=== PATIENT | male | born 1960 | race Caucasian/White ===

== ENCOUNTER 2019-01-08 08:20 | Day surgery (SDC) | payer OTHER ==
[2019-01-08 09:09] LABS: Absolute Lymphocytes (CBC) 1.8 K/uL (0.7-4.9); Absolute Monocytes 0.4 K/uL (0.1-1.3); Absolute Neutrophil 4.2 K/uL (1.8-8.0); Eosinophils % 5.9 % (0-4.4); Hematocrit 46.2 % (39.6-49.0); Lymphocytes % 26.5 % (15.3-44.8); MPV 9.3 fL (7.6-11.3); Monocytes % 6.1 % (3.3-12.3); RBC Red Blood Cell Count 4.76 M/uL (4.33-5.43)
[2019-01-08] MEDS ORDERED: CEFAZOLIN/SWI 1gm 1 GM/10 ML SYR ONE (09:17)
[2019-01-08] MEDS ORDERED: NA CHLORIDE 0.9% 1,000 ML ONE (09:17)
[2019-01-08 09:36] LABS: Potassium 4.7 mmol/L (3.5-5.1)
[2019-01-08] MEDS ORDERED: BUPIVACAINE 0.5% PF 10 ML VIAL ONE (09:52)
[2019-01-08] MEDS ORDERED: PROPOFOL 200 MG/20 ML VIAL IV ONE (09:55)
[2019-01-08] MEDS ORDERED: FENTANYL CITR 100 MCG/2 ML ONE (09:55)
[2019-01-08] MEDS ORDERED: MIDAZOLAM HCL 2 MG/2 ML INJ ONE (09:56)
[2019-01-08] MEDS ORDERED: LIDOCAINE 2% MPF 5 ML VIAL ONE (09:56)
--- NOTE | 2019-01-08 10:35 | RAD REPORT ---
EXAM DESCRIPTION: RAD - Chest Pa And Lat (2 Views) - 01/08/2019 9:20 am CLINICAL HISTORY: Preop chest, soft tissue abscess drainage procedure pending COMPARISON: June 2018, January 2015 TECHNIQUE: PA and lateral views of the chest were obtained. FINDINGS: The lungs are underinflated accentuating vasculature and lung markings. No peripheral mass or consolidation seen. No failure or volume overload. Heart size is normal and central vasculature is within normal limits. No pleural effusion or pneumothorax seen. No acute bony finding noted. N o aortic abnormality. IMPRESSION: No acute cardiopulmonary process. No suspicious change from comparison.
--- NOTE | 2019-01-08 10:37 | P.BOP ---
Preoperative diagnosis: suprapubic cellulitis with abscess, diabetes, morbid obesity, h/o dvt/PE Postoperative diagnosis: same Primary procedure: Incision and drainage of suprapubic complex abscess [id number] Estimated blood loss: <10cc Specimen: devitalized tissue Findings: see dictation Anesthesia: General Complications: None Drain(s): Other Transferred to: Recovery Room Condition: Good
[2019-01-08 11:48] VITALS: BP 114/78; TEMP 97; O2SAT 95
--- NOTE | 2019-01-08 20:26 | OP ---
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 Postoperative Diagnoses: Suprapubic cellulitis with abscess, diabetes, morbid obesity, history of de ep vein thrombosis and pulmonary embolism, and on anticoagulation. Procedure: Incision and drainage of a complex suprapubic abscess about 10 x 10 cm. Specimen: Devitalized tissue. Findings: The patient has an abscess. There is a lesion in that area, I am not sure exactly if the patient has an inflammatory mass in that region that got infected or it is part of just devitalized t issue from the infection itself, and the specimen was sent to the pathologist. There were multiple l oculations in the area of the suprapubic region. They were explored and packed. Anesthesia: General plus local. Indications: This is a case of a 58-year-old patient, who comes to us in last few hours with a cellu litis of the suprapubic area. The patient is morbidly obese, has diabetes, and he is starting to marya in purulent discharge. We asked him the importance of few things, doing an incision and drainage of this complex abscess, packing, and also taking his antibiotics and especially controlling his diabete s. The patient says, when he was asked about diabetes, he says he is just prediabetic, but apparentl y he is supposed to be taking insulin. That being said it is important he just address that issue wi th his primary doctor and understand his diagnosis and his treatment. He also understands the import ance of dressing changes, losing weight. He signed a consent. The area was marked by me and the pat valerio in the holding room. Description Of Procedure: The patient was brought to the operating room, placed in supine position. Anesthesia was done without complication. The patient has DVTs in bilateral lower extremities. He is on anticoagulation, so we did not put SCDs on him. We kept him awake on just sedation and local a nesthetic. Incision was made over the area. We noticed devitalized tissue that have to be removed, gave us access to the abscess cavity. Cultures were obtained. Loculations were explored and opened. Hemostasis obtained. Irrigated and then the area was packed with wet-to-dry dressing. The patient tolerated the procedure well. The patient was sent to Recovery in stable condition. MAGALYS/TAVIA Voice ID: [id number] Report ID: [id number]
--- NOTE | 2019-01-08 20:26 | DS ---
Date of Discharge: 01/08/2019 Diagnoses: Suprapubic cellulitis with abscess, diabetes, morbid obesity. Procedure: Incision and drainage of the suprapubic complex abscess. Disposition: Home. Instructions: Activity as tolerated. No heavy lifting. Follow up in my office in 1 week. Call for appointment [phone]. Keep area dry for the next 24 hours, but tomorrow morning and can do wet-to-dr y dressing daily. We are recommending to have home health agency to help him, although he may have a family member who can help him, it will be up to him. Follow up in my office in 1 week. If this ge t worse in the next few days or high fever, he was advised to come to the ER immediately, and once ag ain the importance of diabetes control. HM/MODL Voice ID: [id number] Report ID: [id number]
--- NOTE | 2019-01-09 16:34 | EKG ---
Test Date: 2019-01-08 Test Time: 08:45:56 Flexible Nanny: CHRISTOPHER MEASUREMENT RESULTS: Intervals: Rate: 67 [place]: 174 QRSD: 86 QT: 398 QTc: 420 [place]: P: 55 NJ: 174 QRS: 180 T: 43 INTERPRETIVE STATEMENTS: Normal sinus rhythm Right axis deviation Cannot rule out Anterior infarct, age undetermined Abnormal ECG Compared to ECG 07/17/2016 06:43:53 Prolonged QT interval no longer present Myocardial infarct finding still present Electronically Signed On 01-09-19 16:33:10 CDT by Dallin Alexander
== END 2019-01-08 11:25 | disposition home health service (06) ==
LOC: OR 08:20
PROVIDERS: ATTEND Surgery
PROC: 0J980ZZ Drainage of Abdomen Subcutaneous Tissue and Fascia, Open Approach (ICD-10-PCS; principal; 2019-01-08 09:45)
DX: L72.0 Epidermal cyst (principal); L03.319 Cellulitis of trunk, unspecified; E11.9 Type 2 diabetes mellitus without complications; I10 Essential (primary) hypertension; E66.01 Morbid (severe) obesity due to excess calories; Z79.01 Long term (current) use of anticoagulants; Z79.84 Long term (current) use of oral hypoglycemic drugs; Z79.899 Other long term (current) drug therapy; Z86.718 Personal history of other venous thrombosis and embolism; Z86.711 Personal history of pulmonary embolism
CPT/HCPCS: 36415; 71046; 80048; 82962; 85025; 87070; 87075; 87077; 87186; 87205; 88304; 93005; J0690; J2250; J2704; J3010; J7030

== ENCOUNTER 2020-03-19 13:14 | Inpatient (IN) | payer OTHER ==
--- NOTE | 2020-03-19 14:35 | EDPHYS ---
Physician Documentation [facility] Name: Branden Davenport Jr Age: 59 yrs Sex: Male : 1960 Arrival Date: 03/19/2020 Time: 13:17 Bed 5 Private MD: NIKOLAS Physician Patrick Woodruff HPI: 03/19 13:52 This 59 yrs old Male presents to ER via Wheelchair with complaints of Leg lexi Pain. 13:52 The patient presents with decreased range of motion, pain, swelling, tenderness. The lexi complaints affect the lateral aspect of right calf, right ankle, lateral aspect of right foot, right Achilles, medial aspect of right calf, medial aspect of right foot, anterior aspect of right ankle and dorsum of right foot. Context: The problem was sustained at an unknown site, resulted from a penetrating injury, an unknown cause, uncontrolled dm. Onset: The symptoms/episode began/occurred 3 day(s) ago. Modifying factors: The symptoms are alleviated by elevating leg. Associated signs and symptoms: Pertinent positives: swelling, warmth. Treatment prior to arrival includes: elevation of the extremity. Severity of symptoms: At their worst the symptoms were moderate, in the emergency department the symptoms are unchanged. The patient has not experienced similar symptoms in the past. Historical: - Allergies: 13:29 PENICILLINS; hb - PMHx: 13:29 Diabetes - NIDDM; Left foot drop; neuropathy; Hypertension; GERD; psoriasis; hb - PSHx: 13:29 Appendectomy; Back surgery; Colon resection; Right hip replacement; hb - Immunization history:: Adult Immunizations up to date. - Social history:: Smoking status: Patient denies any tobacco usage or history of. - Family history:: not pertinent. ROS: 13:52 Constitutional: Negative for fever, chills, and weight loss, Eyes: Negative for injury, lexi pain, redness, and discharge, ENT: Negative for injury, pain, and discharge, Neck: Negative for injury, pain, and swelling, Cardiovascular: Negative for chest pain, palpitations, and edema, Abdomen/GI: Negative for abdominal pain, nausea, vomiting, diarrhea, and constipation, Back: Negative for injury and pain, : Negative for injury, bleeding, discharge, and swelling, MS/Extremity: Negative for injury and deformity, Skin: Negative for injury, rash, and discoloration, Neuro: Negative for headache, weakness, numbness, tingling, and seizure. 13:52 Respiratory: Positive for cough, shortness of breath. 13:52 MS/extremity: Positive for pain, swelling, tenderness, of the right foot, right ankle, lateral aspect of right foot, medial aspect of right foot, anterior aspect of right ankle and dorsum of right foot. Exam: 13:52 Constitutional: This is a well developed, well nourished patient who is awake, alert, lexi and in no acute distress. Head/Face: Normocephalic, atraumatic. Eyes: Pupils equal round and reactive to light, extra-ocular motions intact. Lids and lashes normal. Conjunctiva and sclera are non-icteric and not injected. Cornea within normal limits. Periorbital areas with no swelling, redness, or edema. ENT: Nares patent. No nasal discharge, no septal abnormalities noted. Tympanic membranes are normal and external auditory canals are clear. Oropharynx with no redness, swelling, or masses, exudates, or evidence of obstruction, uvula midline. Mucous membranes moist. Neck: Trachea midline, no thyromegaly or masses palpated, and no cervical lymphadenopathy. Supple, full range of motion without nuchal rigidity, or vertebral point tenderness. No Meningismus. Chest/axilla: Normal chest wall appearance and motion. Nontender with no deformity. No lesions are appreciated. Cardiovascular: Regular rate and rhythm with a normal S1 and S2. No gallops, murmurs, or rubs. Normal PMI, no JVD. No pulse deficits. Respiratory: Lungs have equal breath sounds bilaterally, clear to auscultation and percussion. No rales, rhonchi or wheezes noted. No increased work of breathing, no retractions or nasal flaring. Abdomen/GI: Soft, non-tender, with normal bowel sounds. No distension or tympany. No guarding or rebound. No evidence of tenderness throughout. Back: No spinal tenderness. No costovertebral tenderness. Full range of motion. Skin: Warm, dry with normal turgor. Normal color with no rashes, no lesions, and no evidence of cellulitis. Neuro: Awake and alert, GCS 15, oriented to person, place, time, and situation. Cranial nerves II-XII grossly intact. Motor strength 5/5 in all extremities. Sensory grossly intact. Cerebellar exam normal. Normal gait. Psych: Awake, alert, with orientation to person, place and time. Behavior, mood, and affect are within normal limits. 13:52 Musculoskeletal/extremity: Extremities: noted in the right foot, right ankle, lateral aspect of right foot, medial aspect of right foot, anterior aspect of right ankle and dorsum of right foot: erythema, pain. 13:52 Skin: cellulitis, that is minimal, that is mild, induration, that is mild is noted, that is moderate is noted, injury, right plantar ulcer, with sock like ulceration. 15:04 ECG was reviewed by the Attending Physician. [facility] Vital Signs: 13:25 BP 89 / 69; Pulse 103; Resp 16; Temp 97.8(TE); Pulse Ox 95% on R/A; Weight 124.74 kg; hb Height 6 ft. 3 in. (190.50 cm); Pain 5/10; 14:54 BP 115 / 53; Pulse 57; Resp 18 S; Pulse Ox 98% on R/A; iw 15:23 BP 108 / 95; Pulse 78; Resp 16; Pulse Ox 97% on R/A; iw 15:58 BP 122 / 78; Pulse 94; Resp 18; Pulse Ox 95% on R/A; iw 13:25 Body Mass Index 34.37 (124.74 kg, 190.50 cm) hb MDM: 13:32 Patient medically screened. [facility] 13:59 Data reviewed: vital signs, nurses notes, lab test result(s), EKG, radiologic studies, [facility] CT scan, doppler, plain films. 15:22 Data interpreted: supervisor beehive kiln: rate is 57 beats/min, rhythm is regular, Pulse lexi oximetry: on room air is 98 %. Test interpretation: by ED physician or midlevel provider: ECG, plain radiologic studies. Counseling: I had a detailed discussion with the patient and/or guardian regarding: the historical points, exam findings, and any diagnostic results supporting the discharge/admit diagnosis, lab results, radiology results, the need for further work-up and treatment in the hospital. ED course: septic, weak, right dfu, fever, hyperkalemia, acute on chronic renal failure. 03/19 13:52 Order name: Basic Metabolic Panel; Complete Time: 15:20 [facility] 03/19 13:52 Order name: CBC with Diff; Complete Time: 15:18 [facility] 03/19 13:52 Order name: LFT's; Complete Time: 15:20 [facility] 03/19 13:52 Order name: Magnesium; Complete Time: 15:20 [facility] 03/19 13:52 Order name: NT PRO-BNP; Complete Time: 15:20 [facility] 03/19 13:52 Order name: PT-INR; Complete Time: 15:05 [facility] 03/19 13:52 Order name: Troponin (emerg Dept Use Only); Complete Time: 15:20 [facility] 03/19 13:52 Order name: XRAY Chest (1 view) [facility] 03/19 13:52 Order name: Lipase; Complete Time: 15:20 [facility] 03/19 13:52 Order name: Blood Culture Adult (2) [facility] 03/19 13:52 Order name: Lactate; Complete Time: 15:18 [facility] 03/19 13:52 Order name: Sed Rate; Complete Time: 15:18 [facility] 03/19 13:52 Order name: Wound Culture [facility] 03/19 13:52 Order name: Procalcitonin [facility] 03/19 13:52 Order name: EKG; Complete Time: 13:53 [facility] 03/19 13:52 Order name: Foot Right 3 View XRAY; Complete Time: 15:20 [facility] 03/19 15:08 Order name: Diet Ada 1800 Gautam; Complete Time: 15:08 03/19 15:12 Order name: CONS Physician Consult [facility] 03/19 13:52 Order name: Cardiac monitoring; Complete Time: 14:40 [facility] 03/19 13:52 Order name: EKG - Nurse/Tech; Complete Time: 14:40 [facility] 03/19 13:52 Order name: IV Saline Lock; Complete Time: 14:39 [facility] 03/19 13:52 Order name: Labs collected and sent; Complete Time: 14:39 [facility] 03/19 13:52 Order name: O2 Per Protocol; Complete Time: 14:39 [facility] 03/19 13:52 Order name: O2 Sat Monitoring; Complete Time: 14:39 [facility] EC:04 Rate is 90 beats/min. Rhythm is regular. QRS [place] is Normal. MS interval is normal. QRS lexi interval is normal. QT interval is normal. No Q waves. T waves are Normal. No ST changes noted. Clinical impression: NSR w/ Non-specific ST/T Changes and No evidence of ischemia. Interpreted by me. Reviewed by me. Administered Medications: 14:53 Drug: NS 0.9% 1000 ml Route: IV; Rate: 1 bolus; Site: left antecubital; iw 14:53 Drug: Cefepime 2 grams Route: IVPB; Rate: 200 ml/hr; Infused Over: 30 mins; Site: left iw antecubital; 15:20 Drug: vancoMYCIN 2 grams Route: IVPB; Rate: calculated rate; Site: left antecubital; iw 15:21 Drug: Silvadene Cream 1 % 1 application Route: Topical; Site: wound; iw 15:21 Drug: fentaNYL (PF) 25 mcg Route: IVP; Site: left antecubital; iw 16:00 Follow up: Response: No adverse reaction; Pain is decreased iw 15:21 Drug: Zofran (Ondansetron) 4 mg Route: IVP; Site: left antecubital; iw 16:00 Follow up: Response: No adverse reaction iw 15:44 Drug: Magnesium Sulfate 2 grams Route: IVPB; Infused Over: 2 hrs; Site: left iw antecubital; 16:00 Follow up: Response: No adverse reaction iw 15:44 Drug: Kayexalate 30 grams Route: PO; iw 16:10 Follow up: Response: No adverse reaction iw 15:58 Not Given (Physician Discretion): Pepcid 20 mg IVP once iw 16:27 Drug: NS 0.9% 1000 ml Route: IV; Rate: 1 bolus; Site: left antecubital; iw 16:28 Drug: NS 0.9% 1000 ml Route: IV; Rate: 125 ml/hr; Site: left antecubital; iw Disposition: 03/19/20 14:34 Hospitalization ordered by Jordy Renee for Inpatient Admission. Preliminary diagnosis are Cellulitis and acute lymphangitis of other parts of limb - right foot, ankle, Type 2 diabetes mellitus, Personal history of diabetic foot ulcer - recurrent, Hypotension, Sepsis, unspecified organism, Hypomagnesemia, Unspecified kidney failure - acute on chronic, Hyperkalemia, Fever, unspecified. - Bed requested for Telemetry/MedSurg (Inpatient). - Status is Inpatient Admission. iw - Condition is Fair. - Problem is new. - Symptoms have improved. Signatures: Dispatcher [employer] Ayala Calderón RN RN dw Anderson, Corey, MD MD cha Williams, Irene HERMINIO RN Maryanne Arizmendi RN RN Corrections: (The following items were deleted from the chart) 14:33 13:53 Chest For PE Angio+CT.RAD.BRZ ordered. EDDC EDDC 15:19 14:34 Hospitalization Ordered by Jordy Renee MD for Inpatient Admission. Preliminary lexi diagnosis is Cellulitis and acute lymphangitis of other parts of limb - right foot, ankle; Type 2 diabetes mellitus; Personal history of diabetic foot ulcer - recurrent; Hypotension; Sepsis, unspecified organism. Bed requested for Telemetry/MedSurg (Inpatient). Status is Inpatient Admission. Condition is Fair. Problem is new. Symptoms have improved. [facility] 15:21 15:19 03/19/2020 14:34 Hospitalization Ordered by Jordy Renee MD for Inpatient lexi Admission. Preliminary diagnosis is Cellulitis and acute lymphangitis of other parts of limb - right foot, ankle; Type 2 diabetes mellitus; Personal history of diabetic foot ulcer - recurrent; Hypotension; Sepsis, unspecified organism; Hypomagnesemia; Unspecified kidney failure - acute on chronic. Bed requested for Telemetry/MedSurg (Inpatient). Status is Inpatient Admission. Condition is Fair. Problem is new. Symptoms have improved. [facility] 15:25 15:21 03/19/2020 14:34 Hospitalization Ordered by Jordy Renee MD for Inpatient lexi Admission. Preliminary diagnosis is Cellulitis and acute lymphangitis of other parts of limb - right foot, ankle; Type 2 diabetes mellitus; Personal history of diabetic foot ulcer - recurrent; Hypotension; Sepsis, unspecified organism; Hypomagnesemia; Unspecified kidney failure - acute on chronic; Hyperkalemia. Bed requested for Telemetry/MedSurg (Inpatient). Status is Inpatient Admission. Condition is Fair. Problem is new. Symptoms have improved. [facility] 15:32 15:25 03/19/2020 14:34 Hospitalization Ordered by Jordy Renee MD for Inpatient dw Admission. Preliminary diagnosis is Cellulitis and acute lymphangitis of other parts of limb - right foot, ankle; Type 2 diabetes mellitus; Personal history of diabetic foot ulcer - recurrent; Hypotension; Sepsis, unspecified organism; Hypomagnesemia; Unspecified kidney failure - acute on chronic; Hyperkalemia; Fever, unspecified. Bed requested for Telemetry/MedSurg (Inpatient). Status is Inpatient Admission. Condition is Fair. Problem is new. Symptoms have improved. lexi 17:01 15:32 03/19/2020 14:34 Hospitalization Ordered by Jordy Renee MD for Inpatient iw Admission. Preliminary diagnosis is Cellulitis and acute lymphangitis of other parts of limb - right foot, ankle; Type 2 diabetes mellitus; Personal history of diabetic foot ulcer - recurrent; Hypotension; Sepsis, unspecified organism; Hypomagnesemia; Unspecified kidney failure - acute on chronic; Hyperkalemia; Fever, unspecified. Bed requested for Telemetry/MedSurg (Inpatient). Status is Inpatient Admission. Condition is Fair. Problem is new. Symptoms have improved. dw
--- NOTE | 2020-03-19 14:35 | ER ---
Nurse's Notes [facility] Name: Branden Davenport Jr Age: 59 yrs Sex: Male : 1960 Arrival Date: 03/19/2020 Time: 13:17 Bed 5 Private MD: Diagnosis: Cellulitis and acute lymphangitis of other parts of limb-right foot, ankle;Type 2 diabetes mellitus;Personal history of diabetic foot ulcer-recurrent;Hypotension;Sepsis, unspecified organism;Hypomagnesemia;Unspecified kidney failure-acute on chronic;Hyperkalemia;Fever, unspecified Presentation: 03/19 13:25 Chief complaint: Bilateral lower leg pain x 2-3 days, right lower leg swelling x 2 hb days. Hx of DVT, reports pain is similar. Coronavirus screen: At this time, the client does not indicate any symptoms associated with coronavirus-19. Ebola Screen: No symptoms or risks identified at this time. Initial Sepsis Screen: Does the patient meet any 2 criteria? HR > 90 bpm. Initial Sepsis Screen: Does the patient have a suspected source of infection? No. Patient's initial sepsis screen is negative. Risk Assessment: Do you want to hurt yourself or someone else? Patient reports no desire to harm self or others. Onset of symptoms was March 17, 2020. 13:25 Method Of Arrival: Wheelchair hb 13:25 Acuity: NELLI 3 hb Triage Assessment: 15:59 General: Appears in no apparent distress. Behavior is calm, cooperative. iw Historical: - Allergies: 13:29 PENICILLINS; hb - PMHx: 13:29 Diabetes - NIDDM; Left foot drop; neuropathy; Hypertension; GERD; psoriasis; hb - PSHx: 13:29 Appendectomy; Back surgery; Colon resection; Right hip replacement; hb - Immunization history:: Adult Immunizations up to date. - Social history:: Smoking status: Patient denies any tobacco usage or history of. - Family history:: not pertinent. Screenin:54 Abuse screen: Denies threats or abuse. Denies injuries from another. Nutritional iw screening: No deficits noted. Tuberculosis screening: No symptoms or risk factors identified. Fall Risk IV access (20 points). Assessment: 14:00 General: Appears in no apparent distress. comfortable, Behavior is calm, cooperative. iw Pain: Complains of pain in dorsum of right foot and anterior aspect of right ankle and medial aspect of right foot and medial aspect of right calf. Neuro: Level of Consciousness is awake, alert, obeys commands, Oriented to person, place, time, situation, Moves all extremities. Full function. Cardiovascular: Patient's skin is warm and dry. Respiratory: Respiratory effort is even, unlabored, Respiratory pattern is regular, symmetrical. GI: Abdomen is non-distended. Derm: Skin. Derm: Decubitus located on right foot approximately 1.5 cm to 2.5 cm is stage II bed has granulation present is draining small amount purulent. Musculoskeletal: Range of motion: intact in all extremities. 14:54 Reassessment: pt requesting pain medication an food, pt normally takes hydrocodone 7.5 iw mg three times per day. 15:22 Reassessment: Patient appears in no apparent distress at this time. pt given pain iw medication, wound care complete, started vancomycin IVPB, warm blankets given, fluids infusing freely, VSS, BP improved. 15:55 Reassessment: Patient appears in no apparent distress at this time. Patient and/or iw family updated on plan of care and expected duration. Pain level reassessed. Vital Signs: 13:25 BP 89 / 69; Pulse 103; Resp 16; Temp 97.8(TE); Pulse Ox 95% on R/A; Weight 124.74 kg; hb Height 6 ft. 3 in. (190.50 cm); Pain 5/10; 14:54 BP 115 / 53; Pulse 57; Resp 18 S; Pulse Ox 98% on R/A; iw 15:23 BP 108 / 95; Pulse 78; Resp 16; Pulse Ox 97% on R/A; iw 15:58 BP 122 / 78; Pulse 94; Resp 18; Pulse Ox 95% on R/A; iw 13:25 Body Mass Index 34.37 (124.74 kg, 190.50 cm) hb ED Course: 13:17 Patient arrived in ED. bp1 13:25 Patient has correct armband on for positive identification. iw 13:28 Triage completed. hb 13:29 Arm band placed on. hb 13:31 Carolyne Sauceda, HERMINIO is Primary Nurse. iw 13:32 Patrick Woodruff MD is Attending Physician. lexi 14:15 Missed attempt(s): 20 gauge in left antecubital area. Bleeding controlled, band aid dh3 applied, catheter tip intact. 14:18 Missed attempt(s): 20 gauge in right antecubital area. Bleeding controlled, band aid dh3 applied, catheter tip intact. 14:20 Inserted saline lock: 22 gauge in left antecubital area, using aseptic technique. Blood dh3 collected. by [employer]. 14:20 Initial lab(s) drawn, by pr, sent to lab. dh3 14:32 Jordy Renee MD is Hospitalizing Provider. [facility] 14:49 EKG done, by ED staff, reviewed by Patrick Woodruff MD. dh3 15:00 XRAY Chest (1 view) In Process Unspecified. EDMS 15:00 Foot Right 3 View XRAY In Process Unspecified. EDMS 15:59 No provider procedures requiring assistance completed. Patient admitted, IV remains in iw place. Administered Medications: 14:53 Drug: NS 0.9% 1000 ml Route: IV; Rate: 1 bolus; Site: left antecubital; iw 14:53 Drug: Cefepime 2 grams Route: IVPB; Rate: 200 ml/hr; Infused Over: 30 mins; Site: left iw antecubital; 15:20 Drug: vancoMYCIN 2 grams Route: IVPB; Rate: calculated rate; Site: left antecubital; iw 15:21 Drug: Silvadene Cream 1 % 1 application Route: Topical; Site: wound; iw 15:21 Drug: fentaNYL (PF) 25 mcg Route: IVP; Site: left antecubital; iw 16:00 Follow up: Response: No adverse reaction; Pain is decreased iw 15:21 Drug: Zofran (Ondansetron) 4 mg Route: IVP; Site: left antecubital; iw 16:00 Follow up: Response: No adverse reaction iw 15:44 Drug: Magnesium Sulfate 2 grams Route: IVPB; Infused Over: 2 hrs; Site: left iw antecubital; 16:00 Follow up: Response: No adverse reaction iw 15:44 Drug: Kayexalate 30 grams Route: PO; iw 16:10 Follow up: Response: No adverse reaction iw 15:58 Not Given (Physician Discretion): Pepcid 20 mg IVP once iw 16:27 Drug: NS 0.9% 1000 ml Route: IV; Rate: 1 bolus; Site: left antecubital; iw 16:28 Drug: NS 0.9% 1000 ml Route: IV; Rate: 125 ml/hr; Site: left antecubital; Outcome: 14:34 Decision to Hospitalize by Provider. lexi 17:00 Admitted to Med/surg accompanied by tech, via stretcher, with chart. iw 17:00 Condition: good 17:00 Discharge instructions given to patient, Instructed on the need for admit, Demonstrated understanding of instructions. 17:01 Patient left the ED. Signatures: Dispatcher [employer] EDPatrick Snowden MD MD cha Williams, Irene, RN RN Maryanne Arizmendi, HERMINIO DURHAM Ya Solorzano 3 Val H[facility] [employer]rections: (The following items were deleted from the chart) 14:38 14:25 Inserted saline lock: 22 gauge in left antecubital area, using aseptic technique. 3 Blood collected. by Haily Zurita 3
[2020-03-19] MEDS ORDERED: NA CHLORIDE 0.9% 0 ML ONE (14:46)
[2020-03-19] MEDS ORDERED: NA CHLORIDE 0.9% 100 ML IV ONE (14:46)
[2020-03-19] MEDS ORDERED: SILVER SULFADIAZINE 1% 25 GM TOP ONE (14:46)
[2020-03-19] MEDS ORDERED: CEFEPIME 2 GM VIAL ONE (14:46)
[2020-03-19 14:48] LABS: Protime INR 1.32
[2020-03-19 14:49] LABS: Absolute Lymphocytes (CBC) 1.1 K/uL (0.7-4.9); Basophils % 0.7 % (0-1.3); Hematocrit 44.9 % (39.6-49.0); Lymphocytes % 11.8 % (15.3-44.8); MPV 8.8 fL (7.6-11.3)
[2020-03-19] MEDS ORDERED: VANCOMYCIN 2 GM in NA CHLORIDE 0.9% 500 ML IVPB ONE (15:00)
[2020-03-19 15:16] LABS: ALT/SGPT 14 U/L (12-78); Albumin 3.2 g/dL (3.4-5.0); Alkaline Phosphatase 46 U/L (45-117); BUN Blood Urea Nitrogen 35 mg/dL (7-18); Bicarbonate 28 mmol/L (21-32); Bilirubin Direct 0.3 mg/dL (0-0.2); Bilirubin Total 0.9 mg/dL (0.2-1.0); Glucose Level 309 mg/dL (74-106); Lipase 58 U/L (73-393); NT PRO-BNP 182 pg/mL (<125); Sodium Level 132 mmol/L (136-145); Troponin (Emerg Dept Use Only) < 0.02 ng/mL (0.0-0.045)
[2020-03-19 15:17] LABS: AST/SGOT 15 U/L (15-37); Potassium 5.5 mmol/L (3.5-5.1)
--- NOTE | 2020-03-19 15:17 | RAD REPORT ---
EXAM DESCRIPTION: RAD - Foot Right 3 View - 03/19/2020 3:00 pm CLINICAL HISTORY: PAIN, plantar wound COMPARISON: No comparisons FINDINGS: No fracture, dislocation or periosteal reaction. No acute or destructive process seen. Wou nd is seen in the plantar soft tissues near the MTP joints. No erosive or destructive process to susp ect osteomyelitis. MTP and IP joint assessment is somewhat limited due to the patient being an flexio n at the IP joints and extension at the MTP joints. This creates overlapping bony structures. No air or foreign body in the soft tissues. IMPRESSION: No acute bone finding. No suspicion for osteomyelitis.
[2020-03-19 15:19] LABS: Magnesium 1.1 mg/dL (1.8-2.4)
[2020-03-19] MEDS ORDERED: ONDANSETRON 4 MG/2 ML VIAL ONE (15:22)
[2020-03-19] MEDS ORDERED: FENTANYL CITR 100 MCG/2 ML ONE (15:22)
--- NOTE | 2020-03-19 15:23 | RAD REPORT ---
EXAM DESCRIPTION: RAD - Chest Single View - 03/19/2020 3:00 pm CLINICAL HISTORY: Cough;Dyspnea COMPARISON: Two view chest December 2018, portable June 2016 TECHNIQUE: AP portable chest image was obtained 03/19/2020 3:00 pm . FINDINGS: Lung volumes are low. No failure or volume overload. No acute lung parenchymal process see n. Heart and vasculature are normal. Right hilar fullness and right suprahilar fullness believed to b e the affects of body habitus and low lung volumes. Substantial change from comparison is not seen. N o measurable pleural effusion and no pneumothorax. No acute bony abnormality seen. No acute aortic fi ndings suspected. IMPRESSION: No acute cardiopulmonary process. No significant change from comparison.
--- NOTE | 2020-03-19 15:31 | P.HP ---
Certification for Inpatient Patient admitted to: Inpatient With expected LOS: >2 Midnights Patient will require the following post-hospital care: None Practitioner: I am a practitioner with admitting privileges, knowledge of patient current condition, hospital course, and medical plan of care. Services: Services provided to patient in accordance with Admission requirements found in Title 42 Section 412.3 of the Code of Federal Regulations <Warner Dumont - Last Filed: 03/19/20 15:26> Patient History Date of Service: 03/19/20 Reason for admission: Cellulitis/diabetic foot ulcer History of Present Illness: 59-year-old male with past medical history of hypertension and type 2 diabetes presents to the emergency room complaining of right leg pain. Patient is noncompliant with his diabetic medication. Rarely checks his blood glucose. States that for the past 2 days he has noticed a decrease in range of motion, at pain and swelling and tenderness in the right leg from the right calf to the right ankle. States that he has no feeling in the plantar aspect of his foot and that he has been taking care of a diabetic foot ulcer located at the base on the plantar side of the great toe by himself. In the ER patient right lower leg is slightly swollen and erythematous. There is an obvious ulceration at the head of the great toe on the plantar side of the right foot. There is also a 2 cm x 1 cm blood blister along the forced digit on the plantar side of the right foot. Blood work in the emergency room shows a ma gnesium level of 1.1 which is significantly decreased, white blood cell that is normal at 9.7. Temperature 97.8 and a procalcitonin that is pending. Patient does not appear to be septic at this time. On exam the right foot appears erythematous with some slight swelling at the great toe and an obvious diabetic foot ulcer in the plantar aspect of the right foot. There is also a blood blister on the 3rd to 4th toe on the plantar aspect of the right foot. The right leg does not appear swollen but he is complaining of tenderness with palpitation. Right leg ultrasound pending. Patient will be admitted for IV antibiotic therapy and further evaluation. - Past Medical/Surgical History Diabetic: Yes -: HTN -: GERD -: Diabetes mellitus -: Left foot drop -: Appendectomy -: back surgery -: colon resection -: right hip replacement Psychosocial/ Personal History: Lives at home - Family History Mother -: Hypertension, Diabetes, Stroke, Cancer Father -: Diabetes - Social History Smoking Status: Never smoker Smoking therapy provided: No Patient receptive to therapy: No Alcohol use: Yes CD- Drugs: No Caffeine use: No Place of Residence: Home <Warner Dumont - Last Filed: 03/19/20 15:26> Date of Service: 03/19/20 <VíctorAliceJorgepop Guzman - Last Filed: 03/19/20 18:04> Allergies No Known Allergies Allergy (Verified 01/08/19 09:33) Home Medications: Gabapentin 1 tab PO TID 07/16/16 Apixaban [Eliquis *] 5 mg PO BID #60 tablet 07/19/16 Metoprolol Tartrate [Lopressor*] 25 mg PO BID 6AM 6PM #60 tab 07/19/16 Codeine/APAP [Tylenol W/Codeine #3 tab] 1 tab PO Q4HP PRN #30 tab 01/08/19 Lisinopril [Zestril] 30 mg PO DAILY 01/08/19 Metformin HCl 500 mg PO BID 01/08/19 NaCl 0.9% Irr Bottle [Ns Irrigation Bottle] 1,000 ml IR DAILY #1 btl 01/08/19 Omeprazole [Prilosec] 40 mg PO DAILY 01/08/19 glyBURIDE [Glyburide] 5 mg PO DAILY 01/08/19 Review of Systems General: As per HPI Eyes: Unremarkable ENT: Unremarkable Respiratory: Unremarkable Cardiovascular: Unremarkable Gastrointestinal: Unremarkable Genitourinary: Unremarkable Musculoskeletal: Leg Pain, Foot Pain, As per HPI Integumentary: Unremarkable Neurological: Unremarkable Lymphatics: Unremarkable <Warner Dumont - Last Filed: 03/19/20 15:26> Physical Examination - Vital Signs Temperature: 97.8 F Pulse Ox (%): 95 (RA) - Physical Exam General: Alert, In no apparent distress, Oriented x3 HEENT: Atraumatic, Normocephalic, PERRLA Neck: Supple, Other (Trachea midline) Respiratory: Clear to auscultation bilaterally, Normal air movement Cardiovascular: No edema, Normal pulses, Normal S1 S2 Capillary refill: <2 Seconds Gastrointestinal: Normal bowel sounds, Soft and benign, Non-distended Musculoskeletal: Swelling (Right foot), Erythema (Right foot to distal right calf), Tenderness, Warmth Integumentary: Tenderness/swelling, Diabetic ulcer (Plantar side or right foot) Neurological: Normal gait, Normal speech, Normal strength at 5/5 x4 extr, Normal tone Other Physical/Emotional Findings: Lives at home - Studies Laboratory Data (last 24 hrs) 03/19/20 14:25: Sodium 132 L, Potassium 5.5 H, BUN 35 H, Creatinine 2.12 H, Glucose 309 H, Magnesium 1.1 L*, Total Bilirubin 0.9, AST 15, ALT 14, Alkaline Phosphatase 46, Lipase 58 L 03/19/20 14:20: PT 15.5 H, INR 1.32 03/19/20 14:20: WBC 9.7, Hgb 14.8, Hct 44.9, Plt Count 218 <Warner Dumont - Last Filed: 03/19/20 15:26> - Studies Laboratory Data (last 24 hrs) 03/19/20 14:25: Sodium 132 L, Potassium 5.5 H, BUN 35 H, Creatinine 2.12 H, Glucose 309 H, Magnesium 1.1 L*, Total Bilirubin 0.9, AST 15, ALT 14, Alkaline Phosphatase 46, Lipase 58 L 03/19/20 14:20: PT 15.5 H, INR 1.32 03/19/20 14:20: WBC 9.7, Hgb 14.8, Hct 44.9, Plt Count 218 <Jorge Renee - Last Filed: 03/19/20 18:04> Assessment and Plan - Plan Impression: Right foot diabetic foot ulcer with right lower extremity cellulitis: Acute on chronic kidney disease: Type 2 diabetes mellitus: Hypomagnesemia: Hyperkalemia: Essential hypertension: Plan: Right foot diabetic foot ulcer with right lower extremity cellulitis: Patient was started on IV vancomycin and IV ceftriaxone. Will ask pharmacy to renally dose. Consult Infectious Disease. Patient will also require wound care for diabetic foot ulcer. Will order MRI of the foot without contrast due to kidney function to rule out osteomyelitis. Will monitor cellulitis and adjust antibiotic by recommendations and as needed. Acute on chronic kidney disease: Patient's creatinine level usually ranges between 1.3 1.6. Creatinine today is 2.12. Will continue gentle IV hydration. Will monitor creatinine levels daily. Will consult Nephrology. Type 2 diabetes mellitus: ED lab work show and a blood glucose of 309. Patient has a history of noncompliance with medications. Will start patient on sliding scale insulin and adjust medications accordingly. Patient's blood glucose may be elevated as well due to the right foot infection. Hypomagnesemia: Magnesium level of 101 on admission. Will continue to replace and monitor Mag levels daily. Hyperkalemia: ED lab work showing a potassium level of 5.5. Will continue gentle IV hydration and monitor daily labs. Will place patient on continuous telemetry. Essential hypertension: Will hold off on restarting patient's home blood pressure medications. Patient's blood pressure was borderline hypotensive in the ED. Will monitor blood pressure. Discharge Plan: Home Plan to discharge in: 48 Hours - Advance Directives Does patient have a Living Will: No Does patient have a Durable POA for Healthcare: No - Code Status/Comfort Care Code Status Assessed: Yes Time Spent Managing Pts Care (In Minutes): 55 <Warner Dumont - Last Filed: 03/19/20 15:26> Physician Review: Patient Assessed, Agree with Above Assessment and Plan <Jorge Renee - Last Filed: 03/19/20 18:04>
[2020-03-19] MEDS ORDERED: SOD POLYSTYREN SUL 15 GM/60 ML UCUP ONE (15:44)
[2020-03-19] MEDS ORDERED: Magnesium Sulfate 2gm IVPB 2 G/50 ML BAG IV ONE (15:44)
[2020-03-19] MEDS: CEFTRIAXONE/SWI 1gm 1 GM/10 ML SYR IVP SCH (16:00)
[2020-03-19] MEDS ORDERED: ONDANSETRON 4 MG/2 ML VIAL IV PRN (16:25)
[2020-03-19] MEDS: NA CHLORIDE 0.9% 1,000 ML IV SCH (16:25)
[2020-03-19] MEDS ORDERED: ACETAMINOPHEN 500 MG TAB PO PRN (16:25)
[2020-03-19] MEDS: INSULIN -REGULAR HUMAN 50 UNIT/0.5 ML ML SQ SCH ×2 (16:30→20:21)
[2020-03-19] MEDS ORDERED: NA CHLORIDE 0.9% 1,000 ML ONE (16:40)
[2020-03-19] MEDS ORDERED: CEFTRIAXONE/SWI 1gm 1 GM/10 ML SYR ONE (16:40)
[2020-03-19] MEDS ORDERED: HEPARIN 5000 UNIT/ML 1 ML VIAL SQ SCH (17:00)
[2020-03-19 17:33] VITALS: BMI 34.2
[2020-03-19] MEDS ORDERED: METOPROLOL TAR 25 MG TAB PO SCH (18:00)
[2020-03-19] MEDS ORDERED: PNEUMOCOCCAL VACCINE 0.5 ML IMVAC ONE (20:00)
[2020-03-19] MEDS: CODEINE 30MG/APAP 300MG TAB PO PRN (20:20)
[2020-03-19] MEDS: APIXABAN 5 MG TABLET PO SCH (20:21)
[2020-03-20] MEDS: NA CHLORIDE 0.9% 1,000 ML IV SCH ×3 (01:21→18:16)
--- NOTE | 2020-03-20 01:29 | CON ---
Date of Consultation: 03/19/2020 Chief Complaint: Acute on chronic kidney injury. History Of Present Illness: The patient has multiple medical problems including chronic kidney disea se due to diabetes mellitus and hypertension. Previously, creatinine level was ranging from 1.5 to 1 .8. The patient came to the hospital, was found to have elevated azotemia. Creatinine was over 2 an d there is high BUN-creatinine ratio. He has nonoliguric urine output. He has history of diabetes, hypertension, and came to emergency room complaining of right leg pain. He is noncompliant with diab etic medication. He does not check glucose level. Today, he noted decreased motion and pain, swelli ng and tenderness of the right leg from right calf to the right ankle. He was also feeling pain over plantar aspect of his foot and was taking wound care of the foot ulcer located at the base of the pl ramses side. He was found to have swelling, erythema, and ulceration of the head of the great toe on the plantar side of the right foot, about 1 cm blood blister was also found on the plantar side of th e right foot. Blood work was obtained and magnesium was depleted to 1.1. The patient was screened f or hep C and nephrology consultation is requested for acute on chronic kidney injury. Past Medical History: Hypertension, diabetes mellitus, left foot drop, appendectomy, back surgery, c olon resection, right hip replacement. Family History: Mother with hypertension, diabetes, throat cancer. Social History: Denies tobacco, alcohol, or illicit drug. Review of Systems: Eyes: Denies new vision changes. Ears, Nose, Mouth, and Throat: Denies sore throat or earache. Respiratory: Denies PND or orthopnea. Cardiovascular: Denies chest pain, palpitation, syncope. GI: Denies nausea or vomiting. : Denies dysuria, hematuria, incomplete voiding. Musculoskeletal: Complains of leg pain, foot pain, and some chronic wound with erythema and swelling . All other systems reviewed and all are negative. Physical Examination: General: Alert, not in apparent distress. Eyes: Anicteric sclerae. EOMI. Ears, Nose, Mouth, and Throat: Oral mucosa moist. No pallor. Neck: Supple. No bruits. Lungs: Diminished breath sounds at bases. Heart: S1, S2. No pericardial friction rub. Abdomen: Soft, obese, nontender. No rebound. No guarding. Extremities: Dressing in place. Right foot swelling. Erythema of the right foot to the distal righ t calf. Tenderness and increased warmth. Neurologic: No tremors. Cranial nerves intact. Laboratory Data: Sodium 132, potassium 5.5, BUN 35, creatinine 2.1, glucose 309, magnesium 1.1, tota l bilirubin 0.9, AST 15, ALT 14, AP 46, lipase 58. Hemoglobin 14.8, WBC 9.7, platelet count 218. Impression And Plan: 1.Acute on chronic kidney injury, nonoliguric. The patient has uncontrolled diabetes and hypertensi on. Likely, there is element of prerenal azotemia and plan is to rule out other etiology and screen for proteinuria. Hyperkalemia is related to uncontrolled diabetes and renal hypoperfusion. Recommen d to avoid GAY inhibitor. Monitor renal panel and treat acidosis as needed. 2.Diabetes mellitus, uncontrolled. The patient will resume insulin. 3.Plan is to check renal ultrasound to screen for any evidence of bladder outlet obstruction. The p atient has history of diabetes mellitus. Recommend to avoid metformin and lisinopril. At this point , the patient has acute kidney injury and the patient may benefit from IV fluids. 4.The patient is treated for sepsis. We will start antibiotic for osteomyelitis and will require wo und care and broad-spectrum antibiotics. Culture pending. 5.Hypomagnesemia. Replacement. Monitor magnesium and adjust replacement. EB/MODL Voice ID: [id number] Report ID: [id number]
[2020-03-20 06:12] LABS: Absolute Lymphocytes (CBC) 1.6 K/uL (0.7-4.9); Basophils % 0.8 % (0-1.3); Hematocrit 41.9 % (39.6-49.0); Lymphocytes % 15.7 % (15.3-44.8); MPV 8.8 fL (7.6-11.3); RBC Red Blood Cell Count 4.48 M/uL (4.33-5.43)
[2020-03-20] MEDS: CODEINE 30MG/APAP 300MG TAB PO PRN (06:12)
[2020-03-20 06:37] LABS: Potassium 3.9 mmol/L (3.5-5.1)
[2020-03-20 06:39] LABS: Magnesium 1.4 mg/dL (1.8-2.4)
[2020-03-20 07:50] LABS: Urine Protein/Creatinine Ratio 0.27 ratio (<0.15)
[2020-03-20] MEDS ORDERED: Magnesium Sulfate 2gm IVPB 2 G/50 ML BAG IV ONE (08:00)
[2020-03-20] MEDS: INSULIN -REGULAR HUMAN 50 UNIT/0.5 ML ML SQ SCH ×4 (08:39→21:10)
[2020-03-20] MEDS: CEFTRIAXONE/SWI 1gm 1 GM/10 ML SYR IVP SCH (08:40)
[2020-03-20] MEDS: PANTOPRAZOLE 40MG TABLET PO SCH (08:40)
[2020-03-20] MEDS: APIXABAN 5 MG TABLET PO SCH ×2 (08:40→21:09)
[2020-03-20] MEDS ORDERED: NACL 0.9% IRR SCH (09:00)
[2020-03-20] MEDS ORDERED: LISINOPRIL 30 MG PO SCH (09:00)
[2020-03-20] MEDS ORDERED: HOME MED 1 EA UNK (Omeprazole [Prilosec] 40 MG) PO SCH (09:00)
[2020-03-20] MEDS ORDERED: IRR IRR SCH (09:00)
--- NOTE | 2020-03-20 12:21 | P.PN ---
Subjective Date of Service: 03/20/20 Chief Complaint: Cellulitis/diabetic foot ulcer Subjective: Improving, Doing well (Right leg pain and erythema slightly improved from yesterday.) <Warner Dumont - Last Filed: 03/20/20 12:16> Date of Service: 03/20/20 <NamrataMikie llanos - Last Filed: 03/20/20 17:21> Review of Systems General: As per HPI Eyes: Unremarkable ENT: Unremarkable Respiratory: Unremarkable Cardiovascular: Unremarkable Gastrointestinal: Unremarkable Genitourinary: Unremarkable Musculoskeletal: Leg Pain (Right leg), Foot Pain (Right foot) Integumentary: Unremarkable Neurological: Numbness (Bilateral lower extremity neuropathy) Lymphatics: Unremarkable <LeahrikkiWarnre bell - Last Filed: 03/20/20 12:16> Physical Examination - Vital Signs Temperature: 98.8 F Blood Pressure: 99/57 Pulse: 114 Respirations: 19 Pulse Ox (%): 91 - Physical Exam General: Alert, In no apparent distress, Oriented x3 HEENT: Atraumatic, Normocephalic, PERRLA, Mucous membr. moist/pink Neck: Supple, No Thyromegaly, Other (Trachea midline) Respiratory: Clear to auscultation bilaterally, Normal air movement Cardiovascular: No edema, Normal pulses, Regular rate/rhythm, Normal S1 S2 Capillary refill: <2 Seconds Gastrointestinal: Normal bowel sounds, Soft and benign, Non-distended Musculoskeletal: No clubbing, No contractures, Swelling (Right lower extremity, improving), Erythema (Right lower extremity, improving), Tenderness (Right lower extremity, improved) Integumentary: No rashes, No breakdown, No significant lesion, No tenderness/swelling Neurological: Normal gait, Normal speech, Normal strength at 5/5 x4 extr, Normal tone Other Physical/Emotional Findings: Lives at home - Studies Laboratory Data (last 24 hrs) 03/19/20 14:25: Sodium 132 L, Potassium 5.5 H, BUN 35 H, Creatinine 2.12 H, Glucose 309 H, Magnesium 1.1 L*, Total Bilirubin 0.9, AST 15, ALT 14, Alkaline Phosphatase 46, Lipase 58 L 03/19/20 14:20: PT 15.5 H, INR 1.32 03/19/20 14:20: WBC 9.7, Hgb 14.8, Hct 44.9, Plt Count 218 <Wraner Dumont - Last Filed: 03/20/20 12:16> - Studies Microbiology Data (last 24 hrs): 03/19/20 15:00 Wound - Right Foot Gram Stain - Final <Mikie Wright - Last Filed: 03/20/20 17:21> Assessment And Plan - Plan Impression: Right diabetic foot ulcer with right lower extremity cellulitis: Acute on chronic kidney disease: Type 2 diabetes mellitus: Hypomagnesemia: Hyperkalemia: Essential hypertension: Plan: Right diabetic foot ulcer with right lower extremity cellulitis: Continue IV vancomycin and IV ceftriaxone. Will ask pharmacy to renally dose. Consult for Infectious Disease in place. Patient will also require wound care for diabetic foot ulcer. Will order MRI of the foot without contrast due to kidney function to rule out osteomyelitis. Will order lower extremity venous and arterial ultrasound to evaluate circulation and to rule out a DVT. Will monitor cellulitis and adjust antibiotic by recommendations and as needed. Will consult surgery for possible surgical intervention and/or debridement of the right foot. Acute on chronic kidney disease: Stage III. Patient's creatinine level usually ranges between 1.3 - 1.6. Creatinine yesterday was 2.12 and is now down to 1.88. Slowly improving. Will continue gentle IV hydration. Will monitor creatinine levels daily. Will consult Nephrology. Type 2 diabetes mellitus: ED lab work on admission show and a blood glucose of 309. Patient has a history of noncompliance with medications. Continue patient on sliding scale insuli, Accu-Cheks a.c. HS and adjust medications accordingly. Patient's blood glucose may be elevated as well due to the right foot infection. Hypomagnesemia: Magnesium level of 1.1 on admission. Magnesium improved to 1.4 this morning after replacement. Will continue to replace and monitor Mag levels daily. Hyperkalemia: ED lab work showing a potassium level of 5.5. Today potassium has returned to normal at 3.9. Will continue gentle IV hydration and monitor daily labs. Will place patient on continuous telemetry. And replace potassium as needed. Essential hypertension: Blood pressure continues low at 90 9/57. Will hold off on restarting patient's home blood pressure medications. Patient's blood pressure was borderline hypotensive in the ED on admission. Will continue to monitor blood pressure. Discharge Plan: Home Plan to discharge in: 72 Hours - Code Status/Comfort Care Code Status Assessed: Yes Physician Review: Patient Assessed, Agree with Above Assessment and Plan Time Spent Managing PTS Care (In Minutes): 55 <Warner Dumont - Last Filed: 03/20/20 12:16> - Plan Patient examined. Agree with evaluation, assessment, and plan of care by physician after school program assistant. Continue with above recommendations. Await recommendations by infectious disease. <Mikie Wright - Last Filed: 03/20/20 17:21>
[2020-03-20] MEDS: GABAPENTIN 300 MG CAP PO SCH ×2 (13:13→21:09)
[2020-03-20] MEDS: VANCOMYCIN 2 GM in NA CHLORIDE 0.9% 500 ML IVPB SCH (14:38)
[2020-03-20] MEDS ORDERED: HYDROCODONE/APAP 7.5/325 MG TAB PO SCH (17:00)
--- NOTE | 2020-03-20 18:49 | RAD REPORT ---
EXAM DESCRIPTION: US - Extrem Venous W Compress Praveen - 03/20/2020 6:42 pm CLINICAL HISTORY: Lower extremity swelling and pain Bilateral leg edema and swelling. COMPARISON: Extrem Venous W Compress Praveen dated 07/16/2016 TECHNIQUE: Real-time sonographic interrogation of the left and right lower extremity deep venous sys tems was performed. FINDINGS: Normal compressibility, flow augmentation, phasic flow and spontaneous flow is identified in both the left and right lower extremity deep venous systems. IMPRESSION: No sonographic evidence of left or right lower extremity deep venous thrombosis.
--- NOTE | 2020-03-20 18:57 | RAD REPORT ---
EXAM DESCRIPTION: US - Renal Ultrasound-Complete - 03/20/2020 6:42 pm CLINICAL HISTORY: arf Flank pain COMPARISON: No comparisons FINDINGS: Both kidneys are normal in size, shape and echotexture. The right kidney measures 11.1 x 5.7 x 4.8 cm. No hydronephrosis, focal mass or perinephric fluid. The left kidney measures 11.0 x 5.0 x 4.7 cm. No hydronephrosis, focal mass or perinephric fluid. The urinary bladder is incompletely distended without gross abnormality seen. IMPRESSION: Unremarkable renal sonogram.
--- NOTE | 2020-03-20 19:07 | RAD REPORT ---
EXAM DESCRIPTION: US - Lower Extremity Arterial Bilat - 03/20/2020 6:42 pm CLINICAL HISTORY: PVD/ RT foot ulcer Leg pain and soft tissue ulceration COMPARISON: No comparisons TECHNIQUE: Bilateral lower extremity arterial Doppler examination was performed with nicholas wright FINDINGS: Minimal atheromatous plaquing is seen involving both lower extremity arterial systems. Left lower extremity arterial system is triphasic throughout. Right lower extremity arterial system is biphasic below the level of the popliteal artery is indicati ng mild distal disease. Proximal right lower extremity arterial system is triphasic. No high-grade stenosis or occlusion is evident. IMPRESSION: Mild distal right lower extremity arterial peripheral vascular disease is seen. No occlu gabriela.
[2020-03-20] MEDS: HYDROCODONE/APAP 7.5/325 MG TAB PO PRN (21:09)
--- NOTE | 2020-03-21 00:02 | PN ---
Date of Progress Note: 03/20/2020 Chief Complaint: Acute on chronic kidney injury. History Of Present Illness: The patient has nonoliguric urine output. The patient has multiple medi rubina problems including history of chronic kidney disease due to diabetes mellitus, hypertension. Pre vious creatinine level at baseline was ranging from 1.5 to 1.8. The patient came to the hospital and was found to have elevated azotemia with high BUN-creatinine ratio. He was complaining of right leg pain. He is noncompliant with diabetic medication. He has uncontrolled diabetes and prerenal azote inés with nonoliguric acute tubular necrosis. The patient was found to have severe hypomagnesemia and received magnesium supplementation. Review of Systems: Denies PND or orthopnea. Physical Examination: Lungs: Diminished breath sounds at bases. Heart: S1, S2. Abdomen: Soft, benign. Extremities: Dressing in place. Laboratory Data: Protein-creatinine ratio 0.27, urine creatinine 62, random protein 17. Chemistry s how sodium 135, potassium 3.9, chloride 98, CO2 27, BUN 29, creatinine 1.8, glucose 248, calcium 8.5, magnesium 1.4. Creatinine level was up to 2.12, BUN 35, potassium 5.5, sodium 132, glucose 309, and magnesium 1.1. Impression And Plan: 1.Acute on chronic kidney injury, prerenal azotemia, nonoliguric acute tubular necrosis, diabetic fo ot infection. Continue antibiotics and adjust dose to renal function. Continue insulin for diabetic control. The patient has history of proteinuria and monitor microalbuminuria. 2.Hyperkalemia is related to uncontrolled diabetes and renal hypoperfusion in setting of uncontrolle d diabetes. Recommend to avoid GAY inhibitor when potassium is elevated. Monitor renal panel and tr eat acidosis as needed. At this point, acidosis is controlled. 3.Severe hypomagnesemia. Magnesium replacement was ordered and is improving. 4.Diabetes mellitus with renal manifestation. The patient is not a candidate for metformin. At thi s point, lisinopril was stopped because of hyperkalemia and when kidney function is back to baseline and potassium is controlled, the patient will resume lisinopril for diabetic control and proteinuria control for diabetic kidney disease treatment. EB/MODL Voice ID: [id number] Report ID: [id number]
[2020-03-21] MEDS: CODEINE 30MG/APAP 300MG TAB PO PRN ×3 (01:53→19:42)
[2020-03-21] MEDS: HYDROCODONE/APAP 7.5/325 MG TAB PO PRN ×2 (06:41→14:26)
[2020-03-21] MEDS: NA CHLORIDE 0.9% 1,000 ML IV SCH (06:44)
[2020-03-21 06:49] LABS: Absolute Lymphocytes (CBC) 1.1 K/uL (0.7-4.9); Basophils % 0.5 % (0-1.3); Hematocrit 38.5 % (39.6-49.0); Lymphocytes % 13.9 % (15.3-44.8); MPV 9.2 fL (7.6-11.3)
[2020-03-21 07:06] LABS: Albumin 2.7 g/dL (3.4-5.0); Magnesium 1.8 mg/dL (1.8-2.4); Phosphorus 2.2 mg/dL (2.5-4.9); Potassium 3.7 mmol/L (3.5-5.1); Thyroid Stimulating Hormone 1.71 uIU/mL (0.360-3.740); Uric Acid 5.4 mg/dL (3.5-7.2)
[2020-03-21] MEDS: GABAPENTIN 300 MG CAP PO SCH ×3 (08:32→20:44)
[2020-03-21] MEDS: APIXABAN 5 MG TABLET PO SCH ×2 (08:32→20:44)
[2020-03-21] MEDS: FENOFIBRATE 160 MG TAB PO SCH (08:33)
[2020-03-21] MEDS: INSULIN -REGULAR HUMAN 50 UNIT/0.5 ML ML SQ SCH ×4 (08:33→20:44)
[2020-03-21] MEDS: PANTOPRAZOLE 40MG TABLET PO SCH (08:33)
[2020-03-21] MEDS: CEFTRIAXONE/SWI 1gm 1 GM/10 ML SYR IVP SCH (08:33)
[2020-03-21] MEDS: IRR IRR SCH (08:35)
[2020-03-21] MEDS: NACL 0.9% IRR SCH (08:35)
--- NOTE | 2020-03-21 11:32 | P.PN ---
Subjective Date of Service: 03/21/20 Chief Complaint: Cellulitis/diabetic foot ulcer Subjective: Improving, Doing well (Pleasant and cooperative) Review of Systems General: As per HPI Eyes: Unremarkable ENT: Unremarkable Respiratory: Unremarkable Cardiovascular: Unremarkable Gastrointestinal: Unremarkable Genitourinary: Unremarkable Musculoskeletal: Foot Pain (Mild) Integumentary: Unremarkable Neurological: Unremarkable Lymphatics: Unremarkable Physical Examination - Vital Signs Temperature: 99.2 F Blood Pressure: 120/66 Pulse: 112 Respirations: 20 Pulse Ox (%): 98 - Physical Exam General: Alert, In no apparent distress, Oriented x3, Cooperative HEENT: Atraumatic, Normocephalic, PERRLA, Mucous membr. moist/pink Neck: Supple, No Thyromegaly, Other (Trachea midline) Respiratory: Clear to auscultation bilaterally, Normal air movement Cardiovascular: No edema, Normal pulses, Regular rate/rhythm, Normal S1 S2 Capillary refill: <2 Seconds Gastrointestinal: Normal bowel sounds, Soft and benign, Non-distended Musculoskeletal: Swelling (Right foot, mi), Erythema (Right foot, mild) Integumentary: No rashes, No breakdown, Skin lesion (Plantar aspect of right great toe, at base), Tenderness/swelling (Mild), Erythema (Mi) Neurological: Normal speech, Normal strength at 5/5 x4 extr, Normal tone Other Physical/Emotional Findings: Lives at home - Studies Microbiology Data (last 24 hrs): 03/19/20 15:00 Wound - Right Foot Gram Stain - Final Assessment And Plan - Plan Impression: Right diabetic foot ulcer with right lower extremity cellulitis: Acute on chronic kidney disease: Type 2 diabetes mellitus: Hypomagnesemia: Hyperkalemia: Essential hypertension: Plan: Right diabetic foot ulcer with right lower extremity cellulitis: Continue IV vancomycin and IV ceftriaxone. Will ask pharmacy to renally dose. Renal function improving. Consult for Infectious Disease in place. Patient will also require wound care for diabetic foot ulcer. Will order MRI of the foot without contrast due to kidney function to rule out osteomyelitis. Lower extremity venous Doppler shows no DVT. Arterial Doppler shows mild decrease in right lower extremity perfusion but no occlusion. Cellulitis improving. Will monitor cellulitis and adjust antibiotic by recommendations and as needed. Will consult surgery for possible surgical intervention and/or debridement of the right foot. Depending on findings of MRI patient may require 2-6 weeks of IV antibiotics and PICC line placement. Patient would prefer home health IV antibiotic therapy and home health wound care. Acute on chronic kidney disease: Stage III. Acute stage resolved. Patient's creatinine level usually ranges between 1.3 - 1.6. Creatinine yesterday was 2.12 and today is 1.4. Improved. Patient is tolerating p.o. diet. Will discontinue IV hydration. Will monitor creatinine levels daily. Will consult Nephrology. Type 2 diabetes mellitus: ED lab work on admission show and a blood glucose of 309. Patient has a history of noncompliance with medications. Continue patient on sliding scale insuli, Accu-Cheks a.c. HS and adjust medications accordingly. Patient's blood glucose may be elevated as well due to the right foot infection. Will order hemoglobin A1c. Hypomagnesemia: Resolved. Magnesium level of 1.1 on admission. A medium of 1.8 today. Will continue to replace and monitor Mag levels daily. Hyperkalemia: ED lab work showing a potassium level of 5.5. Today potassium has returned to normal at 3.9. Today it is 3.7. Will place patient on continuous telemetry. And replace potassium as needed. Essential hypertension: Blood pressure of 120/66 x 2. Will hold off on re starting patient's home blood pressure medications. Patient's blood pressure was borderline hypotensive in the ED on admission. And has remained within normal limits for now. Will continue to monitor blood pressure. Note: Dr. Cerda has agreed to accept patient. Patient will follow up with Dr. Cerda as a PCP and at the [facility]. Plan to discharge in: 48 Hours - Code Status/Comfort Care Code Status Assessed: Yes Physician Review: Patient Assessed, Agree with Above Assessment and Plan Time Spent Managing PTS Care (In Minutes): 45
[2020-03-21] MEDS ORDERED: MAGNESIUM SULFATE 1 gm IVPB 1 GM/100 ML BAG IV ONE (12:00)
[2020-03-21] MEDS ORDERED: POTASSIUM CL SA 10 MEQ TAB PO ONE (12:00)
--- NOTE | 2020-03-21 13:28 | P.CNS ---
Chief Complaint: Cellulitis/diabetic foot ulcer Allergies No Known Allergies Allergy (Verified 01/08/19 09:33) Home Medications: Apixaban [Eliquis *] 5 mg PO BID #60 tablet 07/19/16 Lisinopril [Zestril] 30 mg PO DAILY 01/08/19 Metformin HCl 500 mg PO BID 01/08/19 Omeprazole [Prilosec] 40 mg PO DAILY 01/08/19 glyBURIDE [Glyburide] 5 mg PO BID 01/08/19 Fenofibrate [Tricor] 145 mg PO DAILY 03/19/20 Gabapentin 300 mg PO TID 03/19/20 Guselkumab [Tremfya] 100 mg SQ SEECOM 03/19/20 Hydrocodone Bit/Acetaminophen [Lawrence 7.5-325 Tablet] 1 each PO Q8HR 03/19/20 Metoprolol Tartrate 1 tab PO BID 03/19/20 Triamterene/Hydrochlorothiazid [Triamterene-Hctz 37.5-25 mg Cp] 1 each PO DAILY 03/19/20 - Past Medical/Surgical History Diabetic: Yes -: HTN -: GERD -: Diabetes mellitus -: Left foot drop -: Appendectomy -: back surgery -: colon resection -: right hip replacement Psychosocial/ Personal History: Lives at home - Family History Mother Medical History: Hypertension, Diabetes, Stroke, Cancer Father Medical History: Diabetes - Social History Alcohol use: Yes CD- Drugs: No Caffeine use: Yes Place of Residence: Home Physical Examination Temp Pulse Resp BP Pulse Ox 99.2 F 110 H 20 115/68 93 03/21/20 12:00 03/21/20 12:00 03/21/20 12:00 03/21/20 12:00 03/21/20 12:00
--- NOTE | 2020-03-21 13:40 | P.CNS ---
Date of Consult: 03/21/20 PC: I was asked to see this 59-year-old male regards to some diabetic ulcers and the inflammation on his foot. HPC: Patient apparently was trying some calluses sub few days ago. Since that time reset pain in discomfort in his foot. Started a swell and become red so he came to the emergency room for evaluation treatment. PMH: Diabetes PSHx: Previous bowel resection, appendectomy, drainage of abscess sees previous back surgeries SOC: No known allergies, medication list review SYS REVIEW: No cough, wheeze, shortness of breath. No headaches. No abdominal complaints. Denies any urinary symptoms. Has dropped foot on left leg O/E awake alert vital signs are stable HEENT: Within normal limits Chest: Chest movement equal bilateral ABD: Intact LOCO: On the right foot has to plantar ulcers. Over the head of the metatarsal of the great toe on that foot. There is some redness and erythema. Also a white circular area around this suggesting possible blister formation. DATA: Thin x-ray shows no evidence of any osteo. Is scheduled for an MRI. IMPRESSION: Diabetic ulcers with erythema, possible developing abscess on the head of the metatarsal. The fit was quite swollen yesterday, it has resolved somewhat today. PLAN: Await these wounds to fully demarcate. In the meantime he is on IV antibiotics. Once we have the results of the MRI scan, will consider a possible OR debridement. May not require long-term IV antibiotics and he would like to wait until we determine if there is a bone infection before his subjected to a PICC line. Wound care nurses will also evaluate the wound in the a.m.. He will be made NPO at midnight and tomorrow we will determine if he requires a surgical debridement.
[2020-03-21] MEDS: VANCOMYCIN 2 GM in NA CHLORIDE 0.9% 500 ML IVPB SCH (16:08)
[2020-03-21] MEDS: POTASS/SODIUM PHOSPHATE 1 PKT POWD.PACK PO SCH ×3 (19:42→22:53)
[2020-03-21] MEDS ORDERED: ALBUMIN HUMAN 25% 50 ML IV ONE (20:56)
[2020-03-21] MEDS ORDERED: NA CHLORIDE 0.9% 1,000 ML IV SCH (21:00)
[2020-03-21] MEDS: HYDROMORPHONE HCL 0.5 MG/0.5 ML INJ IV PRN (21:22)
--- NOTE | 2020-03-22 00:21 | PN ---
Date of Progress Note: 03/21/2020 Chief Complaint: Acute on chronic kidney injury. History Of Present Illness: The patient has nonoliguric urine output. Renal function has been impro ving. The patient has multiple medical problems including history of chronic kidney disease due to d iabetes mellitus and hypertension. Previous creatinine level at baseline was ranging from 1.5 to 1.8 . The patient came to the hospital and was found to have elevated azotemia with high BUN-creatinine ratio. He was complaining of right leg pain. He is noncompliant with diabetic medication, has uncon trolled diabetes, prerenal azotemia, and nonoliguric acute tubular necrosis due to uncontrolled diabe shine and possible sepsis. The patient was found to have severe hypomagnesemia and received magnesium supplementation. Review of Systems: Denies PND or orthopnea. Physical Examination: Lungs: Diminished breath sounds at bases. Heart: S1, S2. Abdomen: Soft, benign. Extremities: Dressing in place. Laboratory Data: Hemoglobin is 12.8, WBC 7.7, platelet count 173,000. Chemistry showed sodium 138, potassium 3.7, chloride 103, CO2 28, BUN 20, creatinine 1.41, glucose 187, phosphorus 2.2, calcium 8. 6, uric acid 5.4. Creatinine level has improved from 2.12 to 1.41. Impression And Plan: 1.Acute kidney injury, improving. The patient has chronic kidney disease due to diabetes mellitus a nd hypertension. Continue blood pressure medication and adjust treatment according to blood pressure . 2.Continue adequate hydration. 3.Hyperkalemia. On arrival to the hospital, potassium was 5.5. Currently potassium is in good cont rol. The patient may resume GAY inhibitor for diabetic kidney disease and blood pressure control. 4.Severe hypomagnesemia. Magnesium level was replaced and is improving. 5.Diabetes mellitus with renal manifestation. The patient is not a candidate for metformin. Contin ue treatment with insulin and monitor electrolytes. Lisinopril will be resumed for diabetic kidney d isease. JENNIFER/MODL Voice ID: [id number] Report ID: [id number]
[2020-03-22 00:55] LABS: Rheumatoid Factor NEG (NEG)
[2020-03-22] MEDS: HYDROMORPHONE HCL 0.5 MG/0.5 ML INJ IV PRN ×5 (03:39→21:46)
[2020-03-22 05:13] LABS: Absolute Lymphocytes (CBC) 0.7 K/uL (0.7-4.9); Basophils % 0.8 % (0-1.3); Hematocrit 36.5 % (39.6-49.0); Lymphocytes % 10.5 % (15.3-44.8); MPV 8.4 fL (7.6-11.3); RBC Red Blood Cell Count 3.94 M/uL (4.33-5.43)
[2020-03-22 05:27] LABS: Albumin 2.6 g/dL (3.4-5.0); Magnesium 1.7 mg/dL (1.8-2.4); Phosphorus 2.2 mg/dL (2.5-4.9); Potassium 4.4 mmol/L (3.5-5.1)
[2020-03-22] MEDS ORDERED: MAGNESIUM SULFATE 1 gm IVPB 1 GM/100 ML BAG IV ONE (06:18)
[2020-03-22] MEDS: CEFTRIAXONE/SWI 1gm 1 GM/10 ML SYR IVP SCH (08:01)
[2020-03-22] MEDS: APIXABAN 5 MG TABLET PO SCH ×2 (09:00→21:45)
[2020-03-22] MEDS: NACL 0.9% IRR SCH (09:00)
[2020-03-22] MEDS: IRR IRR SCH (09:00)
[2020-03-22] MEDS ORDERED: lisinopriL 5 MG TAB PO SCH (09:00)
--- NOTE | 2020-03-22 09:05 | P.PN ---
Subjective Date of Service: 03/22/20 Chief Complaint: Cellulitis/diabetic foot ulcer Subjective: No new changes, No C/O voiced Review of Systems 10-point ROS is otherwise unremarkable Integumentary: As per HPI Physical Examination - Vital Signs Temperature: 100.1 F Blood Pressure: 154/70 Pulse: 112 Respirations: 18 Pulse Ox (%): 93 - Physical Exam General: Alert, In no apparent distress, Oriented x3 HEENT: Atraumatic, Normocephalic Neck: Supple Respiratory: Clear to auscultation bilaterally, Normal air movement Cardiovascular: No edema, Normal pulses, Normal S1 S2 Capillary refill: <2 Seconds Gastrointestinal: Normal bowel sounds, Soft and benign Musculoskeletal: Erythema, Tenderness, Warmth Integumentary: Skin lesion (Right lower extremity ), Tenderness/swelling, Erythema, Warmth Neurological: Normal gait, Normal speech Lymphatics: No axilla or inguinal lymphadenopathy Other Physical/Emotional Findings: Lives at home - Studies Microbiology Data (last 24 hrs): 03/19/20 15:00 Wound - Right Foot Gram Stain - Final Assessment & Plan Discharge Plan: Home Plan to discharge in: 48 Hours - Code Status/Comfort Care Code Status Assessed: Yes Physician Review Additional Text: Impression: Right diabetic foot ulcer with right lower extremity cellulitis: Acute on chronic kidney disease: Type 2 diabetes mellitus: Hypomagnesemia: Hyperkalemia: Essential hypertension: Plan: Right diabetic foot ulcer with right lower extremity cellulitis: Continue IV vancomycin and IV ceftriaxone. Will ask pharmacy to renally dose. Renal function improving. Consult for Infectious Disease in place. Patient will also require wound care for diabetic foot ulcer. MRI has been completed. Lower extremity venous Doppler shows no DVT. Arterial Doppler shows mild decrease in right lower extremity perfusion but no occlusion. Cellulitis improving. Will monitor cellulitis and adjust antibiotic by recommendations and as needed. Surgery has seen the patient, patient was NPO last night. Currently awaiting re-evaluation from surgeon. Depending on findings of MRI patient may require 2- 6 weeks of IV antibiotics and PICC line placement. Patient would prefer home health IV antibiotic therapy and home health wound care. Will continue to monitor closely. Acute on chronic kidney disease: Stage III. Acute stage resolved. Patient's creatinine level usually ranges between 1.3 - 1.6. Creatinine yesterday was 2.12 and today is 1.4. Improved. Patient is tolerating p.o. diet. Will discontinue IV hydration. Will monitor creatinine levels daily. Nephrology has seen the patient. Will continue hydration. Type 2 diabetes mellitus: ED lab work on admission show and a blood glucose of 309. Patient has a history of noncompliance with medications. Continue patient on sliding scale insuli, Accu-Cheks a.c. HS and adjust medications accordingly. Patient's blood glucose may be elevated as well due to the right foot infection. Will order hemoglobin A1c. Hypomagnesemia: Resolved. Magnesium level of 1.1 on admission. A medium of 1.8 today. Will continue to replace and monitor Mag levels daily. Hyperkalemia: ED lab work showing a potassium level of 5.5. Potassium currently within normal limits. Will continue to monitor closely. Patient remained on telemetry. Essential hypertension: Blood pressure of 120/66 x 2. Will hold off on restarting patient's home blood pressure medications. Patient's blood pressure was borderline hypotensive in the ED on admission. And has remained within normal limits for now. Will continue to monitor blood pressure. Critical Care: No Time Spent Managing Pts Care (In Minutes): 55
[2020-03-22] MEDS: INSULIN -REGULAR HUMAN 50 UNIT/0.5 ML ML SQ SCH ×4 (09:21→21:46)
[2020-03-22] MEDS: lisinopriL 5 MG TAB PO SCH (09:22)
[2020-03-22] MEDS: GABAPENTIN 300 MG CAP PO SCH ×3 (09:22→21:45)
[2020-03-22] MEDS: PANTOPRAZOLE 40MG TABLET PO SCH (09:23)
[2020-03-22] MEDS: FENOFIBRATE 160 MG TAB PO SCH (09:23)
--- NOTE | 2020-03-22 09:34 | RAD REPORT ---
EXAM DESCRIPTION: MRI - Foot Right Wo Cont - 03/22/2020 8:54 am CLINICAL HISTORY: Right foot cellulitis and diabetic foot ulcer, plantar surface soft tissue wound f irst MTP joint region COMPARISON: Foot Right 3 View dated 03/19/2020 TECHNIQUE: Multiplanar imaging of the right foot performed using T1 weighted, T1 fat saturation, T2 fat saturation and T2 stir sequencing. FINDINGS: Soft tissue edema changes are present in the soft tissues around the first MTP joint along the plantar and medial margins. No abscess or drainable fluid collection identifiable. The first met atarsal and the first toe phalanges show normal T1/T2 signal characteristics. Sesamoid bones do show hypointense T1 and hyperintense T2 signal. Flexor tendon shows normal size and signal intensity. The second- fourth metatarsals and second- fourth toes show no evidence for osteomyelitis or acute fi nding. There is linear signal abnormality traversing the base of the fifth proximal phalanx. No signi ficant signal abnormality in this toe otherwise noted. This may be a chronic fracture. Tarsal bones and partially imaged ankle joint show no suspicious findings. Edema seen over the dorsum soft tissues. Again, no focal fluid collections seen. IMPRESSION: Osteomyelitis is probably present in the sesamoid bones at the first MTP joint. The first metatarsal and first toe phalanges show no evidence for osteomyelitis. Prominent soft tissue infectious/edema changes present around the first MTP joint. This is primarily medial and plantar margins. No abscess or drainable fluid collection.
[2020-03-22] MEDS: CODEINE 30MG/APAP 300MG TAB PO PRN (09:48)
[2020-03-22] MEDS: HYDROCODONE/APAP 7.5/325 MG TAB PO PRN (09:49)
--- NOTE | 2020-03-22 10:43 | P.CNS ---
Date of Consult: 03/22/20 Subjective: This patient is a 59-year-old male with past medical history of type 2 diabetes myelitis and neuropathy who presents with worsening erythema, swelling, and pain to right lower extremity. Patient reports callused area to plantar surface of right foot that he removed a few weeks ago. Patient reports, "I think i cut it a little to deep." Patient also reports no feeling to plantar surface of his feet and walks around barefooted 90% of the time. Patient found to have right lower extremity cellulitis and DFU to right foot plantar surface which I have been consulted for. - Past Medical/Surgical History Diabetic: Yes -: HTN -: GERD -: Diabetes mellitus -: Left foot drop -: Appendectomy -: back surgery -: colon resection -: right hip replacement Psychosocial/ Personal History: Lives at home - Family History Mother -: Hypertension, Diabetes, Stroke, Cancer Father -: Diabetes - Social History Dips tobacco daily Allergies No Known Allergies Allergy (Verified 01/08/19 09:33) Active Medications Acetaminophen (Tylenol -Extra Strength) 500 mg PO Q4HP PRN PRN Reason: TEMP > 101' F Stop: 04/18/20 16:26 Last Admin: 03/19/20 23:59 Dose: 500 mg Documented by: Acetaminophen/Codeine Phosphate (Tylenol W/Codeine #3 Tab) 1 tab PO Q4HP PRN PRN Reason: PAIN Stop: 04/18/20 15:20 Last Admin: 03/21/20 19:42 Dose: 1 tab Documented by: Hydrocodone Bitart/Acetaminophen ([place] 7.5/325 Mg) 1 tab PO Q8HR PRN PRN Reason: Pain scale 5-7 (Moderate) Stop: 04/19/20 17:01 Last Admin: 03/22/20 09:49 Dose: 1 tab Documented by: Apixaban (Eliquis) 5 mg PO BID [facility] Stop: 04/18/20 21:01 Last Admin: 03/22/20 09:00 Dose: Not Given Documented by: Fenofibrate (Tricor) 160 mg PO DAILY [facility] Stop: 04/20/20 09:01 Last Admin: 03/22/20 09:23 Dose: 160 mg Documented by: Gabapentin (Neurontin) 300 mg PO TID [facility] Stop: 04/19/20 14:01 Last Admin: 03/22/20 09:22 Dose: 300 mg Documented by: Hydromorphone HCl (Dilaudid) 0.5 mg IV Q4H PRN PRN Reason: Pain scale 5-7 (Moderate) Stop: 04/20/20 20:56 Last Admin: 03/22/20 08:01 Dose: 0.5 mg Documented by: Ceftriaxone Sodium/Sodium Chloride (Rocephin 1 Gm/10 Ml Swi Ivp) 1 gm in 10 mls @ 600 mls/hr IVP DAILY [facility]; Protocol Stop: 04/18/20 16:01 Last Admin: 03/22/20 08:01 Dose: 10 mls Documented by: Vancomycin HCl 2 gm/ Sodium (Chloride) 500 mls @ 250 mls/hr IVPB Q24H [facility]; Protocol Stop: 04/19/20 15:01 Last Admin: 03/21/20 16:08 Dose: 500 mls Documented by: Insulin Human Regular (Novolin -R) 0 unit SQ ACHS [facility]; Protocol Stop: 04/18/20 16:31 Last Admin: 03/22/20 09:21 Dose: 5 unit Documented by: Lisinopril (Prinivil) 2.5 mg PO DAILY [facility] Stop: 04/21/20 09:01 Last Admin: 03/22/20 09:22 Dose: 2.5 mg Documented by: Ondansetron HCl (Zofran) 4 mg IV Q6HP PRN PRN Reason: NAUSEA / VOMITING Stop: 04/18/20 16:26 Pantoprazole Sodium (Protonix Tab) 40 mg PO ACB [facility] Stop: 04/19/20 07:31 Last Admin: 03/22/20 09:23 Dose: 40 mg Documented by: Sodium Chloride (Normal Saline Flush) 10 ml IV BID [facility] Stop: 04/18/20 21:01 Last Admin: 03/22/20 09:00 Dose: 10 ml Documented by: Sodium Chloride (Ns Irrigation Bottle) 0 ml IRR DAILY [facility] Stop: 04/19/20 09:01 Last Admin: 03/22/20 09:00 Dose: 1 ml Documented by: ROS: CV: Denies chest pain RESP: Denies shortness of breath and cough : Denies dysuria GI: Denies nausea and diarrhea Objective: Temp Pulse Resp BP Pulse Ox 100.1 F 112 H 18 154/70 H 93 03/22/20 09:05 03/22/20 09:22 03/22/20 09:05 03/22/20 09:22 03/22/20 09:05 Labs: Sodium 136, potassium 4.4, BUN 16, creatinine 1.35, albumin 2.6, WBC 6.9, hematocrit 36.5, hemoglobin 12.3 Foot xray 03/19: EXAM DESCRIPTION: RAD - Foot Right 3 View - 03/19/2020 3:00 pm CLINICAL HISTORY: PAIN, plantar wound COMPARISON: No comparisons FINDINGS: No fracture, dislocation or periosteal reaction. No acute or destructive process seen. Wound is seen in the plantar soft tissues near the MTP joints. No erosive or destructive process to suspect osteomyelitis. MTP and IP joint assessment is somewhat limited due to the patient being an flexion at the IP joints and extension at the MTP joints. This creates overlapping bony structures. No air or foreign body in the soft tissues. IMPRESSION: No acute bone finding. No suspicion for osteomyelitis Foot MRI 03/22: EXAM DESCRIPTION: MRI - Foot Right Wo Cont - 03/22/2020 8:54 am CLINICAL HISTORY: Right foot cellulitis and diabetic foot ulcer, plantar surface soft tissue wound first MTP joint region COMPARISON: Foot Right 3 View dated 03/19/2020 TECHNIQUE: Multiplanar imaging of the right foot performed using T1 weighted, T1 fat saturation, T2 fat saturation and T2 stir sequencing. FINDINGS: Soft tissue edema changes are present in the soft tissues around the first MTP joint along the plantar and medial margins. No abscess or drainable fluid collection identifiable. The first metatarsal and the first toe phalanges show normal T1/T2 signal characteristics. Sesamoid bones do show hypointense T1 and hyperintense T2 signal. Flexor tendon shows normal size and signal intensity. The second- fourth metatarsals and second- fourth toes show no evidence for osteomyelitis or acute finding. There is linear signal abnormality traversing the base of the fifth proximal phalanx. No significant signal abnormality in this toe otherwise noted. This may be a chronic fracture. Tarsal bones and partially imaged ankle joint show no suspicious findings. Edema seen over the dorsum soft tissues. Again, no focal fluid collections seen. IMPRESSION: Osteomyelitis is probably present in the sesamoid bones at the first MTP joint. The first metatarsal and first toe phalanges show no evidence for osteomyelitis. Prominent soft tissue infectious/edema changes present around the first MTP joint. This is primarily medial and plantar margins. No abscess or drainable fluid collection. ROS: General: Awake, alert, oriented CV: S1,S2 RESP: Good breath sounds ABD: Nontender, bowel sounds present Extremities: edema to RLE Skin: RLE with erythema, warmth and swelling. Right medial foot with large blister like formation, lupe area with bruising and erythema. Right foot plantar surface with DFU, wound bed with slough and granulation tissue, lupe area with callus. Assessment and plan: DFU to right plantar surface, MRI suggest osteomyelitis present in the sesamoid bones at the first MTP joint, possible I&D today Right lower extremity cellulitis, educated the patient to keep leg elevated Blood culture shows no growth to date Wound cultures shows E.Coli and staph Rocephin day 4 and Vancomycin day 3 Upon discharge, recommend to change to Levaquin 500mg IV daily for total of 6 weeks Patient would benefit from [facility] facility for wound management, hyperbaric treatments and IV antibiotics Diabetes mellitus, A1c 12.0 Diabetic neuropathy Protein calorie malnourished Will continue to monitor Thank you for consult Patient discussed with Dr. Cary
--- NOTE | 2020-03-22 14:36 | P.PN ---
Date of Service: 03/22/20 S: Patient feels somewhat better today. O: Still has some cellulitis in his right foot, at the head of the metatarsal. Ulcers on the soles of his feet remain unchanged. MRI shows ostia of the sesamoid bones of his feet. A: Patient has probable osteomyelitis P: Patient has opted for a 6 weeks of IV antibiotics at home. He will have a PICC line placed, home health set up, and will be followed at the wound center.
[2020-03-22] MEDS: VANCOMYCIN 2 GM in NA CHLORIDE 0.9% 500 ML IVPB SCH (16:47)
[2020-03-23] MEDS: HYDROMORPHONE HCL 0.5 MG/0.5 ML INJ IV PRN ×5 (01:21→21:05)
--- NOTE | 2020-03-23 01:58 | PN ---
Date of Progress Note: 03/22/2020 Chief Complaint: Acute kidney injury. History Of Present Illness: Acute kidney injury, nonoliguric. Urine output is adequate. Renal func tion has improved gradually over the last few days and the patient received IV fluids. Creatinine le samantha at baseline, usually was ranging from 1.5 to 1.8. The patient has diabetic kidney disease and hy pertensive kidney disease. Review of Systems: Denies fever or chills. Physical Examination: Lungs: Diminished breath sounds at bases. Heart: S1, S2. Abdomen: Soft, benign. Extremities: Dressing in place. Impression And Plan: 1.Acute kidney injury. Renal function is improving. Continue to monitor blood pressure. Adjust me dication accordingly. 2.Continue IV fluids and monitor fluid balance. 3.Hyperkalemia. On arrival to the hospital, potassium was 5.5. Potassium improved. Renal function is back to baseline. Continue GAY inhibitor and avoid nonsteroidal anti-inflammatory medication. 4.Monitor magnesium level and plan replacement as needed. JENNIFER/TAVIA Voice ID: [id number] Report ID: [id number]
[2020-03-23 04:39] LABS: Absolute Lymphocytes (CBC) 0.7 K/uL (0.7-4.9); Basophils % 0.6 % (0-1.3); Hematocrit 36.8 % (39.6-49.0); Lymphocytes % 15.6 % (15.3-44.8); MPV 8.4 fL (7.6-11.3); RBC Red Blood Cell Count 3.95 M/uL (4.33-5.43)
[2020-03-23 04:55] LABS: Albumin 2.5 g/dL (3.4-5.0); Magnesium 1.6 mg/dL (1.8-2.4); Phosphorus 2.4 mg/dL (2.5-4.9); Potassium 4.2 mmol/L (3.5-5.1)
[2020-03-23 07:25] LABS: Urine Appearance CLEAR; Urine Bilirubin NEGATIVE (NEG); Urine Blood NEGATIVE (NEG); Urine Color YELLOW; Urine Glucose 3+ (NEG); Urine Protein NEGATIVE (NEG); Urine Specific Gravity 1.025 (1.005-1.030); Urine Urobilinogen 0.2 mg/dL (0.2-1.0)
[2020-03-23 08:15] LABS: Urine Microscopic Reflex NO UMIC
[2020-03-23] MEDS: INSULIN -REGULAR HUMAN 50 UNIT/0.5 ML ML SQ SCH ×4 (08:57→21:06)
[2020-03-23] MEDS: GABAPENTIN 300 MG CAP PO SCH ×3 (08:57→21:05)
[2020-03-23] MEDS: FENOFIBRATE 160 MG TAB PO SCH (08:57)
[2020-03-23] MEDS: APIXABAN 5 MG TABLET PO SCH ×2 (08:57→21:05)
[2020-03-23] MEDS: lisinopriL 5 MG TAB PO SCH (08:57)
[2020-03-23] MEDS: PANTOPRAZOLE 40MG TABLET PO SCH (08:58)
[2020-03-23] MEDS ORDERED: MAGNESIUM SULFATE 1 gm IVPB 1 GM/100 ML BAG IV ONE (09:00)
[2020-03-23] MEDS: CEFTRIAXONE/SWI 1gm 1 GM/10 ML SYR IVP SCH (09:00)
[2020-03-23] MEDS: IRR IRR SCH (09:00)
[2020-03-23] MEDS: NACL 0.9% IRR SCH (09:00)
--- NOTE | 2020-03-23 09:36 | P.PN ---
Date of Service: 03/23/20 Subjective: This patient is a 59-year-old male with past medical history of type 2 diabetes myelitis and neuropathy who presents with worsening erythema, swelling, and pain to right lower extremity. Patient reports callused area to plantar surface of right foot that he removed a few weeks ago. Patient reports, "I think i cut it a little to deep." Patient also reports no feeling to plantar surface of his feet and walks around barefooted 90% of the time. Patient found to have right lower extremity cellulitis and DFU to right foot plantar surface which I have been consulted for. - Past Medical/Surgical History Diabetic: Yes -: HTN -: GERD -: Diabetes mellitus -: Left foot drop -: Appendectomy -: back surgery -: colon resection -: right hip replacement Psychosocial/ Personal History: Lives at home - Family History Mother -: Hypertension, Diabetes, Stroke, Cancer Father -: Diabetes - Social History Dips tobacco daily Allergies No Known Allergies Allergy (Verified 01/08/19 09:33) Active Medications Acetaminophen (Tylenol -Extra Strength) 500 mg PO Q4HP PRN PRN Reason: TEMP > 101' F Stop: 04/18/20 16:26 Last Admin: 03/19/20 23:59 Dose: 500 mg Documented by: Acetaminophen/Codeine Phosphate (Tylenol W/Codeine #3 Tab) 1 tab PO Q4HP PRN PRN Reason: PAIN Stop: 04/18/20 15:20 Last Admin: 03/21/20 19:42 Dose: 1 tab Documented by: Hydrocodone Bitart/Acetaminophen ([place] 7.5/325 Mg) 1 tab PO Q8HR PRN PRN Reason: Pain scale 5-7 (Moderate) Stop: 04/19/20 17:01 Last Admin: 03/22/20 09:49 Dose: 1 tab Documented by: Apixaban (Eliquis) 5 mg PO BID [facility] Stop: 04/18/20 21:01 Last Admin: 03/22/20 09:00 Dose: Not Given Documented by: Fenofibrate (Tricor) 160 mg PO DAILY [facility] Stop: 04/20/20 09:01 Last Admin: 03/22/20 09:23 Dose: 160 mg Documented by: Gabapentin (Neurontin) 300 mg PO TID [facility] Stop: 04/19/20 14:01 Last Admin: 03/22/20 09:22 Dose: 300 mg Documented by: Hydromorphone HCl (Dilaudid) 0.5 mg IV Q4H PRN PRN Reason: Pain scale 5-7 (Moderate) Stop: 04/20/20 20:56 Last Admin: 03/22/20 08:01 Dose: 0.5 mg Documented by: Ceftriaxone Sodium/Sodium Chloride (Rocephin 1 Gm/10 Ml Swi Ivp) 1 gm in 10 mls @ 600 mls/hr IVP DAILY [facility]; Protocol Stop: 04/18/20 16:01 Last Admin: 03/22/20 08:01 Dose: 10 mls Documented by: Vancomycin HCl 2 gm/ Sodium (Chloride) 500 mls @ 250 mls/hr IVPB Q24H [facility]; Protocol Stop: 04/19/20 15:01 Last Admin: 03/21/20 16:08 Dose: 500 mls Documented by: Insulin Human Regular (Novolin -R) 0 unit SQ ACHS [facility]; Protocol Stop: 04/18/20 16:31 Last Admin: 03/22/20 09:21 Dose: 5 unit Documented by: Lisinopril (Prinivil) 2.5 mg PO DAILY [facility] Stop: 04/21/20 09:01 Last Admin: 03/22/20 09:22 Dose: 2.5 mg Documented by: Ondansetron HCl (Zofran) 4 mg IV Q6HP PRN PRN Reason: NAUSEA / VOMITING Stop: 04/18/20 16:26 Pantoprazole Sodium (Protonix Tab) 40 mg PO ACB [facility] Stop: 04/19/20 07:31 Last Admin: 03/22/20 09:23 Dose: 40 mg Documented by: Sodium Chloride (Normal Saline Flush) 10 ml IV BID [facility] Stop: 04/18/20 21:01 Last Admin: 03/22/20 09:00 Dose: 10 ml Documented by: Sodium Chloride (Ns Irrigation Bottle) 0 ml IRR DAILY [facility] Stop: 04/19/20 09:01 Last Admin: 03/22/20 09:00 Dose: 1 ml Documented by: ROS: CV: Denies chest pain RESP: Denies shortness of breath and cough : Denies dysuria GI: Denies nausea and diarrhea Objective: Temp Pulse Resp BP Pulse Ox 97.3 F 86 20 147/83 H 92 03/23/20 08:00 03/23/20 08:00 03/23/20 08:00 03/23/20 08:00 03/23/20 08:00 Labs: Sodium 137, potassium 4.2, BUN 19, creatinine 1.35, albumin 2.6, WBC 4.7, hematocrit 36.8, hemoglobin 12.4 Foot xray 03/19: EXAM DESCRIPTION: RAD - Foot Right 3 View - 03/19/2020 3:00 pm CLINICAL HISTORY: PAIN, plantar wound COMPARISON: No comparisons FINDINGS: No fracture, dislocation or periosteal reaction. No acute or destructive process seen. Wound is seen in the plantar soft tissues near the MTP joints. No erosive or destructive process to suspect osteomyelitis. MTP and IP joint assessment is somewhat limited due to the patient being an flexion at the IP joints and extension at the MTP joints. This creates overlapping bony structures. No air or foreign body in the soft tissues. IMPRESSION: No acute bone finding. No suspicion for osteomyelitis Foot MRI 03/22: EXAM DESCRIPTION: MRI - Foot Right Wo Cont - 03/22/2020 8:54 am CLINICAL HISTORY: Right foot cellulitis and diabetic foot ulcer, plantar surface soft tissue wound first MTP joint region COMPARISON: Foot Right 3 View dated 03/19/2020 TECHNIQUE: Multiplanar imaging of the right foot performed using T1 weighted, T1 fat saturation, T2 fat saturation and T2 stir sequencing. FINDINGS: Soft tissue edema changes are present in the soft tissues around the first MTP joint along the plantar and medial margins. No abscess or drainable fluid collection identifiable. The first metatarsal and the first toe phalanges show normal T1/T2 signal characteristics. Sesamoid bones do show hypointense T1 and hyperintense T2 signal. Flexor tendon shows normal size and signal intensity. The second- fourth metatarsals and second- fourth toes show no evidence for osteomyelitis or acute finding. There is linear signal abnormality traversing the base of the fifth proximal phalanx. No significant signal abnormality in this toe otherwise noted. This may be a chronic fracture. Tarsal bones and partially imaged ankle joint show no suspicious findings. Edema seen over the dorsum soft tissues. Again, no focal fluid collections seen. IMPRESSION: Osteomyelitis is probably present in the sesamoid bones at the first MTP joint. The first metatarsal and first toe phalanges show no evidence for osteomyelitis. Prominent soft tissue infectious/edema changes present around the first MTP joint. This is primarily medial and plantar margins. No abscess or drainable fluid collection. ROS: General: Awake, alert, oriented CV: S1,S2 RESP: Good breath sounds ABD: Nontender, bowel sounds present Extremities: edema to RLE Skin: RLE erythema, warmth and swelling improving. Right medial foot with large blister like formation, lupe area with bruising and erythema. Right foot plantar surface with DFU, wound bed with slough and granulation tissue, lupe area with callus. Assessment and plan: DFU to right plantar surface, MRI suggest osteomyelitis present in the sesamoid bones at the first MTP joint, recommend to apply betadine and gauze daily Right lower extremity cellulitis improving, educated the patient to keep leg elevated Blood culture shows no growth to date Wound cultures shows E.Coli and staph Rocephin day 5 and Vancomycin day 4 Upon discharge, recommend to change to Levaquin 500mg IV daily for total of 6 weeks Patient to be set up with home health and is to follow up with wound healing clinic upon discharge Diabetes mellitus, A1c 12.0, educated the patient on the importance of glucose control and wound healing Diabetic neuropathy Protein calorie malnourished Will continue to monitor Patient discussed with Dr. Cary
--- NOTE | 2020-03-23 10:38 | P.DS ---
Admission Date: 03/19/20 Discharge Date: 03/23/20 Primary Care Provider: Zaida Disposition: ROUTINE DISCHARGE Discharge Condition: FAIR Reason for Admission: Cellulitis/diabetic foot ulcer Consultations: Surgery- Dr. Coleman Nephrology_ Dr. Franco Infectious disease- Dr. Cary Procedures: Chest x-ray FINDINGS: Lung volumes are low. No failure or volume overload. No acute lung parenchymal process seen. Heart and vasculature are normal. Right hilar fullness and right suprahilar fullness believed to be the affects of body habitus and low lung volumes. Substantial change from comparison is not seen. No measurable pleural effusion and no pneumothorax. No acute bony abnormality seen. No acute aortic findings suspected. IMPRESSION: No acute cardiopulmonary process. No significant change from comparison. Foot x-ray FINDINGS: No fracture, dislocation or periosteal reaction. No acute or destructive process seen. Wound is seen in the plantar soft tissues near the MTP joints. No erosive or destructive process to suspect osteomyelitis. MTP and IP joint assessment is somewhat limited due to the patient being an flexion at the IP joints and extension at the MTP joints. This creates overlapping bony structures. No air or foreign body in the soft tissues. IMPRESSION: No acute bone finding. No suspicion for osteomyelitis MRI of foot FINDINGS: Soft tissue edema changes are present in the soft tissues around the first MTP joint along the plantar and medial margins. No abscess or drainable fluid collection identifiable. The first metatarsal and the first toe phalanges show normal T1/T2 signal characteristics. Sesamoid bones do show hypointense T1 and hyperintense T2 signal. Flexor tendon shows normal size and signal intensity. The second- fourth metatarsals and second- fourth toes show no evidence for osteomyelitis or acute finding. There is linear signal abnormality traversing the base of the fifth proximal phalanx. No significant signal abnormality in this toe otherwise noted. This may be a chronic fracture. Tarsal bones and partially imaged ankle joint show no suspicious findings. Edema seen over the dorsum soft tissues. Again, no focal fluid collections seen. IMPRESSION: Osteomyelitis is probably present in the sesamoid bones at the first MTP joint. The first metatarsal and first toe phalanges show no evidence for osteomyelitis. Prominent soft tissue infectious/edema changes present around the first MTP joint. This is primarily medial and plantar margins. No abscess or drainable fluid collection Ultrasound lower extremity FINDINGS: Minimal atheromatous plaquing is seen involving both lower extremity arterial systems. Left lower extremity arterial system is triphasic throughout. Right lower extremity arterial system is biphasic below the level of the popliteal artery is indicating mild distal disease. Proximal right lower extremity arterial system is triphasic. No high-grade stenosis or occlusion is evident. IMPRESSION: Mild distal right lower extremity arterial peripheral vascular disease is seen. No occlusion. Renal ultrasound FINDINGS: Both kidneys are normal in size, shape and echotexture. The right kidney measures 11.1 x 5.7 x 4.8 cm. No hydronephrosis, focal mass or perinephric fluid. The left kidney measures 11.0 x 5.0 x 4.7 cm. No hydronephrosis, focal mass or perinephric fluid. The urinary bladder is incompletely distended without gross abnormality seen. IMPRESSION: Unremarkable renal sonogram. Medical problem list Diabetes mellitus type 2-uncontrolled Hypertension Acute kidney injury-now resolved History pulmonary embolism Brief History of Present Illness: 59-year-old male with medical history of pulmonary embolism, hypertension, diabetes mellitus type 2 presents the emergency department for right lower extremity redness, swelling, pain. Patient was also found to have a creatinine of 2.1 which is graded as baseline around 1.5-1.6. Patient was admitted for IV antibiotics secondary to diabetic foot wound and acute kidney injury. Hospital Course: 59-year-old male with medical history of pulmonary embolism, hypertension, diabetes mellitus type 2 presents the emergency department for right lower extremity redness, swelling, pain. Patient was also found to have a creatinine of 2.1 which is graded as baseline around 1.5-1.6. Patient was admitted for IV antibiotics secondary to diabetic foot wound and acute kidney injury. Patient was also found to have electrolyte abnormalities. Patient was admitted and seen by General Surgery, Infectious Disease, Nephrology. Patient had MRI of the right foot which did show Osteomyelitis is probably present in the sesamoid bones at the first MTP joint. Patient also had ultrasound both venous and arterial of the right lower extremity which showed no DVT and mild decreased flow to the right lower extremity. Infectious Disease recommended 6 weeks of IV antibiotic therapy with Levaquin 500 mg once daily and wound care at the wound Care Clinic. Patient will need primary care doctor, this was discussed with Dr. Cerda will follow the patient on an outpatient basis. General surgery saw the patient and did not recommended debridement at this time. Patient has done well throughout this hospitalization. Renal function has returned to baseline. Patient's A1c was 12.4. Discussed this with patient and notified him that he will likely require insulin therapy but this should be arranged this primary care doctor for close monitoring. Patient with history of diabetes mellitus type 2, at discharge he will continue his home medications of metformin 500 mg p.o. b.i.d., glyburide 5 mg p.o. b.i.d. your diabetic medications will likely be changed by your primary care doctor as her sugars are not well controlled. Patient with history of hypertension, discharge patient continue with metoprolol tartrate 1 tablet p.o. b.i.d.. Also continue with lisinopril 30 mg p.o. daily. Patient history pulmonary embolism, currently on anticoagulant therapy. Discharge patient continue with Eliquis 5 mg p.o. b.i.d.. Vital Signs/Physical Exam: Temp Pulse Resp BP Pulse Ox 97.3 F 86 20 147/83 H 92 03/23/20 08:00 03/23/20 08:00 03/23/20 08:00 03/23/20 08:00 03/23/20 08:00 General: Alert, In no apparent distress HEENT: Atraumatic, PERRLA, EOMI Neck: Supple, JVD not distended Respiratory: Clear to auscultation bilaterally, Normal air movement Cardiovascular: Regular rate/rhythm, Normal S1 S2 Gastrointestinal: Normal bowel sounds, No tenderness Musculoskeletal: Erythema, Tenderness, Warmth, Other (Right lower extremity) Integumentary: Tenderness/swelling, Erythema, Warmth, Diabetic ulcer (Right lower extremity) Neurological: Normal speech, Normal tone, Normal affect Lymphatics: No axilla or inguinal lymphadenopathy Other Physical/Emotional Findings: Lives at home Laboratory Data at Discharge: WBC 4.7 K/uL (4.3-10.9) D 03/23/20 04:09 Hgb 12.4 g/dL (13.6-17.9) L 03/23/20 04:09 Hct 36.8 % (39.6-49.0) L 03/23/20 04:09 Plt Count 195 K/uL (152-406) 03/23/20 04:09 PT 15.5 SECONDS (9.5-12.5) H 03/19/20 14:20 INR 1.32 03/19/20 14:20 Sodium 137 mmol/L (136-145) 03/23/20 04:09 Potassium 4.2 mmol/L (3.5-5.1) 03/23/20 04:09 BUN 19 mg/dL (7-18) H 03/23/20 04:09 Creatinine 1.35 mg/dL (0.55-1.3) H 03/23/20 04:09 Glucose 178 mg/dL (74-106) H 03/23/20 04:09 Uric Acid 5.4 mg/dL (3.5-7.2) 03/21/20 05:37 Phosphorus 2.4 mg/dL (2.5-4.9) L 03/23/20 04:09 Magnesium 1.6 mg/dL (1.8-2.4) L 03/23/20 04:09 Total Bilirubin 0.9 mg/dL (0.2-1.0) 03/19/20 14:25 AST 15 U/L (15-37) 03/19/20 14:25 ALT 14 U/L (12-78) 03/19/20 14:25 Alkaline Phosphatase 46 U/L (45-117) 03/19/20 14:25 Lipase 58 U/L (73-393) L 03/19/20 14:25 Home Medications: Apixaban [Eliquis *] 5 mg PO BID #60 tablet 07/19/16 Lisinopril [Zestril] 30 mg PO DAILY 01/08/19 Metformin HCl 500 mg PO BID 01/08/19 Omeprazole [Prilosec] 40 mg PO DAILY 01/08/19 glyBURIDE [Glyburide] 5 mg PO BID 01/08/19 Fenofibrate [Tricor] 145 mg PO DAILY 03/19/20 Gabapentin 300 mg PO TID 03/19/20 Guselkumab [Tremfya] 100 mg SQ SEECOM 03/19/20 Hydrocodone Bit/Acetaminophen [[place] 7.5-325 Tablet] 1 each PO Q8HR 03/19/20 Metoprolol Tartrate 1 tab PO BID 03/19/20 Triamterene/Hydrochlorothiazid [Triamterene-Hctz 37.5-25 mg Cp] 1 each PO DAILY 03/19/20 Patient Discharge Instructions: 1. Please follow up with Dr. Cerda in the next 1 week to follow up this hospitalization. He will need to have your diabetic medications adjusted and likely require insulin therapy but this can be set up and monitored by primary care doctor. Please also establish yourself with the wound healing Center in this hospital. 2. Please continue with IV antibiotic therapy as prescribed with home health. 3. 59-year-old male with medical history of pulmonary embolism, hypertension, diabetes mellitus type 2 presents the emergency department for right lower extremity redness, swelling, pain. Patient was also found to have a creatinine of 2.1 which is graded as baseline around 1.5-1.6. Patient was admitted for IV antibiotics secondary to diabetic foot wound and acute kidney injury. Patient was also found to have electrolyte abnormalities. Patient was admitted and seen by General Surgery, Infectious Disease, Nephrology. Patient had MRI of the right foot which did show Osteomyelitis is probably present in the sesamoid bones at the first MTP joint. Patient also had ultrasound both venous and arterial of the right lower extremity which showed no DVT and mild decreased flow to the right lower extremity. Infectious Disease recommended 6 weeks of IV antibiotic therapy with Levaquin 500 mg once daily and wound care at the wound Care Clinic. Patient will need primary care doctor, this was discussed with Dr. Cerda will follow the patient on an outpatient basis. General surgery saw the patient and did not recommended debridement at this time. Patient has done well throughout this hospitalization. Renal function has returned to baseline. Patient's A1c was 12.4. Discussed this with patient and notified him that he will likely require insulin therapy but this should be arranged this primary care doctor for close monitoring. Patient with history of diabetes mellitus type 2, at discharge he will continue his home medications of metformin 500 mg p.o. b.i.d., glyburide 5 mg p.o. b.i.d. your diabetic medications will likely be changed by your primary care doctor as her sugars are not well controlled. Patient with history of hypertension, discharge patient continue with metoprolol tartrate 1 tablet p.o. b.i.d.. Also continue with lisinopril 30 mg p.o. daily. Patient history pulmonary embolism, currently on anticoagulant therapy. Discharge patient continue with italic was 5 mg p.o. b.i.d.. Diet: ADA Activity: Ad vijaya Time spent managing pt's care (in minutes): 55
[2020-03-23] MEDS ORDERED: Levofloxacin500mg IV 500 MG/100 ML BAG IV SCH (14:00)
[2020-03-23] MEDS: HYDROCODONE/APAP 7.5/325 MG TAB PO PRN (16:23)
--- NOTE | 2020-03-23 21:14 | RAD REPORT ---
EXAM DESCRIPTION: RAD - Chest Single View - 03/23/2020 9:09 pm CLINICAL HISTORY: Device placement PICC line placement IMPRESSION: PICC line with its tip in the distal superior vena cava
[2020-03-23] MEDS ORDERED: D50W 25 GM/50 ML SYRINGE/VIAL IV ONE (23:57)
--- NOTE | 2020-03-24 01:51 | PN ---
Date of Progress Note: 03/23/2020 Chief Complaint: Acute kidney injury. History Of Present Illness: Acute kidney injury secondary to prerenal azotemia, nonoliguric acute tu bular necrosis. Renal function has improved over the last several days. Creatinine level usually at baseline was ranging from 1.5 to 1.8. Review of Systems: Denies PND or orthopnea. Physical Examination: Lungs: Diminished breath sounds at bases. Heart: S1, S2. Abdomen: Soft, benign. Extremities: Dressing in place. Impression And Plan: 1.Acute kidney injury. Renal function is improving and electrolytes stable. Continue to adjust IV fluids and advance p.o. intake as tolerated. 2.Hyperkalemia. Present on arrival to the hospital. Potassium was 5.5. Potassium improved with hy dration. The patient may continue GAY inhibitor for blood pressure control and antiproteinuric effec t. Monitor renal panel. 3.Monitor magnesium level and plan replacement as needed. JENNIFER/TAVIA Voice ID: [id number] Report ID: [id number]
[2020-03-24 05:57] LABS: Basophils % 0.8 % (0-1.3); Hematocrit 39.7 % (39.6-49.0); Lymphocytes % 20.3 % (15.3-44.8); MPV 8.5 fL (7.6-11.3); RBC Red Blood Cell Count 4.28 M/uL (4.33-5.43)
[2020-03-24 06:00] LABS: Albumin 2.8 g/dL (3.4-5.0); Magnesium 1.5 mg/dL (1.8-2.4); Phosphorus 2.9 mg/dL (2.5-4.9); Potassium 4.3 mmol/L (3.5-5.1)
[2020-03-24] MEDS: GABAPENTIN 300 MG CAP PO SCH (08:28)
[2020-03-24] MEDS: FENOFIBRATE 160 MG TAB PO SCH (08:29)
[2020-03-24] MEDS: PANTOPRAZOLE 40MG TABLET PO SCH (08:29)
[2020-03-24] MEDS: IRR IRR SCH (08:30)
[2020-03-24] MEDS: NACL 0.9% IRR SCH (08:30)
[2020-03-24] MEDS: lisinopriL 5 MG TAB PO SCH (08:33)
[2020-03-24] MEDS: HYDROCODONE/APAP 7.5/325 MG TAB PO PRN (08:35)
[2020-03-24] MEDS: INSULIN -REGULAR HUMAN 50 UNIT/0.5 ML ML SQ SCH (08:37)
[2020-03-24] MEDS: APIXABAN 5 MG TABLET PO SCH (08:40)
[2020-03-24 08:43] VITALS: BP 147/80
[2020-03-24] MEDS ORDERED: Magnesium Sulfate 2gm IVPB 2 G/50 ML BAG IV ONE (09:00)
[2020-03-24 09:02] VITALS: TEMP 96.7
[2020-03-24 09:11] VITALS: O2SAT 92
--- NOTE | 2020-03-24 10:19 | P.PN ---
Date of Service: 03/24/20 Subjective: This patient is a 59-year-old male with past medical history of type 2 diabetes myelitis and neuropathy who presents with worsening erythema, swelling, and pain to right lower extremity. Patient reports callused area to plantar surface of right foot that he removed a few weeks ago. Patient reports, "I think i cut it a little to deep." Patient also reports no feeling to plantar surface of his feet and walks around barefooted 90% of the time. Patient found to have right lower extremity cellulitis and DFU to right foot plantar surface which I have been consulted for. Patient examined at bedside. Patient to follow up with wound center on Sunday. Objective: Temp Pulse Resp BP Pulse Ox 96.7 F L 101 H 16 147/80 H 98 03/24/20 08:00 03/24/20 08:33 03/24/20 08:00 03/24/20 08:33 03/24/20 08:00 Labs: Sodium 136, potassium 4.3, BUN 22, creatinine 1.31, albumin 2.6, WBC 4.8, hematocrit 39.7, hemoglobin 13.4 Foot xray 03/19: EXAM DESCRIPTION: RAD - Foot Right 3 View - 03/19/2020 3:00 pm CLINICAL HISTORY: PAIN, plantar wound COMPARISON: No comparisons FINDINGS: No fracture, dislocation or periosteal reaction. No acute or destructive process seen. Wound is seen in the plantar soft tissues near the MTP joints. No erosive or destructive process to suspect osteomyelitis. MTP and IP joint assessment is somewhat limited due to the patient being an flexion at the IP joints and extension at the MTP joints. This creates overlapping bony structures. No air or foreign body in the soft tissues. IMPRESSION: No acute bone finding. No suspicion for osteomyelitis Foot MRI 03/22: EXAM DESCRIPTION: MRI - Foot Right Wo Cont - 03/22/2020 8:54 am CLINICAL HISTORY: Right foot cellulitis and diabetic foot ulcer, plantar surface soft tissue wound first MTP joint region COMPARISON: Foot Right 3 View dated 03/19/2020 TECHNIQUE: Multiplanar imaging of the right foot performed using T1 weighted, T1 fat saturation, T2 fat saturation and T2 stir sequencing. FINDINGS: Soft tissue edema changes are present in the soft tissues around the first MTP joint along the plantar and medial margins. No abscess or drainable fluid collection identifiable. The first metatarsal and the first toe phalanges show normal T1/T2 signal characteristics. Sesamoid bones do show hypointense T1 and hyperintense T2 signal. Flexor tendon shows normal size and signal intensity. The second- fourth metatarsals and second- fourth toes show no evidence for osteomyelitis or acute finding. There is linear signal abnormality traversing the base of the fifth proximal phalanx. No significant signal abnormality in this toe otherwise noted. This may be a chronic fracture. Tarsal bones and partially imaged ankle joint show no suspicious findings. Edema seen over the dorsum soft tissues. Again, no focal fluid collections seen. IMPRESSION: Osteomyelitis is probably present in the sesamoid bones at the first MTP joint. The first metatarsal and first toe phalanges show no evidence for osteomyelitis. Prominent soft tissue infectious/edema changes present around the first MTP joint. This is primarily medial and plantar margins. No abscess or drainable fluid collection. ROS: General: Awake, alert, oriented CV: S1,S2 RESP: Good breath sounds ABD: Nontender, bowel sounds present Extremities: edema to RLE Skin: RLE erythema, warmth and swelling improving. Right foot with dressing CDI Assessment and plan: DFU to right plantar surface, MRI suggest osteomyelitis present in the sesamoid bones at the first MTP joint, recommend to apply betadine and gauze daily Right lower extremity cellulitis improving, educated the patient to keep leg elevated Blood culture shows no growth to date Wound cultures shows E.Coli and staph Patient to be discharged on Levaquin 500mg IV daily for total of 6 weeks Patient to be set up with home health and is to follow up with wound healing clinic upon discharge Diabetes mellitus, A1c 12.0, educated the patient on the importance of glucose c ontrol and wound healing Diabetic neuropathy Protein calorie malnourished Will continue to monitor Patient discussed with Dr. Cary
[2020-03-29 03:05] LABS: HBsAG Nonreactive (Nonreactive)
[2020-03-29 12:30] LABS: Vitamin D 1,25-Dihydroxy Total 51 pg/mL (18-72); Vitamin D,1,25-OH2, D2 <8 pg/mL
[2020-03-30 17:17] LABS: Hepatitis C Virus RNA (PCR)log <1.18 log IU/mL
== END 2020-03-24 10:30 | disposition home health service (06) | DRG 871 ==
LOC: ER 13:14 → ERHOLD 15:15 → 2ND 16:48
PROVIDERS: ADMIT Family Medicine; ATTEND Family Medicine
PROC: 02HV33Z Insertion of Infusion Device into Superior Vena Cava, Percutaneous Approach (ICD-10-PCS; principal; 2020-03-23)
DX: A41.9 Sepsis, unspecified organism (principal); N17.0 Acute kidney failure with tubular necrosis; L03.115 Cellulitis of right lower limb; M86.8X7 Other osteomyelitis, ankle and foot; E46 Unspecified protein-calorie malnutrition; E11.628 Type 2 diabetes mellitus with other skin complications; K21.9 Gastro-esophageal reflux disease without esophagitis; Z90.49 Acquired absence of other specified parts of digestive tract; Z11.59 Encounter for screening for other viral diseases; Z79.01 Long term (current) use of anticoagulants; Z79.84 Long term (current) use of oral hypoglycemic drugs; Z79.899 Other long term (current) drug therapy; E11.621 Type 2 diabetes mellitus with foot ulcer; L97.519 Non-pressure chronic ulcer of other part of right foot with unspecified severity; I12.9 Hypertensive chronic kidney disease with stage 1 through stage 4 chronic kidney disease, or unspecified chronic kidney disease; E11.22 Type 2 diabetes mellitus with diabetic chronic kidney disease; N28.9 Disorder of kidney and ureter, unspecified; E83.42 Hypomagnesemia; E87.5 Hyperkalemia; Z88.0 Allergy status to penicillin; E11.40 Type 2 diabetes mellitus with diabetic neuropathy, unspecified; N18.3 Chronic kidney disease, stage 3 (moderate); T50.996A Underdosing of other drugs, medicaments and biological substances, initial encounter; Z91.128 Patient's intentional underdosing of medication regimen for other reason; E11.69 Type 2 diabetes mellitus with other specified complication; Z79.891 Long term (current) use of opiate analgesic; B96.20 Unspecified Escherichia coli [E. coli] as the cause of diseases classified elsewhere; B95.8 Unspecified staphylococcus as the cause of diseases classified elsewhere; Z68.34 Body mass index [BMI] 34.0-34.9, adult; Z96.641 Presence of right artificial hip joint; Z86.711 Personal history of pulmonary embolism
CPT/HCPCS: 36415; 36569; 71045; 76770; 80048; 80069; 80076; 80202; 81003; 82570; 82652; 82947; 83036; 83520; 83605; 83690; 83735; 83880; 83970; 84145; 84156; 84443; 84484; 84550; 85025; 85610; 85652; 86021; 86038; 86160; 86225; 86317; 86430; 86704; 86706; 87040; 87070; 87077; 87186; 87205; 87340; 87522; 93005; 93925; 93970; 94760; 96374; 96375; 99285; J0692; J0696; J1170; J2405; J3010; J3370; J3475; J7030; J7040; P9047; U0002

== ENCOUNTER 2020-03-29 14:08 | Inpatient (IN) | payer OTHER ==
[~2020-03-29 14:08] MED LIST: VANCOMYCIN 2 GM in NA CHLORIDE 0.9% 500 ML IVPB SCH
[2020-03-29] MEDS ORDERED: GLUCAGON 1 MG/VIAL IM PRN (14:47)
[2020-03-29] MEDS ORDERED: D50W 25 GM/50 ML SYRINGE/VIAL IV PRN (14:47)
[2020-03-29 14:54] VITALS: BMI 33.7
[2020-03-29] MEDS ORDERED: ONDANSETRON 4 MG/2 ML VIAL IV PRN (15:09)
[2020-03-29] MEDS: HYDROMORPHONE HCL 1 MG/ML INJ IV PRN ×3 (15:37→22:55)
[2020-03-29] MEDS ORDERED: VANCOMYCIN 3 GM in NA CHLORIDE 0.9% 500 ML IVPB ONE (16:00)
[2020-03-29 16:04] LABS: Absolute Lymphocytes (CBC) 1.7 K/uL (0.7-4.9); Basophils % 0.9 % (0-1.3); Hematocrit 39.1 % (39.6-49.0); Lymphocytes % 23.3 % (15.3-44.8)
[2020-03-29 16:07] LABS: Protime INR 1.44
[2020-03-29] MEDS: INSULIN -REGULAR HUMAN 50 UNIT/0.5 ML ML SQ SCH ×2 (16:30→21:00)
[2020-03-29 16:35] LABS: Potassium 4.7 mmol/L (3.5-5.1)
--- NOTE | 2020-03-29 16:54 | RAD REPORT ---
EXAM DESCRIPTION: RAD - Chest Single View - 03/29/2020 4:43 pm CLINICAL HISTORY: new admitchest pain COMPARISON: Portable March 23 TECHNIQUE: AP portable chest image was obtained 03/29/2020 4:43 pm . FINDINGS: Lung volumes are low, similar to comparison. No new mass or consolidation. Interstitial pa ttern has not clearly changed. Left-sided PICC line remains in place. Heart and vasculature are normal. No measurable pleural effusion and no pneumothorax. No acute bony abnormality seen. No acute aortic findings suspected. IMPRESSION: No acute cardiopulmonary process. No significant change comparison.
--- NOTE | 2020-03-29 18:20 | P.HP ---
Certification for Inpatient Patient admitted to: Inpatient With expected LOS: >2 Midnights Practitioner: I am a practitioner with admitting privileges, knowledge of patient current condition, hospital course, and medical plan of care. Services: Services provided to patient in accordance with Admission requirements found in Title 42 Section 412.3 of the Code of Federal Regulations Patient History Date of Service: 03/29/20 Reason for admission: FOOT ULCER. History of Present Illness: MR. BEAVERS IS A NON COMPLIANT DIABETIC WHO WAS TAKEN CARE BY PAS AT A FAMILY [facility]ICE [facility]. HE WAS SENT HOME AFTER DR JC TOOK CARE OF HIM WITH DR ANAND FOR FOOT OSTEOMYELITIS. HE WAS SENT TO MY WOUND CLINIC FIRST TIME TODAY. I HAVE NEVER SEEN HIM BEFORE. I SEE THAT HIS WOUND NEEDS DEEP SURGICAL DEBRIDEMENT SO I DECIDED TO ADMIT HIM AGAIN AND CONSULT DR. HURD HE NEEDS ANESTHSIA AND SURGERY. I AM NOT SURE IF WE CAN SAVE HIS FOREFOOT. MR BEAVERS WALKS AROUND BAREFOOT. HE KNOW SHE SHOULD NOT DO SO. HE WALKS EVEN OUT SIDE THE HOME BAREFOOT MANY TIMES. Allergies No Known Allergies Allergy (Verified 03/29/20 17:32) Home Medications: Lisinopril [Zestril] 30 mg PO DAILY 01/08/19 Metformin HCl 500 mg PO BID 01/08/19 Omeprazole [Prilosec] 40 mg PO DAILY 01/08/19 glyBURIDE [Glyburide] 5 mg PO DAILY 01/08/19 Fenofibrate [Tricor] 145 mg PO DAILY 03/19/20 Gabapentin 300 mg PO TID 03/19/20 Guselkumab [Tremfya] 100 mg SQ SEECOM 03/19/20 Hydrocodone Bit/Acetaminophen [[place] 7.5-325 Tablet] 1 each PO Q8HP PRN 03/19/20 Metoprolol Tartrate 1 tab PO BID 03/19/20 Triamterene/Hydrochlorothiazid [Triamterene-Hctz 37.5-25 mg Cp] 1 each PO DAILY 03/19/20 Apixaban [Eliquis] 2.5 mg PO BID 03/29/20 Cyclobenzaprine HCl 10 mg PO DAILY PRN 03/29/20 - Past Medical/Surgical History Has patient received pneumonia vaccine in the past: No Diabetic: Yes -: HTN -: GERD -: Diabetes mellitus -: Left foot drop -: Appendectomy -: back surgery -: colon resection -: right hip replacement Psychosocial/ Personal History: Lives at home - Family History Mother -: Hypertension, Diabetes, Stroke, Cancer Father -: Diabetes - Social History Smoking Status: Never smoker Alcohol use: Yes CD- Drugs: No Caffeine use: Yes Place of Residence: Home Review of Systems 10-point ROS is otherwise unremarkable General: Weakness Musculoskeletal: As per HPI Integumentary: As per HPI Physical Examination - Vital Signs Temperature: 97.6 F Blood Pressure: 89/54 Pulse: 69 Respirations: 19 Pulse Ox (%): 99 - Physical Exam General: Alert, Mild distress HEENT: Atraumatic, PERRLA, Mucous membr. moist/pink, EOMI, Sclerae nonicteric Neck: Supple, 2+ carotid pulse no bruit, No LAD, Without JVD or thyroid abnormality Respiratory: Clear to auscultation bilaterally, Normal air movement Cardiovascular: Regular rate/rhythm, Normal S1 S2 Gastrointestinal: Normal bowel sounds, No tenderness Musculoskeletal: No tenderness Integumentary: Skin breakdown, Diabetic ulcer (LARGE R TOE WOUND INVOLVING BOTH FIRST AND SECOND TOES WITH LARGE WHITE THICK MARY PROTRUSION MEDIALLY.) Neurological: Normal gait, Normal speech, Normal strength at 5/5 x4 extr, Normal tone, Normal affect Lymphatics: No axilla or inguinal lymphadenopathy - Studies Laboratory Data (last 24 hrs) 03/29/20 15:29: Sodium 136, Potassium 4.7, BUN 36 H, Creatinine 2.19 H, Glucose 132 H 03/29/20 15:29: PT 16.9 H, INR 1.44, APTT 39.6 H 03/29/20 15:29: WBC 7.1 D, Hgb 12.9 L, Hct 39.1 L, Plt Count 336 D Assessment and Plan - Problems (Diagnosis) (1) Diabetic osteomyelitis Current Visit: Yes Status: Chronic Plan: UNFORTUNATELY THIS IS A LARGE AREA OF OSTEOMYELITIS. HE IS NOT A COMPLIANT MAN. HIS GLUCOSE IS 200-300. HE IS ON GLYBURIDE AND METFORMIN AND THESE ARE NOT RIGHT MEDICINES FOR HIM CREATTININE IS HIGH. START IV VANCOMYCIN , ZOSYN . STOP LEVAQUIN. CONSULT DR. HURD. MAY NEED FOREFOOT AMPUTATION. (2) Hypotension Current Visit: Yes Status: Acute Plan: IV FLUIDS. STOP BP MEDS. DAILY LAB. Qualifiers: Hypotension type: orthostatic hypotension Qualified Code(s): I95.1 - Orthostatic hypotension (3) Chronic kidney disease with end stage renal disease on dialysis due to type 2 diabetes mellitus Current Visit: Yes Status: Acute - Advance Directives Does patient have a Living Will: No Does patient have a Durable POA for Healthcare: No
[2020-03-29] MEDS: PIPER/TAZO/NS 3.375gm 3.375 GM/100 ML BAG IV SCH (18:25)
[2020-03-29] MEDS: NACHLORIDE 0.45% 1,000 ML IV SCH (18:25)
[2020-03-29] MEDS: INSULIN GLARGINE 100 UNITS/ML SQ SCH (21:26)
[2020-03-29] MEDS: GABAPENTIN 300 MG CAP PO SCH (21:28)
[2020-03-30] MEDS: PIPER/TAZO/NS 3.375gm 3.375 GM/100 ML BAG IV SCH ×3 (01:19→16:30)
[2020-03-30] MEDS: HYDROMORPHONE HCL 1 MG/ML INJ IV PRN (02:15)
[2020-03-30] MEDS: INSULIN -REGULAR HUMAN 50 UNIT/0.5 ML ML SQ SCH ×4 (07:30→21:14)
[2020-03-30] MEDS ORDERED: NA CHLORIDE 0.9% 250 ML IV PRN (07:32)
[2020-03-30] MEDS ORDERED: NA CHLORIDE 0.9% 250 ML ONE (07:41)
[2020-03-30] MEDS: NACHLORIDE 0.45% 1,000 ML IV SCH ×3 (08:20→21:40)
[2020-03-30] MEDS: GABAPENTIN 300 MG CAP PO SCH ×3 (09:00→21:14)
[2020-03-30] MEDS: FENOFIBRATE 160 MG TAB PO SCH (09:00)
[2020-03-30] MEDS: PANTOPRAZOLE 40MG TABLET PO SCH (09:00)
[2020-03-30] MEDS ORDERED: HOME MED 1 EA UNK (Omeprazole [Prilosec] 40 MG) PO SCH (09:00)
[2020-03-30] MEDS ORDERED: propofoL 200 MG/20 ML VIAL IV ONE (09:02)
[2020-03-30] MEDS ORDERED: Phenylephrine HCl 10 MG/ML 1 ML VIAL ONE (09:02)
[2020-03-30] MEDS ORDERED: LIDOCAINE 2% MPF 5 ML VIAL ONE (09:02)
[2020-03-30] MEDS ORDERED: NS 0.9% VIAL 20 ML ONE (09:02)
[2020-03-30] MEDS ORDERED: FENTANYL CITR 100 MCG/2 ML ONE (09:02)
[2020-03-30] MEDS ORDERED: EPHEDRINE SULF 50 MG/ML VIAL ONE (09:02)
[2020-03-30] MEDS ORDERED: ONDANSETRON 4 MG/2 ML VIAL ONE (09:03)
[2020-03-30] MEDS ORDERED: NA CHLORIDE 0.9% 1,000 ML ONE ×2 (09:41→12:03)
[2020-03-30] MEDS: VANCOMYCIN 2 GM in NA CHLORIDE 0.9% 500 ML IVPB SCH (10:17)
--- NOTE | 2020-03-30 10:24 | PREOPCON ---
Date of Consultation: 03/29/2020 Reason: Infected wound, right foot. History Of Present Illness: The patient is a 59-year-old gentleman who had a callus on his right sammy t and he tried to debride it himself and cut deeper things and caused an infection following which he was admitted last week and was found to have osteo of the sesamoid bone and the first metatarsophala ngeal joint. He was started on Levaquin through the PICC line. He had 2 open wounds. He was told t o follow up in the [facility]. When seen by Dr. Moon yesterday in the [facility], it was determined that patient needed surgical debridement. He was admitted and I was consulted . He is awake, alert. Minimal discharge. No sore throat, runny nose, cough, headaches, or dizzines s. Currently, does not have chest pain. No fever or chills. Review of Systems: Otherwise unremarkable. Past Medical History: Significant for diabetes, left footdrop, GERD. Past Surgical History: Appendectomy, back surgery, colon resection, right hip replacement. Allergies: NONE. Social History: The patient does not smoke. Drinks occasionally. Family History: Significant for diabetes, stroke, cancer and hypertension, and please note, patient did get a dose of Eliquis yesterday. Physical Examination: Vital Signs: Stable. His blood pressure is between 90 and 100 systolic. He is afebrile. General: He is awake, alert, and oriented x3. Head and Neck: Cranial nerves 2 through 12 are grossly within normal limits. No neck masses. No JV D. Throat clear. Neck: Supple. Chest: Clear. Heart: S1, S2. Abdomen: Soft. Extremities: Neurovascularly intact. Diminished dorsalis pedis and posterior tibial pulses. On the medial aspect of the right foot at the metatarsophalangeal joint, there is an open wound, which is o bviously is infected with necrotic fibrin present, redness, erythema, warmth and edema. There is ano ther plantar ulcer between the first and second metatarsal head secondary to pressure approximately 1 cm in diameter. The medial wound is approximately 3 x 3 cm. Laboratory Data: White count is 7.1. Sedimentation rate is 45. INR is 1.44. Chemistry reviewed. BUN and creatinine are slightly elevated. His C-reactive is 24.4. He had a Doppler done on his last visit last week, which showed mild distal right lower extremity arterial peripheral vascular disease . No occlusion. Biphasic. He had an MRI done last week. Showed osteomyelitis present in the sigmo id bones at the first MTP joint. The first metatarsal and the first toe phalanx showed no evidence o f osteo. Prominent soft tissue infection, edema, changes are present around the MTP joint primarily in the medial and plantar margins. Assessment: A 59-year-old gentleman with multiple medical problems with infected wounds in right sammy t with osteomyelitis. Recommendation: N.p.o., IV antibiotics. To the OR for incision and drainage and debridement of infe cted wound of the right foot. The patient understands the risks, benefits, and alternatives and agre es to procedure. The patient also was advised should pressure not be ablated and antibiotics not bee n taken, then this could progress and require further surgeries up to and including below-knee amputa tion. The patient understands and agrees. SERG/LIBANL Voice ID: [id number] Report ID: [id number]
[2020-03-30] MEDS ORDERED: COLLAGENASE 30 GM OINTMENT TOP ONE (10:39)
--- NOTE | 2020-03-30 10:42 | P.OP ---
Primary Special Educator: NONE,NONE Preoperative diagnosis: Diabetic infected wound right foot with osteomyelitis Postoperative diagnosis: same Primary procedure: Incision, drainage and debridement infected right foot wound to bone Anesthesia: General Estimated blood loss: min Specimen: C&S, bone culture Findings: as above Complications: None Transferred to: Recovery Room Condition: Good
[2020-03-30] MEDS ORDERED: NA CHLORIDE 0.9% 500 ML IV ONE (11:53)
[2020-03-30] MEDS ORDERED: VANCOMYCIN 2 GM in NA CHLORIDE 0.9% 500 ML IVPB SCH (18:00)
--- NOTE | 2020-03-30 20:36 | OP ---
Date of Procedure: 03/30/2020 Surgeon: Anton Brandt MD Strategic Accounts Manager: None. Preoperative Diagnosis: Infected diabetic foot wound, right foot with osteomyelitis. Postoperative Diagnosis: Infected diabetic foot wound, right foot with osteomyelitis. Procedure: Incision, drainage, and debridement of infected right foot diabetic wound to bone, 3 x 3 cm. Estimated Blood Loss: Minimal. Specimens: Infected tissue and bone. Findings: As above. Anesthesia: General. Complications: None. Disposition: The patient tolerated the procedure in stable condition, taken to Recovery in good gene ral condition. Procedure In Detail: The patient was brought to the OR and placed in supine position. General anest hesia was begun. The patient was prepped and draped in usual sterile fashion. Marcaine 0.5% was inf iltrated locally. Then, a 15 blade and sharp scissors utilized to dissect all the necrotic tissue ou t from the bigger wound, medial wound, that was 3 x 3 cm and this was done all the way down until the bone was visible. Bone cultures were done and the necrotic tissue was sent for cultures as well. T he other wound, which was on the plantar aspect, 1 cm diameter, had fibrin present, which was debride d as well. These 2 wounds were both connected to each other. Subsequently, wound irrigated, bleedin g controlled cautery, and then collagenase wet-to- dry normal saline dressings applied. The patient was awakened and taken to Recovery in good general condition. /MODL Voice ID: [id number] Report ID: [id number]
[2020-03-30] MEDS: INSULIN GLARGINE 100 UNITS/ML SQ SCH (21:15)
--- NOTE | 2020-03-30 21:21 | PN ---
Subjective: Mr. Davenport is a diabetic, who has been noncompliant for long duration, unfortunately suffe ring complications, now with diabetic foot ulcer with osteomyelitis, diabetic Charcot joints mainly i n the right foot. He underwent surgical debridement by Dr. Brandt, removal of infected bone and biops y and culture of the bone. His blood pressure has improved up from 88 systolic to 110 systolic now. He remains afebrile in the morning. I saw him. He was quite comfortable. Physical Examination: Vital Signs: Blood pressure 110/60, temp is 97.6. HEENT: No JVD. No carotid bruits. Chest: Clear. Heart: Regular. ABDOMEN: No guarding, no rebound, no rigidity. Laboratory Data: Lab examination yesterday, white count was 7000. CRP was high. BUN was 36, creati nine 2.19, sugar anywhere from 90 to 126. His CRP was 24. Hemoglobin A1c of 12.0, which is very hig h. Assessment And Plannin.Uncontrolled diabetes mellitus with osteomyelitis of the foot, diabetic Mathias's grade 4. The pat ient will go through IV antibiotics, will be different than what he was on before. He is currently o n vancomycin and Zosyn because of dual coverage necessary for this kind of infection. He will be on antibiotics for about 6 weeks, and after that if he continues to have problem, he may need hyperbaric medicine treatment. 2.Diabetes mellitus, currently he is on Lantus from yesterday. I stooped his glyburide and metformi n. With creatinine 2.19, he cannot have metformin. He has been going to a PA so far for his care, sybil patelunately suffering lot of complications at this point at early age. 3.Hypertension. Currently, his blood pressure is low enough. He is not on any medications. When rema callahan came in, he was hypotensive with dehydration and possible renal effect of lisinopril, which I have stopped now. Prognosis remains juan a gold. RVD/MODL Voice ID: [id number] Report ID: [id number]
[2020-03-31] MEDS: PIPER/TAZO/NS 3.375gm 3.375 GM/100 ML BAG IV SCH ×3 (00:28→16:43)
[2020-03-31 02:12] VITALS: O2SAT 95
[2020-03-31] MEDS: NACHLORIDE 0.45% 1,000 ML IV SCH ×2 (03:11→16:49)
[2020-03-31] MEDS: VANCOMYCIN 2 GM in NA CHLORIDE 0.9% 500 ML IVPB SCH ×2 (03:11→21:00)
[2020-03-31] MEDS: HYDROCODONE/APAP 7.5/325 MG TAB PO PRN (05:28)
[2020-03-31 06:15] LABS: Absolute Lymphocytes (CBC) 1.1 K/uL (0.7-4.9); Basophils % 0.7 % (0-1.3); Lymphocytes % 24.4 % (15.3-44.8); MPV 7.9 fL (7.6-11.3); RBC Red Blood Cell Count 4.01 M/uL (4.33-5.43)
[2020-03-31 06:23] LABS: Potassium 4.8 mmol/L (3.5-5.1)
[2020-03-31] MEDS: INSULIN -REGULAR HUMAN 50 UNIT/0.5 ML ML SQ SCH ×4 (08:34→21:50)
[2020-03-31] MEDS: FENOFIBRATE 160 MG TAB PO SCH (08:35)
[2020-03-31] MEDS: PANTOPRAZOLE 40MG TABLET PO SCH (08:35)
[2020-03-31] MEDS: GABAPENTIN 300 MG CAP PO SCH ×3 (08:35→21:49)
[2020-03-31] MEDS: HYDROMORPHONE HCL 1 MG/ML INJ IV PRN ×3 (13:33→21:48)
--- NOTE | 2020-03-31 13:43 | PN ---
Date of Progress Note: 03/31/2020 Subjective: The patient is awake and alert. No complaint. Objective: Vital Signs: Stable. Afebrile. Laboratory Data: White count is normal. Cultures are pending. Dressing is clean, dry, intact. Wound was examined earlier by the nurse and Dr. Cerda. Appeared to be clean and no purulence. Assessment: Status post incision, drainage and debridement of right foot diabetic infection with ost eomyelitis. Recommendations: Continue IV antibiotics. The wound care is ordered. Probably wound VAC starting o n Sunday and the IV antibiotics will be determined once we get the culture reports to see which one h e goes home on. The patient is clinically stable. /MODL Voice ID: [id number] Report ID: [id number]
[2020-03-31] MEDS: INSULIN GLARGINE 100 UNITS/ML SQ SCH (21:49)
--- NOTE | 2020-03-31 22:52 | PN ---
Subjective: Mr. Davenport is doing a lot better. Denies chest pain, nausea, vomiting. He underwent debr idement of left foot surgically by Dr. Brandt. Physical Examination: Vital Signs: Blood pressure 107/60, pulse is 69, temperature 98.6. HEENT: No JVD. No carotid bruits. Chest: Clear. Heart: Regular. Abdomen: No guarding, no rebound, no rigidity. Assessment And Plan: 1.Left foot has diabetic ulcer now, Mathias grade 4 because of osteomyelitis. We changed the antibio tics to vancomycin and Zosyn. He will go home on these 2 antibiotics for about 6 weeks. Bone cultur e pending. 2.Diabetes mellitus, is not controlled properly, is going to appear for long time. He needs insulin , not medications tablets at this point. I will manage diabetes. Unfortunately, he already has comp lications of diabetes and diabetic neuropathy and diabetic foot infection. 3.Dehydration or renal failure, improving clinically with hydration. We stopped his lisinopril. Hi s hypotension was causing him to have renal insufficiency. Hopefully, this will improve with IV flui ds. RVD/MODL Voice ID: [id number] Report ID: [id number]
[2020-04-01] MEDS: NACHLORIDE 0.45% 1,000 ML IV SCH ×2 (00:20→13:40)
[2020-04-01] MEDS: PIPER/TAZO/NS 3.375gm 3.375 GM/100 ML BAG IV SCH ×3 (00:47→17:12)
[2020-04-01 05:43] LABS: Absolute Lymphocytes (CBC) 1.6 K/uL (0.7-4.9); Basophils % 0.7 % (0-1.3); Hematocrit 37.7 % (39.6-49.0); Lymphocytes % 33.4 % (15.3-44.8); MPV 7.9 fL (7.6-11.3); RBC Red Blood Cell Count 4.08 M/uL (4.33-5.43)
[2020-04-01 05:51] LABS: Potassium 4.4 mmol/L (3.5-5.1)
[2020-04-01] MEDS: INSULIN -REGULAR HUMAN 50 UNIT/0.5 ML ML SQ SCH ×4 (07:30→20:56)
[2020-04-01] MEDS: PANTOPRAZOLE 40MG TABLET PO SCH (08:47)
[2020-04-01] MEDS: GABAPENTIN 300 MG CAP PO SCH ×3 (08:47→20:55)
[2020-04-01] MEDS: FENOFIBRATE 160 MG TAB PO SCH (08:47)
[2020-04-01] MEDS: HYDROMORPHONE HCL 1 MG/ML INJ IV PRN ×2 (08:47→12:52)
--- NOTE | 2020-04-01 11:04 | PN ---
Date of Progress Note: 04/01/2020 Subjective: The patient is awake and alert. No complaints. Objective: Vital Signs: Stable. Afebrile. Laboratory Data: Cultures are growing gram-negative meggan and gram-positive cocci. Sensitivities not out yet. Identification of the blood is not out yet either. Dressing is clean, dry, and intact. Assessment: Status post debridement of infected right foot wound with osteomyelitis. Recommendation: Continue wound care as ordered. May switch to wound VAC tomorrow depending on how i t looks. We will examine the wound tomorrow. Await culture report. Adjust antibiotics accordingly for 6 weeks. /MODL Voice ID: [id number] Report ID: [id number]
[2020-04-01] MEDS ORDERED: VANCOMYCIN 2 GM in NA CHLORIDE 0.9% 500 ML IVPB SCH (17:00)
[2020-04-01] MEDS: HYDROCODONE/APAP 7.5/325 MG TAB PO PRN (17:05)
[2020-04-01] MEDS: INSULIN GLARGINE 100 UNITS/ML SQ SCH (20:55)
--- NOTE | 2020-04-01 21:17 | P.PN ---
Subjective Date of Service: 04/01/20 Chief Complaint: FOOT ULCER. Subjective: Improving MR RUTHANN HAS DIABETIC FOOT WITH OM. HE IS DOING A LOT BETTER. HIS BP HAS COME UP FROM 80 SYSTOLIC TO 135 SYSTOLIC. THIS LOW BP WAS FROM ACUTE RENAL FAILURE RELATED TO MEDS AND SEPSIS. Review of Systems 10-point ROS is otherwise unremarkable Physical Examination - Vital Signs Temperature: 98.2 F Blood Pressure: 137/68 Pulse: 65 Respirations: 20 Pulse Ox (%): 96 - Physical Exam General: Alert, Mild distress HEENT: Atraumatic, PERRLA, EOMI Neck: Supple, JVD not distended Respiratory: Clear to auscultation bilaterally, Normal air movement Cardiovascular: Regular rate/rhythm, Normal S1 S2 Gastrointestinal: Normal bowel sounds, No tenderness Musculoskeletal: No tenderness Integumentary: Diabetic ulcer (R FOREFOT ULCER. SP DEBRIDEMENT.) Neurological: Normal speech, Normal tone, Normal affect Lymphatics: No axilla or inguinal lymphadenopathy - Studies Laboratory Data (last 24 hrs) 04/01/20 05:10: Sodium 141, Potassium 4.4, BUN 20 H, Creatinine 1.50 H, Glucose 146 H 04/01/20 05:10: WBC 4.7, Hgb 12.6 L, Hct 37.7 L, Plt Count 199 Microbiology Data (last 24 hrs): 03/29/20 16:00 Nasopharnyx Coronavirus COVID-19 PCR - Final 03/30/20 10:31 Wound - Bone Gram Stain - Final 03/30/20 10:30 Wound - Right Foot Gram Stain - Final Medications List Reviewed: Yes Assessment And Plan - Current Problems (Diagnosis) (1) Diabetic osteomyelitis Current Visit: Yes Status: Chronic Plan: UNFORTUNATELY THIS IS A LARGE AREA OF OSTEOMYELITIS. HE IS NOT A COMPLIANT MAN. HIS GLUCOSE IS 200-300. HE IS ON GLYBURIDE AND METFORMIN AND THESE ARE NOT RIGHT MEDICINES FOR HIM CREATTININE IS HIGH. START IV VANCOMYCIN , ZOSYN . STOP LEVAQUIN. CONSULT DR. HURD. MAY NEED FOREFOOT AMPUTATION. VANCO DOSE ADJUSTED TO 2 GM Q24H. ZOSYN SAME. (2) Hypotension Current Visit: Yes Status: Acute Plan: IV FLUIDS. STOP BP MEDS. DAILY LAB. RECOVERED NOW. Qualifiers: Hypotension type: orthostatic hypotension Qualified Code(s): I95.1 - Orthostatic hypotension (3) Chronic kidney disease with end stage renal disease on dialysis due to type 2 diabetes mellitus Current Visit: Yes Status: Acute
[2020-04-02] MEDS: PIPER/TAZO/NS 3.375gm 3.375 GM/100 ML BAG IV SCH ×2 (00:26→08:34)
[2020-04-02] MEDS: NACHLORIDE 0.45% 1,000 ML IV SCH (00:26)
[2020-04-02 06:21] LABS: Absolute Lymphocytes (CBC) 1.5 K/uL (0.7-4.9); Hematocrit 37.6 % (39.6-49.0); Lymphocytes % 31.5 % (15.3-44.8); MPV 7.6 fL (7.6-11.3); RBC Red Blood Cell Count 4.08 M/uL (4.33-5.43)
[2020-04-02 06:30] LABS: Potassium 4.4 mmol/L (3.5-5.1)
[2020-04-02 08:29] VITALS: TEMP 97
[2020-04-02] MEDS: PANTOPRAZOLE 40MG TABLET PO SCH (08:34)
[2020-04-02] MEDS: GABAPENTIN 300 MG CAP PO SCH (08:34)
[2020-04-02] MEDS: FENOFIBRATE 160 MG TAB PO SCH (08:34)
[2020-04-02] MEDS: INSULIN -REGULAR HUMAN 50 UNIT/0.5 ML ML SQ SCH ×2 (08:36→11:15)
--- NOTE | 2020-04-02 10:02 | P.DS ---
Admission Date: 03/29/20 Discharge Date: 04/02/20 Disposition: DC HOME/HOME HEALTH CARE Discharge Condition: GOOD Reason for Admission: FOOT ULCER. - Problems (1) Diabetic osteomyelitis Current Visit: Yes Status: Chronic (2) Hypotension Current Visit: Yes Status: Acute Qualifiers: Hypotension type: orthostatic hypotension Qualified Code(s): I95.1 - Orthostatic hypotension (3) Chronic kidney disease with end stage renal disease on dialysis due to type 2 diabetes mellitus Current Visit: Yes Status: Acute Brief History of Present Illness: MR. BEAVERS IS A NON COMPLIANT DIABETIC WHO WAS TAKEN CARE BY PAS AT A [facility]. HE WAS SENT HOME AFTER DR JC TOOK CARE OF HIM WITH DR ANAND FOR FOOT OSTEOMYELITIS. HE WAS SENT TO MY WOUND CLINIC FIRST TIME TODAY. I HAVE NEVER SEEN HIM BEFORE. I SEE THAT HIS WOUND NEEDS DEEP SURGICAL DEBRIDEMENT SO I DECIDED TO ADMIT HIM AGAIN AND CONSULT DR. HURD HE NEEDS ANESTHSIA AND SURGERY. I AM NOT SURE IF WE CAN SAVE HIS FOREFOOT. MR BEAVERS WALKS AROUND BAREFOOT. HE KNOW SHE SHOULD NOT DO SO. HE WALKS EVEN OUT SIDE THE HOME BAREFOOT MANY TIMES. Hospital Course: MR. BEAVERS IS A POORLY CONTROLLED DIABETIC WITH NEUROPATHY, CALLUS IN FEET, SMALL VESSEL DISEASE IN FEET AND HAS FOOT ULCER WITH OSTEOMYELITIS. I HAD TO READMIT AFTER DISCHARGE BY OTHER DOCTOR GROUP. HE CAME TO WOUND CENTER FOR FIRST VISIT WITH ME JUST A FEW DAYS AFTER DISCHARGE. I SAW THAT HE NEEDED SURGICAL DEBRIDEMENT, REMOVAL OF NECROTIC BONE, TISSUE AND CALLUS IN ADDITION TO DIFFERENT ANTIBIOTICS, VANCOMYCIN AND ZOSYN INSTEAD OF LEVAQUIN. HE IS STABLE. HIS BP IMPROVED FROM 80 SYSTOLIC TO 135 SYSTOLIC AFTER I STOPPED SOME MEDS LIKE LOPRESSOR, LISINOPRIL AND DYAZIDE AND GAVE HIM IV FLUIDS. HIS A1C IS 12. HE SO FAR HAS BEEN TAKEN CARE BY PAS AT A FAMILY [facility]. HE IS ON MEDICINES FOR DIABETES THAT ARE NOT EFFECTIVE. I STOPPED BOTH GLYBURIDE AND METFORMIN. HE IS PRESCRIBED INSULIN. MAO IS REFUSING TO PAY FOR LANTUS. I SENT NEW RX IN PLACE. HE WILL TO TELE VISIT WITH ME IN OFFICE ON SUNDAY PM. HIS GLUCOSE IS DOWN FROM 300 TO CLOSE TO 150 NOW. HIS PROGNOSIS IS GUARDED. Vital Signs/Physical Exam: Temp Pulse Resp BP Pulse Ox 97.0 F 60 17 155/89 H 94 04/02/20 08:00 08/14/20 08:00 04/02/20 08:00 04/02/20 08:00 04/02/20 08:00 Laboratory Data at Discharge: WBC 4.7 K/uL (4.3-10.9) 04/02/20 06:07 Hgb 12.5 g/dL (13.6-17.9) L 04/02/20 06:07 Hct 37.6 % (39.6-49.0) L 04/02/20 06:07 Plt Count 190 K/uL (152-406) 04/02/20 06:07 PT 16.9 SECONDS (9.5-12.5) H 03/29/20 15:29 INR 1.44 03/29/20 15:29 APTT 39.6 SECONDS (24.3-36.9) H 03/29/20 15:29 Sodium 143 mmol/L (136-145) 04/02/20 06:07 Potassium 4.4 mmol/L (3.5-5.1) 04/02/20 06:07 BUN 14 mg/dL (7-18) 04/02/20 06:07 Creatinine 1.46 mg/dL (0.55-1.3) H 04/02/20 06:07 Glucose 167 mg/dL (74-106) H 04/02/20 06:07 Home Medications: Fenofibrate [Tricor*] 145 mg PO DAILY 03/19/20 Gabapentin 300 mg PO TID 03/19/20 Guselkumab [Tremfya] 100 mg SQ SEECOM 03/19/20 Hydrocodone Bit/Acetaminophen [Gable 7.5-325 Tablet] 1 each PO Q8HP PRN 03/19/20 Apixaban [Eliquis *] 2.5 mg PO BID 03/29/20 Cyclobenzaprine HCl 10 mg PO DAILY PRN 03/29/20 Blood Sugar Diagnostic [Glucose Test Strip] 1 each [facility] #120 strip 04/02/20 Insulin Glargine,Hum.rec.anlog [Basaglar Kwikpen U-100] 30 unit SQ DAILY #15 ml 04/02/20 New Medications: Insulin Glargine,Hum.rec.anlog [Basaglar Kwikpen U-100] 30 unit SQ DAILY #15 ml Blood Sugar Diagnostic [Glucose Test Strip] 1 each [facility] #120 strip Patient Discharge Instructions: CALL OFFICE FOR TELEVISIT SUNDAY. TALKE LANTUS DAILY. KEEP LOG OF GLUCOSE.
--- NOTE | 2020-04-02 10:35 | PN ---
Date of Progress Note: 04/02/2020 Subjective: The patient is awake, alert, no complaint. Vitals stable, afebrile. Cultures reviewed, essentially skin aren. The patient had been on antibiotics and the cultures were done; therefore, I do not think it is as accurate. His wound however looks great and it is clean. No evidence of pur ulence. No surrounding erythema, warmth, or edema. Assessment: Status post incision and drainage and debridement, right foot diabetic infection with os teomyelitis. Recommendation: Cleared for discharge. Follow up in the [facility]. Was started on wound VAC as an outpatient. Collagenase dressing currently and antibiotics per Dr. Cerda. /MODL Voice ID: [id number] Report ID: [id number]
[2020-04-02 12:16] VITALS: BP 152/87
== END 2020-04-02 12:57 | disposition home health service (06) | DRG 853 ==
LOC: 2ND 14:08
PROVIDERS: ADMIT Internal Medicine; ATTEND Internal Medicine
PROC: 0QBN0ZZ Excision of Right Metatarsal, Open Approach (ICD-10-PCS; principal; 2020-03-30 10:00)
DX: A41.9 Sepsis, unspecified organism (principal); R65.21 Severe sepsis with septic shock; N18.6 End stage renal disease; M86.8X7 Other osteomyelitis, ankle and foot; I12.0 Hypertensive chronic kidney disease with stage 5 chronic kidney disease or end stage renal disease; N17.9 Acute kidney failure, unspecified; E11.69 Type 2 diabetes mellitus with other specified complication; K21.9 Gastro-esophageal reflux disease without esophagitis; I95.1 Orthostatic hypotension; E86.0 Dehydration; E11.22 Type 2 diabetes mellitus with diabetic chronic kidney disease; E11.40 Type 2 diabetes mellitus with diabetic neuropathy, unspecified; E11.621 Type 2 diabetes mellitus with foot ulcer; L97.519 Non-pressure chronic ulcer of other part of right foot with unspecified severity; Z79.84 Long term (current) use of oral hypoglycemic drugs; Z79.891 Long term (current) use of opiate analgesic; Z79.01 Long term (current) use of anticoagulants; Z79.899 Other long term (current) drug therapy; Z96.641 Presence of right artificial hip joint; Z90.49 Acquired absence of other specified parts of digestive tract; Z91.19 Patient's noncompliance with other medical treatment and regimen; Z20.828 Contact with and (suspected) exposure to other viral communicable diseases
CPT/HCPCS: 36415; 71045; 80048; 80202; 82565; 82947; 83036; 85025; 85610; 85652; 85730; 86140; 87070; 87075; 87077; 87186; 87205; 99204; J1170; J1815; J2370; J2405; J2543; J2704; J3010; J3370; J3590; J7030; J7040; J7050; U0002

== ENCOUNTER 2020-06-18 03:58 | Emergency (ER) | payer OTHER ==
[2020-06-18 04:50] LABS: Absolute Lymphocytes (CBC) 1.4 K/uL (0.7-4.9); Lymphocytes % 14.2 % (15.3-44.8); MPV 8.8 fL (7.6-11.3); RBC Red Blood Cell Count 6.03 M/uL (4.33-5.43)
[2020-06-18 04:54] LABS: Protime INR 1.14
[2020-06-18] MEDS ORDERED: LORazepam 2 MG/ML VIAL ONE ×2 (04:55→04:57)
[2020-06-18] MEDS ORDERED: NA CHLORIDE 0.9% 100 ML IV ONE (04:58)
[2020-06-18] MEDS ORDERED: LEVETIRACETAM 500 MG/5 ML VIAL IV ONE (04:58)
[2020-06-18 05:06] LABS: ALT/SGPT 51 U/L (12-78); AST/SGOT 65 U/L (15-37); Albumin 3.8 g/dL (3.4-5.0); Alkaline Phosphatase 87 U/L (45-117); BUN Blood Urea Nitrogen 18 mg/dL (7-18); Bicarbonate 25 mmol/L (21-32); Bilirubin Direct 0.2 mg/dL (0-0.2); Bilirubin Total 0.6 mg/dL (0.2-1.0); Creatine Phosphokinase 62 U/L (39-308); Glucose Level 170 mg/dL (74-106); Lipase 63 U/L (73-393); Potassium 4.1 mmol/L (3.5-5.1); Protein, Total 8.1 g/dL (6.4-8.2); Sodium Level 130 mmol/L (136-145); Troponin (Emerg Dept Use Only) < 0.02 ng/mL (0.0-0.045)
[2020-06-18] MEDS ORDERED: NA CHLORIDE 0.9% 500 ML ONE (05:07)
[2020-06-18 05:10] LABS: Magnesium 1.2 mg/dL (1.8-2.4)
[2020-06-18] MEDS ORDERED: Magnesium Sulfate 2gm IVPB 2 G/50 ML BAG IV ONE (05:29)
[2020-06-18] MEDS ORDERED: Levofloxacin 750mg IV 750 MG/150 ML BAG IV ONE (06:37)
--- NOTE | 2020-06-18 06:54 | EDPHYS ---
Physician Documentation [facility] Name: Branden Davenport Jr Age: 59 yrs Sex: Male : 1960 Arrival Date: 06/18/2020 Time: 04:02 Bed 3 Private MD: ED Physician Koko Diaz HPI: 06/18 04:32 This 59 yrs old Male presents to ER via Unassigned with complaints of AMS. rn 04:32 reports went to see Dr. Cerda yesterday morning, was ok, was there for f/u visit. rn Later in day noticed difficulty speaking/using hands, and "didn't seem right". Last seen by around 2029 when he went to bed, still wasn't acting right, and complained of headache. She asked him to go to hospital yesterday. Tonight fell getting out of bed, no trauma noted. EMS noted shaking activity, followed by unresponsiveness then started to wake up, but seems confused and combative, had bowel incontinence. . 04:34 The patient's problem is reported as altered mental status. Onset: The symptoms/episode rn began/occurred at an unknown time. The symptoms are alleviated by nothing. The symptoms are aggravated by nothing. Severity of symptoms: At their worst the symptoms were moderate in the emergency department the symptoms are unchanged. It is unknown whether or not the patient has had similar symptoms in the past. Historical: - Allergies: 05:02 PENICILLINS; bb - Home Meds: 05:02 fenofibrate 145 mg Oral tab 1 tab once daily [Active]; gabapentin 600 mg Oral tab 1 tab bb 3 times per day [Active]; lisinopril 30 mg Oral tab 1 tab once daily [Active]; primidone 50 mg Oral tab 3 times per day [Active]; metoprolol tartrate 50 mg Oral tab 1 tab 2 times per day [Active]; Cipro 500 mg Oral tab 1 tab every 12 hours [Active]; doxycycline hyclate 100 mg Oral cap 1 cap every 12 hours [Active]; omeprazole 40 mg Oral cpDR 1 cap once daily [Active]; Eliquis 2.5 mg oral tab 1 tab 2 times per day [Active]; Basaglar SQ [Active]; hydrocodone-acetaminophen 7.5-325 mg Oral tab 1 tab three times a day [Active]; - PMHx: 05:02 GERD; Hypertension; Left foot drop; neuropathy; psoriasis; Diabetes - IDDM; bb - PSHx: 05:02 Appendectomy; Back surgery; Colon resection; Right hip replacement; bb - Immunization history:: Adult Immunizations unknown. - Social history:: Smoking status: unknown. - History obtained from: , EMS. ROS: 04:34 Unable to obtain ROS due to altered mental status. rn Exam: 04:34 Constitutional: Awake, altered, seems confused Head/Face: Normocephalic, + abrasion rn left posterior parietal region Eyes: Pupils 4mm, reactive, equal Cardiovascular: Tachycardic, regular Respiratory: Mumbling, no retractions or respiratory distress Abdomen/GI: soft, non-tender, non-distended Skin: Warm, dry Neuro: Awake, confused, not following commands, speech incomprehensible, moving all 4 extremities, no seizure activity here. 06:21 ECG was reviewed by the Attending Physician. rn Vital Signs: 04:15 BP 215 / 117; Pulse 110; Resp 20 S; Temp 98.6(R); Pulse Ox 97% on 15% Non-rebreather bb mask; 05:15 BP 178 / 99; Pulse 103; Resp 17; Pulse Ox 96% on NC; jb4 06:09 BP 206 / 126; Pulse 103; Resp 22; Pulse Ox 98% ; ea 06:30 BP 194 / 114; Pulse 104; Resp 21; Pulse Ox 96% on 5 lpm NC; jb4 07:00 BP 183 / 118; Pulse 103; Resp 22; Pulse Ox 96% on 4 lpm NC; ea 07:13 BP 157 / 98; Pulse 108; Resp 22; Pulse Ox 95% on 4 lpm NC; ea 07:15 BP 152 / 91; Pulse 100; Resp 20; Pulse Ox 100% on 4 lpm NC; ea NIH Stroke Scale Scores: 04:10 NIHSS Score: 21 jb4 06:42 NIHSS Score: 7 rn [place] Coma Score: 06:38 Eye Response: spontaneous(4). Verbal Response: confused(4). Motor Response: localizes rn pain(5). Total: 13. MDM: 04:02 Patient medically screened. rn 04:40 ED course: Pt becoming easier to understand with time, now can tell me his name. rn Follows some commands now. . 04:41 ED course: No acute findings on ct head by Dr. Quintana, radiology, \\T\\ [id number].. rn 04:57 ED course: Pt had another seizure here, given 3mg ativan, and loading with keppra, rn lasted approx 2 min, generalized, began with left eye deviation followed by generalized shaking and unresponsiveness. . 05:06 Differential diagnosis: CVA, TIA, metabolic disorder, seizure. Data reviewed: vital rn signs, nurses notes. 05:19 ED course: Pt with hx of DVT/PE, states compliant with medication, takes eliquis. rn Ordered CT PE protocol. Doing much better in terms of oxygenation, on NC, improving BP to 178/99. 06:34 ED course: CT PE protocol neg for PE. Given hx of PE and seizure like activity and rn periods of hypoxia, required CT PE prior to initiation of transfer to ensure ideal care administered. Initiating transfer to [facility] neuro ICU for possible ischemic stroke and seizure activity. . 06:38 ED course: Never able to get NIH scale 2/2 seizure activity and now post-ictal/sedated. rn 06:41 Counseling: I had a detailed discussion with the patient and/or guardian regarding: the rn historical points, exam findings, and any diagnostic results supporting the discharge/admit diagnosis, lab results, radiology results. 06:42 ED course: NIH score of 7 but based on short period of time between seizures and was rn post-ictal. . 06:50 ED course: Accepted for transfer to [facility] for seizures and evaluation of possible rn ischemic stroke. Accepted for transfer to Neuro ICU. 07:09 ED course: Patient responsive to painful stimuli, cardene started per request by Dr. marga Morrison. Life flight called and on their way. Updated family with results and plan of care. . 06/18 04:18 Order name: Magnesium; Complete Time: 05: rn 06/18 04:18 Order name: Troponin (emerg Dept Use Only); Complete Time: : rn 06/18 04:18 Order name: Lipase; Complete Time: 05: rn 06/18 04:18 Order name: Hepatic Function; Complete Time: 05: rn 06/18 04:18 Order name: CPK; Complete Time: 05: rn 06/18 04:18 Order name: Basic Metabolic Panel; Complete Time: 05: rn 06/18 04:18 Order name: CBC with Diff; Complete Time: 05:11 rn 06/18 04:18 Order name: Protime (+inr); Complete Time: 05:11 rn 06/18 04:18 Order name: Ptt, Activated; Complete Time: 05:11 rn 06/18 04:18 Order name: CT Stroke Brain w/o Contrast rn 06/18 04:18 Order name: Stroke CXR 1 View rn 06/18 04:45 Order name: Glucose, Ancillary Testing; Complete Time: 05:06 EDMS 06/18 05:12 Order name: CT Chest For PE Angio rn 06/18 05:17 Order name: Lactate; Complete Time: 06:47 rn 06/18 04:18 Order name: EKG; Complete Time: 04:19 rn 06/18 04:18 Order name: Accucheck; Complete Time: 05:04 rn 06/18 04:18 Order name: Cardiac monitoring; Complete Time: 05:04 rn 06/18 04:18 Order name: EKG - Nurse/Tech; Complete Time: 05:04 rn 06/18 04:18 Order name: IV Saline Lock; Complete Time: 05:04 rn 06/18 04:18 Order name: Labs collected and sent; Complete Time: 05:04 rn 06/18 04:18 Order name: NPO; Complete Time: 05:04 rn 06/18 04:18 Order name: O2 Per Protocol; Complete Time: 05:04 rn 06/18 04:18 Order name: O2 Sat Monitoring; Complete Time: 05:04 rn 06/18 04:18 Order name: Stroke Swallow Screen; Complete Time: 05:04 rn EC:21 Rate is 104 beats/min. Rhythm is regular. Right axis deviation noted. QRS is negative rn in leads I, aVF. QRS interval is normal. QT interval is normal. No Q waves. T waves are Normal. No ST changes noted. Clinical impression: Sinus tachycardia. Interpreted by me. Reviewed by me. Administered Medications: 04:32 Drug: Ativan 1 mg Route: IVP; Site: right antecubital; ea 06:05 Follow up: Response: No adverse reaction ea 04:50 Drug: Ativan 2 mg Route: IVP; Site: right antecubital; ea 06:05 Follow up: Response: No adverse reaction ea 04:54 Drug: Keppra 1000 mg Route: IV; Rate: calculated rate; Site: right antecubital; ea 05:15 Follow up: Response: No adverse reaction; IV Status: Completed infusion; IV Intake: ea 100ml 05:00 Drug: NS 0.9% 500 ml Route: IV; Rate: bolus; Site: right antecubital; ea 07:04 Follow up: Response: No adverse reaction; IV Status: Completed infusion; IV Intake: ea 500ml 05:20 Drug: Magnesium Sulfate 1 grams Route: IVPB; Infused Over: 1 hrs; Site: right ea antecubital; 07:22 Follow up: Response: No adverse reaction; IV Status: Completed infusion; IV Intake: 25mlea 06:29 Drug: LevaQUIN 750 mg Volume: 150 ml; Route: IVPB; Infused Over: 90 mins; Site: right ea antecubital; 07:22 Follow up: Response: No adverse reaction; IV Status: Infusion continued upon transfer ea 06:58 Drug: niCARdipine (25mg/250ml) 5 mg/hr Route: IV; Rate: calculated rate; Site: right ea antecubital; 07:22 Follow up: Response: No adverse reaction; IV Status: Infusion continued upon transfer ea 07:04 Drug: foLIC Acid 1 mg Route: IVPB; Site: right antecubital; ea 07:22 Follow up: Response: No adverse reaction; IV Status: Completed infusion ea Point of Care Testing: Blood Glucose: 04:33 Blood Glucose: 156 mg/dL; bb Ranges: Critical Glucose Levels:Adult <50 mg/dl or >400 mg/dl <40 mg/dl or >180 mg/dl Disposition: 06/18/20 06:53 Transfer ordered to [facility]. Diagnosis are Seizure, new onset, Altered mental status, unspecified. - Reason for transfer: Higher level of care. - Accepting physician is Dr. Morrison. - Condition is Fair. - Problem is new. - Symptoms have improved. Critical care time excluding procedures: 06:50 Critical care time: Bedside Care: 15 minutes, Consultation: 5 minutes, Family rn Intervention: 15 minutes. Total time: 35 minutes NIH Stroke Scale - NIH Stroke Score Date: 06/18/2020 Time: 04:10 Total Score = 21 1a. Level of Consciousness (LOC) - 2(Not Alert, obtunded) 1b. Level of Consciousness (LOC) (Year \\T\\ Age) - 2(Neither) 1c. LOC Commands (Open \\T\\ Closes Eyes/Land Sales Agent) - 2(Neither) 2. Best Gaze (Lateral Gaze Paresis) - 2(Forced deviation) 3. Visual Field Loss - 3(Bilateral hemianopia) 4. Facial Palsy - 0(Normal) 5a. Left Arm: Motor (10-second hold) - 0(No drift) 5b. Right Arm: Motor (10-second hold) - 0(No drift) 6a. Left Leg: Motor (5-second hold - always test supine) - 0(No drift) 6b. Right Leg: Motor (5-second hold - always test supine) - 0(No drift) 7. Limb Ataxia (finger/nose \\T\\ heel/barney - test with eyes open) - 2(Present in two limbs) 8. Sensory Loss (pinprick arms/legs/face) - 2(Severe to total loss) 9. Best Language: Aphasia (description/naming/reading) - 2(Severe aphasia) 10. Dysarthria (speech clarity - read or repeat words) - 2(Severe) 11. Extinction and Inattention (visual/tactile/auditory/spatial/personal) - 2(Profound) Initials: jb4 NIH Stroke Scale - NIH Stroke Score Date: 06/18/2020 Time: 06:42 Total Score = 7 1a. Level of Consciousness (LOC) - 1(Not Alert) 1b. Level of Consciousness (LOC) (Year \\T\\ Age) - 2(Neither) 1c. LOC Commands (Open \\T\\ Closes Eyes/Land Sales Agent) - 2(Neither) 2. Best Gaze (Lateral Gaze Paresis) - 0(Normal) 3. Visual Field Loss - 0(No visual loss) 4. Facial Palsy - 0(Normal) 5a. Left Arm: Motor (10-second hold) - 0(No drift) 5b. Right Arm: Motor (10-second hold) - 0(No drift) 6a. Left Leg: Motor (5-second hold - always test supine) - 0(No drift) 6b. Right Leg: Motor (5-second hold - always test supine) - 0(No drift) 7. Limb Ataxia (finger/nose \\T\\ heel/barney - test with eyes open) - 0(Absent) 8. Sensory Loss (pinprick arms/legs/face) - 0(Normal) 9. Best Language: Aphasia (description/naming/reading) - 1(Mild to moderate aphasia) 10. Dysarthria (speech clarity - read or repeat words) - 1(Mild to Moderate) 11. Extinction and Inattention (visual/tactile/auditory/spatial/personal) - 0(No abnormality) Initials: rn Signatures: Dispatcher [employer] EDBetty May RN RN bb Nieto, Roman, MD MD rn Antunez, Elena, RN RN ea Corrections: (The following items were deleted from the chart) 06:42 04:34 Constitutional: Awake, altered, seems confused Head/Face: Normocephalic, rn atraumatic. Eyes: Pupils 4mm, reactive, equal Cardiovascular: Tachycardic, regular Respiratory: Mumbling, no retractions or respiratory distress Abdomen/GI: soft, non-tender, non-distended Skin: Warm, dry Neuro: Awake, confused, not following commands, speech incomprehensible, moving all 4 extremities, no seizure activity here. rn 07:28 06:53 06/18/2020 06:[address] [facility]. Diagnosis is Seizure, new onset; Altered mental status, unspecified. Reason for transfer: Higher level of care. Accepting physician is Dr. Morrison. Condition is Fair. Problem is new. Symptoms have improved. rn
--- NOTE | 2020-06-18 06:54 | ER ---
Nurse's Notes [facility] Name: Branden Davenport Jr Age: 59 yrs Sex: Male : 1960 Arrival Date: 06/18/2020 Time: 04:02 Bed 3 Private MD: Diagnosis: Seizure, new onset;Altered mental status, unspecified Presentation: 06/18 04:05 Chief complaint: EMS states: they were toned out for pt with seizure and no history of bb seizures on arrival EMS witnessed pt having a seizure and he was cyanotic from the head up, apneic and bradycardic during the seizure lasting approx 90 seconds, afterward pt was unresponsive and combative. Coronavirus screen: unable to determine. Ebola Screen: No symptoms or risks identified at this time. 04:05 Method Of Arrival: EMS: [facility] bb 04:15 An acute neurological deficit is present. Initial Sepsis Screen: Does the patient meet bb any 2 criteria? Altered Mental Status. HR > 90 bpm. Yes Does the patient have a suspected source of infection? Yes: Bone or joint infection If YES to both, name of provider notified: Koko Diaz MD. Risk Assessment: Do you want to hurt yourself or someone else? Unable to obtain. Onset of symptoms is unknown. 04:15 Acuity: NELLI 1 bb 05:12 Pre-hospital glucose is not applicable to this patient. ea Triage Assessment: 05:14 Neuro: Reports pt is post-ictal. bb 05:14 The onset of the patients symptoms was more than six hours ago. bb 05:14 The onset of the patients symptoms was at an unknown time. bb 05:15 The onset of the patients symptoms was June 17, 2020 at 20:30. bb Stroke Activation: Symptom onset > 6 hours Physician: Stroke Attending; Name: ; Notified At: ; Arrived At: Physician: Chief Stroke Resident; Name: ; Notified At: ; Arrived At: Physician: Stroke Resident; Name: ; Notified At: ; Arrived At: Physician: ED Attending; Name: Emily; Notified At: 04:05; Arrived At: 04:05 Physician: ED Resident; Name: ; Notified At: ; Arrived At: Historical: - Allergies: 05:02 PENICILLINS; bb - Home Meds: 05:02 fenofibrate 145 mg Oral tab 1 tab once daily [Active]; gabapentin 600 mg Oral tab 1 tab bb 3 times per day [Active]; lisinopril 30 mg Oral tab 1 tab once daily [Active]; primidone 50 mg Oral tab 3 times per day [Active]; metoprolol tartrate 50 mg Oral tab 1 tab 2 times per day [Active]; Cipro 500 mg Oral tab 1 tab every 12 hours [Active]; doxycycline hyclate 100 mg Oral cap 1 cap every 12 hours [Active]; omeprazole 40 mg Oral cpDR 1 cap once daily [Active]; Eliquis 2.5 mg oral tab 1 tab 2 times per day [Active]; Basaglar SQ [Active]; hydrocodone-acetaminophen 7.5-325 mg Oral tab 1 tab three times a day [Active]; - PMHx: 05:02 GERD; Hypertension; Left foot drop; neuropathy; psoriasis; Diabetes - IDDM; bb - PSHx: 05:02 Appendectomy; Back surgery; Colon resection; Right hip replacement; bb - Immunization history:: Adult Immunizations unknown. - Social history:: Smoking status: unknown. - History obtained from: , EMS. Screenin:05 Abuse screen: unable to determine. Nutritional screening: No deficits noted. bb Tuberculosis screening: No symptoms or risk factors identified. Fall Risk Secondary diagnosis (15 points) impaired mobility, IV access (20 points). Ambulatory Aid- None/Bed Rest/Nurse Assist (0 pts). Gait- Impaired (20 pts.). Mental Status- Overestimates/Forgets Limitations (15 pts.). Total Guy Fall Scale indicates High Risk Score (45 or more points). Fall prevention measures have been instituted. Side Rails Up X 2 Placed Close to Nursing Station. Assessment: 04:05 General: Appears distressed, Behavior is unresponsive. Pain: Unable to use pain scale. bb Patient is disoriented. Neuro: Level of Consciousness is post ictal. Cardiovascular: Heart tones present Rhythm is sinus tachycardia. Respiratory: Airway is patent Respiratory effort is weak. GI: Abdomen is round. Derm: Skin is pale. Musculoskeletal: Circulation, motion, and sensation intact. 04:05 The patient has not been NPO before screening. The patient is not alert and/or unable bb to follow commands. Bedside swallow screen discontinued. Patient kept NPO until cleared by Speech Therapy or Physician. The patient failed the bedside swallow screening. The patient will be kept NPO until cleared by Speech Therapy or Physician. Provider notified of bedside swallow screening results: Koko Diaz MD. Reassessment: unable to do NIH scale pt is post ictal and unable to follow commands. 04:10 VAN Scoring: Arm Drift: Patients demonstrates NO arm weakness. Patient is VAN Negative. jb4 The patient has not been NPO before screening. The patient is not alert and/or unable to follow commands. Bedside swallow screen discontinued. Patient kept NPO until cleared by Speech Therapy or Physician. The patient failed the bedside swallow screening. The patient will be kept NPO until cleared by Speech Therapy or Physician. General: Appears distressed, uncomfortable, obese, unkempt, Behavior is uncooperative. Pain: Unable to use pain scale. Patient is disoriented. Neuro: Level of Consciousness is awake, confused, post ictal, Oriented to none. Cardiovascular: Patient's skin is warm and dry. Respiratory: Airway is patent Respiratory effort is shallow, weak, Respiratory pattern is symmetrical. GI: No signs and/or symptoms were reported involving the gastrointestinal system. : No signs and/or symptoms were reported regarding the genitourinary system. EENT: No signs and/or symptoms were reported regarding the EENT system. Derm: Skin is dusky. Musculoskeletal: Circulation, motion, and sensation intact. Range of motion: intact in all extremities. Injury Description: Abrasion sustained to left frontal area and right barney. 05:09 Patient has been NPO before screening. The patient is not alert and/or unable to follow ea commands. The patient does not exhibit slurred or garbled speech. The patient is not exhibiting difficulty speaking. The patient does not exhibit difficulty understanding words. The patient is unable to swallow own secretions without drooling or the need for suction. Bedside swallow screening discontinued. Patient kept NPO until cleared by Speech Therapy or Physician. does not meet criteria The patient failed the bedside swallow screening. The patient will be kept NPO until cleared by Speech Therapy or Physician. Provider notified of bedside swallow screening results: Koko Diaz MD. 05:12 T-PA (Activase) Screening: Contraindications: Other: spouse reports s\T\s greater than 6 bb hours ago. 05:15 Reassessment: PT remains post ictal, nasal trumpet remains in place in the left nare. jb4 IV fluids infusing with ease, IV site is clean, dry and intact with not s/s of infiltration or phlebitis. Respirations are even and unlabored, no s/s of distress noted. 06:08 Reassessment: Patient and/or family updated on plan of care and expected duration. Pain ea level reassessed. Pt resting with eyes closed, nasal trumpet remains in left nare, O2 per nasal cannula at 3 L pt tolerating well. Respirations even and unlabored. Chest expansions even and symmetrical. Pt reacts to painful stimulus. Family at bedside at this time. 06:37 Reassessment: Patient and/or family updated on plan of care and expected duration. Pain jb4 level reassessed. Pt is reactive to pain, does not open his eyes, grimaces in response to pain. Respirations are even and unlabored. remains on nasal cannula, IV site remains clean, dry and intact with fluids flowing freely. no s/s of distress noted. Family remains at the bedside. Provider updating family on results and plan of care. 07:23 Reassessment: Patient and/or family updated on plan of care and expected duration. Pain ea level reassessed. Pt resting with eyes closed, respirations even and unlabored. Chest expansions even and symmetrical. No s/s of pain or discomfort noted at this time. Pt remains on O2 at 4 L per nasal cannula. Pt reacts to painful stimulus. Report given to [facility] life flight team. Pt left ED via stretcher per life flight team. Vital Signs: 04:15 BP 215 / 117; Pulse 110; Resp 20 S; Temp 98.6(R); Pulse Ox 97% on 15% Non-rebreather bb mask; 05:15 BP 178 / 99; Pulse 103; Resp 17; Pulse Ox 96% on NC; jb4 06:09 BP 206 / 126; Pulse 103; Resp 22; Pulse Ox 98% ; ea 06:30 BP 194 / 114; Pulse 104; Resp 21; Pulse Ox 96% on 5 lpm NC; jb4 07:00 BP 183 / 118; Pulse 103; Resp 22; Pulse Ox 96% on 4 lpm NC; ea 07:13 BP 157 / 98; Pulse 108; Resp 22; Pulse Ox 95% on 4 lpm NC; ea 07:15 BP 152 / 91; Pulse 100; Resp 20; Pulse Ox 100% on 4 lpm NC; ea Geni Coma Score: 06:38 Eye Response: spontaneous(4). Verbal Response: confused(4). Motor Response: localizes rn pain(5). Total: 13. NIH Stroke Scale Scores: 04:10 NIHSS Score: 21 jb4 06:42 NIHSS Score: 7 rn review Course: 04:02 Patient arrived in ED. bp1 04:02 Koko Diaz MD is Attending Physician. rn 04:05 Patient pt sent to CT for stroke protocol. bb 04:05 Maintain EMS IV. Dressing intact. Site clean \T\ dry. Gauge \T\ site: 20 g R AC. bb 04:15 Patient has correct armband on for positive identification. Bed in low position. Side bb rails up X2. bus driver/monitor on. Pulse ox on. NIBP on. Warm blanket given. 04:22 EKG done, by ED staff, reviewed by Koko Diaz MD. bb 04:28 Initial lab(s) drawn, by ED staff, sent to lab. bb 04:30 CT Stroke Brain w/o Contrast In Process Unspecified. EDMS 04:51 Gabriele Napier, HERMINIO is Primary Nurse. jb4 04:57 Triage completed. bb 05:11 Patient has correct armband on for positive identification. Placed in gown. Bed in low ea position. Call light in reach. Side rails up X2. bus driver/monitor on. Pulse ox on. NIBP on. 05:33 Stroke CXR 1 View In Process Unspecified. EDMS 06:18 CT Chest For PE Angio In Process Unspecified. EDMS 06:30 Inserted saline lock: 22 gauge in left antecubital area, using aseptic technique. Blood ds4 collected. 06:33 initiated a transfer with Karo from the [facility]. eb 06:38 attempted to connect the neurologist implementation lead for [facility] with Dr. Diaz for eb patient transfer consultation unable to reach the neurologist implementation lead they will call us back. 06:[address] Morrison the neurologist implementation lead for [facility] with Dr. Diaz for patient eb transfer consultation. 06:57 administrative approval given by Karo Arita/ patient has been accepted to [place] [address] Bed 75/ Dr. Morrison has accepted the patient in transfer/ report to be called to the transfer center at [phone]. 07:01 [facility] called. eb Administered Medications: 04:32 Drug: Ativan 1 mg Route: IVP; Site: right antecubital; ea 06:05 Follow up: Response: No adverse reaction ea 04:50 Drug: Ativan 2 mg Route: IVP; Site: right antecubital; ea 06:05 Follow up: Response: No adverse reaction ea 04:54 Drug: Keppra 1000 mg Route: IV; Rate: calculated rate; Site: right antecubital; ea 05:15 Follow up: Response: No adverse reaction; IV Status: Completed infusion; IV Intake: ea 100ml 05:00 Drug: NS 0.9% 500 ml Route: IV; Rate: bolus; Site: right antecubital; ea 07:04 Follow up: Response: No adverse reaction; IV Status: Completed infusion; IV Intake: ea 500ml 05:20 Drug: Magnesium Sulfate 1 grams Route: IVPB; Infused Over: 1 hrs; Site: right ea antecubital; 07:22 Follow up: Response: No adverse reaction; IV Status: Completed infusion; IV Intake: 25mlea 06:29 Drug: LevaQUIN 750 mg Volume: 150 ml; Route: IVPB; Infused Over: 90 mins; Site: right ea antecubital; 07:22 Follow up: Response: No adverse reaction; IV Status: Infusion continued upon transfer ea 06:58 Drug: niCARdipine (25mg/250ml) 5 mg/hr Route: IV; Rate: calculated rate; Site: right ea antecubital; 07:22 Follow up: Response: No adverse reaction; IV Status: Infusion continued upon transfer ea 07:04 Drug: foLIC Acid 1 mg Route: IVPB; Site: right antecubital; ea 07:22 Follow up: Response: No adverse reaction; IV Status: Completed infusion ea Point of Care Testing: Blood Glucose: 04:33 Blood Glucose: 156 mg/dL; bb Ranges: Intake: 05:15 IV: 100ml; Total: 100ml. ea 07:04 IV: 500ml; Total: 600ml. ea 07:22 IV: 25ml; Total: 625ml. ea Outcome: 06:53 ER care complete, transfer ordered by rn 07:28 Patient left the ED. ea NIH Stroke Scale - NIH Stroke Score Date: 06/18/2020 Time: 04:10 Total Score = 21 1a. Level of Consciousness (LOC) - 2(Not Alert, obtunded) 1b. Level of Consciousness (LOC) (Year \T\ Age) - 2(Neither) 1c. LOC Commands (Open \T\ Closes Eyes/Pullman Conductor) - 2(Neither) 2. Best Gaze (Lateral Gaze Paresis) - 2(Forced deviation) 3. Visual Field Loss - 3(Bilateral hemianopia) 4. Facial Palsy - 0(Normal) 5a. Left Arm: Motor (10-second hold) - 0(No drift) 5b. Right Arm: Motor (10-second hold) - 0(No drift) 6a. Left Leg: Motor (5-second hold - always test supine) - 0(No drift) 6b. Right Leg: Motor (5-second hold - always test supine) - 0(No drift) 7. Limb Ataxia (finger/nose \T\ heel/barney - test with eyes open) - 2(Present in two limbs) 8. Sensory Loss (pinprick arms/legs/face) - 2(Severe to total loss) 9. Best Language: Aphasia (description/naming/reading) - 2(Severe aphasia) 10. Dysarthria (speech clarity - read or repeat words) - 2(Severe) 11. Extinction and Inattention (visual/tactile/auditory/spatial/personal) - 2(Profound) Initials: jb4 NIH Stroke Scale - NIH Stroke Score Date: 06/18/2020 Time: 06:42 Total Score = 7 1a. Level of Consciousness (LOC) - 1(Not Alert) 1b. Level of Consciousness (LOC) (Year \T\ Age) - 2(Neither) 1c. LOC Commands (Open \T\ Closes Eyes/Pullman Conductor) - 2(Neither) 2. Best Gaze (Lateral Gaze Paresis) - 0(Normal) 3. Visual Field Loss - 0(No visual loss) 4. Facial Palsy - 0(Normal) 5a. Left Arm: Motor (10-second hold) - 0(No drift) 5b. Right Arm: Motor (10-second hold) - 0(No drift) 6a. Left Leg: Motor (5-second hold - always test supine) - 0(No drift) 6b. Right Leg: Motor (5-second hold - always test supine) - 0(No drift) 7. Limb Ataxia (finger/nose \T\ heel/barney - test with eyes open) - 0(Absent) 8. Sensory Loss (pinprick arms/legs/face) - 0(Normal) 9. Best Language: Aphasia (description/naming/reading) - 1(Mild to moderate aphasia) 10. Dysarthria (speech clarity - read or repeat words) - 1(Mild to Moderate) 11. Extinction and Inattention (visual/tactile/auditory/spatial/personal) - 0(No abnormality) Initials: rn Signatures: Dispatcher [employer] EDMS Betty Garnett, RN RN Koko Liu MD MD rn Swanson, Donovan 4 Gabriele Napier RN RN jb4 Yasmine Harris RN Lata Mcclendon ea, Brittany bp1 Corrections: (The following items were deleted from the chart) 05:35 05:30 Reassessment: PT remains post ictal, nasal trumpet remains in place in jb4 the left nare. IV fluids infusing with ease, IV site is clean, dry and intact with not s/s of infiltration or phlebitis. Respirations are even and unlabored, no s/s of distress noted. jb4 06:43 06:38 connected the neurologist implementation lead for [facility] with Dr. Diaz for eb patient transfer consultation. eb
[2020-06-18] MEDS ORDERED: FOLIC ACID 5 MG/ML VIAL ONE (07:15)
[2020-06-18] MEDS ORDERED: Nicardipine/NS 25 MG/250 ML KIT IV ONE (07:15)
[2020-06-18 07:35] VITALS: TEMP 98.6
[2020-06-18 07:48] VITALS: BP 152/91; O2SAT 100
--- NOTE | 2020-06-18 08:49 | RAD REPORT ---
EXAM DESCRIPTION: RAD - Chest Single View - 06/18/2020 5:32 am CLINICAL HISTORY: AMS, seizure, cyanotic, bradycardia COMPARISON: March 29 TECHNIQUE: AP portable chest image was obtained 06/18/2020 5:32 am . FINDINGS: Lung volumes are very low in the patient is significantly rotated to the right. Alveolar opacification is scattered throughout both lung hernandez and there is increased interstitial o pacification. No dense consolidation identifiable. Mediastinum and hilum regions cannot be accurately assessed. Gross change from March 29 is not suspected. Heart size is enlarged by a the exam limitat ions. True cardiomegaly is probably not present. No measurable pleural effusion and no pneumothorax. No acute bony abnormality seen. No acute aortic findings suspected. IMPRESSION: Exam is very limited. Mild failure or volume overload are certainly possible. No focal dense consolidation to suspect bacterial pneumonia.
--- NOTE | 2020-06-18 12:39 | RAD REPORT ---
EXAM DESCRIPTION: CT - Chest For Pe Angio - 06/18/2020 7:14 am CLINICAL HISTORY: Seizure, unresponsive, hx of PE COMPARISON: Pulmonary embolus 04/09/2015. TECHNIQUE: Axial CT imaging of the thorax utilizing intravenous contrast. Reformatted multiplanar im ages obtained including reconstructed maximum intensity projection images. This exam was performed according to our departmental dose-optimization program which includes automa kyle exposure control, adjustment of the mA and/or kV according to patient size and/or use of iterativ e reconstruction technique FINDINGS: PULMONARY ARTERIES: Normal caliber main pulmonary artery. There is no filling defect with in the central or peripheral pulmonary arteries. HEART/GREAT VESSELS: Heart is mildly enlarged. No pericardial fluid. Normal caliber thoracic aorta. MEDIASTINUM/LUKE: There are scattered lymph nodes throughout the mediastinum and bilateral luke. Lar gest right hilar nodes are 2.9 x 2.2 x 2.4 cm. Largest left hilar nodes are 2.1 x 1.6 x 2.8 cm. Minim al debris within the distal trachea and right main bronchus. Normal esophagus. LUNGS/PLEURA: There is pulmonary vascular congestion. There is scattered atelectasis throughout the right and left lung. No pneumothorax. No pleural fluid. CHEST WALL/SOFT TISSUES: Unremarkable thyroid. No axillary adenopathy. Sternum is intact. Mild mid t horacic spondylosis. Unremarkable remaining bony thorax. UPPER ABDOMEN: Included liver, spleen, stomach appear normal. IMPRESSION: 1. No pulmonary embolism. 2. Mild endotracheal and right endobronchial debris with no evidence of pneumonia. There is multifoca l scattered bilateral atelectasis. 3. Mild cardiomegaly. Pulmonary vascular congestion. Mild mediastinal and bilateral hilar lymphadenop athy. Electronically signed by: Neisha Terrell DO 06/18/2020 6:26 AM CDT Due to temporary technical issues with the PACS/Fluency reporting system, reports are being signed by the in house radiologist without review as a courtesy to ensure prompt reporting. The interpreting r adiologist is fully responsible for the content of the report.
--- NOTE | 2020-06-18 12:40 | RAD REPORT ---
EXAM DESCRIPTION: CT - Ct Stroke Brain Wo Cont - 06/18/2020 7:15 am ADDENDUM #1 These critical findings were discussed with Dr. Diaz on 06/18/2020 at 4:40 AM central time. Electronically signed by: Lisbeth Quintana DO 06/18/2020 7:35 AM CDT End of Addendum EXAM DESCRIPTION: CT head without IV contrast CLINICAL HISTORY: 59 years Male AMS TECHNIQUE: Multiple axial CT images of the brain were performed followed by sagittal and coronal rec onstructed images. The CT study is performed according to ALARA (as low as reasonably achievable) or ALARA/IMAGE GENTLY, with automatic adjustment of mA and/or kV according to patient size. Performed on: 06/18/2020 at 4:09 AM COMPARISON: None. FINDINGS: Brain: There is motion artifact on the images resulting in slight degradation of image lora lity. There is no evidence of mass, acute mass effect or midline shift. There are no acute extra-axia l fluid collections. There is no evidence of acute intracranial hemorrhage. The cerebral sulci and ventricles are prominent consistent with mild cerebral volume loss..There are scattered areas of decr eased attenuation within the subcortical and periventricular white matter most likely due to mild chr onic microangiopathy. There is no evidence of a hyperdense MCA. Paranasal Sinuses and Mastoids: There is no significant mucosal thickening of the paranasal sinuses. The mastoid air cells are clear. Orbits: The orbital contents are grossly unremarkable. Bones: No acute osseous abnormalities are identified. Soft Tissues: No focal soft tissue abnormalities are identified. IMPRESSION: 1. There is no evidence of acute intracranial pathology. There is some motion artifact o n the images resulting in slight degradation of image quality. 2. Mild cerebral atrophy with findings compatible with mild chronic microangiopathy. Electronically signed by: Lisbeth Quintana DO 06/18/2020 4:39 AM CDT Due to temporary technical issues with the PACS/Fluency reporting system, reports are being signed by the in house radiologist without review as a courtesy to ensure prompt reporting. The interpreting r adiologist is fully responsible for the content of the report.
--- NOTE | 2020-06-18 17:51 | EKG ---
Test Date: 2020-06-18 Test Time: 04:23:01 Channel Marketing Program Manager: SAGRARIO MEASUREMENT RESULTS: Intervals: Rate: 104 IL: 200 QRSD: 88 QT: 358 QTc: 470 [place]: P: 62 IL: 200 QRS: 202 T: 55 INTERPRETIVE STATEMENTS: Sinus tachycardia with occasional premature ventricular complexes Possible Lateral infarct, age undetermined Inferior infarct, age undetermined Abnormal ECG Compared to ECG 03/19/2020 14:49:20 Ventricular premature complex(es) now present Sinus rhythm no longer present Sinus arrhythmia no longer present Right superior axis no longer present Myocardial infarct finding still present Electronically Signed On 06-18-20 17:50:03 CDT by Max Ro
--- NOTE | 2020-06-18 17:51 | EKG ---
Test Date: 2020-06-18 Test Time: 04:57:26 Second Ride Fare Collector: SAGRARIO MEASUREMENT RESULTS: Intervals: Rate: 104 SC: 208 QRSD: 94 QT: 356 QTc: 468 [place]: P: 67 SC: 208 QRS: 185 T: 58 INTERPRETIVE STATEMENTS: Sinus tachycardia Right superior axis deviation Incomplete right bundle branch block Right ventricular hypertrophy Abnormal ECG Compared to ECG 03/19/2020 14:49:20 Incomplete right bundle-branch block now present Right ventricular hypertrophy now present Sinus rhythm no longer present Sinus arrhythmia no longer present Myocardial infarct finding no longer present Electronically Signed On 06-18-20 17:50:02 CDT by Max Ro
== END 2020-06-18 07:28 | disposition short-term general hospital (02) ==
LOC: ER 03:58
DX: R56.9 Unspecified convulsions (principal); I10 Essential (primary) hypertension; E11.9 Type 2 diabetes mellitus without complications; K21.9 Gastro-esophageal reflux disease without esophagitis; Z79.01 Long term (current) use of anticoagulants; Z96.641 Presence of right artificial hip joint
CPT/HCPCS: 96365; 96367; 96368; 93005 ×2; 85025; 80048; 36415; 83735; 82550; 85610; 82947; 80076; 83605; 85730; 84484; 83690; 71275; 70450; 71045; 96375; 99291; 99292; U0003; Q9967; J3475; J1953; J7040

== ENCOUNTER 2020-06-25 09:29 | Inpatient (IN) | payer OTHER ==
--- NOTE | 2020-06-24 15:26 | R.PREADM ---
PRE-ADMISSION SCREENING FORM SCREENING DATE AND TIME 06/24/2020 10:10 (SPEED WINDER) ANTICIPATED REHAB ADMISSION DATE 06/26/2020 REFERRING FACILITY [facility] REFERRAL DATE AND TIME 06/24/2020 10:11 (SPEED WINDER) ACUTE ADMIT DATE 06/25/2020 Previous Rehabilitation(s): No. ACUTE SUPERVISOR MICROFILM DUPLICATING UNIT/DC ONLINE COMMUNICATIONS MANAGER griselda ATTENDING PHYSICIAN ADRYAN ACUNA REFERRING PHYSICIAN ADRYAN ACUNA REHAB FACILITY [facility] CLINICAL LIAISON [place] PHYSICIAN REVIEWER Dr. Nima Lopez M.D. MR# [id number] NAME JJ BEAVERS ADDRESS [address] [place] [address] PHONE [facility] [id number] DATE OF 1960 AGE 59 SSN# [id number] GENDER male MARITAL STATUS RACE unknown race ADMIT FROM 02 - [facility] PRE-HOSPITAL LIVING SETTING 01 - Home (private home/apt. board/care, assisted living, care home, transitional living) HOME TYPE AND DETAILS Type of home: single family house # of levels in the residence: 1 # of steps within the residence: 0 # of steps to enter the residence: 0 PRE-HOSPITAL LIVING WITH Alone FAMILY SUPPORT No PRIMARY FAMILY CONTACT NAME GERALDINE BEAVERS PRIMARY FAMILY CONTACT PHONE PRIMARY FAMILY CONTACT RELATIONSHIP Spouse PHONE PRIMARY FAMILY CONTACT ON ADM.? no IS PRIMARY FAMILY CONTACT AUTH. REP.? no 1ST EMERGENCY CONTACT GERALDINE BEAVERS 1ST CONTACT PHONE 1ST CONTACT RELATIONSHIP Spouse PHONE 1ST CONTACT ON ADM. no IS 1ST CONTACT AUTH. REP.? no PHONE 2ND CONTACT ON ADM.? no PATIENT EMPLOYMENT STATUS Employed with [employer] INFORMATION: 1ST PAYOR NAME Frannie 1ST PAYOR PHONE 1ST PAYOR INJURY/ILLNESS DUE TO ACCIDENT? No ANOTHER REPUBLICAN RESPONSIBLE? No PRIMARY REHAB/ACUTE DIAGNOSIS: EPILEPSY ONSET DATE 06/18/2020 REHAB IMPAIRMENT CATEGORY (JESUS): 03 Nontraumatic brain injury (NTBI) MEETS 60% rule PRIMARY DIAGNOSIS-RELATED SURGERIES: No surgeries related to the primary diagnosis were performed. SUMMARY OF ACUTE HOSPITALIZATION: Pt. is a 59 yo Right-handed male of unknown race. On 06/18/2020 he was admitted to [facility] with diagnosis EPILEPSY. His impairment category is Brain Dysfunction 02 - Non-traumatic Brain Dysfunction (02.1). Pre-morbidly, Pt. was independent/mod-I in Safety Awareness, Balance, Social Cognition, Self-Care, an d Communication; and he had good Sphincter Control and Endurance. Currently, he has deficits of Balance, Locomotion, Sphincter Control, Endurance, and Transfers Contro l. Pt. is now referred to [facility] for acute in-patient rehabilitation in order to maximize patient's functional independence in activities of daily living, strength, ROM, and mobi lity. Patient has realistic goal of being discharged at assistance level 7-Ind to reside at Home with Pt s elf. PAST MEDICAL HISTORY DIABETES MELLITUS HYPERTENSION SEIZURE IDDM NEUROPATHY RIGHT FOOT OSTEOMYELITIS JAZLYN VS CKD PAST SURGICAL HISTORY: APPENDECTOMY BACK SURGERY COLON SURGERY MEDICATION ALLERGIES: No Known Drug Allergies (NKDA) ENVIRONMENTAL ALLERGIES: - Substance Allergies None Known - Other Allergies None Known CODE STATUS: Full code WEIGHT/HEIGHT/BMI: WEIGHT 257 lbs HEIGHT 6' 3" BMI 32.1 DIET: - Diet Type Regular - Diet - Solid Texture Regular - Diet - Liquid Texture Regular - Tube Feed N/A REVIEW OF SYSTEMS: - Gen Alert and awake Lying in bed No apparent distress Oriented to: person, time, and place - Vital Signs Temperature: 97.8 F SBP/DBP: 131/86 Pulse: 102 Resp: 18 Vital signs stable, afebrile - CVS RRR VITAL SIGNS Temperature: 97.8 F SBP/DBP: 131/86 Pulse: 102 Resp: 18 Vital signs stable, afebrile MEDICATIONS/TREATMENT: Other- See attached MAR (Medication Administration Record). CURRENT SPHINCTER CONTROL: Pre-hospital bladder status: unspecified # of bladder accidents in the last 7 days prior to screenin Pre-hospital bowel status: unspecified # of bowel accidents in the last 7 days prior to screenin Last Bowel Movement Date: 06/24/2020 CURRENT LOCOMOTION STATUS: distance walked 25 feet WITH ROLLING WALKER DETAILED CURRENT FUNCTIONAL STATUS: - Bladder accident frequency: Ind - No accidents in the past 7 days - Bowel accident frequency: Ind - No accidents in the past 7 days - Walking score based on distance walked: 0(N/A) score based on distance walked: 1(<=50ft) - Wheelchair score based on distance traveled: 0(N/A) QI SCORES: - Self-Care A. Eating 04-Supervision or touching assistance B. Oral hygiene 03-Partial/moderate assistance C. Toileting hygiene 02-Substantial/maximal assistance E. Shower/bathe self 02-Substantial/maximal assistance F. Upper body dressing 03-Partial/moderate assistance G. Lower body dressing 02-Substantial/maximal assistance H. Putting on/taking off footwear 88-Not attempted due to medical condition or safety concerns - Mobility A. Roll left and right 03-Partial/moderate assistance B. Sit to lying 03-Partial/moderate assistance C. Lying to sitting on side of bed 03-Partial/moderate assistance D. Sit to stand 03-Partial/moderate assistance E. Chair/wsz-am-nleaj transfer 03-Partial/moderate assistance F. Toilet transfer 03-Partial/moderate assistance G. Car transfer 88-Not attempted due to medical condition or safety concerns I. Walk 10 feet 03-Partial/moderate assistance J. Walk 50 feet with two turns 88-Not attempted due to medical condition or safety concerns K. Walk 150 feet 88-Not attempted due to medical condition or safety concerns L. Walking 10 feet on uneven surfaces 88-Not attempted due to medical condition or safety concerns M. 1 step (curb) 88-Not attempted due to medical condition or safety concerns N. 4 steps 88-Not attempted due to medical condition or safety concerns O. 12 steps 88-Not attempted due to medical condition or safety concerns P. Picking up object 88-Not attempted due to medical condition or safety concerns R. Wheel 50 feet with two turns 88-Not attempted due to medical condition or safety concerns S. Wheel 150 feet 88-Not attempted due to medical condition or safety concerns - Bladder and Bowel Bladder continence Bowel continence - Endurance Fair - Balance Fair - Safety Awareness Fair CURRENT FUNC. DEFICITS: Self-Care, Mobility, Endurance, Balance, and Safety Awareness HISTORY OF FALLS. HAS THE PATIENT HAD TWO OR MORE FALLS IN THE PAST YEAR OR ANY FALL WITH INJURY IN T HE PAST YEAR?: No PRIOR SURGERY. DID THE PATIENT HAVE MAJOR SURGERY DURING THE 100 DAYS PRIOR TO ADMISSION?: No THERAPY NOTES FROM ACUTE CARE: Attached. SPECIAL NEEDS: - Safety Concerns Skin breakdown precautions needed due to skin breakdown risk PRECAUTIONS: - Fall Precaution SAFTY AND FALL PATIENT NEEDS ACTIVE AND ONGOING THERAPEUTIC INTERVENTION OF MULTIPLE THERAPY DISCIPLINES, INCLUDING: - Dietary and Nutrition Adequate Nutrition. Nutritional Education. Nutritional Supplements. PATIENT NEEDS CLOSE MEDICAL SUPERVISION BY A REHABILITATION PHYSICIAN FOR: Coordination of Treatment Team PATIENT REQUIRES 24X7 REHAB NURSING FOR MEDICAL AND FUNCTIONAL MGT. OF THE FOLLOWING DEFICITS: Disease Management Medication Management Patient/Family Education Providing Safe Environment PATIENT REQUIRES INTENSIVE, COORDINATED INTERDISCIPLINARY APPROACH TO REHAB: Arranging Home Equipment/Services Discharge Planning Family Intervention/Training Spray Ii Painter/Case Management PATIENT REHAB POTENTIAL: Veronika BEAVERS is able and expected to receive 3 hours of individualized therapy daily on at least 5 of ever y 7 days Veronika BEAVERS's prognosis for significant practical improvement within a reasonable period of time appears Good Expected level of measurable improvement will be of a practical value to Veronika BEAVERS's functional capacit y or adaptations to impairments Has a viable Discharge Plan Medically appropriate; condition is sufficiently stable to participate in intensive rehab program DISCHARGE PLAN: - Estimated Length of Stay (days) 13. - Consensus on plan Discharge plan has been discussed with primary caregiver. Patient/Family is in agreement with the art n. Primary caregiver is in agreement with the plan. - Patient/Family Goals Return home independently. - Planned Living Setting Upon Discharge Home, to live alone. Transitional Living. Primary caregiver: Pt self. RECOMMENDED CARE LEVEL: IRF RECOMMENDATION DETAILS: Recommended Admission to Comprehensive Rehabilitation Program to Increase Functional [place] SCREENER'S COMPLETENESS CONFIRMATION: - Screening Confirmation The patient data collection on this preadmission screening form is finished PHYSICIANS REVIEW AND ADMISSION DETERMINATION Admit - Based on my review of the Pre-Admission Screening results, in my medical judgment and experie nce, I concur with the findings and recommend admission to [facility], as this patient requires an IRF level of care. SIGNATURE PANEL: Paper Cutting Machine Operator - [electronically] signed by Glynn Monroe on 06/24/2020 at 11:59 (SPEED WINDER) Paper Cutting Machine Operator - [electronically] signed by Russell Castillo PT on 06/24/2020 at 12:49 (SPEED WINDER) Physician Reviewer - [electronically] signed by Dr. Nima Lopez M.D. on 06/24/2020 at 15:25 (SPEED WINDER )
--- OUTSIDE RECORDS SUMMARY | 2020-06-25 18:35 | XMS REPORT | Continuity of Care Document ---
:1960 Author Organization [facility] [place] Information [employer] Care Team Providers Name Role Phone [facility] [employer] Unavailable Un available Problems Problem Status Onset Classification Date Comments Sourc e Date Reported Thrombophlebitis of Active Problem 04/19/2015 IMPRESSIO N: [facility] femoropopliteal 015 1. Occlusive M edical vein (disorder) DVT in the [address] right superficial femoral and popliteal veins. 2. No evidence of DVT in the upper extremity or left lower extremity. Preliminary findings were discussed with nurse practitioner Suzette at 2252 by the on-call resident Dr. Alvarado on 04/09/2015 at 2252 hours. DEREK BILLING Active [facility][id number] Medica l Center RT DVT Active [address] LOW BACK PAIN Active Condition 04/21/2015 [facility] 015 Neuro LUMBAR Active Condition 04/21/2015 [facility] RADICULOPATHY 015 Neuro DEGENERATIVE DISC Active Condition 04/21/2015 [facility] DISEASE, LUMBAR 015 Neur o SPINE LUMBAR HNP Active Condition 04/21/2015 [facility] 015 Neuro Foot-drop gait Resolved Problem 04/19/2015 [facility] (finding) [facility] Fusion of Resolved Problem 04/19/2015 L4-L5 fusion [place] lumbosacral region M edical of spine by Center anterior approach (procedure) Hyperlipidemia Resolved Problem 04/19/2015 [facility] (disorder) [facility] Neuropathy Resolved Problem 04/19/2015 [facility] (disorder) [facility]MINIST[facility]VE [facility] Medications Medication Details Route Status Patient Ordering Order Source Instructions Provider Date ATENOLOL TABS Active 2014 Neuro GABAPENTIN TABS Active [facility] 2014 Neuro COUMADIN TABS Active 2014 Neuro warfarin 7.5 mg 7.5 mg = 1 tab, Active [place] oral tablet PO, Daily, # 90 2014 Medi rubina tab, 0 Center Refill(s) Warfarin Notes: Nurse to Inactive [place] ensure 2014 Medical documentation Center of patient education per anticoagulation policy. Avoid large intake of vitamin-K containing foods diet. (Same As: Coumadin) Warfarin Notes: Nurse to Inactive [place] ensure 2014 Medical documentation Center of patient education per anticoagulation policy. Avoid large intake of vitamin-K containing foods diet. (Same As: Coumadin) Coumadin Notes: Nurse to Inactive [place] ensure 2014 Medical documentation Center of patient education per anticoagulation policy. Avoid large intake of vitamin-K containing foods diet. (Same As: Coumadin) Norvasc Notes: (Same No Longer [place] as: Norvasc) Active 2014 [facility] Coumadin Notes: Nurse to Inactive [place] ensure 2014 Medical documentation Center of patient education per anticoagulation policy. Avoid large intake of vitamin-K containing foods diet. (Same As: Coumadin) Clonidine Notes: (Same [place] Longer [place] Hydrochloride 0.1 As: Catapres) Active 2014 [facility] MG Oral Tablet Center Folic Acid Notes: (Same No Longer [place] as: Folvite) Active 2015 Medical [place] Thiamine Notes: (Same No Longer [place] As: Vitamin B1) Active 2015 Medical [place] multivitamin Notes: (Same No Longer [place] as:Thera) Take Active 2014 [facility] with food. Center gabapentin Notes: (Same No Longer [place] as: Neurontin) Active 2015 Medical Center sennosides, FDC Notes: (Same No Longer 04/12/ H [place] as: Senokot) Active 2015 Medical Center Docusate Notes: (Same No Longer [place] as: Colace) (Do Active 2014 Medical Not Crush) Center Metoprolol Notes: (Same [place] as: Lopressor) 2015 Medical Push over 2 Center minutes Lorazepam Notes: (Same [place] Longer [place] as: Ativan) Active 2015 [facility] Atenolol 50 MG Oral Notes: (Same No Longer 04/11 [place] Tablet As:Tenormin) Active 2015 Medical Center Warfarin Notes: Nurse to Inactive [place] ensure 2014 Medical documentation Center of patient education per anticoagulation policy. Avoid large intake of vitamin-K containing foods diet. (Same As: Coumadin) Lisinopril Notes: (Same No Longer [place] as: Prinivil, Active 2014 Medical Zestril) Center Hydrochlorothiazide Notes: (Same No Longer 04/11 [place] as: Active 2014 Medical Hydrodiuril) Center With food. Coumadin 7.5 mg, Route: [place] PO, Drug form: 2014 Medical TAB, Q5PM, Center Dosing Weight 137.273, kg, Start date: 04/11/15 9:20:00, Duration: 1 doses or times, Stop date: 04/11/15 9:20:00 Coumadin 7.5 mg, Route: [place] PO, Drug form: 2014 Medical TAB, ONCE, Center Dosing Weight 137.273, kg, Start date: 04/11/15 9:12:00, Stop date: 04/11/15 9:12:00 Kayexalate Notes: (sodium No Longer [place] polystyrene Active 2014 Medical sulfonate 15 Center gm/60 ml ARUN) Shake well before use. (Same as: Kayexalate, SPS) Tylenol Notes: Do not No Longer [place] exceed 4 Active 2014 Medical gm/day. (Same Center as: Tylenol) Sodium Chloride Notes: (Same No Longer H [place] 0.111 MEQ/ML Nasal as: [place], Deep Active 2014 Medical [place] [[place] brand Sea Nasal [address] of sodium chloride] [place]). gabapentin 300 MG Notes: (Same No Longer [place] Oral Capsule as: Neurontin) Active 2014 [facility] Saline Flush 0.9% Notes: (Same No Longer [place] as: BD Active 2014 Medical Posiflush) Center sennosides, FDC Notes: (Same No Longer 04/10/ M H [place] as: Senokot) Active 2014 Medical Center Docusate Notes: (Same No Longer [place] as: Colace) (Do Active 2014 Medical Not Crush) [place] glyBURIDE 5 mg oral 5 mg = 1 tab, Active [place] tablet PO, Breakfast, 2014 Medical # 30 tab, 0 Center Refill(s) Atenolol 50 MG Oral 50 mg = 1 tab, Active 04/10 [place] Tablet PO, Daily, # 30 2014 Medical tab, 0 Center Refill(s) Atenolol PO, Daily, 0 No Longer [place] Refill(s) Active 2014 [facility] lisinopril 30 mg 30 mg = 1 tab, No Longer [place] oral tablet PO, Daily, # 30 Active 2014 [facility] tab, 0 Center Refill(s) Dyazide Special No Longer [place] Instructions: Active 2014 [facility] 37.5-25 Center Dilaudid Notes: Same [place]: [place] Longer [place] Dilaudid Active 2014 [facility] Acetaminophen 325 Notes: (Same No Longer [place] MG / Hydrocodone as: [place] Active 2014 Medic al Bitartrate 5 MG 325/5) Do not C enter Oral Tablet [[place] exceed 4gm/day 5/325] of acetaminophen. Sodium Chloride 1,000 mL, 1,000 Inactive [place] 0.154 MEQ/ML ml/hr, Infuse 2014 Medic al Injectable Solution Over: 1 hr, [place] Route: IV, 1,000, Drug form: INJ, ONCE, Priority: STAT, Dosing Weight 137.273 kg, Start date: 04/09/15 18:08:00, Duration: 1 doses or times, Stop date: 04/09/15 18:08:00 heparin sodium, Route: IVP, No Longer [place] porcine 1000 UNT/ML PRN, 4,200 Active 2014 edical Injectable Solution unit, 4.2 mL, [place] Drug form: INJ, PRN, Heparin Protocol, Start date: 04/09/15 16:52:00 Stop date: 05/09/15 16:51:00, 30 day heparin additive 500 mL, Rate: No Longer [place] [address] unit [18 38.02 ml/hr, Active 2014 [facility] unit/kg/hr] + Infuse over: Cente r Premix Diluent 13.2 hr, Route: Dextrose 5% 500 mL IV, Dosing Weight 105.6 kg, Total Volume: 500 mL, Start date: 04/09/15 16:52:00, Duration: 30 day, Stop date: 05/09/15 16:51:00 Calcium Carbonate Notes: (Same No Longer [place] 500 MG Chewable As: Tums) Active 2014 Medica l Tablet Calcium Center Carbonate 500 mg = 200 mg elemental calcium Dose = mg calcium carbonate ( mg elemental calcium) potassium phosphate Notes: (Same No Longer 04/09 [place] + Sodium Chloride as: K Active 2014 Medica l 0.9% IV 250 mL Phosphate.) 1 Ce nter mMol phoshate has 1.47 mEq potassium Infuse over 4 hours sodium phosphate + Special No Longer [facility] Sodium Chloride Instructions: Active 2014 Mi dical 0.9% IV 250 mL FOR ICU USE Cente r ONLY Magnesium Oxide Notes: (Same No Longer [facility] as: Mag-Ox 400) Active 2014 Medical Magnesium oxide Center [id number] elemental magnesium Dose=____mg magnesium oxide (___mg elemental magnesium) Magnesium Sulfate Special No Longer [facility] [place] Instructions: Active 2014 Medical FOR ICU USE Center ONLY Calcium Gluconate Special No Longer [place] Instructions: Active 2014 Medical FOR ICU USE Center ONLY Neutra-Phos Notes: (Same [place] Long[place] as: Active 2014 Medical Neutra-Phos) Center Each 1.25 gm pkt has 250mg phosphorous. Mix w/2.5oz water and stir. potassium chloride Notes: Infuse No Longer 04/09 [facility] at a rate of 10 Active 2014 [facility] mEq/hr. (Same Center as: KCL) Saline Flush 0.9% Notes: (Same No Longer [place] as: BD Active 2014 Medical Posiflush) Center Allergies, Adverse Reactions, Alerts No Known Medication Allergies Immunizations No Data Provided for This Section Results Order Name Results Value Reference Date Interpretation Comments Chantel rce Range CHEM PANEL eGFR 44 04/16 Result Comment: The Medical eGFR is Center calculated using the CKD-EPI formula. In most young, healthy individuals the eGFR will be >90 mL/min/1.73m2 . The eGFR declines with age. An eGFR of 60-89 may be normal in some populations, particularly the elderly, for whom the CKD-EPI formula has not been extensively validated. Use of the eGFR is not recommended in the following populations:< br/>
Rachelle viduals with unstable creatinine concentration s, including patients and those with serious co-morbid conditions.<b r/>
Patie nts with extremes in muscle mass or diet.

The data above are obtained from the National Kidney Disease Education Program (NKDEP) which additionally recommends that when the eGFR is used in patients with extremes of body mass index for purposes of drug dosing, the eGFR should be multiplied by the estimated BMI. CHEM PANEL Creatinine 1.7 0.5 - 1.4 04/16 [facility] CHEM PANEL Chloride Lvl 104 95 - 109 04/16 [facility] s [facility] CHEM PANEL Sodium Lvl 137 135 - 145 04/16 [facility] CHEM PANEL Potassium Lvl 4.3 3.5 - 5.1 04/16 [place] [facility] CHEM PANEL CO2 25 24 - 32 04/16 [facility] CHEM PANEL Calcium Lvl 9.4 8.5 - 10.5 04/16 as [facility] CHEM PANEL AGAP 12.3 10.0 - 04/16 20.0 [facility] CHEM PANEL Glucose Lvl 97 70 - 99 04/16 [facility] CHEM PANEL BUN 17 7 - 22 04/16 [facility] HEMATOLOGY PT 24.0 12.0 - 04/16 [facility] 14.7 [facility] HEMATOLOGY INR 2.11 0.85 - 04/16 1.17 [facility] HEMATOLOGY PTT 140.7 22.9 - 04/16 Result [facility] 35.8 Comment: Medical Critical Center Result(s) called to Duyen Isaac at 04/16/2015 04:57 by josh. Read back OK. CHEM PANEL eGFR 44 04/15 Result Comment: The Medical eGFR is Center calculated using the CKD-EPI formula. In most young, healthy individuals the eGFR will be >90 mL/min/1.73m2 . The eGFR declines with age. An eGFR of 60-89 may be normal in some populations, particularly the elderly, for whom the CKD-EPI formula has not been extensively validated. Use of the eGFR is not recommended in the following populations:< br/>
Rachelle viduals with unstable creatinine concentration s, including patients and those with serious co-morbid conditions.<b r/>
Patie nts with extremes in muscle mass or diet.

The data above are obtained from the National Kidney Disease Education Program (NKDEP) which additionally recommends that when the eGFR is used in patients with extremes of body mass index for purposes of drug dosing, the eGFR should be multiplied by the estimated BMI. CHEM PANEL Glucose Lvl 162 70 - 99 04/15 [facility] CHEM PANEL AGAP 16.8 10.0 - 04/15 [place] 20.0 [facility] CHEM PANEL CO2 24 24 - 32 04/15 [facility] CHEM PANEL Sodium Lvl 139 135 - 145 04/15 [facility] CHEM PANEL Chloride Lvl 102 95 - 109 04/15 a [facility] CHEM PANEL Calcium Lvl 9.2 8.5 - 10.5 04/15 [place] [facility] CHEM PANEL Potassium Lvl 3.8 3.5 - 5.1 04/15 [place] [facility] CHEM PANEL Creatinine 1.7 0.5 - 1.4 04/15 [facility] CHEM PANEL BUN 16 7 - 22 04/15 [facility] HEMATOLOGY PTT 81.5 22.9 - 04/15 35.8 [facility] HEMATOLOGY PT 19.7 12.0 - 04/15 [place] 14.7 [facility] HEMATOLOGY INR 1.64 0.85 - 04/15 [place] 1.17 [facility] HEMATOLOGY PTT 73.8 22.9 - 04/15 [place] 35.8 [facility] ELECTROLYTE AGAP 13.8 10.0 - 04/14 [place] S 20.0 [facility] ELECTROLYTE Glucose Lvl 101 70 - 99 04/14 [facility] ELECTROLYTE Potassium Lvl 3.8 3.5 - 5.1 04/14 [place] [facility] ELECTROLYTE Creatinine 1.7 0.5 - 1.4 04/14 [place] S L[place] [facility] ELECTROLYTE Sodium Lvl 137 135 - 145 04/14 [place] [facility] ELECTROLYTE Chloride Lvl 102 95 - 109 04/14 [place] S [facility] ELECTROLYTE BUN 14 7 - 22 04/14 [facility] ELECTROLYTE CO2 25 24 - 32 04/14 [facility] ELECTROLYTE Calcium Lvl 9.0 8.5 - 10.5 04/14 [place] [facility] ELECTROLYTE eGFR 44 04/14 Result [facility] Comment: The Medical eGFR is Center calculated using the CKD-EPI formula. In most young, healthy individuals the eGFR will be >90 mL/min/1.73m2 . The eGFR declines with age. An eGFR of 60-89 may be normal in some populations, particularly the elderly, for whom the CKD-EPI formula has not been extensively validated. Use of the eGFR is not recommended in the following populations:< br/>
Rachelle viduals with unstable creatinine concentration s, including patients and those with serious co-morbid conditions.<b r/>
Patie nts with extremes in muscle mass or diet.

The data above are obtained from the National Kidney Disease Education Program (NKDEP) which additionally recommends that when the eGFR is used in patients with extremes of body mass index for purposes of drug dosing, the eGFR should be multiplied by the estimated BMI. HEMATOLOGY PT 16.7 12.0 - 04/14 [facility] 14.7 [facility] HEMATOLOGY INR 1.34 0.85 - 04/14 [facility] 1.17 [facility] URINE AND UA <=1.0 0.1 - 1.0 04/14 [facility] STOOL Urobilinogen mg/dL /2014 [facility] URINE AND UA Blood Negative Negative 04/14 [facility] STOOL (04/14/15 4:13 AM) /2014 [facility] URINE AND UA Ketones Negative Negative 04/14 [facility] [place] mg/dL mg/dL /2014 [facility] URINE AND UA Bili Negative Negative 04/14 [facility] STOOL *NA* /2014 [facility] (04/14/15 4:13 AM) [place] URINE AND UA Color Yellow Yellow 04/14 [facility] STOOL *NA* /2014 [facility] (04/14/15 4:13 AM) [place] URINE AND UA Glucose Negative Negative 04/14 [facility] STOOL mg/dL mg/dL /2014 [facility] URINE AND UA Protein Negative Negative 04/14 [facility] STOOL mg/dL mg/dL /2014 [facility] URINE AND UA pH 7.5 5.0 - 8.0 04/14 [facility] STOOL [facility] URINE AND UA Spec Grav 1.007 <=1.030 04/14 [facility] STOOL [facility] URINE AND UA Turbidity Clear Clear 04/14 [facility] STOOL (04/14/15 4:13 AM) [facility] URINE AND UA WBC <1 0 - 5 04/14 [facility] URINE AND UA Sq Epi None Seen 04/14 [facility] STOOL [facility] URINE AND UA Leuk Est Negative Negative 04/14 [facility] STOOL (04/14/15 4:13 AM) /2014 [facility] URINE AND UA Nitrite Negative Negative 04/14 [facility] STOOL (04/14/15 4:13 AM) [facility] URINE CHEM U Creatinine 130.6 04/14 [facility] URINE CHEM U Sodium 59 04/14 [facility] HEMATOLOGY MPV 7.8 7.4 - 10.4 04/13 [facility] HEMATOLOGY MCV 101.7 80.0 - 04/13 [place] 94.0 [facility] HEMATOLOGY MCHC 31.9 32.0 - 04/13 [place] 36.0 [facility] HEMATOLOGY RDW 12.8 11.5 - 04/13 [place] 14.5 [facility] HEMATOLOGY MCH 32.5 27.0 - 04/13 [place] 31.0 [facility] HEMATOLOGY Platelet 206 133 - 450 04/13 [facility] HEMATOLOGY RBC 3.74 4.70 - 04/13 [place] 6.10 [facility] HEMATOLOGY Hgb 12.1 14.0 - 04/13 [place] 18.0 [facility] HEMATOLOGY Hct 38.0 42.0 - 04/13 [place] 54.0 [facility] HEMATOLOGY WBC 4.5 3.7 - 10.4 04/13 [facility] CHEM PANEL Magnesium Lvl 1.7 1.8 - 2.4 04/12 [place] [facility] CHEM PANEL Phosphorus 2.9 2.5 - 4.5 04/12 [facility] HEMATOLOGY Segs 53.5 45.0 - 04/12 [place] 75.0 [facility] HEMATOLOGY Monocytes 9.6 2.0 - 12.0 04/12 [facility] HEMATOLOGY Lymphocytes 21.1 20.0 - 04/12 [place] 40.0 [facility] HEMATOLOGY Segs-Bands # 2.0 1.5 - 8.1 04/12 [facility] HEMATOLOGY Lymphocytes # 0.8 1.0 - 5.5 04/12 [facility] HEMATOLOGY Basophils 0.8 0.0 - 1.0 04/12 [facility] HEMATOLOGY Eosinophils 15.0 0.0 - 4.0 04/12 [facility] HEMATOLOGY Eosinophils # 0.6 0.0 - 0.5 04/12 [facility] HEMATOLOGY Monocytes # 0.4 0.0 - 0.8 04/12 [facility] HEMATOLOGY Macrocyte 1+ None Seen 04/12 *ABN* [facility] (04/12/15 4:41 AM) [place] HEMATOLOGY WBC 3.8 3.7 - 10.4 04/12 [facility] HEMATOLOGY Hgb 12.3 14.0 - 04/12 18. [facility] HEMATOLOGY RBC 3.76 4.70 - 04/12 6.10 [facility] HEMATOLOGY MCV 100.1 80.0 - 04/12 94.0 [facility] HEMATOLOGY Hct 37.6 42.0 - 04/12 54.0 [facility] HEMATOLOGY MCH 32.7 27.0 - 04/12 31. [facility] HEMATOLOGY RDW 13.3 11.5 - 04/12 14. [facility] HEMATOLOGY MCHC 32.6 32.0 - 04/12 36.0 [facility] HEMATOLOGY Platelet 212 133 - 450 04/12 [facility] HEMATOLOGY MPV 7.9 7.4 - 10.4 04/12 [facility] CHEM PANEL Phosphorus 2.4 2.5 - 4.5 04/11 [facility] CHEM PANEL Magnesium Lvl 2.1 1.8 - 2.4 04/11 [facility] HEMATOLOGY MCH 32.9 27.0 - 04/11 [place] 31.0 [facility] HEMATOLOGY RDW 13.0 11.5 - 04/11 14. [facility] HEMATOLOGY MCHC 32.6 32.0 - 04/11 [place] 36.0 [facility] HEMATOLOGY MCV 100.7 80.0 - 04/11 [place] 94.0 [facility] HEMATOLOGY WBC 3.5 3.7 - 10.4 04/11 [facility] HEMATOLOGY Hgb 11.7 14.0 - 04/11 [place] 18.0 [facility] HEMATOLOGY RBC 3.57 4.70 - 04/11 [place] 6.10 [facility] HEMATOLOGY Hct 35.9 42.0 - 04/11 [place] 54.0 [facility] HEMATOLOGY MPV 8.2 7.4 - 10.4 04/11 [facility] HEMATOLOGY Platelet 203 133 - 450 04/11 [facility] HEMATOLOGY Basophils 0.8 0.0 - 1.0 04/11 [facility] HEMATOLOGY Eosinophils 14.6 0.0 - 4.0 04/11 s [facility] HEMATOLOGY Monocytes 7.8 2.0 - 12.0 04/11 [facility] HEMATOLOGY Macrocyte 1+ None Seen 04/11 [place] *ABN* /2014 Medical (04/11/15 12:11 AM) Cente r HEMATOLOGY Monocytes # 0.3 0.0 - 0.8 04/11 s [facility] HEMATOLOGY Eosinophils # 0.5 0.0 - 0.5 04/11 [facility] HEMATOLOGY Lymphocytes # 0.8 1.0 - 5.5 04/11 s [facility] HEMATOLOGY Segs-Bands # 1.9 1.5 - 8.1 04/11 as [facility] HEMATOLOGY Lymphocytes 23.3 20.0 - 04/11 [place] 40.0 [facility] HEMATOLOGY Segs 53.5 45.0 - 04/11 [place] 75.0 [facility] PARATHYROID Ca Ion WB 1.12 1.05 - 04/11 [place] PROFILE 1. [facility] PARATHYROID Ca Norm WB 1.09 1.05 - 04/11 [place] PROFILE . [facility] CHEM PANEL Magnesium Lvl 1.6 1.8 - 2.4 04/10 [place] [facility] CARDIAC CK MB Index 1.4 0.0 - 2.5 04/10 [place] ENZYMES [facility] CARDIAC CK MB 1.3 0.5 - 3.6 04/10 ENZYMES /2014 [facility] CARDIAC Total CK 94 12 - 191 04/10 ENZYMES [facility] CARDIAC Troponin-T <0.010 0.000 - 04/10 [place] ENZYMES 0.100 [facility] CARDIAC Troponin-I <0.02 0.00 - 04/10 [place] ENZYMES 0.40 [facility] CHEM PANEL Phosphorus 3.1 2.5 - 4.5 04/10 [facility] HEMATOLOGY Lymphocytes # 1.3 1.0 - 5.5 04/10 [place] [facility] HEMATOLOGY Monocytes # 0.4 0.0 - 0.8 04/10 [place] [facility] HEMATOLOGY Eosinophils # 0.7 0.0 - 0.5 04/10 [place] [facility] HEMATOLOGY Basophils # 0.1 0.0 - 0.2 04/10 [facility] HEMATOLOGY Macrocyte 1+ None Seen 04/10 *ABN* /2014 Medical (04/10/15 1:44 AM) [place] HEMATOLOGY Segs-Bands # 3.0 1.5 - 8.1 04/10 [facility] HEMATOLOGY Eosinophils 12.0 0.0 - 4.0 04/10 [facility] HEMATOLOGY Basophils 1.0 0.0 - 1.0 04/10 [facility] HEMATOLOGY Monocytes 7.3 2.0 - 12.0 04/10 [facility] HEMATOLOGY Lymphocytes 23.7 20.0 - 04/10 [place] 40.0 [facility] HEMATOLOGY Segs 56.0 45.0 - 04/10 [place] 75.0 [facility] [facility] PARATHYROID Ca Ion WB 1.04 1.05 - 04/10 [place] PROFILE 1. [facility] PARATHYROID Ca Norm WB 0.99 1.05 - 04/10 [place] PROFILE 1. [facility] CARDIAC CK MB Index 1.5 0.0 - 2.5 04/10 ENZYMES /2014 [facility] CARDIAC CK MB 1.4 0.5 - 3.6 04/10 EN[place]YMES [facility] CARDIAC Troponin-T <0.010 0.000 - 04/10 [place] ENZYMES 0.100 [facility] CARDIAC Troponin-I <0.02 0.00 - 04/10 [facility] [place] ENZYMES 0.40 /2014 [facility] CARDIAC Total CK 92 12 - 191 04/10 [facility] ENZYMES /2014 [facility] DRUG SCREEN U Cocaine Scr Negative Negative 04/10 [place] *NA* /2014 Medical (04/09/15 8:29 PM) Center DRUG SCREEN U Opiate Scr Positive Negative 04/10 [place] *ABN* /2014 [facility] (04/09/15 8:29 PM) Center DRUG SCREEN U Cannab Scr Negative Negative 04/10 [place] *NA* /2014 [facility] (04/09/15 8:29 PM) Center DRUG SCREEN U Tami Scr Negative Negative 04/10 [place] *[place]* /2014 [facility] (04/09/15 8:29 PM) Center DRUG SCREEN U Amph Scr Negative Negative 04/10 [place] *[place]* /2014 [facility] (04/09/15 8:29 PM) Center DRUG SCREEN U Phencyc Scr Negative Negative 04/10 [place] *NA* Medical (04/09/15 8:29 PM) Center DRUG SCREEN U Benzodia Positive Negative 04/10 [place] *ABN* /2014 [facility] (04/09/15 8:29 PM) Center DRUG SCREEN UDS Note See Note 04/10 [facility] (04/09/15 8:29 PM) /[facility] URINE AND UA <=1.0 0.1 - 1.0 04/10 [facility] [place] Urobilinogen mg/dL /2014 [facility] URINE AND UA WBC <1 0 - 5 04/10 [facility] [place] /[address] [place] [address] URINE AND UA Sq Epi Occasional Few /LPF 04/10 [facility] STOOL /LPF /2014 [facility] URINE AND UA RBC <1 0 - 2 04/10 [facility] [place] /2014 [facility] URINE AND UA Spec Grav 1.044 <=1.030 04/10 [facility] STOOL /2014 [facility] URINE AND UA Color Yellow Yellow 04/10 [facility] STOOL *NA* /2014 Medical (04/09/15 8:29 PM) Center URINE AND UA Protein Negative Negative 04/10 [facility] STOOL mg/dL mg/dL [facility] URINE AND UA Turbidity Clear Clear 04/10 [facility] [place] (04/09/15 8:29 PM) /2014 [facility] [place] URINE AND UA pH 6.0 5.0 - 8.0 04/10 [facility] STOOL /[address] [place] [address] URINE AND UA Bili Negative Negative 04/10 [facility] STOOL *NA* /2014 Medical (04/09/15 8:29 PM) Center URINE AND UA Glucose Negative Negative 04/10 [facility] STOOL mg/dL mg/dL [facility] URINE AND UA Ketones Negative Negative 04/10 [facility] STOOL mg/dL mg/dL [facility] URINE AND UA Leuk Est Negative Negative 04/10 [facility] STOOL (04/09/15 8:29 PM) /2014 [facility] URINE AND UA Blood Negative Negative 04/10 [facility] STOOL (04/09/15 8:29 PM) /2014 [facility] URINE AND UA Nitrite Negative Negative 04/10 [facility] [place] (04/09/15 8:29 PM) /2014 [facility] CARDIAC BNP 41 <=100 04/10 [facility] ENZYMES pg/mL /2014 [facility] CHEM PANEL Procalcitonin 0.06 0.00 - 04/10 [facility] s Lvl 0.10 [facility] HEMATOLOGY D-Dimer 1.83 04/10 [facility] /2014 [facility] LIPIDS Trig 309 <=149 04/10 [facility] mg/dL /2014 [facility] LIPIDS LDL 70 <=99 mg/dL 04/10 [facility] (Calculated) /2014 [facility] LIPIDS CHD Risk 9.25 4.00 - 04/10 [facility] 7.30 [facility] LIPIDS HDL 16 >=61 mg/dL 04/10 [facility] /[address] [place] [address] LIPIDS Chol 148 <=199 04/10 [facility] mg/dL [facility] LIPIDS VLDL 62 04/10 [facility] /2014 [facility] THYROID FTI 3.7 04/10 [facility] PANEL /2014 [facility] THYROID T3 Uptake 38 31 - 39 04/10 [facility] PANEL /2014 [facility] THYROID TSH 0.951 0.360 - 04/10 [facility] PANEL 3.740 [facility] THYROID T4 9.7 4.7 - 13.3 04/10 [facility] PANEL /2014 [facility] BACTERIAL - MRSA by PCR Negative 04/09 [facility] (04/09/15 5:16 PM) /2014 [facility] CARDIAC Troponin-T <0.010 0.000 - 04/09 [facility] ENZYMES 0.100 /2014 [facility] CARDIAC Troponin-I <0.02 0.00 - 04/09 [facility] ENZYMES 0.40 /2014 [facility] CARDIAC Total CK 87 12 - 191 04/09 [facility] ENZYMES /[address] [place] [address] CARDIAC CK MB 1.1 0.5 - 3.6 04/09 [facility] ENZYMES [address] CARDIAC CK MB Index 1.3 0.0 - 2.5 04/09 [facility] ENZYMES [address] CHEM PANEL Lactic Acid 0.8 0.5 - 2.2 04/09 [facility] s Lvl /2014 [facility] CHEM PANEL Lipase Lvl 79 73 - 393 04/[address] CHEM PANEL A/G Ratio 0.9 0.7 - 1.6 04/[address] CHEM PANEL Globulin 3.3 2.0 - 4.0 04/[address] CHEM PANEL B/C Ratio 14 6 - 25 04/[address] CHEM PANEL Bili Total 0.5 0.2 - 1.3 04/[address] CHEM PANEL Total Protein 6.4 6.4 - 8.4 04/09 [place] [facility] CHEM PANEL AST 34 0 - 37 04/[address] CHEM PANEL Alk Phos 42 39 - 136 04/[address] CHEM PANEL Albumin Lvl 3.1 3.5 - 5.0 04/09 [facility] s /2014 [facility] CHEM PANEL ALT 26 0 - 65 04/[address] CHEM PANEL Ammonia 36.0 <=45.0 04/09 [facility] uMol/L /2014 [facility] PARATHYROID Ca Norm WB 1.01 1.05 - 04/09 [facility] PROFILE 1. [facility] PARATHYROID Ca Ion WB 1.07 1.05 - 04/09 [facility] PROFILE 1. [facility] SPECIAL Hgb A1C 6.2 <=5.6 % 04/09 [facility] CHEMISTRY /[address] [place] [address] Pathology Reports No Data Provided for This Section Diagnostic Reports Report Value Date Source Retroperitoneal Complete EXAM: US RENAL 04/14/2015 [facility] [place] [facility] DATE: 04/14/2015 at 0906. INDICATION: Renal insufficiency. ADDITIONAL INFORMATION: None. COMPARISON: None. TECHNIQUE: Multiplanar foss scale and color Doppler ultrasound images of the kidneys and urinary bladder were obtained. FINDINGS: Kidneys are normal in shape and position without masses, hydronephrosis or cortical thinning. Right kidney is 9.7 x 4.3 x 6.2 cm and left is 9.7 a 4.3 x 5.3 cm. Renal echogenicity is normal. No renal calculi or echogenic focus n oted. Color Doppler flow is present in the renal hilum bilaterally. Urinary bladder is decompressed. IMPRESSION: 1. Doppler flow present in the renal celena bilate rally. 2. No hydronephrosis or signs of obstruction. Brain wo contrast CT EXAM: CT BRAIN WITHOUT CONTRAST. 04/12/2015 [facility] DATE: Apr 12, 2015 07:10:00 PM INDICATION: Confusion COMPARISON: None available. TECHNIQUE: Contiguous axial images of the brain were obtained from the skull base to the vertex without IV contrast. FINDINGS: The attenuation of the brain parenchyma is normal. The foss-white matter interfaces are preserved. No extra-axial collection is detected. The ventricles and sulci are prominent as a result of volume lo ss. The paranasal sinuses, orbits and mastoids a re unremarkable. IMPRESSION: No focal parenchymal lesion. Generalized volume loss. Ext Upper & Lower Venous EXAM: US BILATERAL UPPER AND LOWER EXTREMITY VENOUS DOPPLER 04/09/2015 [facility] Doppler [facility] INDICATION: Limb pain. ADDITIONAL INFORMATION: None. COMPARISON: None. TECHNIQUE: Multiplanar melvi mark, color Doppler and spectral Doppler ultrasound images of the bilateral lower extremity and upper extremity veins were obtained. FINDINGS: Normal compressibility and c olor Doppler flow is present in the bilateral internal jugular, axillary, brachial and basilic veins. Cephalic veins were also patent. The subclavian veins have normal color Doppler flow. The left common femoral, gre ater saphenous, superficial femoral, and popliteal veins demonstrate normal compressibility and color Doppler signal. The right common femoral and greater saphenous veins ar e patent. Visualized portion of the bilateral il iac veins are also patent. The mid and distal aspects o f the right superficial femoral vein demonstrate noncompressibility and no flow. The proximal right superficial femoral vein demonstrates compressibility and flow. There is a lso noncompressibility and absent flow w ithin the entire right popliteal vein. IMPRESSION: 1. Occlusive DVT in the right superficial femora l and popliteal veins. 2. No evidence of DVT in the upper extremity or left lower extremity. Preliminary findings were di scussed with nurse practitioner Suzette at 2252 by the on-call resident Dr. Alvarado on 04/09/2015 at 2252 hours. Chest 1view DX EXAM: XR CHEST ONE VIEW 04/09/2015 [facility] DATE: Apr 09, 2015 1715 hours CLINICAL INDICATION: Shortness of Breath COMPARISON: NONE TECHNIQUE: AP portable chest x-ray is submitted . DISCUSSION: There is low vianney ng volume with vascular crowding. The costophrenic angles are sharp. No focal consolidation is seen. Pulmonary vascularity is symmetric. The cardiomediastinal silhouette is w ithin normal limits. The visualized bones are wi thin normal limits. IMPRESSION: Low lung volume with vascular crowd ing. Consultation Notes No Data Provided for This Section Discharge Summaries No Data Provided for This Section History and Physicals No Data Provided for This Section Vital Signs Vital Sign Value Date Comments Source Weight 297.8 04/21/2015 [facility] Height 75 04/21/2015 [facility] Temperature Oral (F) 97.2 F 04/21/2015 [facility] Heart Rate 97 04/21/2015 [facility] Systolic (mm Hg) 154 04/21/2015 [facility] Jorgito ro Diastolic (mm Hg) 109 04/21/2015 [facility] Ne uro Systolic (mm Hg) 131 04/16/2015 [facility] dical Center Diastolic (mm Hg) 84 04/16/2015 [facility] Heart Rate 63 04/16/2015 [facility] Respitory Rate 18 04/16/2015 [facility] Temperature Oral (F) 98.2 F 04/16/2015 [facility] Temperature Oral (F) 98.5 F 04/16/2015 [facility] Heart Rate 63 04/16/2015 [facility] Center Respitory Rate 18 04/16/2015 [facility] Systolic (mm Hg) 126 04/16/2015 [facility] dical Center Diastolic (mm Hg) 83 04/16/2015 [facility] Center Systolic (mm Hg) 138 04/16/2015 [facility] dical Center Diastolic (mm Hg) 84 04/16/2015 [facility] Center Respitory Rate 18 04/16/2015 [facility] Heart Rate 60 04/16/2015 [facility] Temperature Oral (F) 98.3 F 04/16/2015 [facility] Weight 137.273 04/09/2015 [facility] Height 190.5 cm 04/09/2015 [facility] BMI Calculated 37.83 04/09/2015 [facility] Weight 308.2 03/11/2015 [facility] Height 75 03/11/2015 [facility] Temperature Oral (F) 97.3 F 03/11/2015 [facility] Heart Rate 88 03/11/2015 [facility] Systolic (mm Hg) 116 03/11/2015 [facility] Diastolic (mm Hg) 74 03/11/2015 [facility] 312[facility]2 [facility] 75 01/27/2015 [facility] Temperature Oral (F) 98.0 F 01/27/2015 [facility] Heart Rate 93 01/27/2015 [facility] Systolic (mm Hg) 122 01/27/2015 [facility] Diastolic (mm Hg) 80 01/27/2015 [facility] Respitory Rate 18 01/27/2015 [facility] Weight 312 01/27/2015 [facility] Encounters Location Location Encounter Encounter Reason Attending ADM DC Stat us Source Details Type Number For Provider Date Date Visit [facility] [id number] Deshaun 01/27 01/27 [facility] [id number] [address] LUI /2014 [facility] [id number] Deshaun 03/11 03/11 [facility] Visit 7830 Gelacio LUI /2014 [facility] Inpatient [id number] Kendy 04/09 04/16 [facility] /2014 [facility] [id number] Deshaun 04/21 04/21 [facility] Visit 2330 Gelacio LUI /2014 Neuro [facility] Procedures Procedure Code Date Perfomer Comments Source smoking/tobacco 14 03/11/2015 yes Tati N euro cessation, patient education and counseling Hip [id number] left hip [facility] replacement<sup>1 Medical </sup> Center Spinal [id number] s/p fall [facility] fusion<sup>2</sup Medical > Center Assessment and Plan Assessment and Plan Date Source Extracted from:Title: Hospitalist Progress Note 04/16/2015 [facility] Author: Jose Acevedo MD Date: 04/15/15 Assessment/Plan 1.Pulmonary embolus on heparin drip and coumadin. will monitor inr and d/c once therapeutic 2.Right leg DVT heparin and coumdin 3.Tachycardia resolved 4.JAZLYN (acute kidney injury) monitor cr seems stable at 1.7 unclear what baseline is but renalusnot suggestiveof ckd 8.Hypocalcemia replaced 9.Hypophosphatemia replaced 10.Hypertension on amlodipine andatenolol 11.Diabetes mellitus pre diabetic bsg controlled 12.Degenerative disc disease stable 13.S/P lumbar laminectomy stable 14.Sciatica stable Orders: warfarin, 10 mg, 1 tab, Route: PO, Drug form: TAB, Q5PM, Dosing Weight 137.273, kg, Start date: 04/15/15 17:00:00, Duration: 1 doses or times, Stop date: 04/15/15 17:00:00 Diet Adult Regular Prothrombin Time Prophylaxis heparin drip Disposition Extracted from:Title: Cardiology consult Author: Russell No MD Date: 04/09/15 Brief consult note 54 year old male with PMHx of HTN, DM, S ciatica, DJD of the Lumbar spine s/p re- do of L4-L5 laminectomy and PSF on 02/23/2015; who presented as a transfer from [facility] where he w as duiagnosed with Saddle PE 2/2 DVT. He was transferred to [facility] for advanced therapeutics. He is currently on a heparin gtt and on NC in the MICU. Vitals: HR 98 RR 20 O2 sats 93% BP 113/56 On exam Gen exam: No acute distress HEENT: NO goitter, JVP not elevated CVS: S1 and S2 audible, RRR Lung: CTA Abdomen: Soft non tender Neuro: sensorium intact. Left foot drop Labs: Trops -ve Lactic acid- 0.8 BNP- Pending BMP Na 133 K 5.6 Cl 101 HCO3 23 Cr 1.7 BUN 23 Plan: Submassive PE- No intervention at this time If patient becomes Hypotensive (SBP<90), please notify CCU natacha fernandes. Consult seen with Dr Mike Randall PGY-2 internal medicine ATTENDING ADDENDUM I have seen and examined the patient. Fu rthermore, I have reviewed the resident's/fellow's note dated today, and I agree with the assessment and plan. I have personally reviewed the laboratory results, radiology results, and tracings. Dr. Nik Mckeon MD #[id number] Plan of Care No Data Provided for This Section Social History Social History Date Source Social History TypeResponse 04/09/2015 [facility] Alcohol Current, Type Beer, Liquor. Frequency: Daily. Smoking Status Former smoker; Type: Cigarettes; Exposur e to Tobacco Smoke None; Cigarette Smoking Last 365 Days No; Reg Smoking Cessation Counseling No1 1Pt states that he dips Family History No Data Provided for This Section Advance Directives No Data Provided for This Section Functional Status No Data Provided for This Section
[2020-06-25 20:01] LABS: Urine Appearance CLEAR; Urine Bilirubin NEGATIVE (NEG); Urine Blood NEGATIVE (NEG); Urine Color YELLOW; Urine Glucose 1+ (NEG); Urine Protein NEGATIVE (NEG); Urine Specific Gravity 1.015 (1.005-1.030); Urine Urobilinogen 0.2 mg/dL (0.2-1.0); Urine pH 5.5 (5.0-7.0)
[2020-06-25 20:20] LABS: Urine Bacteria <20 /HPF (NONE SEEN); Urine Culture Reflex Order NOT NEEDED
[2020-06-25] MEDS ORDERED: GLUCAGON 1 MG/VIAL IM PRN (21:32)
[2020-06-25] MEDS ORDERED: D50W 25 GM/50 ML SYRINGE IV PRN (21:32)
[2020-06-25] MEDS: METOPROLOL TAR 50 MG TAB PO SCH (23:10)
[2020-06-25] MEDS: CIPROFLOXACIN HCL 500 MG TAB PO SCH (23:10)
[2020-06-25] MEDS: DOXYCYCLINE 100 MG CAP PO SCH (23:10)
[2020-06-25] MEDS: GABAPENTIN 300 MG CAP PO SCH (23:10)
[2020-06-25] MEDS: APIXABAN 2.5 MG TABLET PO SCH (23:11)
[2020-06-25] MEDS: levETIRAcetam 500 MG TAB PO SCH (23:11)
[2020-06-26 05:57] LABS: Absolute Lymphocytes (CBC) 1.7 K/uL (0.7-4.9); Basophils % 1.4 % (0-1.3); Hematocrit 46.7 % (39.6-49.0); Lymphocytes % 24.9 % (15.3-44.8); MPV 8.1 fL (7.6-11.3); RBC Red Blood Cell Count 5.39 M/uL (4.33-5.43)
[2020-06-26 06:21] LABS: Albumin 3.3 g/dL (3.4-5.0); Magnesium 1.6 mg/dL (1.8-2.4); Potassium 4.5 mmol/L (3.5-5.1); Prealbumin 26.8 mg/dL (20-40)
[2020-06-26] MEDS: PANTOPRAZOLE 40MG TABLET PO SCH (06:53)
[2020-06-26] MEDS: METOPROLOL TAR 50 MG TAB PO SCH ×2 (07:03→16:58)
[2020-06-26] MEDS ORDERED: [UNRECOGNIZED DRUG - OTHER] SQ SCH (07:30)
[2020-06-26] MEDS: INSULIN -REGULAR HUMAN 50 UNIT/0.5 ML ML SQ SCH ×4 (07:30→20:07)
[2020-06-26] MEDS ORDERED: INSULIN GLARGINE HUM REC ANLOG 6 UNIT SQ SCH (08:00)
[2020-06-26] MEDS: [UNRECOGNIZED DRUG - OTHER] SQ SCH ×2 (08:00→12:18)
[2020-06-26] MEDS: lisinopriL 20 MG TAB PO SCH ×2 (08:00→12:15)
[2020-06-26] MEDS ORDERED: AMLODIPINE 10 MG TAB PO SCH ×2 (08:00→14:48)
[2020-06-26] MEDS: DOXYCYCLINE 100 MG CAP PO SCH ×2 (08:59→19:13)
[2020-06-26] MEDS: TAMSULOSIN 0.4 MG SR CAP PO SCH (08:59)
[2020-06-26] MEDS: FINASTERIDE 5 MG TAB PO SCH (09:00)
[2020-06-26] MEDS: CIPROFLOXACIN HCL 500 MG TAB PO SCH ×2 (09:00→19:13)
[2020-06-26] MEDS: APIXABAN 2.5 MG TABLET PO SCH ×2 (09:00→19:13)
[2020-06-26] MEDS: levETIRAcetam 500 MG TAB PO SCH ×2 (09:01→19:13)
[2020-06-26] MEDS: FENOFIBRATE 160 MG TAB PO SCH (09:02)
[2020-06-26] MEDS: GABAPENTIN 300 MG CAP PO SCH ×3 (09:03→20:07)
[2020-06-26 13:56] VITALS: BMI 32.1
--- NOTE | 2020-06-26 14:41 | P.HP ---
Certification for Inpatient Patient admitted to: Inpatient With expected LOS: >2 Midnights Patient will require the following post-hospital care: Rehabilitation Practitioner: I am a practitioner with admitting privileges, knowledge of patient current condition, hospital course, and medical plan of care. Services: Services provided to patient in accordance with Admission requirements found in Title 42 Section 412.3 of the Code of Federal Regulations Patient History Date of Service: 06/26/20 Reason for admission: GEN WEAKNESS AFTER SEIZURES. History of Present Illness: MR. BEAVERS IS A COMPLICATED DIABETIC WITH HISTORY OF SEVERE NEUROPATHY, OSTEOMEYLITIS AND CKD COMES WITH OBTUNDATION TO [place] TAKEN BY [facility]. HE WAS NOT FOUND TO HAVE STROKE BUT RATHER HE HAD SEIZURES. HE IS DOING GOOD ON KEPPRA. RESIDENT FROM [place] CALLED ME TWICE. HE IS IN REHAB AND I AM NOT SURE WHY HE IS BACK TO HIS BASELINE WITH CHRONIC WEAKNESS FROM NEURPATHY. Allergies No Known Allergies Allergy (Verified 03/29/20 17:32) Home Medications: Fenofibrate [Tricor*] 145 mg PO DAILY 03/19/20 Gabapentin 600 mg PO TID 03/19/20 Apixaban [Eliquis *] 2.5 mg PO BID 03/29/20 Amlodipine [Norvasc*] 10 mg PO DAILY 06/25/20 Ciprofloxacin HCl [Cipro 500 MG Tablet] 500 mg PO BID 06/25/20 Doxycycline Hyclate 100 mg PO BID 06/25/20 Finasteride 5 mg PO DAILY 06/25/20 Insulin Glargine,Hum.rec.anlog [Basaglar Kwikpen U-100] 6 unit SQ BREAKFAST 06/25/20 Levetiracetam [Keppra] 1,000 mg PO BID 06/25/20 Lisinopril [Zestril] 20 tab PO DAILY 06/25/20 Metoprolol Tartrate 100 mg PO BID 06/25/20 Omeprazole [Prilosec] 40 mg PO DAILY 06/25/20 Tamsulosin [Flomax*] 0.4 cap PO DAILY 06/25/20 - Past Medical/Surgical History Diabetic: Yes -: HTN -: GERD -: Diabetes mellitus -: Left foot drop -: Osteomyelitis -: PE -: Nueropathy -: diabetic foot right -: Appendectomy -: back surgery -: colon resection -: right hip replacement Psychosocial/ Personal History: Lives at home - Family History Mother -: Hypertension, Diabetes, Stroke, Cancer Father -: Diabetes - Social History Smoking Status: Never smoker Alcohol use: Yes CD- Drugs: No Caffeine use: Yes Place of Residence: Home Review of Systems 10-point ROS is otherwise unremarkable Neurological: As per HPI Physical Examination - Vital Signs Temperature: 97.8 F Blood Pressure: 129/72 Pulse: 67 Respirations: 20 Pulse Ox (%): 92 - Physical Exam General: Alert, Mild distress, Obese HEENT: Atraumatic, PERRLA, Mucous membr. moist/pink, EOMI, Sclerae nonicteric Neck: Supple, 2+ carotid pulse no bruit, No LAD, Without JVD or thyroid abnormality Respiratory: Clear to auscultation bilaterally, Normal air movement Cardiovascular: Regular rate/rhythm, Normal S1 S2 Gastrointestinal: Normal bowel sounds, No tenderness Musculoskeletal: No tenderness Integumentary: No rashes Neurological: Normal speech, Normal strength at 5/5 x4 extr, Other (WASTED DISTAL MUSCLES. ), Abnormal sensation (NEUROPATHY BOTH UPPER AND LOWER LIMBS.) Lymphatics: No axilla or inguinal lymphadenopathy - Studies Laboratory Data (last 24 hrs) 06/26/20 05:43: Sodium 138, Potassium 4.5, BUN 35 H, Creatinine 1.49 H, Glucose 163 H, Magnesium 1.6 L 06/26/20 05:43: WBC 6.8 D, Hgb 15.6, Hct 46.7, Plt Count 220 Assessment and Plan - Problems (Diagnosis) (1) Seizure Current Visit: Yes Status: Acute Plan: NEW ONSET. ETIOLOGY UNCLEAR HAS BEEN SEEN BY [facility]URO IN [facility]. (2) Diabetic foot Current Visit: Yes Status: Chronic Plan: MANAG[facility] BY DR [facility]ev [facility]ARD[facility] (3) Diabetic peripheral neuropathy Current Visit: Yes Status: Chronic (4) Diabetes mellitus due to underlying condition with chronic kidney disease on chronic dialysis Current Visit: Yes Status: Acute (5) HTN (hypertension) Onset Date: 07/17/16 Current Visit: No Status: Acute Plan: HE DID NOT DO WELL ON ALDO ,BYSTOLIC BEFORE. HE DID WELL ON METOPROLOL, LISINOPRIL FOR BP CONTROL. [place] CHANGED MEDS. HE IS BACK ON AMLODIPINE. WILL SEE IF CAN AVOID EDEMA. Qualifiers: Hypertension type: essential hypertension Qualified Code(s): I10 - Essential (primary) hypertension - Advance Directives Does patient have a Living Will: No Does patient have a Durable POA for Healthcare: No
--- NOTE | 2020-06-26 17:00 | FAST ---
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 Nima Lopez M.D. 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 ROLL LEFT AND RIGHT: ROLL LEFT AND RIGHT - STEP 1: Does the patient complete the activity by him/herself with no assistance (physical, verbal/nonverbal cueing, setup/clean-up)? No. ROLL LEFT AND RIGHT - STEP 2: Does the patient need only setup/clean-up assistance from one helper? No. ROLL LEFT AND RIGHT - STEP 3: Does the patient need only verbal/nonverbal cueing or touching/steadying/contact guard assistance fro m one helper? Yes. 1. [id number] ADMISSION PERFORMANCE: Supervision or touching assistance CODE: 04 SIT TO LYING: SIT TO LYING - STEP 1: Does the patient complete the activity by him/herself with no assistance (physical, verbal/nonverbal cueing, setup/clean-up)? No. SIT TO LYING - STEP 2: Does the patient need only setup/clean-up assistance from one helper? No. SIT TO LYING - STEP 3: Does the patient need only verbal/nonverbal cueing or touching/steadying/contact guard assistance fro m one helper? Yes. 1. [id number] ADMISSION PERFORMANCE: Supervision or touching assistance CODE: 04 LYING TO SITTING: LYING TO SITTING ON SIDE OF BED - STEP 1: Does the patient complete the activity by him/herself with no assistance (physical, verbal/nonverbal cueing, setup/clean-up)? No. LYING TO SITTING ON SIDE OF BED - STEP 2: Does the patient need only setup/clean-up assistance from one helper? No. LYING TO SITTING ON SIDE OF BED - STEP 3: Does the patient need only verbal/nonverbal cueing or touching/steadying/contact guard assistance fro m one helper? Yes. 1. [id number] ADMISSION PERFORMANCE: Supervision or touching assistance CODE: 04 SIT TO STAND: SIT TO STAND - STEP 1: Does the patient complete the activity by him/herself with no assistance (physical, verbal/nonverbal cueing, setup/clean-up)? No. SIT TO STAND - STEP 2: Does the patient need only setup/clean-up assistance from one helper? No. SIT TO STAND - STEP 3: Does the patient need only verbal/nonverbal cueing or touching/steadying/contact guard assistance fro m one helper? Yes. 1. [id number] ADMISSION PERFORMANCE: Supervision or touching assistance CODE: 04 TRANSFERS: BED, CHAIR: CHAIR/[id number]-[id number] TRANSFER - STEP 1: Does the patient complete the activity by him/herself with no assistance (physical, verbal/nonverbal cueing, setup/clean-up)? No. CHAIR/[id number] TRANSFER - STEP 2: Does the patient need only setup/clean-up assistance from one helper? No. CHAIR/[id number] TRANSFER - STEP 3: Does the patient need only verbal/nonverbal cueing or touching/steadying/contact guard assistance fro m one helper? Yes. 1. [id number] ADMISSION PERFORMANCE: Supervision or touching assistance CODE: 04 TRANSFER TOILET: TOILET TRANSFER - STEP 1: Does the patient complete the activity by him/herself with no assistance (physical, verbal/nonverbal cueing, setup/clean-up)? No. TOILET TRANSFER - STEP 2: Does the patient need only setup/clean-up assistance from one helper? No. TOILET TRANSFER - STEP 3: Does the patient need only verbal/nonverbal cueing or touching/steadying/contact guard assistance fro m one helper? Yes. 1. [id number] ADMISSION PERFORMANCE: Supervision or touching assistance CODE: 04 TRANSFERS: CAR: Not attempted due to environmental limitations (e.g., lack of equipment, weather constraints) CODE: 10 WALK 10 FEET: WALK 10 FEET - STEP 1: Does the patient complete the activity by him/herself with no assistance (physical, verbal/nonverbal cueing, setup/clean-up)? No. WALK 10 FEET - STEP 2: Does the patient need only setup/clean-up assistance from one helper? No. WALK 10 FEET - STEP 3: Does the patient need only verbal/nonverbal cueing or touching/steadying/contact guard assistance fro m one helper? Yes. 1. [id number] ADMISSION PERFORMANCE: Supervision or touching assistance CODE: 04 WALK 50 FEET: WALK 50 FEET - STEP 1: Does the patient complete the activity by him/herself with no assistance (physical, verbal/nonverbal cueing, setup/clean-up)? No. WALK 50 FEET - STEP 2: Does the patient need only setup/clean-up assistance from one helper? No. WALK 50 FEET - STEP 3: Does the patient need only verbal/nonverbal cueing or touching/steadying/contact guard assistance fro m one helper? Yes. 1. [id number] ADMISSION PERFORMANCE: Supervision or touching assistance CODE: 04 WALK 150 FEET: WALK 150 FEET - STEP 1: Does the patient complete the activity by him/herself with no assistance (physical, verbal/nonverbal cueing, setup/clean-up)? No. WALK 150 FEET - STEP 2: Does the patient need only setup/clean-up assistance from one helper? No. WALK 150 FEET - STEP 3: Does the patient need only verbal/nonverbal cueing or touching/steadying/contact guard assistance fro m one helper? No. WALK 150 FEET - STEP 4: Does the patient need physical assistance - for example lifting or trunk support from one helper - wi th the helper providing less than half of the effort? Yes. 1. [id number] ADMISSION PERFORMANCE: Partial/moderate assistance CODE: 03 WALK 10 FEET UNEVEN: Not attempted due to environmental limitations (e.g., lack of equipment, weather constraints) CODE: 10 1 STEP (CURB): Not attempted due to environmental limitations (e.g., lack of equipment, weather constraints) CODE: 10 PICKING UP OBJECT: PICKING UP OBJECT - STEP 1: Does the patient complete the activity by him/herself with no assistance (physical, verbal/nonverbal cueing, setup/clean-up)? No. PICKING UP OBJECT - STEP 2: Does the patient need only setup/clean-up assistance from one helper? No. PICKING UP OBJECT - STEP 3: Does the patient need only verbal/nonverbal cueing or touching/steadying/contact guard assistance fro m one helper? No. PICKING UP OBJECT - STEP 4: Does the patient need physical assistance - for example lifting or trunk support from one helper - wi th the helper providing less than half of the effort? Yes. 1. [id number] ADMISSION PERFORMANCE: Partial/moderate assistance CODE: 03 DOES THE PATIENT USE A WHEELCHAIR/SCOOTER? Q1. DOES THE PATIENT USE A WHEELCHAIR/SCOOTER?: Yes CODE: 1 WHEEL 50 FEET WITH TWO TURNS: WHEEL 50 FEET WITH TWO TURNS - STEP 1: Does the patient complete the activity by him/herself with no assistance (physical, verbal/nonverbal cueing, setup/clean-up)? No. WHEEL 50 FEET WITH TWO TURNS - STEP 2: Does the patient need only setup/clean-up assistance from one helper? No. WHEEL 50 FEET WITH TWO TURNS - STEP 3: Does the patient need only verbal/nonverbal cueing or touching/steadying/contact guard assistance fro m one helper? No. WHEEL 50 FEET WITH TWO TURNS - STEP 4: Does the patient need physical assistance - for example lifting or trunk support from one helper - wi th the helper providing less than half of the effort? Yes. 1. [id number] ADMISSION PERFORMANCE: Partial/moderate assistance CODE: 03 INDICATE THE TYPE OF WHEELCHAIR/SCOOTER USED: RR1. INDICATE THE TYPE OF WHEELCHAIR/SCOOTER USED.: Manual CODE: 1 WHEEL 150 FEET: WHEEL 150 FEET - STEP 1: Does the patient complete the activity by him/herself with no assistance (physical, verbal/nonverbal cueing, setup/clean-up)? No. WHEEL 150 FEET - STEP 2: Does the patient need only setup/clean-up assistance from one helper? No. WHEEL 150 FEET - STEP 3: Does the patient need only verbal/nonverbal cueing or touching/steadying/contact guard assistance fro m one helper? No. WHEEL 150 FEET - STEP 4: Does the patient need physical assistance - for example lifting or trunk support from one helper - wi th the helper providing less than half of the effort? Yes. 1. [id number] ADMISSION PERFORMANCE: Partial/moderate assistance CODE: 03 INDICATE THE TYPE OF WHEELCHAIR/SCOOTER USED: SS1. INDICATE THE TYPE OF WHEELCHAIR/SCOOTER USED.: Manual CODE: 1 BLADDER AND BOWEL: CODE: EXPR CODE: EXPR SIGNATURE PANEL: The following modified sections: 1. [id number] Admission Performance, 1. [id number] Admission Performance, 1. [id number] Admission Performance, 1. [id number] Admission Performance, 1. [id number] Admission Performance, 1. [id number] Admission Performance, 1. [id number] Admission Performance, 1. [id number] Admission Performance , 1. [id number] Admission Performance, 1. [id number] Admission Performance, 1. [id number] Admission Performanc e, Q1. Does the patient use a wheelchair/scooter?, Q1. Does the patient use a wheelchair/scooter?, 1. [id number] Admission Performance, RR1. Indicate the type of wheelchair/scooter used., 1. [id number] Admiss ion Performance, Code, SS1. Indicate the type of wheelchair/scooter used. were [electronically] silverio d by Cony Long on Sat Jun 26 2020 16:59:04 GMT-0600 (Central Standard Time)
[2020-06-27] MEDS: METOPROLOL TAR 50 MG TAB PO SCH (05:10)
[2020-06-27] MEDS: PANTOPRAZOLE 40MG TABLET PO SCH (06:36)
[2020-06-27] MEDS: INSULIN -REGULAR HUMAN 50 UNIT/0.5 ML ML SQ SCH ×4 (07:30→20:21)
[2020-06-27] MEDS: lisinopriL 20 MG TAB PO SCH (07:31)
[2020-06-27] MEDS: [UNRECOGNIZED DRUG - OTHER] SQ SCH (08:00)
[2020-06-27] MEDS: DOXYCYCLINE 100 MG CAP PO SCH ×2 (08:23→19:02)
[2020-06-27] MEDS: levETIRAcetam 500 MG TAB PO SCH ×2 (08:23→19:01)
[2020-06-27] MEDS: APIXABAN 2.5 MG TABLET PO SCH ×2 (08:23→19:03)
[2020-06-27] MEDS: TAMSULOSIN 0.4 MG SR CAP PO SCH (08:24)
[2020-06-27] MEDS: FENOFIBRATE 160 MG TAB PO SCH (08:25)
[2020-06-27] MEDS: GABAPENTIN 300 MG CAP PO SCH ×3 (08:25→20:21)
[2020-06-27] MEDS: CIPROFLOXACIN HCL 500 MG TAB PO SCH ×2 (08:26→19:02)
[2020-06-27] MEDS: FINASTERIDE 5 MG TAB PO SCH (08:26)
--- NOTE | 2020-06-27 12:59 | P.PN ---
Subjective Date of Service: 06/27/20 Chief Complaint: GEN WEAKNESS AFTER SEIZURES. Subjective: Improving HE HAS NO NEW COMPLAINT. HE WALKS WITH BOOT ON WHEN HE WALKS. HIS R FOOT OSTEOMEYELITIS HAS HEALED FROM OUT SIDE. Review of Systems 10-point ROS is otherwise unremarkable Physical Examination - Vital Signs Temperature: 98.9 F Blood Pressure: 106/68 Pulse: 81 Respirations: 18 Pulse Ox (%): 92 - Physical Exam General: Mild distress HEENT: Atraumatic, PERRLA, EOMI Neck: Supple, JVD not distended Respiratory: Clear to auscultation bilaterally, Normal air movement Cardiovascular: Regular rate/rhythm, Normal S1 S2 Gastrointestinal: Normal bowel sounds, No tenderness Musculoskeletal: No tenderness Integumentary: No rashes, Diabetic ulcer (R SIDE HEALED NOW. STILL ON ABX PER DR. HURD. NEEDS TO PROTECT HIS FEET. HE WAS WALKING WITHOUT SHOES AT HOME.) Neurological: Normal speech, Normal tone, Normal affect Lymphatics: No axilla or inguinal lymphadenopathy - Studies Microbiology Data (last 24 hrs): 06/25/20 19:00 Clean Catch Urine Brewer Count - Final No growth. 06/25/20 19:00 Clean Catch Urine - Final No growth. Medications List Reviewed: Yes Assessment And Plan - Current Problems (Diagnosis) (1) Seizure Current Visit: Yes Status: Acute Plan: NEW ONSET. ETIOLOGY UNCLEAR HAS BEEN SEEN BY NEURO IN [facility]. NEW ONSET AND WILL CONTINUE LEIDY (2) Diabetic foot Current Visit: Yes Status: Chronic Plan: [facility] DR [facility] (3) Diabetic peripheral neuropathy Current Visit: Yes Status: Chronic (4) Diabetes mellitus due to underlying condition with chronic kidney disease on chronic dialysis Current Visit: Yes Status: Acute (5) HTN (hypertension) Onset Date: 07/17/16 Current Visit: No Status: Acute Plan: HE DID NOT DO WELL ON ALDO ,BYSTOLIC BEFORE. HE DID WELL ON METOPROLOL, LISINOPRIL FOR BP CONTROL. [facility] CHANGED MEDS. HE IS BACK ON AMLODIPINE. WILL SEE IF CAN AVOID EDEMA. REDUCE NORVASC . BP IS LOW NORMAL. Qualifiers: Hypertension type: essential hypertension Qualified Code(s): I10 - Essential (primary) hypertension
[2020-06-27] MEDS: MAGNESIUM OXIDE 400 MG TAB PO SCH ×2 (13:38→19:03)
--- NOTE | 2020-06-27 14:50 | FAST ---
[employer] FORM SHIFT START DATE/TIME: 06/27/2020 07:00 (PROCESS DESIGN CHEMICAL ENGINEER) SHIFT END DATE/TIME: 06/27/2020 19:00 (PROCESS DESIGN CHEMICAL ENGINEER) NAME JJ BEAVERS DATE OF : 1960 DATE OF ADMISSION: 06/25/2020 16:31 (PROCESS DESIGN CHEMICAL ENGINEER) PHONE: AGE: 59 N# [id number] GENDER: Male ENCOUNTER PHYSICIAN: Dr. Nima Lopez M.D. 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 EATING: EATING - STEP 1: Does the patient complete the activity by him/herself with no assistance (physical, verbal/nonverbal cueing, setup/clean-up)? No. EATING - STEP 2: Does the patient need only setup/clean-up assistance from one helper? Yes. 1. [id number] ADMISSION PERFORMANCE: Setup or clean-up assistance CODE: 05 ORAL HYGIENE: ORAL HYGIENE - STEP 1: Does the patient complete the activity by him/herself with no assistance (physical, verbal/nonverbal cueing, setup/clean-up)? No. ORAL HYGIENE - STEP 2: Does the patient need only setup/clean-up assistance from one helper? No. ORAL HYGIENE - STEP 3: Does the patient need only verbal/nonverbal cueing or touching/steadying/contact guard assistance fro m one helper? Yes. 1. [id number] ADMISSION PERFORMANCE: Supervision or touching assistance CODE: 04 TOILETING HYGIENE: TOILETING HYGIENE - STEP 1: Does the patient complete the activity by him/herself with no assistance (physical, verbal/nonverbal cueing, setup/clean-up)? No. TOILETING HYGIENE - STEP 2: Does the patient need only setup/clean-up assistance from one helper? Yes. 1. [id number] ADMISSION PERFORMANCE: Setup or clean-up assistance CODE: 05 BATHING: Not assessed/no information CODE: - DRESSING - UPPER BODY: Not assessed/no information CODE: - [id number] - COMMENTS: Wears hospital gown DRESSING - LOWER BODY: DRESSING - LOWER BODY - STEP 1: Does the patient complete the activity by him/herself with no assistance (physical, verbal/nonverbal cueing, setup/clean-up)? No. DRESSING - LOWER BODY - STEP 2: Does the patient need only setup/clean-up assistance from one helper? No. DRESSING - LOWER BODY - STEP 3: Does the patient need only verbal/nonverbal cueing or touching/steadying/contact guard assistance fro m one helper? No. DRESSING - LOWER BODY - STEP 4: Does the patient need physical assistance - for example lifting or trunk support from one helper - wi th the helper providing less than half of the effort? Yes. 1. [id number] ADMISSION PERFORMANCE: Partial/moderate assistance CODE: 03 PUTTING ON/TAKING OFF FOOTWEAR: FOOTWEAR - STEP 1: Does the patient complete the activity by him/herself with no assistance (physical, verbal/nonverbal cueing, setup/clean-up)? No. FOOTWEAR - STEP 2: Does the patient need only setup/clean-up assistance from one helper? No. FOOTWEAR - STEP 3: Does the patient need only verbal/nonverbal cueing or touching/steadying/contact guard assistance fro m one helper? No. FOOTWEAR - STEP 4: Does the patient need physical assistance - for example lifting or trunk support from one helper - wi th the helper providing less than half of the effort? Yes. 1. [id number] ADMISSION PERFORMANCE: Partial/moderate assistance CODE: 03 ROLL LEFT AND RIGHT: ROLL LEFT AND RIGHT - STEP 1: Does the patient complete the activity by him/herself with no assistance (physical, verbal/nonverbal cueing, setup/clean-up)? No. ROLL LEFT AND RIGHT - STEP 2: Does the patient need only setup/clean-up assistance from one helper? Yes. 1. [id number] ADMISSION PERFORMANCE: Setup or clean-up assistance CODE: 05 SIT TO LYING: SIT TO LYING - STEP 1: Does the patient complete the activity by him/herself with no assistance (physical, verbal/nonverbal cueing, setup/clean-up)? No. SIT TO LYING - STEP 2: Does the patient need only setup/clean-up assistance from one helper? No. SIT TO LYING - STEP 3: Does the patient need only verbal/nonverbal cueing or touching/steadying/contact guard assistance fro m one helper? Yes. 1. [id number] ADMISSION PERFORMANCE: Supervision or touching assistance CODE: 04 LYING TO SITTING: LYING TO SITTING ON SIDE OF BED - STEP 1: Does the patient complete the activity by him/herself with no assistance (physical, verbal/nonverbal cueing, setup/clean-up)? No. LYING TO SITTING ON SIDE OF BED - STEP 2: Does the patient need only setup/clean-up assistance from one helper? Yes. 1. [id number] ADMISSION PERFORMANCE: Setup or clean-up assistance CODE: 05 SIT TO STAND: SIT TO STAND - STEP 1: Does the patient complete the activity by him/herself with no assistance (physical, verbal/nonverbal cueing, setup/clean-up)? No. SIT TO STAND - STEP 2: Does the patient need only setup/clean-up assistance from one helper? Yes. 1. [id number] ADMISSION PERFORMANCE: Setup or clean-up assistance CODE: 05 TRANSFERS: BED, CHAIR: CHAIR/[id number] TRANSFER - STEP 1: Does the patient complete the activity by him/herself with no assistance (physical, verbal/nonverbal cueing, setup/clean-up)? No. CHAIR/[id number] TRANSFER - STEP 2: Does the patient need only setup/clean-up assistance from one helper? No. CHAIR/[id number] TRANSFER - STEP 3: Does the patient need only verbal/nonverbal cueing or touching/steadying/contact guard assistance fro m one helper? Yes. 1. [id number] ADMISSION PERFORMANCE: Supervision or touching assistance CODE: 04 TRANSFER TOILET: TOILET TRANSFER - STEP 1: Does the patient complete the activity by him/herself with no assistance (physical, verbal/nonverbal cueing, setup/clean-up)? No. TOILET TRANSFER - STEP 2: Does the patient need only setup/clean-up assistance from one helper? Yes. 1. [id number] ADMISSION PERFORMANCE: Setup or clean-up assistance CODE: 05 TRANSFERS: CAR: Not assessed/no information CODE: - WALK 10 FEET: Not assessed/no information CODE: - 1 STEP (CURB): Not assessed/no information CODE: - PICKING UP OBJECT: Not assessed/no information CODE: - DOES THE PATIENT USE A WHEELCHAIR/SCOOTER? Q1. DOES THE PATIENT USE A WHEELCHAIR/SCOOTER?: Yes CODE: 1 WHEEL 50 FEET WITH TWO TURNS: WHEEL 50 FEET WITH TWO TURNS - STEP 1: Does the patient complete the activity by him/herself with no assistance (physical, verbal/nonverbal cueing, setup/clean-up)? No. WHEEL 50 FEET WITH TWO TURNS - STEP 2: Does the patient need only setup/clean-up assistance from one helper? Yes. 1. [id number] ADMISSION PERFORMANCE: Setup or clean-up assistance CODE: 05 INDICATE THE TYPE OF WHEELCHAIR/SCOOTER USED: RR1. INDICATE THE TYPE OF WHEELCHAIR/SCOOTER USED.: Manual CODE: 1 WHEEL 150 FEET: Not assessed/no information CODE: - INDICATE THE TYPE OF WHEELCHAIR/SCOOTER USED: SS1. INDICATE THE TYPE OF WHEELCHAIR/SCOOTER USED.: Manual CODE: 1 BLADDER AND BOWEL: H350. BLADDER CONTINENCE (3-DAY ASSESSMENT PERIOD): Always continent (no documented incontinence) CODE: 0 H400. BOWEL CONTINENCE (3-DAY ASSESSMENT PERIOD): Always continent CODE: 0 SIGNATURE PANEL: The following modified sections: 1. [id number] Admission Performance, 1. TT7519E Admission Performance, 1. [id number] Admission Performance, [id number] - Comments:, 1. CN4012e Admission Performance, 1. AJ4559c A dmission Performance, 1. QZ9314s Admission Performance, 1. AB2372h Admission Performance, 1. [id number] Admission Performance, 1. [id number] Admission Performance, 1. YG3184N Admission Performance, 1. [id number] Admission Performance, 1. [id number] Admission Performance, 1. SX0835T Admission Performance, 1. [id number] E Admission Performance, 1. HK8541O Admission Performance, Q1. Does the patient use a wheelchair/scoo ter?, 1. [id number] Admission Performance, RR1. Indicate the type of wheelchair/scooter used., Code, SS1 . Indicate the type of wheelchair/scooter used., H350. Bladder Continence (3-day assessment period), H400. Bowel Continence (3-day assessment period) were [electronically] signed by Rosa Hairston C.N.A. on SunJun 27 2020 14:50:05 GMT-0600 (Central Standard Time)
--- NOTE | 2020-06-27 17:21 | R.HP ---
HISTORY AND PHYSICAL FACILITY: [facility] ENCOUNTER DATE AND TIME: 06/27/2020 17:17 (SCIENTIFIC RESEARCH MANAGER) MR#: [id number] NAME JJ BEAVERS ADDRESS: [address] [place] [address]: [place]IP [address] PHONE: DATE OF : 1960 AGE: 59 SSN# [id number] GENDER: Male DEXTERITY Right-handed MARITAL STATUS RACE Unknown race PRE-HOSPITAL LIVING SETTING 01 - Home (private home/apt. board/care, assisted living, snf, transitional living) PRE-HOSPITAL LIVING WITH Alone ENCOUNTER PHYSICIAN: Dr. Nima Lopez M.D. REFERRING DOCTOR: ADRYAN ACUNA DATE OF ADMISSION: 06/25/2020 16:31 (SCIENTIFIC RESEARCH MANAGER) REFERRING FACILITY [facility] ([facility] HOME TYPE AND DETAILS: Type of home: single family house # of levels in the residence: 1 # of steps within the residence: 0 # of steps to enter the residence: 0 ONSET DATE: 06/18/2020 PRIMARY DIAGNOSIS-RELATED SURGERIES: No surgeries related to the primary diagnosis were performed. HISTORY OF PRESENT ILLNESS (HPI): Pt. is a 59 yo Right-handed male of unknown race. On 06/18/2020 he was admitted to [facility]) with diagnosis EPILEPSY. His impairment category is Brain Dysfunction 02 - Non-traumatic Brain Dysfunction (02.1). Pre-morbidly, Pt. was independent/mod-I in Safety Awareness, Balance, Social Cognition, Self-Care, an d Communication; and he had good Sphincter Control and Endurance. Currently, he has deficits of Balance, Locomotion, Sphincter Control, Endurance, and Transfers Contro l. Pt. is now referred to [facility] for acute in-patient rehabilitation in order to maximize patient's functional independence in activities of daily living, strength, ROM, and mobi lity. Patient has realistic goal of being discharged at assistance level 7-Ind to reside at Home with Pt s elf. MEDICATION ALLERGIES: No Known Drug Allergies (NKDA) ENVIRONMENTAL ALLERGIES: - Substance Allergies None Known - Other Allergies None Known PAST MEDICAL HISTORY: DIABETES MELLITUS HYPERTENSION SEIZURE IDDM NEUROPATHY RIGHT FOOT OSTEOMYELITIS JAZLYN VS CKD PAST SURGICAL HISTORY: APPENDECTOMY BACK SURGERY COLON SURGERY SOCIAL HISTORY: - Home Living Alone REVIEW OF SYSTEMS: - Gen No Chills Fatigue No Fever - Eyes No Double Vision No itchiness - ENMT No Difficulty Swallowing - CVS No Chest Discomfort No Chest Pain Fatigue No Weight Gain - Resp No Cough No Shortness of Breath - GI Continent No Abdominal Pain No Constipation No Diarrhea - Continent No Kidney Pain No Painful Urination No Urinary Urgency - MSK No Joint Pain Muscle Cramps Stiffness - Skin No Itching No Rash No Suspicious Lesions - Neuro Coordination Difficulty No Difficulty with Concentration No Memory Loss Seizures Weakness - Psych No Anxiety No Depression No HIV Exposure No Persistent Infections No Seasonal Allergies - Endo No Cold/Heat Intolerance No Excessive Hunger No Excessive Thirst No Excessive Urination PHYSICAL EXAM - Gen Alert and awake Lying in bed No apparent distress Oriented to: person, time, and place - Skin No skin breakdown. Normacephalic - Eyes No abnormalities - ENMT No abnormalities - Neck No abnormalities No cervical adenopathy - CVS RRR - Chest No abnormalities - Resp No wheezing - Abd Soft - GI nondistended Deferred - No abnormalities - Ext No significant edema - MSK No focal deficits, mild diffuse weakness - Neuro Mild diffuse weakness, incoordination and unsteady gait - Psych No abnormalities VITAL SIGNS Temperature: 97.8 F SBP/DBP: 135/85 Pulse: 95 Resp: 18 NURSING: - Shower allowing shower - Bladder care per protocol - Skin care per protocol PRECAUTIONS: - Fall Precaution SAFTY AND FALL ACTIVITIES OOB only with supervision QI SCORES: - Self-Care A. Eating 04-Supervision or touching assistance B. Oral hygiene 03-Partial/moderate assistance C. Toileting hygiene 02-Substantial/maximal assistance E. Shower/bathe self 02-Substantial/maximal assistance F. Upper body dressing 03-Partial/moderate assistance G. Lower body dressing 02-Substantial/maximal assistance H. Putting on/taking off footwear 88-Not attempted due to medical condition or safety concerns - Mobility A. Roll left and right 03-Partial/moderate assistance B. Sit to lying 03-Partial/moderate assistance C. Lying to sitting on side of bed 03-Partial/moderate assistance D. Sit to stand 03-Partial/moderate assistance E. Chair/xem-jw-woqns transfer 03-Partial/moderate assistance F. Toilet transfer 03-Partial/moderate assistance G. Car transfer 88-Not attempted due to medical condition or safety concerns I. Walk 10 feet 03-Partial/moderate assistance J. Walk 50 feet with two turns 88-Not attempted due to medical condition or safety concerns K. Walk 150 feet 88-Not attempted due to medical condition or safety concerns L. Walking 10 feet on uneven surfaces 88-Not attempted due to medical condition or safety concerns M. 1 step (curb) 88-Not attempted due to medical condition or safety concerns N. 4 steps 88-Not attempted due to medical condition or safety concerns O. 12 steps 88-Not attempted due to medical condition or safety concerns P. Picking up object 88-Not attempted due to medical condition or safety concerns R. Wheel 50 feet with two turns 88-Not attempted due to medical condition or safety concerns S. Wheel 150 feet 88-Not attempted due to medical condition or safety concerns - Bladder and Bowel Bladder continence Bowel continence - Endurance Fair - Balance Fair - Safety Awareness Fair CURRENT FUNC. DEFICITS: Self-Care, Mobility, Endurance, Balance, and Safety Awareness MEDICATIONS: - Other See attached MAR (Medication Administration Record) ASSESSMENT: Pt. is a 59 yo Right-handed male of unknown race.On 06/18/2020 he was admitted to [facility] with diagnosis EPILEPSY.His impairment category is Brain Dysfunction 02 - Non-traumatic Brain D ysfunction (02.1).Pre-morbidly, Pt. was independent/mod-I in Safety Awareness, Balance, Social Cognit ion, Self-Care, and Communication; and he had good Sphincter Control and Endurance.Currently, he has deficits of Balance, Locomotion, Sphincter Control, Endurance, and Transfers Control.Pt. is now refer red to [facility] for acute in-patient rehabilitation in order to maximize pat ient's functional independence in activities of daily living, strength, ROM, and mobility.- Rehab Goa l Patient has realistic goal of being discharged at assistance level 7-Ind to reside at Home with Pt s elf. REHAB PLAN: - Physical Therapy Gait dysfunction - to improve, our physical therapists will perform initial evaluation of pt's status upon admission and devise an individualized program for Gait Training, and Wheel Chair mobility Inability to transfer - to improve, our physical therapists will perform initial evaluation of pt's s tatus upon admission and devise an individualized program for Bed mobility Need for home safety evaluation - to improve, our physical therapists will perform initial evaluation of pt's status upon admission and devise an individualized program for Home Evaluation Need in caregiver upon discharge - to improve, our physical therapists will perform initial evaluatio n of pt's status upon admission and devise an individualized program for Caregiver Training New precaution - to improve, our physical therapists will perform initial evaluation of pt's status u nani admission and devise an individualized program for Patient precaution education Edema - to improve, our physical therapists will perform initial evaluation of pt's status upon admi ssion and devise an individualized program for Elevation Training, and Lymphedema Therapy Poor balance - to improve, our physical therapists will perform initial evaluation of pt's status upo n admission and devise an individualized program for Balance Training Poor endurance - to improve, our physical therapists will perform initial evaluation of pt's status u nani admission and devise an individualized program for Endurance Training Weakness - to improve, our physical therapists will perform initial evaluation of pt's status upon ad mission and devise an individualized program for Aquatic Therapy, Neuromuscular Reeducation, and Stre ngthening Achieving independence - to improve, our physical therapists will perform initial evaluation of pt's status upon admission and devise an individualized program for Community Reintegration Activities - Occupational Therapy Need for manager medicare - to improve, our occupation therapists will perform initial evaluation of pt's s tatus upon admission and devise an individualized program for Caregiver Training Weakness - to improve, our occupation therapists will perform initial evaluation of pt's status upon admission and devise an individualized program for Aquatic Therapy, Balance, Endurance, UE ROM, and U E strengthening MEDICAL PLAN: - Diet Type Start Regular - Diet - Liquid Texture Start Regular - Tube Feed Start N/A - Bladder care per protocol - Fall Precaution SAFTY AND FALL - Skin care per protocol - Other See attached MAR (Medication Administration Record) - Diet - Solid Texture Regular - Shower shower DISCHARGE PLAN: - Estimated Length of Stay (days) 13. - Consensus on plan Discharge plan has been discussed with primary caregiver. Patient/Family is in agreement with the art n. Primary caregiver is in agreement with the plan. - Patient/Family Goals Return home independently. - Planned Living Setting Upon Discharge Home, to live alone. Transitional Living. Primary caregiver: Pt self. SIGNATURE PANEL: (SCIENTIFIC RESEARCH MANAGER)
--- NOTE | 2020-06-27 17:22 | PAPE ---
POST ADMISSION PHYSICIAN EVALUATION PATIENT: [facility] MR# [id number] REFERRING DOCTOR ADRYAN ACUNA EVALUATION DATE AND TIME 06/27/2020 17:21 (TYPING ELEMENT MACHINE OPERATOR) NAME JJ BEAVERS DATE OF 1960 AGE 59 PHONE N# [id number] GENDER male EVALUATING PHYSICIAN Dr. Nima Lopez M.D. ADMISSION DIAGNOSIS: EPILEPSY ONSET DATE 06/18/2020 POST-ADMISSION FUNCTIONAL/MEDICAL STATUS: - Bladder Same accident frequency: Ind - No accidents in the past 7 days - Bowel Same accident frequency: Ind - No accidents in the past 7 days - Walking Same score based on distance walked: 0(N/A) Same score based on distance walked: 1(<=50ft) - Wheelchair Same score based on distance traveled: 0(N/A) STATUS CHANGE EVALUATION: No change in Functional or Medical Status is identified compared with Pre-Admission screening. PATIENT NEEDS CLOSE MEDICAL SUPERVISION BY A REHABILITATION PHYSICIAN FOR: Coordination of Treatment Team PATIENT REQUIRES 24X7 REHAB NURSING FOR MEDICAL AND FUNCTIONAL MGT. OF THE FOLLOWING DEFICITS: Disease Management Medication Management Patient/Family Education Providing Safe Environment PATIENT REQUIRES INTENSIVE, COORDINATED INTERDISCIPLINARY APPROACH TO REHAB: Arranging Home Equipment/Services Discharge Planning Family Intervention/Training Emergency Room Technician/Case Management LIST OF IDENTIFIED AND POTENTIAL PROBLEMS: Alteration in leisure activities Bladder, Incontinence Bowel, Incontinence Infection, Actual or Potential Mobility Impaired Pain, Alteration in Comfort Self Care Deficit Skin Integrity, Actual or Potential Urinary Tract Infection (UTI), Actual or Potential PATIENT COULD BE AT RISK FOR COMPLICATIONS FROM ADVERSE MEDICAL CONDITIONS DUE TO HIS/HER COMORBIDITI ES AND THE RIGORS OF THE INTENSIVE REHABILLITATION PROGRAM. METHODS OR INTERVENTIONS TO AVOID COMPLIC ATIONS INCLUDE: - Infection Clinical staff to assess and manage the signs and symptoms of infection including fever, redness, war mth, etc. - Urinary Tract Infection - Falls Patient will be evaluated for Fall Precautions and will be placed on Fall Precautions as indicated pe r protocol. - Skin Breakdown Nursing will assess skin daily using assessment tool and will place on Skin Breakdown Precautions as indicated per protocol. - Pain Clinical staff may employ non-medication methods such as massage, distraction, decrease stimulus, etc . as needed. Clinical staff will assess patient's pain level every shift per protocol to assess and e nsure pain management effectiveness. Medications will be given and the pain level re-assessed. PRELIMINARY PLAN OF CARE: - Physical Therapy Patient needs Physical Therapy for a daily minimum of 1.5 hours at least 5 out of 7 days, to improve: Mobility, Strengthening, Transfers, Stretching, ROM, Endurance, Ability to manage stairs, Gait, and Balance. - Rehabilitation Nursing Patient requires 24x7 Rehabilitation Nursing for: Pain Issues, Identifying and preventing risk factor s, Monitoring and reporting current medical conditions, Assisting with ambulation and transfer, Claudia ting with all ADL-s, Teaching patients about disease process and medications, Family teaching, Provid ing safe environment, Bowel and Bladder Issues, Skin Integrity, and Medication Management. Patient needs Emergency Room Technician and/or Case Management for: Discharge Planning, Arranging Home Equipmen t or Services, and Family Interventions. - Dietary and Nutrition Services Patient needs Dietary and Nutrition Services for: Adequate Nutrition, Nutritional Supplements, and Nu tritional Education. - Occupational Therapy Patient needs Occupational Therapy for a daily minimum of 1.5 hours at least 5 out of 7 days, to impr ove Activities of Daily Living, including: Eating, Grooming, Bathing, Dressing, Toileting, Toilet Tra nsfers, Community Reintegration, Higher functional activities, Adaptive Equipment, Splinting, Househo ld Tasks, and Other activities as determined. QI SCORES: - Self-Care A. Eating 04-Supervision or touching assistance B. Oral hygiene 03-Partial/moderate assistance C. Toileting hygiene 02-Substantial/maximal assistance E. Shower/bathe self 02-Substantial/maximal assistance F. Upper body dressing 03-Partial/moderate assistance G. Lower body dressing 02-Substantial/maximal assistance H. Putting on/taking off footwear 88-Not attempted due to medical condition or safety concerns - Mobility A. Roll left and right 03-Partial/moderate assistance B. Sit to lying 03-Partial/moderate assistance C. Lying to sitting on side of bed 03-Partial/moderate assistance D. Sit to stand 03-Partial/moderate assistance E. Chair/[id number] transfer 03-Partial/moderate assistance F. Toilet transfer 03-Partial/moderate assistance G. Car transfer 88-Not attempted due to medical condition or safety concerns I. Walk 10 feet 03-Partial/moderate assistance J. Walk 50 feet with two turns 88-Not attempted due to medical condition or safety concerns K. Walk 150 feet 88-Not attempted due to medical condition or safety concerns L. Walking 10 feet on uneven surfaces 88-Not attempted due to medical condition or safety concerns M. 1 step (curb) 88-Not attempted due to medical condition or safety concerns N. 4 steps 88-Not attempted due to medical condition or safety concerns O. 12 steps 88-Not attempted due to medical condition or safety concerns P. Picking up object 88-Not attempted due to medical condition or safety concerns R. Wheel 50 feet with two turns 88-Not attempted due to medical condition or safety concerns S. Wheel 150 feet 88-Not attempted due to medical condition or safety concerns - Bladder and Bowel Bladder continence Bowel continence - Endurance Fair - Balance Fair - Safety Awareness Fair POTENTIAL FUNCTIONAL GOALS FOR PATIENT TO ACHIEVE BY DISCHARGE: - Safety Precaution Patient will remain free from falls or injury at time of discharge. - Bed Mobility Patient will perform bed mobility at 4-Alonzo level of assistance. - Transfers Patient will complete transfers from bed to chair at 4-Alonzo level of assistance. - Mobility Patient will ambulate 150 ft with 4-Alonzo level of assistance with RW. PATIENT REHAB POTENTIAL Veronika BEAVERS is able and expected to receive 3 hours of individualized therapy daily on at least 5 of ever y 7 days Veronika BEAVERS's prognosis for significant practical improvement within a reasonable period of time appears Good Expected level of measurable improvement will be of a practical value to Veronika BEAVERS's functional capacit y or adaptations to impairments Has a viable Discharge Plan Medically appropriate; condition is sufficiently stable to participate in intensive rehab program DISCHARGE PLAN: - Estimated Length of Stay (days) 13. - Consensus on plan Discharge plan has been discussed with primary caregiver. Patient/Family is in agreement with the art n. Primary caregiver is in agreement with the plan. - Patient/Family Goals Return home independently. - Planned Living Setting Upon Discharge Home, to live alone. Transitional Living. Primary caregiver: Pt self. CONCLUSION ON REHABILITATION NECESSITY: I have evaluated patient's pre-admission functional status and, comparing it to the patient's post-ad mission functional status now, I conclude that the pre-admission assessment was accurate. Patient's c ondition on admission supports the medical necessity of admission to [facility]. It is safe to proceed with patient's therapy program. SIGNATURE PANEL: (TYPING ELEMENT MACHINE OPERATOR)
[2020-06-27] MEDS: BASAGLAR U INSULIN SQ SCH (19:06)
[2020-06-27] MEDS ORDERED: BASAGLAR U INSULIN SQ SCH (20:00)
[2020-06-28] MEDS: METOPROLOL TAR 50 MG TAB PO SCH ×2 (05:15→17:29)
[2020-06-28 06:12] LABS: Absolute Lymphocytes (CBC) 1.8 K/uL (0.7-4.9); Basophils % 1.1 % (0-1.3); Hematocrit 46.1 % (39.6-49.0); Lymphocytes % 26.4 % (15.3-44.8); MPV 8.4 fL (7.6-11.3); RBC Red Blood Cell Count 5.32 M/uL (4.33-5.43)
[2020-06-28] MEDS: PANTOPRAZOLE 40MG TABLET PO SCH (06:39)
[2020-06-28 06:42] LABS: Potassium 4.1 mmol/L (3.5-5.1)
[2020-06-28 06:45] LABS: Magnesium 1.4 mg/dL (1.8-2.4)
[2020-06-28] MEDS: MAGNESIUM OXIDE 400 MG TAB PO SCH ×2 (06:54→20:00)
[2020-06-28] MEDS: INSULIN -REGULAR HUMAN 50 UNIT/0.5 ML ML SQ SCH ×4 (07:30→20:29)
[2020-06-28] MEDS: AMLODIPINE 5 MG TAB PO SCH (08:00)
[2020-06-28] MEDS: lisinopriL 20 MG TAB PO SCH (08:00)
[2020-06-28] MEDS: DOXYCYCLINE 100 MG CAP PO SCH ×2 (08:38→20:26)
[2020-06-28] MEDS: TAMSULOSIN 0.4 MG SR CAP PO SCH (08:39)
[2020-06-28] MEDS: FINASTERIDE 5 MG TAB PO SCH (08:39)
[2020-06-28] MEDS: FENOFIBRATE 160 MG TAB PO SCH (08:39)
[2020-06-28] MEDS: CIPROFLOXACIN HCL 500 MG TAB PO SCH ×2 (08:40→20:27)
[2020-06-28] MEDS: levETIRAcetam 500 MG TAB PO SCH ×2 (08:40→20:26)
[2020-06-28] MEDS: APIXABAN 2.5 MG TABLET PO SCH ×2 (08:40→20:26)
[2020-06-28] MEDS: GABAPENTIN 300 MG CAP PO SCH ×3 (08:40→20:28)
[2020-06-28] MEDS: BASAGLAR U INSULIN SQ SCH ×2 (08:41→20:27)
--- NOTE | 2020-06-28 17:04 | R.PN ---
PROGRESS NOTES ENCOUNTER DATE AND TIME: 06/28/2020 16:56 (FLORAL CLERK) NAME JJ BEAVERS DATE OF : 1960 DATE OF ADMISSION: 06/25/2020 16:31 (FLORAL CLERK) EPILEPSYSUBJECTIVE: Pt denied any depression. Pt denied any Shortness of Breath. CBC with differential is normal. Mg is very low at 1.4. Replace with Mg oxide 800 mg bid and recheck in the AM. Calcium 9.3, glucose 156 to 191. Propelled wheelchair 250' with supervision. VITAL SIGNS Temperature: 97.2 F SBP/DBP: 106/72 Pulse: 72 Resp: 16 MEDICATION ALLERGIES: No Known Drug Allergies (NKDA) ENVIRONMENTAL ALLERGIES: - Substance Allergies None Known - Other Allergies None Known NURSING: - Shower allowing shower - Bladder care per protocol - Skin care per protocol PRECAUTIONS: - Fall Precaution SAFTY AND FALL ACTIVITIES OOB only with supervision THERAPIES: - Dietary and Nutrition Adequate Nutrition. Nutritional Education. Nutritional Supplements. PHYSICAL EXAM - Gen Alert and awake Lying in bed No apparent distress Oriented to: person, time, and place - Skin No skin breakdown. Normacephalic - Eyes No abnormalities - ENMT No abnormalities - Neck No abnormalities No cervical adenopathy - CVS RRR - Chest No abnormalities - Resp No wheezing - Abd Soft - GI nondistended Deferred - No abnormalities - Ext No significant edema - MSK No focal deficits, mild diffuse weakness - Neuro Mild diffuse weakness, incoordination and unsteady gait - Psych No abnormalities ASSESSMENT: Pt. 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 was independent/mod-I in Safety Awareness, Balance, Social Cognit ion, Self-Care, and Communication; and he had good Sphincter Control and Endurance.Currently, he has deficits of Balance, Locomotion, Sphincter Control, Endurance, and Transfers Control.Pt. is now refer red to [facility] for acute in-patient rehabilitation in order to maximize pat ient's functional independence in activities of daily living, strength, ROM, and mobility.- Rehab Goa l Patient has realistic goal of being discharged at assistance level 7-Ind to reside at Home with Pt s elf. MDM/PLAN: - Physical Therapy Gait dysfunction - to improve, our physical therapists will perform initial evaluation of pt's statu s upon admission and devise an individualized program for Gait Training, and Wheel Chair mobility Inability to transfer - to improve, our physical therapists will perform initial evaluation of pt's status upon admission and devise an individualized program for Bed mobility Need for home safety evaluation - to improve, our physical therapists will perform initial evaluatio n of pt's status upon admission and devise an individualized program for Home Evaluation Need in caregiver upon discharge - to improve, our physical therapists will perform initial evaluati on of pt's status upon admission and devise an individualized program for Caregiver Training New precaution - to improve, our physical therapists will perform initial evaluation of pt's status upon admission and devise an individualized program for Patient precaution education Edema - to improve, our physical therapists will perform initial evaluation of pt's status upon admis gabriela and devise an individualized program for Elevation Training, and Lymphedema Therapy Poor balance - to improve, our physical therapists will perform initial evaluation of pt's status up on admission and devise an individualized program for Balance Training Poor endurance - to improve, our physical therapists will perform initial evaluation of pt's status upon admission and devise an individualized program for Endurance Training Weakness - to improve, our physical therapists will perform initial evaluation of pt's status upon a dmission and devise an individualized program for Aquatic Therapy, Neuromuscular Reeducation, and Str engthening Achieving independence - to improve, our physical therapists will perform initial evaluation of pt's status upon admission and devise an individualized program for Community Reintegration Activities - Occupational Therapy Need for healthcare economics consultant - to improve, our occupation therapists will perform initial evaluation of pt's status upon admission and devise an individualized program for Caregiver Training Weakness - to improve, our occupation therapists will perform initial evaluation of pt's status upon admission and devise an individualized program for Aquatic Therapy, Balance, Endurance, UE ROM, and UE strengthening - Other See attached MAR (Medication Administration Record) - Diet Type Continue Regular - Diet - Liquid Texture Continue Regular - Tube Feed Continue N/A - Bladder care per protocol - Fall Precaution SAFTY AND FALL - Skin care per protocol - Diet - Solid Texture Continue Regular - Shower allowing shower FUNCTIONAL STATUS: UPDATED AT WEEKLY TEAM CONFERENCE - Bladder Same accident frequency: 7-Ind - No accidents in the past 7 days - Bowel Same accident frequency: 7-Ind - No accidents in the past 7 days - Walking Same score based on distance walked: 0(N/A) Same score based on distance walked: 1(<=50ft) - Wheelchair Same score based on distance traveled: 0(N/A) FUNCTIONAL STATUS: - Self-Care A. Eating Shiloh B. Grooming Shiloh C. Bathing Shiloh D. Dressing - Upper Shiloh E. Dressing - Lower sup F. Toileting sup - Sphincter Control G. Bladder control sup H. Bowel control sup - Transfers Control I. Bed/Chair/Wheelchair sup J. Toilet sup K. Tub/Shower Alonzo - Locomotion L. Walk/Wheelchair (B) sup M. Stairs sup - Communication N. Comprehension (B) Shiloh O. Expression (B) Shiloh - Social Cognition P. Social Interaction Shiloh Q. Problem Solving Shiloh R. Memory Shiloh - Endurance Good - Balance Fair - Safety Awareness Fair QI SCORES: - Self-Care A. Eating 04-Supervision or touching assistance B. Oral hygiene 03-Partial/moderate assistance C. Toileting hygiene 02-Substantial/maximal assistance E. Shower/bathe self 02-Substantial/maximal assistance F. Upper body dressing 03-Partial/moderate assistance G. Lower body dressing 02-Substantial/maximal assistance H. Putting on/taking off footwear 88-Not attempted due to medical condition or safety concerns - Mobility A. Roll left and right 03-Partial/moderate assistance B. Sit to lying 03-Partial/moderate assistance C. Lying to sitting on side of bed 03-Partial/moderate assistance D. Sit to stand 03-Partial/moderate assistance E. Chair/bpa-si-cadtt transfer 03-Partial/moderate assistance F. Toilet transfer 03-Partial/moderate assistance G. Car transfer 88-Not attempted due to medical condition or safety concerns I. Walk 10 feet 03-Partial/moderate assistance J. Walk 50 feet with two turns 88-Not attempted due to medical condition or safety concerns K. Walk 150 feet 88-Not attempted due to medical condition or safety concerns L. Walking 10 feet on uneven surfaces 88-Not attempted due to medical condition or safety concerns M. 1 step (curb) 88-Not attempted due to medical condition or safety concerns N. 4 steps 88-Not attempted due to medical condition or safety concerns O. 12 steps 88-Not attempted due to medical condition or safety concerns P. Picking up object 88-Not attempted due to medical condition or safety concerns R. Wheel 50 feet with two turns 88-Not attempted due to medical condition or safety concerns S. Wheel 150 feet 88-Not attempted due to medical condition or safety concerns - Bladder and Bowel Bladder continence Bowel continence - Endurance Fair - Balance Fair - Safety Awareness Fair CURRENT [facility]. DEFICITS: Self-Care, Mobility, Endurance, Balance, and Safety Awareness SIGNATURE PANEL: (FLORAL CLERK)
--- NOTE | 2020-06-28 18:12 | P.PN ---
Subjective Date of Service: 06/28/20 Chief Complaint: GEN WEAKNESS AFTER SEIZURES. Subjective: Improving HE HAS NO NEW COMPLAINT. HE WALKS WITH BOOT ON WHEN HE WALKS. HIS R FOOT OSTEOMEYELITIS HAS HEALED FROM OUT SIDE. SLEEPING TODAY. NO COMPLAINTS BY NURSES. ABX TO BE DECIDED BY DR. HURD. WILL CHECK CRP. Physical Examination - Vital Signs Temperature: 97.2 F Blood Pressure: 117/68 Pulse: 97 Respirations: 16 Pulse Ox (%): 91 - Studies Laboratory Data (last 24 hrs) 06/28/20 05:51: Sodium 139, Potassium 4.1, BUN 33 H, Creatinine 1.49 H, Glucose 169 H, Magnesium 1.4 L* 06/28/20 05:51: WBC 6.6, Hgb 15.6, Hct 46.1, Plt Count 207 Medications List Reviewed: Yes Assessment And Plan - Current Problems (Diagnosis) (1) Seizure Current Visit: Yes Status: Acute Plan: NEW ONSET. ETIOLOGY UNCLEAR HAS BEEN SEEN BY NEURO IN [place] CONT LEIDY. NEW ONSET AND WILL CONTINUE LEIDY (2) Diabetic foot Current Visit: Yes Status: Chronic Plan: MANAG[facility] BY DR Raj[facility]ev WARD[facility]. (3) Diabetic peripheral neuropathy Current Visit: Yes Status: Chronic (4) Diabetes mellitus due to underlying condition with chronic kidney disease on chronic dialysis Current Visit: Yes Status: Acute (5) HTN (hypertension) Onset Date: 07/17/16 Current Visit: No Status: Acute Plan: HE DID NOT DO WELL ON ALDO ,BYSTOLIC BEFORE. HE DID WELL ON METOPROLOL, LISINOPRIL FOR BP CONTROL. [facility] CHANGED MEDS. HE IS BACK ON AMLODIPINE. WILL SEE IF CAN AVOID EDEMA. REDUCE NORVASC . BP IS LOW NORMAL. Qualifiers: Hypertension type: essential hypertension Qualified Code(s): I10 - Essential (primary) hypertension
[2020-06-29] MEDS: METOPROLOL TAR 50 MG TAB PO SCH ×2 (05:25→16:56)
[2020-06-29 06:12] LABS: Absolute Lymphocytes (CBC) 1.7 K/uL (0.7-4.9); Hematocrit 47.2 % (39.6-49.0); MPV 8.3 fL (7.6-11.3); RBC Red Blood Cell Count 5.41 M/uL (4.33-5.43)
[2020-06-29] MEDS: PANTOPRAZOLE 40MG TABLET PO SCH (06:24)
[2020-06-29 06:30] LABS: Potassium 4.1 mmol/L (3.5-5.1)
[2020-06-29 06:31] LABS: C-Reactive Protein 5.76 mg/L (<3.00)
[2020-06-29 06:35] LABS: Magnesium 1.2 mg/dL (1.8-2.4)
[2020-06-29 06:38] LABS: Magnesium 1.3 mg/dL (1.8-2.4)
[2020-06-29] MEDS: INSULIN -REGULAR HUMAN 50 UNIT/0.5 ML ML SQ SCH ×4 (07:30→20:21)
[2020-06-29] MEDS ORDERED: MAGNESIUM SULFATE 1 gm IVPB 1 GM/100 ML BAG IV ONE (07:51)
[2020-06-29] MEDS: BASAGLAR U INSULIN SQ SCH ×2 (08:16→20:20)
[2020-06-29] MEDS: GABAPENTIN 300 MG CAP PO SCH ×3 (08:17→20:21)
[2020-06-29] MEDS: MAGNESIUM OXIDE 400 MG TAB PO SCH ×2 (08:17→20:00)
[2020-06-29] MEDS: FINASTERIDE 5 MG TAB PO SCH (08:17)
[2020-06-29] MEDS: DOXYCYCLINE 100 MG CAP PO SCH ×2 (08:17→20:22)
[2020-06-29] MEDS: AMLODIPINE 5 MG TAB PO SCH (08:17)
[2020-06-29] MEDS: levETIRAcetam 500 MG TAB PO SCH ×2 (08:18→20:21)
[2020-06-29] MEDS: APIXABAN 2.5 MG TABLET PO SCH ×2 (08:18→20:21)
[2020-06-29] MEDS: CIPROFLOXACIN HCL 500 MG TAB PO SCH ×2 (08:18→20:21)
[2020-06-29] MEDS: TAMSULOSIN 0.4 MG SR CAP PO SCH (08:18)
[2020-06-29] MEDS: FENOFIBRATE 160 MG TAB PO SCH (08:18)
[2020-06-29] MEDS: lisinopriL 20 MG TAB PO SCH (08:19)
[2020-06-29] MEDS: LIDOCAINE 4% PATCH TOP SCH (14:12)
[2020-06-29] MEDS: ACETAMINOPHEN 500 MG TAB PO PRN ×2 (14:18→20:27)
--- NOTE | 2020-06-29 15:42 | FAST ---
OT QI REPORT FORM ENCOUNTER DATE AND TIME: 06/29/2020 08:00 (SENIOR CORE JAVA DEVELOPER) NAME JJ BEAVERS DATE OF : 1960 DATE OF ADMISSION: 06/25/2020 16:31 (SENIOR CORE JAVA DEVELOPER) PHONE: AGE: 59 N# [id number] GENDER: Male ENCOUNTER PHYSICIAN: Dr. Nima Lopez M.D. 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 EATING: Not assessed/no information CODE: - ORAL HYGIENE: ORAL HYGIENE - STEP 1: Does the patient complete the activity by him/herself with no assistance (physical, verbal/nonverbal cueing, setup/clean-up)? Yes. 1. [id number] ADMISSION PERFORMANCE: Independent CODE: 06 TOILETING HYGIENE: Not assessed/no information CODE: - BATHING: SHOWER/BATHE SELF - STEP 1: Does the patient complete the activity by him/herself with no assistance (physical, verbal/nonverbal cueing, setup/clean-up)? No. SHOWER/BATHE SELF - STEP 2: Does the patient need only setup/clean-up assistance from one helper? No. SHOWER/BATHE SELF - STEP 3: Does the patient need only verbal/nonverbal cueing or touching/steadying/contact guard assistance fro m one helper? Yes. 1. [id number] ADMISSION PERFORMANCE: Supervision or touching assistance CODE: 04 DRESSING - UPPER BODY: DRESSING - UPPER BODY - STEP 1: Does the patient complete the activity by him/herself with no assistance (physical, verbal/nonverbal cueing, setup/clean-up)? Yes. 1. [id number] ADMISSION PERFORMANCE: Independent CODE: 06 DRESSING - LOWER BODY: DRESSING - LOWER BODY - STEP 1: Does the patient complete the activity by him/herself with no assistance (physical, verbal/nonverbal cueing, setup/clean-up)? No. DRESSING - LOWER BODY - STEP 2: Does the patient need only setup/clean-up assistance from one helper? No. DRESSING - LOWER BODY - STEP 3: Does the patient need only verbal/nonverbal cueing or touching/steadying/contact guard assistance fro m one helper? Yes. 1. [id number] ADMISSION PERFORMANCE: Supervision or touching assistance CODE: 04 PUTTING ON/TAKING OFF FOOTWEAR: FOOTWEAR - STEP 1: Does the patient complete the activity by him/herself with no assistance (physical, verbal/nonverbal cueing, setup/clean-up)? No. FOOTWEAR - STEP 2: Does the patient need only setup/clean-up assistance from one helper? Yes. 1. [id number] ADMISSION PERFORMANCE: Setup or clean-up assistance CODE: 05 DOES THE PATIENT USE A WHEELCHAIR/SCOOTER? CODE: EXPR INDICATE THE TYPE OF WHEELCHAIR/SCOOTER USED: CODE: EXPR INDICATE THE TYPE OF WHEELCHAIR/SCOOTER USED: CODE: EXPR BLADDER AND BOWEL: CODE: EXPR CODE: EXPR SIGNATURE PANEL: The following modified sections: 1. [id number] Admission Performance, 1. [id number] Admission Performance, 1. [id number] Admission Performance, 1. [id number] Admission Performance, 1. [id number] Admission Performance, 1. [id number] Admission Performance were [electronically] signed by ELLEN Matthews on SunJun 29 2020 15:41:45 GMT-0600 (Central Standard Time)
--- NOTE | 2020-06-29 18:48 | R.PN ---
PROGRESS NOTES ENCOUNTER DATE AND TIME: 06/29/2020 18:43 (PERFORMING ARTS ROAD MANAGER) NAME JJ BEAVERS DATE OF : 1960 DATE OF ADMISSION: 06/25/2020 16:31 (PERFORMING ARTS ROAD MANAGER) EPILEPSYCHIEF COMPLAINT: Epilepsy and debility. SUBJECTIVE: Pt denied any depression. Pt denied any Shortness of Breath. CBC with differential is normal. Mg is very low at 1.2. Replace with IV mag 1 gram and Mg oxide 800 m g bid and recheck in the AM. Calcium 9.3, glucose 152 to 183, CRP 5.76. Propelled wheelchair 850' wit h contact guard to standby assistance. VITAL SIGNS Temperature: 97.2 F SBP/DBP: 106/72 Pulse: 72 Resp: 16 MEDICATION ALLERGIES: No Known Drug Allergies (NKDA) ENVIRONMENTAL ALLERGIES: - Substance Allergies None Known - Other Allergies None Known NURSING: - Shower allowing shower - Bladder care per protocol - Skin care per protocol PRECAUTIONS: - Fall Precaution SAFTY AND FALL ACTIVITIES OOB only with supervision THERAPIES: - Dietary and Nutrition Adequate Nutrition. Nutritional Education. Nutritional Supplements. PHYSICAL EXAM - Gen Alert and awake Lying in bed No apparent distress Oriented to: person, time, and place - Skin No skin breakdown. Normacephalic - Eyes No abnormalities - ENMT No abnormalities - Neck No abnormalities No cervical adenopathy - CVS RRR - Chest No abnormalities - Resp No wheezing - Abd Soft - GI nondistended Deferred - No abnormalities - Ext No significant edema - MSK No focal deficits, mild diffuse weakness - Neuro Mild diffuse weakness, incoordination and unsteady gait - Psych No abnormalities ASSESSMENT: Pt. is a 59 yo Right-handed male of unknown race.On 06/18/2020 he was admitted to [facility] with diagnosis EPILEPSY.His impairment category is Brain Dysfunction 02 - Non-traumatic Brain D ysfunction (02.1).Pre-morbidly, Pt. was independent/mod-I in Safety Awareness, Balance, Social Cognit ion, Self-Care, and Communication; and he had good Sphincter Control and Endurance.Currently, he has deficits of Balance, Locomotion, Sphincter Control, Endurance, and Transfers Control.Pt. is now refer red to [facility] for acute in-patient rehabilitation in order to maximize pat ient's functional independence in activities of daily living, strength, ROM, and mobility.- Rehab Goa l Patient has realistic goal of being discharged at assistance level 7-Ind to reside at Home with Pt s elf. MDM/PLAN: - Physical Therapy Gait dysfunction - to improve, our physical therapists will perform initial evaluation of pt's statu s upon admission and devise an individualized program for Gait Training, and Wheel Chair mobility Inability to transfer - to improve, our physical therapists will perform initial evaluation of pt's status upon admission and devise an individualized program for Bed mobility Need for home safety evaluation - to improve, our physical therapists will perform initial evaluatio n of pt's status upon admission and devise an individualized program for Home Evaluation Need in caregiver upon discharge - to improve, our physical therapists will perform initial evaluati on of pt's status upon admission and devise an individualized program for Caregiver Training New precaution - to improve, our physical therapists will perform initial evaluation of pt's status upon admission and devise an individualized program for Patient precaution education Edema - to improve, our physical therapists will perform initial evaluation of pt's status upon admi ssion and devise an individualized program for Elevation Training, and Lymphedema Therapy Poor balance - to improve, our physical therapists will perform initial evaluation of pt's status up on admission and devise an individualized program for Balance Training Poor endurance - to improve, our physical therapists will perform initial evaluation of pt's status upon admission and devise an individualized program for Endurance Training Weakness - to improve, our physical therapists will perform initial evaluation of pt's status upon a dmission and devise an individualized program for Aquatic Therapy, Neuromuscular Reeducation, and Str engthening Achieving independence - to improve, our physical therapists will perform initial evaluation of pt's status upon admission and devise an individualized program for Community Reintegration Activities - Occupational Therapy Need for healthcare or medical - to improve, our occupation therapists will perform initial evaluation of pt's status upon admission and devise an individualized program for Caregiver Training Weakness - to improve, our occupation therapists will perform initial evaluation of pt's status upon admission and devise an individualized program for Aquatic Therapy, Balance, Endurance, UE ROM, and UE strengthening - Other See attached MAR (Medication Administration Record) - Diet Type Continue Regular - Diet - Liquid Texture Continue Regular - Tube Feed Continue N/A - Bladder care per protocol - Fall Precaution SAFTY AND FALL - Skin care per protocol - Diet - Solid Texture Continue Regular - Shower allowing shower FUNCTIONAL STATUS: UPDATED AT WEEKLY TEAM CONFERENCE - Bladder Same accident frequency: 7-Ind - No accidents in the past 7 days - Bowel Same accident frequency: 7-Ind - No accidents in the past 7 days - Walking Same score based on distance walked: 0(N/A) Same score based on distance walked: 1(<=50ft) - Wheelchair Same score based on distance traveled: 0(N/A) FUNCTIONAL STATUS: - Self-Care A. Eating Shiloh B. Grooming Shiloh C. Bathing Shiloh D. Dressing - Upper Shiloh E. Dressing - Lower sup F. Toileting sup - Sphincter Control G. Bladder control sup H. Bowel control sup - Transfers Control I. Bed/Chair/Wheelchair sup J. Toilet sup K. Tub/Shower Alonzo - Locomotion L. Walk/Wheelchair (B) sup M. Stairs sup - Communication N. Comprehension (B) Shiloh O. Expression (B) Shiloh - Social Cognition P. Social Interaction Shiloh Q. Problem Solving Shiloh R. Memory Shiloh - Endurance Good - Balance Fair - Safety Awareness Fair QI SCORES: - Self-Care A. Eating 04-Supervision or touching assistance B. Oral hygiene 03-Partial/moderate assistance C. Toileting hygiene 02-Substantial/maximal assistance E. Shower/bathe self 02-Substantial/maximal assistance F. Upper body dressing 03-Partial/moderate assistance G. Lower body dressing 02-Substantial/maximal assistance H. Putting on/taking off footwear 88-Not attempted due to medical condition or safety concerns - Mobility A. Roll left and right 03-Partial/moderate assistance B. Sit to lying 03-Partial/moderate assistance C. Lying to sitting on side of bed 03-Partial/moderate assistance D. Sit to stand 03-Partial/moderate assistance E. Chair/ifb-az-cnyor transfer 03-Partial/moderate assistance F. Toilet transfer 03-Partial/moderate assistance G. Car transfer 88-Not attempted due to medical condition or safety concerns I. Walk 10 feet 03-Partial/moderate assistance J. Walk 50 feet with two turns 88-Not attempted due to medical condition or safety concerns K. Walk 150 feet 88-Not attempted due to medical condition or safety concerns L. Walking 10 feet on uneven surfaces 88-Not attempted due to medical condition or safety concerns M. 1 step (curb) 88-Not attempted due to medical condition or safety concerns N. 4 steps 88-Not attempted due to medical condition or safety concerns O. 12 steps 88-Not attempted due to medical condition or safety concerns P. Picking up object 88-Not attempted due to medical condition or safety concerns R. Wheel 50 feet with two turns 88-Not attempted due to medical condition or safety concerns S. Wheel 150 feet 88-Not attempted due to medical condition or safety concerns - Bladder and Bowel Bladder continence Bowel continence - Endurance Fair - Balance Fair - Safety Awareness Fair CURRENT [facility]. DEFICITS: Self-Care, Mobility, Endurance, Balance, and Safety Awareness SIGNATURE PANEL: (PERFORMING ARTS ROAD MANAGER)
--- NOTE | 2020-06-29 20:56 | P.PN ---
Subjective Date of Service: 06/29/20 Chief Complaint: GEN WEAKNESS AFTER SEIZURES. Subjective: Improving HE HAS NO NEW COMPLAINT. HE WALKS WITH BOOT ON WHEN HE WALKS. HIS R FOOT OSTEOMEYELITIS HAS HEALED FROM OUT SIDE. SLEEPING TODAY. NO COMPLAINTS BY NURSES. ABX TO BE DECIDED BY DR. HURD. WILL CHECK CRP. DOING GOOD HAS NO COMPLAINTS WALKS WELL. Physical Examination - Vital Signs Temperature: 97.1 F Blood Pressure: 98/69 Pulse: 89 Respirations: 18 Pulse Ox (%): 95 - Physical Exam General: In no apparent distress, Oriented x3 HEENT: Atraumatic, PERRLA, EOMI Neck: Supple, JVD not distended Respiratory: Clear to auscultation bilaterally, Normal air movement Cardiovascular: Regular rate/rhythm, Normal S1 S2 Gastrointestinal: Normal bowel sounds, No tenderness Musculoskeletal: No tenderness Integumentary: No rashes Neurological: Normal speech, Normal tone, Normal affect Lymphatics: No axilla or inguinal lymphadenopathy - Studies Laboratory Data (last 24 hrs) 06/29/20 05:55: Sodium 142, Potassium 4.1, BUN 31 H, Creatinine 1.52 H, Glucose 154 H, Magnesium 1.2 L* 06/29/20 05:55: WBC 5.9, Hgb 15.7, Hct 47.2, Plt Count 177 06/29/20 05:53: Magnesium 1.3 L* Medications List Reviewed: Yes Assessment And Plan - Current Problems (Diagnosis) (1) Seizure Current Visit: Yes Status: Acute Plan: NEW ONSET. ETIOLOGY UNCLEAR HAS BEEN SEEN BY [facility]URO IN [facility]. NEW ONSET AND WILL CONTINUE [facility] (2) Diabetic foot Current Visit: Yes Status: Chronic Plan: MANAGED BY DR [facility]ev WARD[facility] HPI. CRP IS HIGH . FOOT SEEMS HEALED FROM [place]. CONT ABX UNTIL DR. HURD DOES FU. (3) Diabetic peripheral neuropathy Current Visit: Yes Status: Chronic (4) Diabetes mellitus due to underlying condition with chronic kidney disease on chronic dialysis Current Visit: Yes Status: Acute (5) HTN (hypertension) Onset Date: 07/17/16 Current Visit: No Status: Acute Plan: HE DID NOT DO WELL ON ALDO ,BYSTOLIC BEFORE. HE DID WELL ON METOPROLOL, LISINOPRIL FOR BP CONTROL. [place] CHANGED MEDS. HE IS BACK ON AMLODIPINE. WILL SEE IF CAN AVOID EDEMA. REDUCE NORVASC . BP IS LOW NORMAL. Qualifiers: Hypertension type: essential hypertension Qualified Code(s): I10 - Essential (primary) hypertension
[2020-06-30] MEDS: METOPROLOL TAR 50 MG TAB PO SCH ×2 (05:22→17:05)
[2020-06-30] MEDS: PANTOPRAZOLE 40MG TABLET PO SCH (06:22)
[2020-06-30] MEDS: INSULIN -REGULAR HUMAN 50 UNIT/0.5 ML ML SQ SCH ×4 (07:30→20:16)
[2020-06-30] MEDS: LIDOCAINE 4% PATCH TOP SCH (07:31)
[2020-06-30] MEDS: BASAGLAR U INSULIN SQ SCH ×2 (07:32→19:25)
[2020-06-30] MEDS: lisinopriL 20 MG TAB PO SCH (08:00)
[2020-06-30] MEDS: AMLODIPINE 2.5 MG TAB PO SCH (08:00)
[2020-06-30] MEDS: ACETAMINOPHEN 500 MG TAB PO PRN (08:05)
[2020-06-30] MEDS: GABAPENTIN 300 MG CAP PO SCH ×3 (08:06→20:16)
[2020-06-30] MEDS: levETIRAcetam 500 MG TAB PO SCH ×2 (08:06→19:25)
[2020-06-30] MEDS: CIPROFLOXACIN HCL 500 MG TAB PO SCH ×2 (08:07→19:24)
[2020-06-30] MEDS: APIXABAN 2.5 MG TABLET PO SCH ×2 (08:07→19:24)
[2020-06-30] MEDS: MAGNESIUM OXIDE 400 MG TAB PO SCH ×2 (08:07→19:25)
[2020-06-30] MEDS: TAMSULOSIN 0.4 MG SR CAP PO SCH (08:07)
[2020-06-30] MEDS: FINASTERIDE 5 MG TAB PO SCH (08:08)
[2020-06-30] MEDS: DOXYCYCLINE 100 MG CAP PO SCH ×2 (08:09→19:25)
[2020-06-30] MEDS: FENOFIBRATE 160 MG TAB PO SCH (08:09)
--- NOTE | 2020-06-30 18:14 | P.PN ---
Subjective Date of Service: 06/30/20 Chief Complaint: GEN WEAKNESS AFTER SEIZURES. Subjective: Improving HE HAS NO NEW COMPLAINT. HE WALKS WITH BOOT ON WHEN HE WALKS. HIS R FOOT OSTEOMEYELITIS HAS HEALED FROM OUT SIDE. SLEEPING TODAY. NO COMPLAINTS BY NURSES. ABX TO BE DECIDED BY DR. HURD. WILL CHECK CRP. DOING GOOD HAS NO COMPLAINTS WALKS WELL. NO COMPLAINTS. FEELS WELL. Physical Examination - Vital Signs Temperature: 97.5 F Blood Pressure: 115/78 Pulse: 95 Respirations: 16 Pulse Ox (%): 94 - Physical Exam General: Alert, In no apparent distress HEENT: Atraumatic, PERRLA, EOMI Neck: Supple, JVD not distended Respiratory: Clear to auscultation bilaterally, Normal air movement Cardiovascular: Regular rate/rhythm, Normal S1 S2 Gastrointestinal: Normal bowel sounds, No tenderness Musculoskeletal: No tenderness Integumentary: No rashes Neurological: Normal speech, Normal tone, Normal affect Lymphatics: No axilla or inguinal lymphadenopathy - Studies Laboratory Data (last 24 hrs) 06/30/20 05:44: Magnesium 1.6 L Medications List Reviewed: Yes Assessment And Plan - Current Problems (Diagnosis) (1) Seizure Current Visit: Yes Status: Acute Plan: NEW ONSET. ETIOLOGY UNCLEAR HAS BEEN SEEN BY NEURO IN [place] CONT [facility]. NEW ONSET AND WILL CONTINUE [facility] (2) Diabetic foot Current Visit: Yes Status: Chronic Plan: MANA[facility] DR [facility]. CRP IS HIGH . FOOT SEEMS HEALED FROM OTUSIDE. CONT ABX UNTIL DR. HURD DOES FU. (3) Diabetic peripheral neuropathy Current Visit: Yes Status: Chronic (4) Diabetes mellitus due to underlying condition with chronic kidney disease on chronic dialysis Current Visit: Yes Status: Acute (5) HTN (hypertension) Onset Date: 07/17/16 Current Visit: No Status: Acute Plan: HE DID NOT DO WELL ON ALDO ,BYSTOLIC BEFORE. HE DID WELL ON METOPROLOL, LISINOPRIL FOR BP CONTROL. [place] CHANGED MEDS. HE IS BACK ON AMLODIPINE. WILL SEE IF CAN AVOID EDEMA. REDUCE NORVASC . BP IS LOW NORMAL. Qualifiers: Hypertension type: essential hypertension Qualified Code(s): I10 - Essential (primary) hypertension
--- NOTE | 2020-06-30 19:34 | R.PN ---
PROGRESS NOTES ENCOUNTER DATE AND TIME: 06/30/2020 19:29 (GRADE SETTER) NAME JJ BEAVERS DATE OF : 1960 DATE OF ADMISSION: 06/25/2020 16:31 (GRADE SETTER) EPILEPSYCHIEF COMPLAINT: Epilepsy and debility. SUBJECTIVE: Pt denied any depression. Pt denied any Shortness of Breath. CBC with differential is normal. Mg is low at 1.6. Replacewith magnesium oxide 800 mg bid and rechec k in the AM. Calcium 9.3, glucose 125 to 168, CRP 5.76. Propelled wheelchair 850' with contact guard to standby assistance. Ambulated 750' with single cane indoors and outdoors. VITAL SIGNS Temperature: 97.5 F SBP/DBP: 115/78 Pulse: 95 Resp: 15 MEDICATION ALLERGIES: No Known Drug Allergies (NKDA) ENVIRONMENTAL ALLERGIES: - Substance Allergies None Known - Other Allergies None Known NURSING: - Shower allowing shower - Bladder care per protocol - Skin care per protocol PRECAUTIONS: - Fall Precaution SAFTY AND FALL ACTIVITIES OOB only with supervision THERAPIES: - Dietary and Nutrition Adequate Nutrition. Nutritional Education. Nutritional Supplements. PHYSICAL EXAM - Gen Alert and awake Lying in bed No apparent distress Oriented to: person, time, and place - Skin No skin breakdown. Normacephalic - Eyes No abnormalities - ENMT No abnormalities - Neck No abnormalities No cervical adenopathy - CVS RRR - Chest No abnormalities - Resp No wheezing - Abd Soft - GI nondistended Deferred - No abnormalities - Ext No significant edema - MSK No focal deficits, mild diffuse weakness - Neuro Mild diffuse weakness, incoordination and unsteady gait - Psych No abnormalities ASSESSMENT: Pt. is a 59 yo Right-handed male of unknown race.On 06/18/2020 he was admitted to [facility] with diagnosis EPILEPSY.His impairment category is Brain Dysfunction 02 - Non-traumatic Brain D ysfunction (02.1).Pre-morbidly, Pt. was independent/mod-I in Safety Awareness, Balance, Social Cognit ion, Self-Care, and Communication; and he had good Sphincter Control and Endurance.Currently, he has deficits of Balance, Locomotion, Sphincter Control, Endurance, and Transfers Control.Pt. is now refer red to [facility] for acute in-patient rehabilitation in order to maximize pat ient's functional independence in activities of daily living, strength, ROM, and mobility.- Rehab Goa l Patient has realistic goal of being discharged at assistance level 7-Ind to reside at Home with Pt s elf. MDM/PLAN: - Physical Therapy Gait dysfunction - to improve, our physical therapists will perform initial evaluation of pt's statu s upon admission and devise an individualized program for Gait Training, and Wheel Chair mobility Inability to transfer - to improve, our physical therapists will perform initial evaluation of pt's status upon admission and devise an individualized program for Bed mobility Need for home safety evaluation - to improve, our physical therapists will perform initial evaluatio n of pt's status upon admission and devise an individualized program for Home Evaluation Need in caregiver upon discharge - to improve, our physical therapists will perform initial evaluati on of pt's status upon admission and devise an individualized program for Caregiver Training New precaution - to improve, our physical therapists will perform initial evaluation of pt's status upon admission and devise an individualized program for Patient precaution education Edema - to improve, our physical therapists will perform initial evaluation of pt's status upon admi ssion and devise an individualized program for Elevation Training, and Lymphedema Therapy Poor balance - to improve, our physical therapists will perform initial evaluation of pt's status up on admission and devise an individualized program for Balance Training Poor endurance - to improve, our physical therapists will perform initial evaluation of pt's status upon admission and devise an individualized program for Endurance Training Weakness - to improve, our physical therapists will perform initial evaluation of pt's status upon a dmission and devise an individualized program for Aquatic Therapy, Neuromuscular Reeducation, and Str engthening Achieving independence - to improve, our physical therapists will perform initial evaluation of pt's status upon admission and devise an individualized program for Community Reintegration Activities - Occupational Therapy Need for complex care nurse - to improve, our occupation therapists will perform initial evaluation of pt's status upon admission and devise an individualized program for Caregiver Training Weakness - to improve, our occupation therapists will perform initial evaluation of pt's status upon admission and devise an individualized program for Aquatic Therapy, Balance, Endurance, UE ROM, and UE strengthening - Other See attached MAR (Medication Administration Record) - Diet Type Continue Regular - Diet - Liquid Texture Continue Regular - Tube Feed Continue N/A - Bladder care per protocol - Fall Precaution SAFTY AND FALL - Skin care per protocol - Diet - Solid Texture Continue Regular - Shower allowing shower FUNCTIONAL STATUS: UPDATED AT WEEKLY TEAM CONFERENCE - Bladder Same accident frequency: 7-Ind - No accidents in the past 7 days - Bowel Same accident frequency: 7-Ind - No accidents in the past 7 days - Walking Same score based on distance walked: 0(N/A) Same score based on distance walked: 1(<=50ft) - Wheelchair Same score based on distance traveled: 0(N/A) FUNCTIONAL STATUS: - Self-Care A. Eating Shiloh B. Grooming Shiloh C. Bathing Shiloh D. Dressing - Upper Shiloh E. Dressing - Lower sup F. Toileting sup - Sphincter Control G. Bladder control sup H. Bowel control sup - Transfers Control I. Bed/Chair/Wheelchair sup J. Toilet sup K. Tub/Shower Alonzo - Locomotion L. Walk/Wheelchair (B) sup M. Stairs sup - Communication N. Comprehension (B) Shiloh O. Expression (B) Shiloh - Social Cognition P. Social Interaction Shiloh Q. Problem Solving Shiloh R. Memory Shiloh - Endurance Good - Balance Fair - Safety Awareness Fair QI SCORES: - Self-Care A. Eating 04-Supervision or touching assistance B. Oral hygiene 03-Partial/moderate assistance C. Toileting hygiene 02-Substantial/maximal assistance E. Shower/bathe self 02-Substantial/maximal assistance F. Upper body dressing 03-Partial/moderate assistance G. Lower body dressing 02-Substantial/maximal assistance H. Putting on/taking off footwear 88-Not attempted due to medical condition or safety concerns - Mobility A. Roll left and right 03-Partial/moderate assistance B. Sit to lying 03-Partial/moderate assistance C. Lying to sitting on side of bed 03-Partial/moderate assistance D. Sit to stand 03-Partial/moderate assistance E. Chair/tcp-am-kuvzv transfer 03-Partial/moderate assistance F. Toilet transfer 03-Partial/moderate assistance G. Car transfer 88-Not attempted due to medical condition or safety concerns I. Walk 10 feet 03-Partial/moderate assistance J. Walk 50 feet with two turns 88-Not attempted due to medical condition or safety concerns K. Walk 150 feet 88-Not attempted due to medical condition or safety concerns L. Walking 10 feet on uneven surfaces 88-Not attempted due to medical condition or safety concerns M. 1 step (curb) 88-Not attempted due to medical condition or safety concerns N. 4 steps 88-Not attempted due to medical condition or safety concerns O. 12 steps 88-Not attempted due to medical condition or safety concerns P. Picking up object 88-Not attempted due to medical condition or safety concerns R. Wheel 50 feet with two turns 88-Not attempted due to medical condition or safety concerns S. Wheel 150 feet 88-Not attempted due to medical condition or safety concerns - Bladder and Bowel Bladder continence Bowel continence - Endurance Fair - Balance Fair - Safety Awareness Fair [facility]RENT [facility]. DEFICITS: Self-Care, Mobility, Endurance, Balance, and Safety Awareness SIGNATURE PANEL: (GRADE SETTER)
[2020-07-01] MEDS: METOPROLOL TAR 50 MG TAB PO SCH ×2 (05:00→17:27)
[2020-07-01 06:25] LABS: Absolute Lymphocytes (CBC) 1.5 K/uL (0.7-4.9); Basophils % 0.9 % (0-1.3); Hematocrit 45.2 % (39.6-49.0); Lymphocytes % 25.3 % (15.3-44.8); MPV 8.6 fL (7.6-11.3); RBC Red Blood Cell Count 5.17 M/uL (4.33-5.43)
[2020-07-01 06:40] LABS: Albumin 3.3 g/dL (3.4-5.0); Prealbumin 25.6 mg/dL (20-40)
[2020-07-01 06:42] LABS: Magnesium 1.4 mg/dL (1.8-2.4)
[2020-07-01] MEDS: PANTOPRAZOLE 40MG TABLET PO SCH (07:20)
[2020-07-01] MEDS: INSULIN -REGULAR HUMAN 50 UNIT/0.5 ML ML SQ SCH ×4 (07:30→20:13)
[2020-07-01] MEDS: LIDOCAINE 4% PATCH TOP SCH (07:43)
[2020-07-01] MEDS: TAMSULOSIN 0.4 MG SR CAP PO SCH (07:44)
[2020-07-01] MEDS: lisinopriL 20 MG TAB PO SCH (07:44)
[2020-07-01] MEDS: DOXYCYCLINE 100 MG CAP PO SCH ×2 (07:44→18:59)
[2020-07-01] MEDS: FENOFIBRATE 160 MG TAB PO SCH (07:44)
[2020-07-01] MEDS: FINASTERIDE 5 MG TAB PO SCH (07:44)
[2020-07-01] MEDS: levETIRAcetam 500 MG TAB PO SCH ×2 (07:44→19:00)
[2020-07-01] MEDS: APIXABAN 2.5 MG TABLET PO SCH ×2 (07:44→18:59)
[2020-07-01] MEDS: CIPROFLOXACIN HCL 500 MG TAB PO SCH ×2 (07:45→19:00)
[2020-07-01] MEDS: AMLODIPINE 2.5 MG TAB PO SCH (07:45)
[2020-07-01] MEDS: BASAGLAR U INSULIN SQ SCH ×2 (07:45→19:00)
[2020-07-01] MEDS: MAGNESIUM OXIDE 400 MG TAB PO SCH ×4 (07:46→20:13)
[2020-07-01] MEDS: GABAPENTIN 300 MG CAP PO SCH ×3 (08:52→20:13)
[2020-07-01] MEDS: ACETAMINOPHEN 500 MG TAB PO PRN (08:52)
--- NOTE | 2020-07-01 14:38 | R.PN ---
PROGRESS NOTES ENCOUNTER DATE AND TIME: 07/01/2020 14:25 (BEFORE SCHOOL) NAME JJ BEAVERS DATE OF : 1960 DATE OF ADMISSION: 06/25/2020 16:31 (BEFORE SCHOOL) EPILEPSYCHIEF COMPLAINT: Epilepsy and debility. SUBJECTIVE: Pt denied any depression. Pt denied any Shortness of Breath. CBC with differential is normal. Mg is lower at 1.4. Replace with magnesium oxide 800 mg tid and rec heck in the AM. Calcium 9.3, glucose 117 to 154, CRP 5.76. Prealbumin 25.6.Propelled wheelchair 850' with contact guard to standby assistance. Ambulated 1000' with single cane indoors and outdoors independently. Up and down 20 steps independen tly. VITAL SIGNS Temperature: 97.2 F SBP/DBP: 157/86 Pulse: 75 Resp: 16 MEDICATION ALLERGIES: No Known Drug Allergies (NKDA) ENVIRONMENTAL ALLERGIES: - Substance Allergies None Known - Other Allergies None Known NURSING: - Shower allowing shower - Bladder care per protocol - Skin care per protocol PRECAUTIONS: - Fall Precaution SAFTY AND FALL ACTIVITIES OOB only with supervision THERAPIES: - Dietary and Nutrition Adequate Nutrition. Nutritional Education. Nutritional Supplements. PHYSICAL EXAM - Gen Alert and awake Lying in bed No apparent distress Oriented to: person, time, and place - Skin No skin breakdown. Normacephalic - Eyes No abnormalities - ENMT No abnormalities - Neck No abnormalities No cervical adenopathy - CVS RRR - Chest No abnormalities - Resp No wheezing - Abd Soft - GI nondistended Deferred - No abnormalities - Ext No significant edema - MSK No focal deficits, mild diffuse weakness - Neuro Mild diffuse weakness, incoordination and unsteady gait - Psych No abnormalities ASSESSMENT: Pt. is a 59 yo Right-handed male of unknown race.On 06/18/2020 he was admitted to [facility] with diagnosis EPILEPSY.His impairment category is Brain Dysfunction 02 - Non-traumatic Brain D ysfunction (02.1).Pre-morbidly, Pt. was independent/mod-I in Safety Awareness, Balance, Social Cognit ion, Self-Care, and Communication; and he had good Sphincter Control and Endurance.Currently, he has deficits of Balance, Locomotion, Sphincter Control, Endurance, and Transfers Control.Pt. is now refer red to [facility] for acute in-patient rehabilitation in order to maximize pat ient's functional independence in activities of daily living, strength, ROM, and mobility.- Rehab Goa l Patient has realistic goal of being discharged at assistance level 7-Ind to reside at Home with Pt s elf. MDM/PLAN: - Physical Therapy Gait dysfunction - to improve, our physical therapists will perform initial evaluation of pt's statu s upon admission and devise an individualized program for Gait Training, and Wheel Chair mobility Inability to transfer - to improve, our physical therapists will perform initial evaluation of pt's status upon admission and devise an individualized program for Bed mobility Need for home safety evaluation - to improve, our physical therapists will perform initial evaluatio n of pt's status upon admission and devise an individualized program for Home Evaluation Need in caregiver upon discharge - to improve, our physical therapists will perform initial evaluati on of pt's status upon admission and devise an individualized program for Caregiver Training New precaution - to improve, our physical therapists will perform initial evaluation of pt's status upon admission and devise an individualized program for Patient precaution education Edema - to improve, our physical therapists will perform initial evaluation of pt's status upon admi ssion and devise an individualized program for Elevation Training, and Lymphedema Therapy Poor balance - to improve, our physical therapists will perform initial evaluation of pt's status up on admission and devise an individualized program for Balance Training Poor endurance - to improve, our physical therapists will perform initial evaluation of pt's status upon admission and devise an individualized program for Endurance Training Weakness - to improve, our physical therapists will perform initial evaluation of pt's status upon a dmission and devise an individualized program for Aquatic Therapy, Neuromuscular Reeducation, and Str engthening Achieving independence - to improve, our physical therapists will perform initial evaluation of pt's status upon admission and devise an individualized program for Community Reintegration Activities - Occupational Therapy Need for pharmacy care coordinator - to improve, our occupation therapists will perform initial evaluation of pt's status upon admission and devise an individualized program for Caregiver Training Weakness - to improve, our occupation therapists will perform initial evaluation of pt's status upon admission and devise an individualized program for Aquatic Therapy, Balance, Endurance, UE ROM, and UE strengthening - Other See attached MAR (Medication Administration Record) - Diet Type Continue Regular - Diet - Liquid Texture Continue Regular - Tube Feed Continue N/A - Bladder care per protocol - Fall Precaution SAFTY AND FALL - Skin care per protocol - Diet - Solid Texture Continue Regular - Shower allowing shower FUNCTIONAL STATUS: UPDATED AT WEEKLY TEAM CONFERENCE - Bladder Same accident frequency: 7-Ind - No accidents in the past 7 days - Bowel Same accident frequency: 7-Ind - No accidents in the past 7 days - Walking Same score based on distance walked: 0(N/A) Same score based on distance walked: 1(<=50ft) - Wheelchair Same score based on distance traveled: 0(N/A) FUNCTIONAL STATUS: - Self-Care A. Eating Shiloh B. Grooming Shiloh C. Bathing Shiloh D. Dressing - Upper Shiloh E. Dressing - Lower sup F. Toileting sup - Sphincter Control G. Bladder control sup H. Bowel control sup - Transfers Control I. Bed/Chair/Wheelchair sup J. Toilet sup K. Tub/Shower Alonzo - Locomotion L. Walk/Wheelchair (B) sup M. Stairs sup - Communication N. Comprehension (B) Shiloh O. Expression (B) Shiloh - Social Cognition P. Social Interaction Shiloh Q. Problem Solving Shiloh R. Memory Shiloh - Endurance Good - Balance Fair - Safety Awareness Fair QI SCORES: - Self-Care A. Eating 04-Supervision or touching assistance B. Oral hygiene 03-Partial/moderate assistance C. Toileting hygiene 02-Substantial/maximal assistance E. Shower/bathe self 02-Substantial/maximal assistance F. Upper body dressing 03-Partial/moderate assistance G. Lower body dressing 02-Substantial/maximal assistance H. Putting on/taking off footwear 88-Not attempted due to medical condition or safety concerns - Mobility A. Roll left and right 03-Partial/moderate assistance B. Sit to lying 03-Partial/moderate assistance C. Lying to sitting on side of bed 03-Partial/moderate assistance D. Sit to stand 03-Partial/moderate assistance E. Chair/sna-cz-fniup transfer 03-Partial/moderate assistance F. Toilet transfer 03-Partial/moderate assistance G. Car transfer 88-Not attempted due to medical condition or safety concerns I. Walk 10 feet 03-Partial/moderate assistance J. Walk 50 feet with two turns 88-Not attempted due to medical condition or safety concerns K. Walk 150 feet 88-Not attempted due to medical condition or safety concerns L. Walking 10 feet on uneven surfaces 88-Not attempted due to medical condition or safety concerns M. 1 step (curb) 88-Not attempted due to medical condition or safety concerns N. 4 steps 88-Not attempted due to medical condition or safety concerns O. 12 steps 88-Not attempted due to medical condition or safety concerns P. Picking up object 88-Not attempted due to medical condition or safety concerns R. Wheel 50 feet with two turns 88-Not attempted due to medical condition or safety concerns S. Wheel 150 feet 88-Not attempted due to medical condition or safety concerns - Bladder and Bowel Bladder continence Bowel continence - Endurance Fair - Balance Fair - Safety Awareness Fair [facility]RENT [facility]. DEFICITS: Self-Care, Mobility, Endurance, Balance, and Safety Awareness SIGNATURE PANEL: (BEFORE SCHOOL)
--- NOTE | 2020-07-01 21:12 | P.PN ---
Subjective Date of Service: 07/01/20 Chief Complaint: GEN WEAKNESS AFTER SEIZURES. Subjective: Improving HE HAS NO NEW COMPLAINT. HE WALKS WITH BOOT ON WHEN HE WALKS. HIS R FOOT OSTEOMEYELITIS HAS HEALED FROM OUT SIDE. SLEEPING TODAY. NO COMPLAINTS BY NURSES. ABX TO BE DECIDED BY DR. HURD. WILL CHECK CRP. DOING GOOD HAS NO COMPLAINTS WALKS WELL. NO COMPLAINTS. FEELS WELL. STABLE, NO ISSUES. FEELS WELL. HAS BEEN WALKING ALL OVER SINCE HE CAME. Physical Examination - Vital Signs Temperature: 97.7 F Blood Pressure: 152/93 Pulse: 84 Respirations: 16 Pulse Ox (%): 95 - Studies Laboratory Data (last 24 hrs) 07/01/20 06:03: Sodium 145, Potassium 4.0, BUN 29 H, Creatinine 1.38 H, Glucose 165 H, Magnesium 1.4 L* 07/01/20 06:03: WBC 6.0, Hgb 15.2, Hct 45.2, Plt Count 187 Medications List Reviewed: Yes Assessment And Plan - Current Problems (Diagnosis) (1) Seizure Current Visit: Yes Status: Acute Plan: NEW ONSET. ETIOLOGY UNCLEAR HAS BEEN SEEN BY NEURO IN [place] [facility]. NEW ONSET AND WILL CONTINUE [facility] VERY STABLE. HE SHOULD GO HOME. DR. CUETO IS AWARE. (2) Diabetic foot Current Visit: Yes Status: Chronic Plan: MANA[facility] DR [facility] H[facility]. CRP IS HIGH . FOOT SEEMS HEALED FROM [place]. CONT ABX UNTIL DR. HURD DOES FU. (3) Diabetic peripheral neuropathy Current Visit: Yes Status: Chronic (4) Diabetes mellitus due to underlying condition with chronic kidney disease on chronic dialysis Current Visit: Yes Status: Acute (5) HTN (hypertension) Onset Date: 07/17/16 Current Visit: No Status: Acute Plan: HE DID NOT DO WELL ON ALDO ,BYSTOLIC BEFORE. HE DID WELL ON METOPROLOL, LISINOPRIL FOR BP CONTROL. [place] CHANGED MEDS. HE IS BACK ON AMLODIPINE. WILL SEE IF CAN AVOID EDEMA. REDUCE NORVASC . BP IS LOW NORMAL. Qualifiers: Hypertension type: essential hypertension Qualified Code(s): I10 - Essential (primary) hypertension
[2020-07-02] MEDS: METOPROLOL TAR 50 MG TAB PO SCH ×2 (05:12→17:20)
[2020-07-02] MEDS: INSULIN -REGULAR HUMAN 50 UNIT/0.5 ML ML SQ SCH ×4 (07:30→20:00)
[2020-07-02] MEDS: BASAGLAR U INSULIN SQ SCH ×2 (07:49→19:20)
[2020-07-02] MEDS: levETIRAcetam 500 MG TAB PO SCH ×2 (07:50→19:20)
[2020-07-02] MEDS: CIPROFLOXACIN HCL 500 MG TAB PO SCH ×2 (07:50→19:19)
[2020-07-02] MEDS: APIXABAN 2.5 MG TABLET PO SCH ×2 (07:50→19:20)
[2020-07-02] MEDS: FAMOTIDINE 20 MG TAB PO SCH (07:50)
[2020-07-02] MEDS: FINASTERIDE 5 MG TAB PO SCH (07:50)
[2020-07-02] MEDS: lisinopriL 20 MG TAB PO SCH (07:51)
[2020-07-02] MEDS: MAGNESIUM OXIDE 400 MG TAB PO SCH ×3 (07:51→20:00)
[2020-07-02] MEDS: AMLODIPINE 2.5 MG TAB PO SCH (07:51)
[2020-07-02] MEDS: DOXYCYCLINE 100 MG CAP PO SCH ×2 (07:51→19:20)
[2020-07-02] MEDS: GABAPENTIN 300 MG CAP PO SCH ×3 (07:52→20:00)
[2020-07-02] MEDS: FENOFIBRATE 160 MG TAB PO SCH (07:52)
[2020-07-02] MEDS: TAMSULOSIN 0.4 MG SR CAP PO SCH (07:52)
--- NOTE | 2020-07-02 10:03 | P.RH.PN ---
Estimated Length of Stay: 9 Expected Discharge Date: 07/04/20 Discharge Disposition Plan: Home Family Support: Yes Regulatory Affairs Specialist Goal: Mobility, Transfers, Self Care Vital Signs: Last Vital Signs Temp 97.5 F 07/02/20 07:15 Pulse 69 07/02/20 07:51 Resp 16 07/02/20 07:15 BP 124/86 07/02/20 07:51 Pulse Ox 96 07/02/20 07:15 Laboratory: Laboratory Last Values WBC 6.0 K/uL (4.3-10.9) 07/01/20 06:03 RBC 5.17 M/uL (4.33-5.43) 07/01/20 06:03 Hgb 15.2 g/dL (13.6-17.9) 07/01/20 06:03 Hct 45.2 % (39.6-49.0) 07/01/20 06:03 MCV 87.4 fL (80-100) 07/01/20 06:03 MCH 29.4 pg (27.0-35.0) 07/01/20 06:03 MCHC 33.7 g/dL (32.0-36.0) 07/01/20 06:03 RDW 13.5 % (12.1-15.2) 07/01/20 06:03 Plt Count 187 K/uL (152-406) 07/01/20 06:03 MPV 8.6 fL (7.6-11.3) 07/01/20 06:03 Neutrophils % 59.4 % (41.7-73.7) 07/01/20 06:03 Lymphocytes % 25.3 % (15.3-44.8) 07/01/20 06:03 Monocytes % 6.9 % (3.3-12.3) 07/01/20 06:03 Eosinophils % 7.5 % (0-4.4) H 07/01/20 06:03 Basophils % 0.9 % (0-1.3) 07/01/20 06:03 Absolute Neutrophils 3.5 K/uL (1.8-8.0) 07/01/20 06:03 Absolute Lymphocytes 1.5 K/uL (0.7-4.9) 07/01/20 06:03 Absolute Monocytes 0.4 K/uL (0.1-1.3) 07/01/20 06:03 Absolute Eosinophils 0.5 K/uL (0-0.5) 07/01/20 06:03 Absolute Basophils 0.1 K/uL (0-0.5) 07/01/20 06:03 ESR Westergren 2 mm/HR (0-20) 06/29/20 05:55 Sodium 145 mmol/L (136-145) 07/01/20 06:03 Potassium 4.0 mmol/L (3.5-5.1) 07/01/20 06:03 Chloride 110 mmol/L (98-107) H 07/01/20 06:03 Carbon Dioxide 29 mmol/L (21-32) 07/01/20 06:03 BUN 29 mg/dL (7-18) H 07/01/20 06:03 Creatinine 1.38 mg/dL (0.55-1.3) H 07/01/20 06:03 Estimated GFR 52 mL/min (=/>90) L 07/01/20 06:03 Glucose 165 mg/dL (74-106) H 07/01/20 06:03 POC Glucose 155 mg/dL (65-120) H 07/02/20 07:28 Calcium 9.2 mg/dL (8.5-10.1) 07/01/20 06:03 Magnesium 1.4 mg/dL (1.8-2.4) L* 07/01/20 06:03 C-Reactive Protein 5.76 mg/L (<3.00) H 06/29/20 05:53 Albumin 3.3 g/dL (3.4-5.0) L 07/01/20 06:03 Prealbumin 25.6 mg/dL (20-40) 07/01/20 06:03 Urine Color Yellow 06/25/20 19:00 Urine Appearance Clear 06/25/20 19:00 Urine pH 5.5 (5.0-7.0) 06/25/20 19:00 Ur Specific [place] 1.015 (1.005-1.030) 06/25/20 19:00 Glucose (UA)(Auto) 1+ (NEG) H 06/25/20 19:00 Urine Ketones Negative (NEG) 06/25/20 19:00 Urine Blood Negative (NEG) 06/25/20 19:00 Urine Nitrite Negative (NEG) 06/25/20 19:00 Urine Bilirubin Negative (NEG) 06/25/20 19:00 Urine Urobilinogen 0.2 mg/dL (0.2-1.0) 06/25/20 19:00 Ur Leukocyte Esterase Negative (NEG) 06/25/20 19:00 Urine RBC 5-10 /HPF (NONE SEEN) H 06/25/20 19:00 Urine WBC <5 /HPF (<5) 06/25/20 19:00 Ur Squamous Epith Cells <5 /HPF (NONE SEEN) 06/25/20 19:00 Urine Bacteria <20 /HPF (NONE SEEN) 06/25/20 19:00 Urine Culture Reflexed Not needed 06/25/20 19:00 Urine Total Protein Negative (NEG) 06/25/20 19:00 SARS-CoV-2 RNA (RT-PCR) Negative (NEGATIVE) 06/26/20 19:00 Weight: 257 lb Wound Present: Yes Closed Surgical Incision Present: No Negative Pressure Wound Therapy Present: No Physician Update: Labs reviewed and are stable. He is doing very well with PT and OT. He will be discharged home tomorrow. Functional Improvement: pt has demonstrated significant progress throughout the week. As pt fatigues, his gait begins to unsteady at times. This usually occurs after 500' or after several rounds of 250'. pt works hard and has improved his functional balance. pt will be trialed on being Independent in his room in preparation for discharge over the next couple of days. Summary: Patient's care plan and keno terminal operator goals have been reviewed and revised as necessary. Please see the Rehabilitation Signature page for all necessary signatures.
[2020-07-02] MEDS: LIDOCAINE 4% PATCH TOP SCH (11:09)
--- NOTE | 2020-07-02 17:06 | P.PN ---
Subjective Date of Service: 07/02/20 Chief Complaint: GEN WEAKNESS AFTER SEIZURES. HE HAS NO NEW COMPLAINT. HE WALKS WITH BOOT ON WHEN HE WALKS. HIS R FOOT OSTEOMEYELITIS HAS HEALED FROM OUT SIDE. SLEEPING TODAY. NO COMPLAINTS BY NURSES. ABX TO BE DECIDED BY DR. HURD. WILL CHECK CRP. DOING GOOD HAS NO COMPLAINTS WALKS WELL. NO COMPLAINTS. FEELS WELL. STABLE, NO ISSUES. FEELS WELL. HAS BEEN WALKING ALL OVER SINCE HE CAME. HE HAS NO NEW ISSUES. ,FEELS GOOD. HE WILL GO HOME ON SUNDAY. Physical Examination - Vital Signs Temperature: 97.5 F Blood Pressure: 124/86 Pulse: 69 Respirations: 16 Pulse Ox (%): 96 - Studies Medications List Reviewed: Yes Assessment And Plan - Current Problems (Diagnosis) (1) Seizure Current Visit: Yes Status: Acute Plan: NEW ONSET. ETIOLOGY UNCLEAR HAS BEEN SEEN BY NEURO IN [place] CONT KEPPRA. NEW ONSET AND WILL CONTINUE KEPPRA VERY STABLE. HE SHOULD GO HOME. DR. CUETO IS AWARE. (2) Diabetic foot Current Visit: Yes Status: Chronic Plan: [facility]NA[facility] DR [facility]ARD[facility] H[facility]. CRP IS HIGH . FOOT SEEMS HEALED FROM OTUSIDE. CONT ABX UNTIL DR. HURD DOES FU. (3) Diabetic peripheral neuropathy Current Visit: Yes Status: Chronic (4) Diabetes mellitus due to underlying condition with chronic kidney disease on chronic dialysis Current Visit: Yes Status: Acute (5) HTN (hypertension) Onset Date: 07/17/16 Current Visit: No Status: Acute Plan: HE DID NOT DO WELL ON ALDO ,BYSTOLIC BEFORE. HE DID WELL ON METOPROLOL, LISINOPRIL FOR BP CONTROL. [place] CHANGED MEDS. HE IS BACK ON AMLODIPINE. WILL SEE IF CAN AVOID EDEMA. REDUCE NORVASC . BP IS LOW NORMAL. BP IS STABLE. SOMEHOW LESSER MEDICINES FROM HOME IS WORKING BETTER. HIS FOOD IS BETTER CONTROLLED HERE. Qualifiers: Hypertension type: essential hypertension Qualified Code(s): I10 - Essential (primary) hypertension
[2020-07-02 19:48] VITALS: TEMP 97.2
[2020-07-03] MEDS: METOPROLOL TAR 50 MG TAB PO SCH (05:15)
[2020-07-03] MEDS: INSULIN -REGULAR HUMAN 50 UNIT/0.5 ML ML SQ SCH ×2 (07:30→11:28)
[2020-07-03] MEDS: DOXYCYCLINE 100 MG CAP PO SCH (08:25)
[2020-07-03] MEDS: levETIRAcetam 500 MG TAB PO SCH (08:25)
[2020-07-03] MEDS: FAMOTIDINE 20 MG TAB PO SCH (08:25)
[2020-07-03] MEDS: CIPROFLOXACIN HCL 500 MG TAB PO SCH (08:26)
[2020-07-03] MEDS: GABAPENTIN 300 MG CAP PO SCH (08:26)
[2020-07-03] MEDS: MAGNESIUM OXIDE 400 MG TAB PO SCH (08:26)
[2020-07-03] MEDS: TAMSULOSIN 0.4 MG SR CAP PO SCH (08:26)
[2020-07-03] MEDS: AMLODIPINE 2.5 MG TAB PO SCH (08:27)
[2020-07-03] MEDS: FINASTERIDE 5 MG TAB PO SCH (08:27)
[2020-07-03] MEDS: APIXABAN 2.5 MG TABLET PO SCH (08:27)
[2020-07-03] MEDS: FENOFIBRATE 160 MG TAB PO SCH (08:27)
[2020-07-03] MEDS: LIDOCAINE 4% PATCH TOP SCH (09:41)
[2020-07-03] MEDS: BASAGLAR U INSULIN SQ SCH (09:41)
[2020-07-03 10:12] VITALS: BP 149/93
[2020-07-03] MEDS: lisinopriL 20 MG TAB PO SCH (10:12)
--- NOTE | 2020-07-03 16:38 | P.PN ---
Subjective Date of Service: 07/03/20 Chief Complaint: GEN WEAKNESS AFTER SEIZURES. HE HAS NO NEW COMPLAINT. HE WALKS WITH BOOT ON WHEN HE WALKS. HIS R FOOT OSTEOMEYELITIS HAS HEALED FROM OUT SIDE. SLEEPING TODAY. NO COMPLAINTS BY NURSES. ABX TO BE DECIDED BY DR. HURD. WILL CHECK CRP. DOING GOOD HAS NO COMPLAINTS WALKS WELL. NO COMPLAINTS. FEELS WELL. STABLE, NO ISSUES. FEELS WELL. HAS BEEN WALKING ALL OVER SINCE HE CAME. HE HAS NO NEW ISSUES. ,FEELS GOOD. HE WILL GO HOME ON SUNDAY. MR. BEAVERS WAS DISCHARGED TODAY BY REHAB. INITIALLY DATE WAS IN AM. HE HAS BEEN VERY STABLE ALL THROUGH OUT. Review of Systems 10-point ROS is otherwise unremarkable Physical Examination - Vital Signs Temperature: 97.2 F Blood Pressure: 149/93 Pulse: 91 Respirations: 16 Pulse Ox (%): 94 - Physical Exam General: Alert, In no apparent distress HEENT: Atraumatic, PERRLA, EOMI Neck: Supple, JVD not distended Respiratory: Clear to auscultation bilaterally, Normal air movement Cardiovascular: Regular rate/rhythm, Normal S1 S2 Gastrointestinal: Normal bowel sounds, No tenderness Musculoskeletal: No tenderness Integumentary: No rashes Neurological: Normal speech, Normal tone, Normal affect Lymphatics: No axilla or inguinal lymphadenopathy - Studies Microbiology Data (last 24 hrs): 07/02/20 07:10 Nasopharnyx Coronavirus COVID-19 PCR - Final Medications List Reviewed: Yes Assessment And Plan - Current Problems (Diagnosis) (1) Seizure Status: Acute Plan: NEW ONSET. ETIOLOGY UNCLEAR HAS BEEN SEEN BY NEURO IN [facility]. NEW ONSET AND WILL CONTINUE KERA VERY STABLE. HE SHOULD GO HOME. DR. CUETO IS AWARE. (2) Diabetic foot Status: Chronic Plan: [facility] DR [facility]ARD[facility] HPI. CRP IS HIGH . FOOT SEEMS HEALED FROM OTUSIDE. CONT ABX UNTIL DR. HURD DOES FU. (3) Diabetic peripheral neuropathy Status: Chronic (4) Diabetes mellitus due to underlying condition with chronic kidney disease on chronic dialysis Status: Acute (5) HTN (hypertension) Onset Date: 07/17/16 Status: Acute Plan: HE DID NOT DO WELL ON ALDO ,BYSTOLIC BEFORE. HE DID WELL ON METOPROLOL, LISINOPRIL FOR BP CONTROL. [place] CHANGED MEDS. HE IS BACK ON AMLODIPINE. WILL SEE IF CAN AVOID EDEMA. REDUCE NORVASC . BP IS LOW NORMAL. BP IS STABLE. SOMEHOW LESSER MEDICINES FROM HOME IS WORKING BETTER. HIS FOOD IS BETTER CONTROLLED HERE. HE IS ON SMALLER DOSE OF MEDS THAN BEFORE AND WELL CONTROLLED. Qualifiers: Hypertension type: essential hypertension Qualified Code(s): I10 - Essential (primary) hypertension
== END 2020-07-03 12:30 | disposition home health service (06) | DRG 101 ==
LOC: 5TH 18:31
PROVIDERS: ADMIT Psychiatry & Neurology Neurology with Special Qualifications in Child Neurology; ATTEND Psychiatry & Neurology Neurology with Special Qualifications in Child Neurology
DX: G40.909 Epilepsy, unspecified, not intractable, without status epilepticus (principal); E11.22 Type 2 diabetes mellitus with diabetic chronic kidney disease; E11.42 Type 2 diabetes mellitus with diabetic polyneuropathy; I12.9 Hypertensive chronic kidney disease with stage 1 through stage 4 chronic kidney disease, or unspecified chronic kidney disease; K21.9 Gastro-esophageal reflux disease without esophagitis; R53.81 Other malaise; E66.9 Obesity, unspecified; Z68.31 Body mass index [BMI] 31.0-31.9, adult; Z79.4 Long term (current) use of insulin; Z79.01 Long term (current) use of anticoagulants; Z79.899 Other long term (current) drug therapy; Z86.711 Personal history of pulmonary embolism; Z96.641 Presence of right artificial hip joint; Z99.2 Dependence on renal dialysis; Z90.49 Acquired absence of other specified parts of digestive tract; Z20.828 Contact with and (suspected) exposure to other viral communicable diseases
CPT/HCPCS: 36415; 80048; 80177; 81001; 82040; 82947; 83735; 84134; 85025; 85652; 86140; 87086; 87088; 97110; 97112; 97116; 97140; 97161; 97530; J3475; U0002; U0003

== ENCOUNTER 2020-10-22 20:40 | Inpatient (IN) | payer OTHER ==
--- NOTE | 2020-10-22 20:58 | RAD REPORT ---
EXAM DESCRIPTION: CT - Ct Stroke Brain Wo Cont - 10/22/2020 8:48 pm CLINICAL HISTORY: Confusion/alteration of awareness COMPARISON: 2019 TECHNIQUE: Computed axial tomography of the head was obtained. All CT scans are performed using dose optimization technique as appropriate and may include automated exposure control or mA/KV adjustment according to patient size. FINDINGS: An intracranial bleed is not seen . The ventricles are normal in caliber. No extra-axial fluid collection is noted. Mild low-density within periventricular, deep and subcortical white matter likely ischemic changes s econdary to small vessel disease Fluid within the sinuses/ mastoids is not seen. IMPRESSION: No acute intracranial abnormality is seen. If patient's symptoms persist MRI of the bra in would be recommended. Dr Driver of the emergency room was notified at 8:53PM 10/22/2020
[2020-10-22 21:10] LABS: Absolute Lymphocytes (CBC) 2.2 K/uL (0.7-4.9); Basophils % 0.7 % (0-1.3); Hematocrit 44.9 % (39.6-49.0); RBC Red Blood Cell Count 5.12 M/uL (4.33-5.43)
[2020-10-22 21:26] LABS: Protime INR 1.17
[2020-10-22 21:38] LABS: ALT/SGPT 48 U/L (12-78); AST/SGOT 27 U/L (15-37); Albumin 3.4 g/dL (3.4-5.0); Alkaline Phosphatase 98 U/L (45-117); BUN Blood Urea Nitrogen 20 mg/dL (7-18); Bicarbonate 26 mmol/L (21-32); Bilirubin Direct 0.1 mg/dL (0-0.2); Bilirubin Total 0.5 mg/dL (0.2-1.0); Glucose Level 143 mg/dL (74-106); NT PRO-BNP 662 pg/mL (<125); Protein, Total 6.9 g/dL (6.4-8.2); Sodium Level 135 mmol/L (136-145); Troponin (Emerg Dept Use Only) < 0.02 ng/mL (0.0-0.045)
[2020-10-22 21:43] LABS: Magnesium 1.3 mg/dL (1.8-2.4)
[2020-10-22] MEDS ORDERED: METOPROLOL TARTRATE 5 MG/5 ML INJ IV ONE (21:52)
[2020-10-22] MEDS ORDERED: Magnesium Sulfate 2gm IVPB 2 G/50 ML BAG IV ONE (22:03)
[2020-10-22] MEDS ORDERED: NA CHLORIDE 0.9% 250 ML ONE (22:03)
[2020-10-22] MEDS ORDERED: FUROSEMIDE 40 MG/4 ML VIAL ONE (22:20)
[2020-10-22] MEDS ORDERED: LEVETIRACETAM 500 MG/5 ML VIAL IV ONE (22:34)
[2020-10-22] MEDS ORDERED: ACETAMINOPHEN 500 MG TAB ONE (22:34)
[2020-10-22] MEDS ORDERED: NA CHLORIDE 0.9% 100 ML ONE (22:34)
--- NOTE | 2020-10-22 22:41 | EDPHYS ---
Physician Documentation [facility] – [place], [place] Name: Branden Davenport Jr Age: 60 yrs Sex: Male : 1960 Arrival Date: 10/22/2020 Time: 20:42 Bed 19 Private MD: ED Physician Wilber Driver HPI: 10/22 21:34 This 60 yrs old Male presents to ER via EMS with complaints of High Blood mh7 Pressure, Altered Mental Status. 21:34 The patient has elevated blood pressure and discovered this at home, with a home mh7 device. Onset: The symptoms/episode began/occurred this morning, today. Modifying factors: The symptoms are aggravated by nothing. Associated signs and symptoms: Pertinent positives: headache, confusion. 21:52 Severity of symptoms: At its worst the blood pressure was 200 mm Hg, in the emergency mh7 department the blood pressure is improved, mildly. Patient's states symptoms started around noon today.. 22:23 The patient has experienced a previous episode, approximately 4 months ago. [facility] Historical: - Allergies: 21:03 PENICILLINS; sg 21:03 PENICILLINS; rv - PMHx: 21:03 Diabetes - IDDM; GERD; Hypertension; neuropathy; psoriasis; Left foot drop; sg 21:03 Diabetes - IDDM; Diabetes - NIDDM; GERD; Hypertension; Left foot drop; neuropathy; rv psoriasis; - PSHx: 21:03 Appendectomy; Back surgery; Colon resection; Right hip replacement; sg 21:03 None; rv - Immunization history:: Adult Immunizations up to date, Adult Immunizations not up to date. - Social history:: Smoking status: Patient denies any tobacco usage or history of. Smoking status: Patient/guardian denies using tobacco, the patient reports quitting approximately 20 years ago. ROS: 22:23 Constitutional: Negative for fever, chills, and weight loss, Eyes: Negative for injury, mh7 pain, redness, and discharge, ENT: Negative for injury, pain, and discharge, Neck: Negative for injury, pain, and swelling, Cardiovascular: Negative for chest pain, palpitations, and edema, Respiratory: Negative for shortness of breath, cough, wheezing, and pleuritic chest pain, Abdomen/GI: Negative for abdominal pain, nausea, vomiting, diarrhea, and constipation, Back: Negative for injury and pain, : Negative for injury, bleeding, discharge, and swelling, MS/Extremity: Negative for injury and deformity, Skin: Negative for injury, rash, and discoloration, Psych: Negative for depression, anxiety, suicide ideation, homicidal ideation, and hallucinations, Allergy/Immunology: Negative for hives, rash, and allergies, Endocrine: Negative for neck swelling, polydipsia, polyuria, polyphagia, and marked weight changes, Hematologic/Lymphatic: Negative for swollen nodes, abnormal bleeding, and unusual bruising. Exam: 22:23 Head/Face: Normocephalic, atraumatic. Eyes: Pupils equal round and reactive to light, mh7 extra-ocular motions intact. Lids and lashes normal. Conjunctiva and sclera are non-icteric and not injected. Cornea within normal limits. Periorbital areas with no swelling, redness, or edema. ENT: Nares patent. No nasal discharge, no septal abnormalities noted. Tympanic membranes are normal and external auditory canals are clear. Oropharynx with no redness, swelling, or masses, exudates, or evidence of obstruction, uvula midline. Mucous membranes moist. Neck: Trachea midline, no thyromegaly or masses palpated, and no cervical lymphadenopathy. Supple, full range of motion without nuchal rigidity, or vertebral point tenderness. No Meningismus. Chest/axilla: Normal chest wall appearance and motion. Nontender with no deformity. No lesions are appreciated. Cardiovascular: Regular rate and rhythm with a normal S1 and S2. No gallops, murmurs, or rubs. Normal PMI, no JVD. No pulse deficits. Respiratory: Lungs have equal breath sounds bilaterally, clear to auscultation and percussion. No rales, rhonchi or wheezes noted. No increased work of breathing, no retractions or nasal flaring. Abdomen/GI: Soft, non-tender, with normal bowel sounds. No distension or tympany. No guarding or rebound. No evidence of tenderness throughout. Back: No spinal tenderness. No costovertebral tenderness. Full range of motion. Skin: Warm, dry with normal turgor. Normal color with no rashes, no lesions, and no evidence of cellulitis. MS/ Extremity: Pulses equal, no cyanosis. Neurovascular intact. Full, normal range of motion. 22:23 Constitutional: The patient appears in no acute distress, alert, awake, confusion 22:26 Neuro: Orientation: to person, place, Mentation: able to follow commands, Cranial mh7 nerves: grossly normal, Cerebellar function: is grossly normal, Motor: is normal, Sensation: is normal, Gait: not tested. seizure activity, is not displayed by the patient, Abnormal movements: there are no abnormal movements. Vital Signs: 20:51 BP 166 / 118; Pulse 91; Resp 17; Temp 97.4; Pulse Ox 95% ; Weight 93.44 kg; Pain 0/10; rv 21:41 BP 198 / 120; Pulse 79; Resp 17; Pulse Ox 96% on R/A; rv 22:38 BP 170 / 111; Pulse 84; Resp 18; Pulse Ox 95% on R/A; rv 23:17 BP 150 / 106; Pulse 83; Resp 17; Pulse Ox 96% on 2 lpm NC; rv 23:19 BP 138 / 97; Pulse 81; Resp 17; Pulse Ox 96% on 2 lpm NC; rv MDM: 22:36 Differential diagnosis: hypertensive crisis, Malignant HTN, CVA, intracerebral mh7 hemorrhage, seizures, AMS. Data reviewed: vital signs, nurses notes, EMS record, old medical records, lab test result(s), cardiac enzymes, CBC, electrolytes, EKG, radiologic studies, CT scan, plain films. Data interpreted: Pulse oximetry: on room air is 96 %. Interpretation: normal. Counseling: I had a detailed discussion with the patient and/or guardian regarding: the historical points, exam findings, and any diagnostic results supporting the discharge/admit diagnosis, the presence of at least one elevated blood pressure reading (>120/80) during this emergency department visit, lab results, the need for further work-up and treatment in the hospital. Response to treatment: the patient's symptoms have mildly improved after treatment. Physician consultation: Nima Lopez MD was contacted at 22:05, regarding patient's condition, and will see patient in inpatient room, would like admission per Dr. Harvinder Cerda MD. 22:40 Patient medically screened. mh7 10/22 20:53 Order name: Basic Metabolic Panel ea 10/22 20:53 Order name: CBC with Diff ea 10/22 20:53 Order name: LFT's ea 10/22 20:53 Order name: Magnesium ea 10/22 20:53 Order name: NT PRO-BNP ea 10/22 20:53 Order name: PT-INR 10/22 20:53 Order name: Troponin (emerg Dept Use Only) 10/22 20:56 Order name: COVID-19 : Document "Date of Symptom Onset" if Symptomatic. 10/22 21:02 Order name: Glucose, Ancillary Testing; Complete Time: 21:08 EDMS 10/22 21:09 Order name: UDS [facility] 10/22 21:09 Order name: ETOH Level [facility] 10/22 21:09 Order name: AMMONIA [facility] 10/22 21:10 Order name: TSH [facility] 10/22 21:22 Order name: CBC with Automated Diff; Complete Time: 21:29 EDMS 10/22 20:42 Order name: CT-STROKE BRAIN W/O CONTRAST CT 10/22 20:53 Order name: XRAY Chest (1 view) 10/22 20:59 Order name: CT; Complete Time: 21:08 EDMS 10/22 21:28 Order name: Protime (+INR); Complete Time: 21:29 EDMS 10/22 21:32 Order name: [facility] 10/22 21:43 Order name: Basic Metabolic Panel; Complete Time: 21:47 EDMS 10/22 21:43 Order name: Liver (Hepatic) Function; Complete Time: 21:47 EDMS 10/22 21:43 Order name: Troponin (Emerg Dept Use Only); Complete Time: 21:47 EDMS 10/22 21:43 Order name: NT PRO-BNP; Complete Time: 21:47 EDMS 10/22 21:43 Order name: Magnesium; Complete Time: 21:47 EDMS 10/22 21:46 Order name: Ammonia; Complete Time: 21:47 EDMS 10/22 21:47 Order name: Phosphorus [facility] 10/22 22:03 Order name: Alcohol Serum/Plasma; Complete Time: 22:06 EDMS 10/22 22:17 Order name: Thyroid Stimulating Hormone; Complete Time: 22:59 EDMS 10/22 22:17 Order name: Phosphorus; Complete Time: 22:59 EDMS 10/22 22:23 Order name: SARS-COV-2 RT PCR; Complete Time: 22:59 EDMS 10/22 20:53 Order name: EKG; Complete Time: 20:54 10/22 20:53 Order name: Cardiac monitoring; Complete Time: 21:02 10/22 20:53 Order name: EKG - Nurse/Tech; Complete Time: 21:02 ea 10/22 20:53 Order name: IV Saline Lock; Complete Time: 20:56 ea 10/22 20:53 Order name: Labs collected and sent; Complete Time: 20:58 ea 10/22 20:53 Order name: O2 Per Protocol; Complete Time: 20:58 10/22 20:53 Order name: O2 Sat Monitoring; Complete Time: 20:58 ea Administered Medications: 21:40 Drug: Metoprolol 5 mg Route: IVP; Site: left forearm; rv 23:16 Follow up: Response: No adverse reaction; Blood pressure is unchanged rv 22:01 CANCELLED (Duplicate Order): Magnesium Sulfate 2 grams IM once rv 22:01 Drug: Magnesium Sulfate 2 grams Route: IVPB; Infused Over: 2 hrs; Site: right forearm; rv 23:16 Follow up: IV Status: Completed infusion; IV Intake: 50ml rv 22:04 Drug: Lasix 20 mg Route: IVP; Site: right forearm; rv 23:16 Follow up: Response: No adverse reaction rv 22:37 Drug: Keppra 1000 mg Route: IV; Rate: per protocol; Site: right forearm; rv 23:16 Follow up: IV Status: Completed infusion; IV Intake: 100ml rv 22:38 Drug: Tylenol 1000 mg Route: PO; rv 23:16 Follow up: Response: No adverse reaction rv 22:38 Drug: Labetalol 10 mg Route: IVP; Infused Over: 2 mins; Site: right forearm; rv 23:17 Follow up: Response: Blood pressure is lowered rv 23:17 Follow up: BP 150 / 106; Pulse 83 bpm; Resp 17 bpm; Pulse Ox 96% 2 lpm Nasal Cannula rv 23:10 Drug: Ativan 1 mg Route: IVP; Site: right forearm; rv 23:17 Follow up: Response: RASS: Light sedation (-2) rv Disposition: 10/22/20 22:40 Hospitalization ordered by Harvinder Cerda for Inpatient Admission. Preliminary diagnosis are Hypertensive Urgency, Altered Mental Status, Hypomagnesemia. - Bed requested for Intensive Care Unit. - Status is Inpatient Admission. ea - Condition is Stable. - Problem is an acute exacerbation. - Symptoms have improved. Signatures: Dispatcher [employer] EDMS Jose Carlos William, RN RN sg Chi Fish, CREDIT COLLECTIONS SPECIALIST-C CREDIT COLLECTIONS SPECIALIST-Cla1 Yasmine Harris, RN HERMINIO ea Elijah Latham RN RN rv Holmes, Maurice, MD MD 7 Corrections: (The following items were deleted from the chart) 22:01 22:00 Magnesium Sulfate 2 grams IM once ordered. rv rv 23:22 22:40 Hospitalization Ordered by Harvinder Cerda MD for Inpatient Admission. Preliminary sg diagnosis is Hypertensive Urgency; Altered Mental Status; Hypomagnesemia. Bed requested for Intensive Care Unit. Status is Inpatient Admission. Condition is Stable. Problem is an acute exacerbation. Symptoms have improved. [facility] 23:49 23:22 10/22/2020 22:40 Hospitalization Ordered by Harvinder Cerda MD for Inpatient ea Admission. Preliminary diagnosis is Hypertensive Urgency; Altered Mental Status; Hypomagnesemia. Bed requested for Intensive Care Unit. Status is Inpatient Admission. Condition is Stable. Problem is an acute exacerbation. Symptoms have improved. sg
--- NOTE | 2020-10-22 22:41 | ER ---
Nurse's Notes [facility] Name: Branden Davenport Jr Age: 60 yrs Sex: Male : 1960 Arrival Date: 10/22/2020 Time: 20:42 Bed 19 Private MD: Diagnosis: Hypertensive Urgency;Altered Mental Status;Hypomagnesemia Presentation: 10/22 20:51 Chief complaint: Spouse and/or significant other states: HE WAS COMPLAINING OF HEADACHE rv ALL DAY AND HE WAS NOT FEELING WELL. I CHECKED HIS BLOOD PRESSURE AND IT WAS HIGH, THEN HE TOOK HIS BLOOD PRESSURE MEDICATIONS. I WAS WORRIED BECAUSE HE HAS THE SAME EXACT SYMPTOMS LIKE THE LAST TIME. EMS states: ACCORDING TO , PATIENT BECAME CONFUSED AND WAS TALKING INCOMPREHENSIBLE SOUNDS ABOUT AN HOUR AGO. CHECKED THE BLOOD PRESSURE AND IT WAS HIGH. BLOOD SUGAR WAS 179 UPON CHECKING. PATIENT HAD A HISTORY OF BRAIN EDEMA, LAST MAY AND HE HAD TO BE TRANSFERRED. Coronavirus screen: Client denies travel out of the [place] in the last 14 days. At this time, the client does not indicate any symptoms associated with coronavirus-19. Ebola Screen: No symptoms or risks identified at this time. Initial Sepsis Screen: Does the patient meet any 2 criteria? No. Patient's initial sepsis screen is negative. Does the patient have a suspected source of infection? No. Patient's initial sepsis screen is negative. Risk Assessment: Do you want to hurt yourself or someone else? Patient reports no desire to harm self or others. Onset of symptoms was October 22, 2020 at 20:00. 20:51 Method Of Arrival: EMS: [facility] rv 20:51 Acuity: NELLI 2 rv 20:59 Care prior to arrival: Glucose check: 179. sg 20:59 Chief complaint: EMS states: Onset AMS per patient , states pt has had garbled sg speech that began approx 2 hrs [employer]USTIC TERRA[employer]. Has happened before and was life flighted from this facility 1 to 2 years ago, cannot recall the diagnosis of that visit. 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 Coronavirus screen: Client denies travel out of the [place] in the last 14 days. Ebola Screen: Patient negative for fever greater than or equal to 101.5 degrees Fahrenheit, and additional compatible Ebola Virus Disease symptoms Patient denies exposure to infectious person. Patient denies travel to an Ebola-affected area in the 21 days before illness onset. No symptoms or risks identified at this time. Initial Sepsis Screen: Does the patient meet any 2 criteria? Yes Does the patient have a suspected source of infection? No. Patient's initial sepsis screen is negative. Risk Assessment: Do you want to hurt yourself or someone else? Patient reports no desire to harm self or others. Onset of symptoms was October 22, 2020. Transition of care: patient was not received from another setting of care. 20:59 Acuity: NELLI 2 sg 20:59 Method Of Arrival: EMS: [facility] Triage Assessment: 21:03 General: Appears comfortable, Behavior is calm, cooperative. Pain: Denies pain. EENT: rv No signs and/or symptoms were reported regarding the EENT system. Neuro: Level of Consciousness is awake, alert, Oriented to person, place. Cardiovascular: Patient's skin is warm and dry. Respiratory: Airway is patent Respiratory effort is even, unlabored, Breath sounds are clear bilaterally. Derm: Skin is healthy with good turgor. Historical: - Allergies: 21:03 PENICILLINS; sg 21:03 PENICILLINS; rv - PMHx: 21:03 Diabetes - IDDM; GERD; Hypertension; neuropathy; psoriasis; Left foot drop; sg 21:03 Diabetes - IDDM; Diabetes - NIDDM; GERD; Hypertension; Left foot drop; neuropathy; rv psoriasis; - PSHx: 21:03 Appendectomy; Back surgery; Colon resection; Right hip replacement; sg 21:03 None; rv - Immunization history:: Adult Immunizations up to date, Adult Immunizations not up to date. - Social history:: Smoking status: Patient denies any tobacco usage or history of. Smoking status: Patient/guardian denies using tobacco, the patient reports quitting approximately 20 years ago. Screenin:54 Abuse screen: Denies threats or abuse. Nutritional screening: No deficits noted. ea Tuberculosis screening: No symptoms or risk factors identified. Fall Risk IV access (20 points). Assessment: 22:56 Reassessment: Mrs. Davenport () [phone]. ea Vital Signs: 20:51 BP 166 / 118; Pulse 91; Resp 17; Temp 97.4; Pulse Ox 95% ; Weight 93.44 kg; Pain 0/10; rv 21:41 BP 198 / 120; Pulse 79; Resp 17; Pulse Ox 96% on R/A; rv 22:38 BP 170 / 111; Pulse 84; Resp 18; Pulse Ox 95% on R/A; rv 23:17 BP 150 / 106; Pulse 83; Resp 17; Pulse Ox 96% on 2 lpm NC; rv 23:19 BP 138 / 97; Pulse 81; Resp 17; Pulse Ox 96% on 2 lpm NC; rv ED Course: 20:42 Patient arrived in ED. sg 20:51 Elijah Latham, HERMINIO is Primary Nurse. rv 20:54 Inserted saline lock: 20 gauge in right forearm, using aseptic technique. Blood ea collected. 20:54 Patient has correct armband on for positive identification. Bed in low position. Call ea light in reach. Side rails up X2. 20:58 Wilber Driver MD is Attending Physician. [facility] 21:02 Triage completed. sg 21:05 Arm band placed on left wrist. Patient placed in the treatment room, on a stretcher, rv Patient notified of wait time. 22:39 Harvinder Cerda MD is Hospitalizing Provider. [facility] 23:41 No provider procedures requiring assistance completed. IV is patent, with fluids rv infusing freely, Patient admitted, IV remains in place. Administered Medications: 21:40 Drug: Metoprolol 5 mg Route: IVP; Site: left forearm; rv 23:16 Follow up: Response: No adverse reaction; Blood pressure is unchanged rv 22:01 CANCELLED (Duplicate Order): Magnesium Sulfate 2 grams IM once rv 22:01 Drug: Magnesium Sulfate 2 grams Route: IVPB; Infused Over: 2 hrs; Site: right forearm; rv 23:16 Follow up: IV Status: Completed infusion; IV Intake: 50ml rv 22:04 Drug: Lasix 20 mg Route: IVP; Site: right forearm; rv 23:16 Follow up: Response: No adverse reaction rv 22:37 Drug: Keppra 1000 mg Route: IV; Rate: per protocol; Site: right forearm; rv 23:16 Follow up: IV Status: Completed infusion; IV Intake: 100ml rv 22:38 Drug: Tylenol 1000 mg Route: PO; rv 23:16 Follow up: Response: No adverse reaction rv 22:38 Drug: Labetalol 10 mg Route: IVP; Infused Over: 2 mins; Site: right forearm; rv 23:17 Follow up: Response: Blood pressure is lowered rv 23:17 Follow up: BP 150 / 106; Pulse 83 bpm; Resp 17 bpm; Pulse Ox 96% 2 lpm Nasal Cannula rv 23:10 Drug: Ativan 1 mg Route: IVP; Site: right forearm; rv 23:17 Follow up: Response: RASS: Light sedation (-2) rv Intake: 23:16 IV: 50ml; Total: 50ml. rv 23:16 IV: 100ml; Total: 150ml. rv Outcome: 22:40 Decision to Hospitalize by Provider. vale 23:41 Admitted to ICU accompanied by nurse, via stretcher, room er icu 9, Other sbar, ekg rv Report called to AHSAN DURHAM 23:41 Condition: stable 23:41 Instructed on the need for admit. 23:49 Patient left the ED. varun Signatures: Jose Carlos William RN RN Yasmine Harris RN RN Elijah Rodriguez RN Wilber Radford MD MD 7 Corrections: (The following items were deleted from the chart) 21:41 21:03 Neuro: Level of Consciousness is awake, alert, obeys commands, Oriented to rv person, place, time, situation, rv
[2020-10-22] MEDS ORDERED: ALBUTEROL 2.5 MG/3 ML NEB SOL NEB PRN (22:45)
[2020-10-22] MEDS ORDERED: LABETALOL 20 MG/4ML SYRINGE IV ONE (22:45)
[2020-10-22] MEDS ORDERED: ONDANSETRON 4 MG/2 ML VIAL IV PRN (22:45)
[2020-10-22] MEDS ORDERED: Nicardipine in Saline, Iso-Osm 20 MG/200 ML IV.SOLN. IV PRN (22:53)
[2020-10-22] MEDS: D5 0.45 NS 1,000 ML IV SCH (23:00)
[2020-10-22] MEDS ORDERED: LORazepam 2 MG/ML VIAL ONE (23:15)
[2020-10-22] MEDS ORDERED: D5 0.45 NS 1,000 ML IV ONE (23:45)
[2020-10-22] MEDS: IPRATROPIUM BROM 0.5MG/2.5ML NEB SCH (23:50)
[2020-10-23] MEDS ORDERED: IPRATROPIUM BROM 0.5MG/2.5ML ONE ×3 (00:11→07:47)
[2020-10-23] MEDS ORDERED: Nicardipine/NS 25 MG/250 ML KIT IV ONE (00:40)
[2020-10-23] MEDS: HALOPERIDOL LACT 5 MG/ML INJ IV PRN ×2 (01:26→13:30)
[2020-10-23] MEDS ORDERED: HALOPERIDOL LACT 5 MG/ML INJ ONE ×2 (01:42→14:17)
[2020-10-23 02:43] VITALS: BMI 25.7
[2020-10-23] MEDS: IPRATROPIUM BROM 0.5MG/2.5ML NEB SCH ×6 (03:55→23:28)
[2020-10-23 05:32] LABS: Basophils % 0.6 % (0-1.3); Hematocrit 44.4 % (39.6-49.0); Lymphocytes % 22.8 % (15.3-44.8); MPV 7.8 fL (7.6-11.3); RBC Red Blood Cell Count 4.98 M/uL (4.33-5.43)
[2020-10-23 05:57] LABS: Albumin 3.4 g/dL (3.4-5.0); Bilirubin Total 0.6 mg/dL (0.2-1.0); Magnesium 1.8 mg/dL (1.8-2.4); Potassium 3.8 mmol/L (3.5-5.1); Protein, Total 6.6 g/dL (6.4-8.2)
[2020-10-23 06:19] LABS: Urine Appearance CLEAR; Urine Bilirubin NEGATIVE (NEG); Urine Blood NEGATIVE (NEG); Urine Color YELLOW; Urine Glucose NEGATIVE (NEG); Urine Protein NEGATIVE (NEG); Urine Urobilinogen 0.2 mg/dL (0.2-1.0); Urine pH 6.5 (5.0-7.0)
[2020-10-23 06:29] LABS: Barbiturates POSITIVE (NEGATIVE); Benzodiazepines NEGATIVE (NEGATIVE); Cocaine NEGATIVE (NEGATIVE); METHAMPHETAM NEGATIVE (NEGATIVE); Methadone NEGATIVE (NEGATIVE); Opiates NEGATIVE (NEGATIVE); Phencyclidine NEGATIVE (NEGATIVE); THC Cannibis NEGATIVE (NEGATIVE)
[2020-10-23 06:57] LABS: Urine Bacteria <20 /HPF (NONE SEEN); Urine RBC <5 /HPF (NONE SEEN); Urine Urothelial Cells <5 /HPF (NONE SEEN)
[2020-10-23] MEDS: INSULIN -REGULAR HUMAN 50 UNIT/0.5 ML ML SQ SCH ×4 (07:30→20:25)
--- NOTE | 2020-10-23 07:57 | RAD REPORT ---
EXAM DESCRIPTION: RAD - Chest Single View - 10/22/2020 9:25 pm CLINICAL HISTORY: .Altered mental status, hypertension COMPARISON: Portable May 2020, March 2020 TECHNIQUE: AP portable chest image was obtained 10/22/2020 9:25 pm . FINDINGS: Lung volumes are low. No dense consolidations seen. Interstitial markings are mildly promi nent. There is some minimal patchy lung parenchymal opacification in the right upper lobe and left ba se. Trachea is midline. Heart and vasculature within normal limits for the low lung volumes. No measu rable pleural effusion and no pneumothorax. No acute bony abnormality seen. No acute aortic findings suspected. IMPRESSION: No dense consolidation or large mass lesion. Patchy right upper lobe and left base lung parenchymal opacification could be infiltrate or low lung volume atelectasis. Follow-up imaging can be performed as warranted.
[2020-10-23] MEDS ORDERED: MAGNESIUM SULFATE 1 gm IVPB 1 GM/100 ML BAG IV ONE ×2 (08:00→08:39)
[2020-10-23] MEDS: D5 0.45 NS 1,000 ML IV SCH ×3 (08:26→19:01)
[2020-10-23] MEDS: MAGNESIUM OXIDE 400 MG TAB PO SCH ×2 (08:27→20:24)
[2020-10-23] MEDS ORDERED: MAGNESIUM OXIDE 400 MG TAB ONE ×2 (08:38→19:46)
[2020-10-23] MEDS ORDERED: levETIRAcetam 500 MG TAB ONE ×2 (08:40→19:47)
[2020-10-23] MEDS ORDERED: D5 0.45 NS 1,000 ML IV ONE ×2 (08:40→19:17)
[2020-10-23] MEDS ORDERED: HOME MED 1 EA UNK (Escitalopram Oxalate [Escitalopram Oxalate] 10 MG Tablet) PO SCH (09:00)
[2020-10-23] MEDS ORDERED: HOME MED 1 EA UNK (Gabapentin [Gabapentin] 600 MG Tablet) PO SCH (09:00)
[2020-10-23] MEDS ORDERED: LEVETIRACETAM 1000 MG PO SCH (09:00)
[2020-10-23] MEDS ORDERED: HOME MED 1 EA UNK (Insulin Glargine,Hum.Rec.Anlog [Basaglar Kwikpen U-100] 100 UNIT/ML Ins SQ SCH (09:00)
[2020-10-23] MEDS ORDERED: lisinopriL 20 MG TAB PO SCH ×2 (09:00→15:43)
[2020-10-23] MEDS ORDERED: CLONIDINE 0.2 MG/PATCH TD SCH (09:00)
[2020-10-23] MEDS ORDERED: METOPROLOL TAR 50 MG TAB PO SCH (09:00)
[2020-10-23] MEDS ORDERED: AMLODIPINE 10 MG TAB PO SCH (09:00)
[2020-10-23] MEDS ORDERED: levETIRAcetam 500 MG TAB PO SCH (09:00)
[2020-10-23] MEDS: APIXABAN 2.5 MG TABLET PO SCH (09:00)
[2020-10-23] MEDS: FAMOTIDINE 20 MG TAB PO SCH (09:33)
[2020-10-23] MEDS: HYDRALAZINE HCL 20 MG/ML VIAL IV PRN ×2 (09:33→17:49)
[2020-10-23] MEDS: GABAPENTIN 300 MG CAP PO SCH ×3 (09:33→20:24)
[2020-10-23] MEDS ORDERED: AMLODIPINE 10 MG TAB ONE (09:42)
[2020-10-23] MEDS ORDERED: APIXABAN 5 MG TABLET ONE (09:42)
[2020-10-23] MEDS ORDERED: METOPROLOL TAR 50 MG TAB ONE ×2 (09:42→19:46)
[2020-10-23] MEDS ORDERED: GABAPENTIN 300 MG CAP ONE ×3 (09:43→19:46)
[2020-10-23] MEDS ORDERED: lisinopriL 20 MG TAB ONE (09:43)
[2020-10-23] MEDS ORDERED: FAMOTIDINE 20 MG TAB ONE (09:43)
[2020-10-23] MEDS ORDERED: HYDRALAZINE HCL 20 MG/ML VIAL ONE ×2 (09:48→18:01)
[2020-10-23] MEDS: ESCITALOPRAM 20 MG TAB PO SCH (10:18)
[2020-10-23] MEDS: EZETIMIBE 10 MG TAB PO SCH (10:18)
[2020-10-23] MEDS: PRIMIDONE 50 MG TAB PO SCH ×3 (10:19→20:24)
[2020-10-23] MEDS ORDERED: INSULIN GLARGINE 100 UNITS/ML SQ ONE (10:46)
[2020-10-23] MEDS ORDERED: ALBUTEROL 2.5 MG/3 ML NEB SOL NEB PRN (11:00)
[2020-10-23] MEDS: INSULIN GLARGINE 100 UNITS/ML SQ SCH ×2 (11:18→21:40)
--- NOTE | 2020-10-23 12:14 | P.HP ---
Certification for Inpatient Patient admitted to: Inpatient With expected LOS: >2 Midnights Practitioner: I am a practitioner with admitting privileges, knowledge of patient current condition, hospital course, and medical plan of care. 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 PER HIS HE IS NOT COMPLIANT FOR MEDS. HE ALSO QUIT HIS KEPPRA ABOUT 2 WEEKS AGO. HE WAS ON KEPPRA FOR ATYPICAL SEIZURES. I SAW HIM THIS AM AND HE WAS JUST GIVEN HALDOL SO HE WAS NOT ABLE TO WAKE UP. I CALLED ABOUT 11 AN NURSES TOLD ME THAT HE IS AWAKE, ABLE TO COMMUNICATE AND EAT. Allergies No Known Allergies Allergy (Verified 10/23/20 11:35) Home medications list reviewed: Yes Home Medications: Amlodipine [Norvasc*] 10 mg PO DAILY 10/23/20 Apixaban [Eliquis *] 2.5 mg PO DAILY 10/23/20 Escitalopram Oxalate 10 mg PO DAILY 10/23/20 Ezetimibe [Zetia*] 10 mg PO DAILY 10/23/20 Famotidine [Pepcid*] 20 mg PO DAILY 10/23/20 Gabapentin 600 mg PO TID 10/23/20 Insulin Glargine,Hum.rec.anlog [Basaglar Kwikpen U-100] 15 units SQ BID 10/23/20 Lisinopril [Zestril] 20 mg PO DAILY 10/23/20 Metoprolol Tartrate 50 mg PO BID 10/23/20 Primidone 50 mg PO TID 10/23/20 Tamsulosin [Flomax*] 0.4 mg PO DAILY 10/23/20 levETIRAcetam [Levetiracetam] 1,000 mg PO BID 10/23/20 - Past Medical/Surgical History Diabetic: Yes -: HTN -: GERD -: Diabetes mellitus -: Left foot drop -: Osteomyelitis -: PE -: Nueropathy -: diabetic foot right -: Appendectomy -: back surgery -: colon resection -: right hip replacement Psychosocial/ Personal History: Lives at home - Family History Family History: Reviewed- Non-Contributory - Family History Mother -: Hypertension, Diabetes, Stroke, Cancer Father -: Diabetes - Social History Smoking Status: Unknown if ever smoked Alcohol use: Yes CD- Drugs: No Caffeine use: Yes Place of Residence: Home Review of Systems is unable to be obtained Physical Examination - Vital Signs Temperature: 98 F Blood Pressure: 122/78 Pulse: 64 Respirations: 16 Pulse Ox (%): 96 - Physical Exam General: Unresponsive (FROM HALDOL) HEENT: Atraumatic, PERRLA, Mucous membr. moist/pink, EOMI, Sclerae nonicteric Neck: Supple, 2+ carotid pulse no bruit, No LAD, Without JVD or thyroid abnormality Respiratory: Clear to auscultation bilaterally, Normal air movement Cardiovascular: Regular rate/rhythm, Normal S1 S2 Gastrointestinal: Normal bowel sounds, No tenderness Musculoskeletal: No tenderness Integumentary: No rashes Lymphatics: No axilla or inguinal lymphadenopathy - Studies Laboratory Data (last 24 hrs) 10/22/20 21:11: Phosphorus 4.1 10/22/20 20:56: PT 13.5 H, INR 1.17 10/22/20 20:56: WBC 8.80, Hgb 15.5, Hct 44.9, Plt Count 205 10/22/20 20:56: Sodium 135 L, Potassium 4.0, BUN 20 H, Creatinine 1.17, Glucose 143 H, Magnesium 1.3 L*, Total Bilirubin 0.5, AST 27, ALT 48, Alkaline Phosphatase 98 Assessment and Plan - Problems (Diagnosis) (1) Atypical seizure Current Visit: Yes Status: Acute Plan: I THINK THIS IS WHY HE WAS DISORIENTED. HE GETS SEIZURES WITHOUT TONIC CLONIC MOVEMENTS. HE WAS ON KEPPRA AND REFUSED TO TAKE FOR TWO WEEKS. IS GETTING VERY TIRED. I SUSPECT AT THIS POINT FOR DON WHO IS A CRIPPLED DIABETIC FROM SEVERE NEUROPATHY NEEDS ASSISTED LIVING. HE FALLS AT HOME AND BEING A BIG MAN CAN'T HANDLE HIM. (2) Uncontrolled hypertension Current Visit: Yes Status: Chronic Plan: HE HAS LOW BP AT TIMES FROM DIABETIC NEUROPATHY AND HE TENDS TO REFUSE TO TAKE MEDS ON ROUTINE BASIS. THIS ISSUE OF HYPOTENSION WITH HYPERTENSION AT TIMES IS DIFFICULT TO CONTROL. (3) Diabetes mellitus Onset Date: 07/17/16 Current Visit: No Status: Chronic Plan: CHECK A1C , LDL. PROGNOSIS IS OVERALL POOR. Qualifiers: Diabetes mellitus type: type 2 Diabetes mellitus meterman insulin use: without meterman use Diabetes mellitus complication status: without complication Qualified Code(s): E11.9 - Type 2 diabetes mellitus without complications - Advance Directives Does patient have a Living Will: No Does patient have a Durable POA for Healthcare: No
[2020-10-23] MEDS ORDERED: POLYETHYL GLY 3350 17 GM/DOSE PO PRN (13:59)
[2020-10-23] MEDS ORDERED: GLYCERIN ADULT SUPP PR PRN (14:00)
[2020-10-23] MEDS ORDERED: GLYCERIN PEDI RECTAL SUPP PR ONE (14:17)
--- NOTE | 2020-10-23 15:19 | RAD REPORT ---
EXAM DESCRIPTION: CT - Ct Stroke Brain Wo Cont - 10/23/2020 3:11 pm CLINICAL HISTORY: R/O CVA, slurred speech, altered mental status COMPARISON: Ct Stroke Brain Wo Cont dated 10/22/2020 TECHNIQUE: Axial 5 millimeter thick images of the head were obtained without IV contrast. All CT scans are performed using dose optimization technique as appropriate and may include automated exposure control or mA/KV adjustment according to patient size. FINDINGS: No intracranial hemorrhage, mass, or cerebral edema. No acute cortical based infarction id entified. No cortical edema or sulcal effacement. Patient has prominent chronic ischemic change throu ghout the cerebral white matter greater than typically seen for age. Medial left occipital lobe appea rs more hypodense than the right. No history indicating visual deficit. Appearance is not substantial ly different from prior imaging. No extra-axial fluid collections. Ballard matter-white matter differen tiation is preserved.Ventricles are in proportion to the atrophy. Visualized portions of the mastoid air cells, paranasal sinuses, and orbits are unremarkable. Findings telephoned to Dr. Cerda 3:07 p.m. IMPRESSION: No intracranial hemorrhage present. No acute cortical based infarction identified. Atrophy and chronic ischemic changes match the prior day study.
[2020-10-23] MEDS: METOPROLOL TAR 50 MG TAB PO SCH (20:23)
[2020-10-23] MEDS: levETIRAcetam 500 MG TAB PO SCH (20:25)
[2020-10-23] MEDS: ACETAMINOPHEN 500 MG TAB PO PRN (21:39)
[2020-10-23] MEDS ORDERED: ACETAMINOPHEN 500 MG TAB ONE (21:48)
[2020-10-24] MEDS: IPRATROPIUM BROM 0.5MG/2.5ML NEB SCH ×2 (04:00→08:00)
[2020-10-24 05:56] LABS: Magnesium 2.1 mg/dL (1.8-2.4)
[2020-10-24] MEDS: INSULIN -REGULAR HUMAN 50 UNIT/0.5 ML ML SQ SCH ×4 (07:30→20:49)
[2020-10-24] MEDS ORDERED: METOPROLOL TAR 50 MG TAB ONE (08:14)
[2020-10-24] MEDS ORDERED: MAGNESIUM OXIDE 400 MG TAB ONE (08:14)
[2020-10-24] MEDS ORDERED: GABAPENTIN 300 MG CAP ONE (08:15)
[2020-10-24] MEDS ORDERED: lisinopriL 20 MG TAB ONE (08:15)
[2020-10-24] MEDS: GABAPENTIN 300 MG CAP PO SCH ×3 (08:15→20:47)
[2020-10-24] MEDS ORDERED: APIXABAN 5 MG TABLET ONE (08:15)
[2020-10-24] MEDS ORDERED: levETIRAcetam 500 MG TAB ONE (08:15)
[2020-10-24] MEDS ORDERED: AMLODIPINE 5 MG TAB ONE (08:15)
[2020-10-24] MEDS: ESCITALOPRAM 20 MG TAB PO SCH (08:16)
[2020-10-24] MEDS ORDERED: FAMOTIDINE 20 MG TAB ONE (08:16)
[2020-10-24] MEDS: FAMOTIDINE 20 MG TAB PO SCH (08:16)
[2020-10-24] MEDS: levETIRAcetam 500 MG TAB PO SCH ×2 (08:16→20:47)
[2020-10-24] MEDS: MAGNESIUM OXIDE 400 MG TAB PO SCH ×2 (08:16→20:48)
[2020-10-24] MEDS: APIXABAN 2.5 MG TABLET PO SCH (08:17)
[2020-10-24] MEDS: METOPROLOL TAR 50 MG TAB PO SCH (09:00)
[2020-10-24] MEDS: PRIMIDONE 50 MG TAB PO SCH ×3 (09:00→20:48)
[2020-10-24] MEDS ORDERED: AMLODIPINE 5 MG TAB PO SCH (09:00)
[2020-10-24] MEDS: INSULIN GLARGINE 100 UNITS/ML SQ SCH ×3 (09:00→20:48)
[2020-10-24] MEDS ORDERED: AMLODIPINE 10 MG TAB PO SCH (09:00)
[2020-10-24] MEDS: D5 0.45 NS 1,000 ML IV SCH ×2 (09:15→13:18)
[2020-10-24] MEDS: EZETIMIBE 10 MG TAB PO SCH (09:40)
[2020-10-24] MEDS: NICOTINE 14 MG/PAT TD SCH (09:40)
[2020-10-24] MEDS ORDERED: NA CHLORIDE 0.9% 1,000 ML IV SCH (10:00)
[2020-10-24] MEDS ORDERED: INSULIN GLARGINE 100 UNITS/ML SQ ONE (10:02)
--- NOTE | 2020-10-24 19:52 | P.PN ---
Subjective Date of Service: 10/24/20 Chief Complaint: LAST PM BP DROPPED WHEN HE SAT UP ON COMMODE MR. BEAVERS HAS SEVERE DIABETIC NEUROPATHY INCLUDING AUTONOMIC NEUROPATHY. THIS IS WHY HE GETS LOW BP WITH STANDING UP. HE HAD THE SAME YEST PM AND STAFF THOUGHT HE HAD STROKE HE BECAME DISORIENTED. CT BRAIN WAS DONE AGAIN THAT WAS NEGATIVE FOR ANY CHANGES. THIS AM HE IS BACK TO HIS BASELINE, HE WANTS TOBACCO AND ASKS HOW WE CAN FIX THE BP ISSUE. I TOLD HIM THAT TO GET BALANCE BETWEEN HIS SEVERE HIGH BP AND DROP IN BP WHEN HE STANDS UP IS GOING TO BE VERY DIFFICULT. I WOULD RATHER HAVE HIS BP AROUND 150 SYSTOLIC SO WHEN HE STANDS IT DOES NOT DROP BELOW 90 OR SO AND SO HE DOES NOT PASS OUT. HIS BP HAS GONE HIGH HAS 200 SYSTOLIC. Review of Systems 10-point ROS is otherwise unremarkable General: Weakness Physical Examination - Vital Signs Temperature: 97.5 F Blood Pressure: 119/82 Pulse: 68 Respirations: 18 Pulse Ox (%): 93 - Physical Exam General: Oriented x3, Mild distress HEENT: Atraumatic, PERRLA, EOMI Neck: Supple, JVD not distended Respiratory: Clear to auscultation bilaterally, Normal air movement Cardiovascular: Regular rate/rhythm, Normal S1 S2 Gastrointestinal: Normal bowel sounds, No tenderness Musculoskeletal: No tenderness Integumentary: No rashes Neurological: Normal speech, Normal tone, Normal affect Lymphatics: No axilla or inguinal lymphadenopathy - Studies Medications List Reviewed: Yes Assessment And Plan - Current Problems (Diagnosis) (1) Atypical seizure Current Visit: Yes Status: Acute Plan: I THINK THIS IS WHY HE WAS DISORIENTED. HE GETS SEIZURES WITHOUT TONIC CLONIC MOVEMENTS. HE WAS ON KEPPRA AND REFUSED TO TAKE FOR TWO WEEKS. IS GETTING VERY TIRED. I SUSPECT AT THIS POINT FOR DON WHO IS A CRIPPLED DIABETIC FROM SEVERE NEUROPATHY NEEDS ASSISTED LIVING. HE FALLS AT HOME AND BEING A BIG MAN CAN'T HANDLE HIM. THIS CAN BE JUST SYMPTOM OF ORTHOSTASIS. DR. CUETO HAS BEEN CONSULTED. (2) Uncontrolled hypertension Current Visit: Yes Status: Chronic Plan: HE HAS LOW BP AT TIMES FROM DIABETIC NEUROPATHY AND HE TENDS TO REFUSE TO TAKE MEDS ON ROUTINE BASIS. THIS ISSUE OF HYPOTENSION WITH HYPERTENSION AT TIMES IS DIFFICULT TO CONTROL. (3) Diabetes mellitus Onset Date: 07/17/16 Current Visit: No Status: Chronic Plan: CHECK A1C , LDL. PROGNOSIS IS OVERALL POOR. Qualifiers: Diabetes mellitus type: type 2 Diabetes mellitus rn long term care insulin use: without rn long term care use Diabetes mellitus complication status: without complication Qualified Code(s): E11.9 - Type 2 diabetes mellitus without complications (4) Orthostatic hypotension Current Visit: Yes Status: Acute Plan: ABOVE I WOULD LIKE TO BALANCE BETWEEN TWO OPPOSING ISSUES. (5) Diabetic autonomic neuropathy Current Visit: Yes Status: Chronic Plan: INCURABLE SITUATION. Qualifiers: Diabetes mellitus type: type 2 Qualified Code(s): E11.43 - Type 2 diabetes mellitus with diabetic autonomic (poly)neuropathy
[2020-10-24] MEDS: METOPROLOL TAR 25 MG TAB PO SCH (20:48)
[2020-10-24 21:15] LABS: Thyroid Stimulating Hormone 1.62 uIU/mL (0.360-3.740)
[2020-10-24] MEDS: ACETAMINOPHEN 500 MG TAB PO PRN (22:01)
[2020-10-25] MEDS: D5 0.45 NS 1,000 ML IV SCH ×2 (05:12→23:18)
[2020-10-25] MEDS: INSULIN -REGULAR HUMAN 50 UNIT/0.5 ML ML SQ SCH ×4 (07:30→21:00)
[2020-10-25] MEDS: METOPROLOL TAR 25 MG TAB PO SCH ×2 (09:00→21:03)
[2020-10-25] MEDS: INSULIN GLARGINE 100 UNITS/ML SQ SCH ×2 (09:00→21:00)
[2020-10-25] MEDS: MAGNESIUM OXIDE 400 MG TAB PO SCH ×2 (09:00→21:00)
[2020-10-25] MEDS: EZETIMIBE 10 MG TAB PO SCH (09:00)
[2020-10-25] MEDS: PRIMIDONE 50 MG TAB PO SCH ×3 (10:47→21:03)
[2020-10-25] MEDS: GABAPENTIN 300 MG CAP PO SCH ×3 (10:48→21:03)
[2020-10-25] MEDS: APIXABAN 2.5 MG TABLET PO SCH (10:48)
[2020-10-25] MEDS: FAMOTIDINE 20 MG TAB PO SCH (10:49)
[2020-10-25] MEDS: QUETIAPINE 25 MG TAB PO SCH ×2 (10:49→21:00)
[2020-10-25] MEDS: levETIRAcetam 500 MG TAB PO SCH ×2 (10:49→21:03)
[2020-10-25] MEDS: ESCITALOPRAM 20 MG TAB PO SCH (10:50)
[2020-10-25] MEDS: NICOTINE 14 MG/PAT TD SCH (10:51)
[2020-10-25] MEDS ORDERED: WATER FOR INJ,STERILE 10 ML IM PRN (19:24)
--- NOTE | 2020-10-25 20:53 | P.PN ---
Subjective Date of Service: 10/25/20 Chief Complaint: AGITATION TODAY Subjective: Worsening MR. BEAVERS HAS SEVERE DIABETIC NEUROPATHY INCLUDING AUTONOMIC NEUROPATHY. THIS IS WHY HE GETS LOW BP WITH STANDING UP. HE HAD THE SAME YEST PM AND STAFF THOUGHT HE HAD STROKE HE BECAME DISORIENTED. CT BRAIN WAS DONE AGAIN THAT WAS NEGATIVE FOR ANY CHANGES. THIS AM HE IS BACK TO HIS BASELINE, HE WANTS TOBACCO AND ASKS HOW WE CAN FIX THE BP ISSUE. I TOLD HIM THAT TO GET BALANCE BETWEEN HIS SEVERE HIGH BP AND DROP IN BP WHEN HE STANDS UP IS GOING TO BE VERY DIFFICULT. I WOULD RATHER HAVE HIS BP AROUND 150 SYSTOLIC SO WHEN HE STANDS IT DOES NOT DROP BELOW 90 OR SO AND SO HE DOES NOT PASS OUT. HIS BP HAS GONE HIGH HAS 200 SYSTOLIC. RUTHANN DUKE HAS SOME CONFUSION AND DISORIENTATION. HE IS AGITATED AND AGGRESSIVE TOWARDS SITTERS. I ASKED NURSE TO PUT IN CHEST YESIKA. Review of Systems 10-point ROS is otherwise unremarkable General: Weakness Physical Examination - Vital Signs Temperature: 97.7 F Blood Pressure: 155/99 Pulse: 105 Respirations: 16 Pulse Ox (%): 96 - Physical Exam General: Alert, Mild distress HEENT: Atraumatic, PERRLA, EOMI Neck: Supple, JVD not distended Respiratory: Clear to auscultation bilaterally, Normal air movement Cardiovascular: Regular rate/rhythm, Normal S1 S2 Gastrointestinal: Normal bowel sounds, No tenderness Musculoskeletal: No tenderness Integumentary: No rashes Neurological: Normal speech, Abnormal strength (WASTED DISTAL MUSCLES.), Abnormal sensation, Abnormal reflexes Lymphatics: No axilla or inguinal lymphadenopathy - Studies Medications List Reviewed: Yes Assessment And Plan - Current Problems (Diagnosis) (1) Atypical seizure Current Visit: Yes Status: Acute Plan: I THINK THIS IS WHY HE WAS DISORIENTED. HE GETS SEIZURES WITHOUT TONIC CLONIC MOVEMENTS. HE WAS ON KEPPRA AND REFUSED TO TAKE FOR TWO WEEKS. IS GETTING VERY TIRED. I SUSPECT AT THIS POINT FOR DON WHO IS A CRIPPLED DIABETIC FROM SEVERE NEUROPATHY NEEDS ASSISTED LIVING. HE FALLS AT HOME AND BEING A BIG MAN CAN'T HANDLE HIM. THIS CAN BE JUST SYMPTOM OF ORTHOSTASIS. DR. CUETO HAS BEEN CONSULTED. (2) Uncontrolled hypertension Current Visit: Yes Status: Chronic Plan: HE HAS LOW BP AT TIMES FROM DIABETIC NEUROPATHY AND HE TENDS TO REFUSE TO TAKE MEDS ON ROUTINE BASIS. THIS ISSUE OF HYPOTENSION WITH HYPERTENSION AT TIMES IS DIFFICULT TO CONTROL. (3) Diabetes mellitus Onset Date: 07/17/16 Current Visit: No Status: Chronic Plan: CHECK A1C , LDL. PROGNOSIS IS OVERALL POOR. Qualifiers: Diabetes mellitus type: type 2 Diabetes mellitus longterm insulin use: without hydro plant technician use Diabetes mellitus complication status: without complication Qualified Code(s): E11.9 - Type 2 diabetes mellitus without complications (4) Orthostatic hypotension Current Visit: Yes Status: Acute Plan: ABOVE I WOULD LIKE TO BALANCE BETWEEN TWO OPPOSING ISSUES. (5) Diabetic autonomic neuropathy Current Visit: Yes Status: Chronic Plan: INCURABLE SITUATION. Qualifiers: Diabetes mellitus type: type 2 Qualified Code(s): E11.43 - Type 2 diabetes mellitus with diabetic autonomic (poly)neuropathy (6) Altered mental status Current Visit: Yes Status: Acute Plan: WILL ORDER MRI BRAIN NO CONTRAST IN AM. IF HE IS ABLE TO DO IT.
[2020-10-25] MEDS: ZIPRASIDONE MESYLA 20 MG/VIAL IM PRN (21:03)
[2020-10-26] MEDS: INSULIN -REGULAR HUMAN 50 UNIT/0.5 ML ML SQ SCH ×4 (07:30→21:00)
[2020-10-26] MEDS: METOPROLOL TAR 25 MG TAB PO SCH ×2 (09:00→21:00)
[2020-10-26] MEDS: MAGNESIUM OXIDE 400 MG TAB PO SCH ×2 (09:00→21:00)
[2020-10-26] MEDS: INSULIN GLARGINE 100 UNITS/ML SQ SCH ×2 (09:00→21:00)
[2020-10-26] MEDS: NICOTINE 14 MG/PAT TD SCH (09:58)
[2020-10-26] MEDS: levETIRAcetam 500 MG TAB PO SCH ×2 (09:59→21:32)
[2020-10-26] MEDS: QUETIAPINE 25 MG TAB PO SCH ×2 (09:59→21:34)
[2020-10-26] MEDS: GABAPENTIN 300 MG CAP PO SCH ×3 (10:00→21:32)
[2020-10-26] MEDS: APIXABAN 2.5 MG TABLET PO SCH (10:00)
[2020-10-26] MEDS: FAMOTIDINE 20 MG TAB PO SCH (10:00)
[2020-10-26] MEDS: PRIMIDONE 50 MG TAB PO SCH ×3 (10:00→21:32)
[2020-10-26] MEDS: ESCITALOPRAM 20 MG TAB PO SCH (10:00)
[2020-10-26] MEDS: EZETIMIBE 10 MG TAB PO SCH (10:05)
[2020-10-26] MEDS: ZIPRASIDONE MESYLA 20 MG/VIAL IM PRN ×2 (10:11→21:34)
[2020-10-26] MEDS: D5 0.45 NS 1,000 ML IV SCH (11:36)
[2020-10-26] MEDS ORDERED: LORazepam 2 MG/ML VIAL IV ONE (11:43)
--- NOTE | 2020-10-26 14:58 | RAD REPORT ---
EXAM DESCRIPTION: MRI - Brain Wo Cont - 10/26/2020 2:34 pm CLINICAL HISTORY: ALTERED MENTAL STATUS COMPARISON: Ct Stroke Brain Wo Cont dated 10/23/2020 TECHNIQUE: Sagittal T1-weighted images were obtained along with axial PD, heavily T2-weighted and T2 -FLAIR images. Axial DWI and ADC mapping sequences were also obtained along with coronal heavily T2-w eighted images. FINDINGS: No intracranial hemorrhage, mass or acute infarction. There is no edema or shift of midlin e structures. No extra-axial fluid collections. Ballard-matter/white matter junction is preserved. Signa l voids are seen as a normal finding in the major intracranial vessels. Atrophy changes are mild but slightly greater than typically seen at this age. Mild chronic ischemic change seen in the cerebral hemisphere white matter. Ventricles are in proportion to volume loss. Mastoid air cells and paranasal sinuses are clear. Exam has substantial motion degradation limitation. IMPRESSION: No acute infarction. No hemorrhage, mass or acute intracranial finding. Mild atrophy and chronic ischemic change.
--- NOTE | 2020-10-26 17:57 | PN ---
Subjective: Mr. Davenport is awake, but he is quite agitated at times, belligerent, and abusive to the pe ople around him. He denies any chest pain, nausea, or vomiting. Objective: Vital Signs: Blood pressure 124/91, pulse 84, temperature 96.8. HEENT: No JVD. No carotid bruits. Chest: Clear. Neurological: He has bilateral wasting of his muscles from severe neuropathy on each side. Not able to ambulate much. He does have a severe autonomic neuropathy also giving rise to hypotension when h e stands up. Assessment And Plan: 1.Severe diabetic neuropathy. As described above he is not able to live alone. He is a tall man wi th worsening dementia also which is from diabetes mellitus, having it for multiple years and needs [facility] home placement. Family has talked to [facility] or [facility]. The patient will be transferred when approved by insurance company or on a long-term basis. 2.Diabetes mellitus. A1c has been done, stayed about 8. 3.Orthostatic hypotension. I have decided to keep blood pressure at a higher level at this point, s o if he drops it does not drop too low to make him pass out. Continue occupational physical therapy. JUN/MODL Voice ID: [id number] Report ID: [id number]
[2020-10-27] MEDS: INSULIN -REGULAR HUMAN 50 UNIT/0.5 ML ML SQ SCH ×4 (07:30→20:56)
[2020-10-27] MEDS: INSULIN GLARGINE 100 UNITS/ML SQ SCH ×2 (08:31→20:54)
[2020-10-27] MEDS: ESCITALOPRAM 20 MG TAB PO SCH (08:32)
[2020-10-27] MEDS: levETIRAcetam 500 MG TAB PO SCH ×2 (08:32→20:53)
[2020-10-27] MEDS: APIXABAN 2.5 MG TABLET PO SCH (08:32)
[2020-10-27] MEDS: EZETIMIBE 10 MG TAB PO SCH (08:33)
[2020-10-27] MEDS: METOPROLOL TAR 25 MG TAB PO SCH ×2 (08:33→20:52)
[2020-10-27] MEDS: QUETIAPINE 25 MG TAB PO SCH ×2 (08:33→20:52)
[2020-10-27] MEDS: MAGNESIUM OXIDE 400 MG TAB PO SCH ×2 (08:33→20:54)
[2020-10-27] MEDS: FAMOTIDINE 20 MG TAB PO SCH (08:33)
[2020-10-27] MEDS: PRIMIDONE 50 MG TAB PO SCH ×3 (08:34→20:54)
[2020-10-27] MEDS: NICOTINE 14 MG/PAT TD SCH (08:34)
[2020-10-27] MEDS: GABAPENTIN 300 MG CAP PO SCH ×3 (08:34→20:53)
[2020-10-27] MEDS: D5 0.45 NS 1,000 ML IV SCH (08:35)
--- NOTE | 2020-10-27 21:38 | P.PN ---
Subjective Date of Service: 10/27/20 Chief Complaint: IMPROVED IN ATTITUDE Subjective: Improving MR. BEAVERS HAS SEVERE DIABETIC NEUROPATHY INCLUDING AUTONOMIC NEUROPATHY. THIS IS WHY HE GETS LOW BP WITH STANDING UP. HE HAD THE SAME YEST PM AND STAFF THOUGHT HE HAD STROKE HE BECAME DISORIENTED. CT BRAIN WAS DONE AGAIN THAT WAS NEGATIVE FOR ANY CHANGES. THIS AM HE IS BACK TO HIS BASELINE, HE WANTS TOBACCO AND ASKS HOW WE CAN FIX THE BP ISSUE. I TOLD HIM THAT TO GET BALANCE BETWEEN HIS SEVERE HIGH BP AND DROP IN BP WHEN HE STANDS UP IS GOING TO BE VERY DIFFICULT. I WOULD RATHER HAVE HIS BP AROUND 150 SYSTOLIC SO WHEN HE STANDS IT DOES NOT DROP BELOW 90 OR SO AND SO HE DOES NOT PASS OUT. HIS BP HAS GONE HIGH HAS 200 SYSTOLIC. RUTHANN DUKE HAS SOME CONFUSION AND DISORIENTATION. HE IS AGITATED AND AGGRESSIVE TOWARDS SITTERS. I ASKED NURSE TO PUT IN CHEST YESIKA. HE IS MUCH MORE COOPERATIVE TODAY. IS FEEDING HIM. HE HAS NO CHEST PAIN. Review of Systems 10-point ROS is otherwise unremarkable General: Weakness, Malaise Neurological: As per HPI Physical Examination - Vital Signs Temperature: 99.3 F Blood Pressure: 189/99 Pulse: 79 Respirations: 20 Pulse Ox (%): 96 - Physical Exam General: Oriented x3, Mild distress, Moderate distress Neck: Supple Respiratory: Clear to auscultation bilaterally Cardiovascular: Normal S1 S2 Neurological: Other, Abnormal strength, Abnormal tone (WASTED MUSCLES OF ALL FOUR LIMBS. ) - Studies Medications List Reviewed: Yes Assessment And Plan - Current Problems (Diagnosis) (1) Atypical seizure Current Visit: Yes Status: Acute Plan: I THINK THIS IS WHY HE WAS DISORIENTED. HE GETS SEIZURES WITHOUT TONIC CLONIC MOVEMENTS. HE WAS ON KEPPRA AND REFUSED TO TAKE FOR TWO WEEKS. IS GETTING VERY TIRED. I SUSPECT AT THIS POINT FOR DON WHO IS A CRIPPLED DIABETIC FROM SEVERE NEUROPATHY NEEDS ASSISTED LIVING. HE FALLS AT HOME AND BEING A BIG MAN CAN'T HANDLE HIM. THIS CAN BE JUST SYMPTOM OF ORTHOSTASIS. DR. CUETO HAS BEEN CONSULTED. (2) Uncontrolled hypertension Current Visit: Yes Status: Chronic Plan: HE HAS LOW BP AT TIMES FROM DIABETIC NEUROPATHY AND HE TENDS TO REFUSE TO TAKE MEDS ON ROUTINE BASIS. THIS ISSUE OF HYPOTENSION WITH HYPERTENSION AT TIMES IS DIFFICULT TO CONTROL. I HAVE TO ADD BACK LISINOPRIL. HIS BP IS NEVER WELL CONTROLLED. GOES FROM LOW TO HIGH AND HIGH TO LOW. THIS IS FROM AUTONOMIC DYSFUNCTION. (3) Diabetes mellitus Onset Date: 07/17/16 Current Visit: No Status: Chronic Plan: CHECK A1C , LDL. PROGNOSIS IS OVERALL POOR. Qualifiers: Diabetes mellitus type: type 2 Diabetes mellitus exterminator helper insulin use: without [facility] use Diabetes mellitus complication status: without complication Qualified Code(s): E11.9 - Type 2 diabetes mellitus without complications (4) Orthostatic hypotension Current Visit: Yes Status: Acute Plan: ABOVE I WOULD LIKE TO BALANCE BETWEEN TWO OPPOSING ISSUES. (5) Diabetic autonomic neuropathy Current Visit: Yes Status: Chronic Plan: INCURABLE SITUATION. HEIS NOT ABLE TO WALK WITHOUT FALLING. HE NEEDS TO BE IN NH. Qualifiers: Diabetes mellitus type: type 2 Qualified Code(s): E11.43 - Type 2 diabetes mellitus with diabetic autonomic (poly)neuropathy (6) Altered mental status Current Visit: Yes Status: Acute Plan: WILL ORDER MRI BRAIN NO CONTRAST IN AM. IF HE IS ABLE TO DO IT.
[2020-10-28] MEDS: INSULIN -REGULAR HUMAN 50 UNIT/0.5 ML ML SQ SCH ×4 (07:30→21:00)
[2020-10-28] MEDS: INSULIN GLARGINE 100 UNITS/ML SQ SCH ×2 (09:00→21:05)
[2020-10-28] MEDS: MAGNESIUM OXIDE 400 MG TAB PO SCH ×2 (09:00→20:53)
[2020-10-28] MEDS ORDERED: lisinopriL 20 MG TAB PO SCH (09:00)
[2020-10-28] MEDS: METOPROLOL TAR 25 MG TAB PO SCH ×2 (09:00→20:54)
[2020-10-28] MEDS: GABAPENTIN 300 MG CAP PO SCH ×3 (09:11→20:54)
[2020-10-28] MEDS: APIXABAN 2.5 MG TABLET PO SCH ×2 (09:12→20:53)
[2020-10-28] MEDS: ESCITALOPRAM 20 MG TAB PO SCH (09:12)
[2020-10-28] MEDS: PRIMIDONE 50 MG TAB PO SCH ×3 (09:12→20:53)
[2020-10-28] MEDS: FAMOTIDINE 20 MG TAB PO SCH (09:13)
[2020-10-28] MEDS: EZETIMIBE 10 MG TAB PO SCH (09:13)
[2020-10-28] MEDS: QUETIAPINE 25 MG TAB PO SCH ×2 (09:13→20:54)
[2020-10-28] MEDS: levETIRAcetam 500 MG TAB PO SCH ×2 (09:13→20:54)
[2020-10-28] MEDS: NICOTINE 14 MG/PAT TD SCH (09:13)
[2020-10-28 09:24] LABS: Absolute Lymphocytes (CBC) 2.1 K/uL (0.7-4.9); Basophils % 0.7 % (0-1.3); Hematocrit 44.1 % (39.6-49.0); Lymphocytes % 19.1 % (15.3-44.8); MPV 8.1 fL (7.6-11.3); RBC Red Blood Cell Count 4.91 M/uL (4.33-5.43)
[2020-10-28 10:40] LABS: Potassium 4.1 mmol/L (3.5-5.1)
--- NOTE | 2020-10-28 12:50 | P.PN ---
Subjective Date of Service: 10/28/20 Chief Complaint: IMPROVED IN ATTITUDE Subjective: Improving MR. BEAVERS HAS SEVERE DIABETIC NEUROPATHY INCLUDING AUTONOMIC NEUROPATHY. THIS IS WHY HE GETS LOW BP WITH STANDING UP. HE HAD THE SAME YEST PM AND STAFF THOUGHT HE HAD STROKE HE BECAME DISORIENTED. CT BRAIN WAS DONE AGAIN THAT WAS NEGATIVE FOR ANY CHANGES. THIS AM HE IS BACK TO HIS BASELINE, HE WANTS TOBACCO AND ASKS HOW WE CAN FIX THE BP ISSUE. I TOLD HIM THAT TO GET BALANCE BETWEEN HIS SEVERE HIGH BP AND DROP IN BP WHEN HE STANDS UP IS GOING TO BE VERY DIFFICULT. I WOULD RATHER HAVE HIS BP AROUND 150 SYSTOLIC SO WHEN HE STANDS IT DOES NOT DROP BELOW 90 OR SO AND SO HE DOES NOT PASS OUT. HIS BP HAS GONE HIGH HAS 200 SYSTOLIC. RUTHANN DUKE HAS SOME CONFUSION AND DISORIENTATION. HE IS AGITATED AND AGGRESSIVE TOWARDS SITTERS. I ASKED NURSE TO PUT IN CHEST YESIKA. HE IS MUCH MORE COOPERATIVE TODAY. IS FEEDING HIM. HE HAS NO CHEST PAIN. HE IS STILL WAITING FOR NH Review of Systems 10-point ROS is otherwise unremarkable General: Weakness Physical Examination - Vital Signs Temperature: 96.8 F Blood Pressure: 127/78 Pulse: 58 Respirations: 16 Pulse Ox (%): 96 - Physical Exam General: Oriented x3, Mild distress HEENT: Atraumatic, PERRLA, EOMI Neck: Supple, JVD not distended Respiratory: Clear to auscultation bilaterally, Normal air movement Cardiovascular: Regular rate/rhythm, Normal S1 S2 Gastrointestinal: Normal bowel sounds, No tenderness Musculoskeletal: No tenderness Integumentary: No rashes Neurological: Normal speech, Normal tone, Normal affect, Other, Abnormal tone (WASTED MUSCLES) Lymphatics: No axilla or inguinal lymphadenopathy - Studies Medications List Reviewed: Yes Assessment And Plan - Current Problems (Diagnosis) (1) Atypical seizure Current Visit: Yes Status: Acute Plan: I THINK THIS IS WHY HE WAS DISORIENTED. HE GETS SEIZURES WITHOUT TONIC CLONIC MOVEMENTS. HE WAS ON KEPPRA AND REFUSED TO TAKE FOR TWO WEEKS. IS GETTING VERY TIRED. I SUSPECT AT THIS POINT FOR DON WHO IS A CRIPPLED DIABETIC FROM SEVERE NEUROPATHY NEEDS ASSISTED LIVING. HE FALLS AT HOME AND BEING A BIG MAN CAN'T HANDLE HIM. THIS CAN BE JUST SYMPTOM OF ORTHOSTASIS. DR. CUETO HAS BEEN CONSULTED. (2) Uncontrolled hypertension Current Visit: Yes Status: Chronic Plan: HE HAS LOW BP AT TIMES FROM DIABETIC NEUROPATHY AND HE TENDS TO REFUSE TO TAKE MEDS ON ROUTINE BASIS. THIS ISSUE OF HYPOTENSION WITH HYPERTENSION AT TIMES IS DIFFICULT TO CONTROL. I HAVE TO ADD BACK LISINOPRIL. HIS BP IS NEVER WELL CONTROLLED. GOES FROM LOW TO HIGH AND HIGH TO LOW. THIS IS FROM AUTONOMIC DYSFUNCTION. (3) Diabetes mellitus Onset Date: 07/17/16 Current Visit: No Status: Chronic Plan: CHECK A1C , LDL. PROGNOSIS IS OVERALL POOR. Qualifiers: Diabetes mellitus type: type 2 Diabetes mellitus exterminator helper insulin use: without exterminator helper use Diabetes mellitus complication status: without complication Qualified Code(s): E11.9 - Type 2 diabetes mellitus without complications (4) Orthostatic hypotension Current Visit: Yes Status: Acute Plan: ABOVE I WOULD LIKE TO BALANCE BETWEEN TWO OPPOSING ISSUES. START PT. HE IS NOT DOING YET (5) Diabetic autonomic neuropathy Current Visit: Yes Status: Chronic Plan: INCURABLE SITUATION. HEIS NOT ABLE TO WALK WITHOUT FALLING. HE NEEDS TO BE IN NH. Qualifiers: Diabetes mellitus type: type 2 Qualified Code(s): E11.43 - Type 2 diabetes mellitus with diabetic autonomic (poly)neuropathy (6) Altered mental status Current Visit: Yes Status: Acute Plan: WILL ORDER MRI BRAIN NO CONTRAST IN AM. IF HE IS ABLE TO DO IT.
[2020-10-28] MEDS: HYDRALAZINE HCL 20 MG/ML VIAL IV PRN ×2 (21:09→22:42)
[2020-10-29] MEDS: INSULIN -REGULAR HUMAN 50 UNIT/0.5 ML ML SQ SCH ×5 (07:30→21:00)
[2020-10-29] MEDS: NICOTINE 14 MG/PAT TD SCH (09:00)
[2020-10-29] MEDS: MAGNESIUM OXIDE 400 MG TAB PO SCH ×2 (09:00→21:00)
[2020-10-29] MEDS: INSULIN GLARGINE 100 UNITS/ML SQ SCH ×2 (09:04→21:00)
[2020-10-29] MEDS: levETIRAcetam 500 MG TAB PO SCH ×2 (09:05→21:05)
[2020-10-29] MEDS: METOPROLOL TAR 25 MG TAB PO SCH ×2 (09:05→21:05)
[2020-10-29] MEDS: FAMOTIDINE 20 MG TAB PO SCH (09:06)
[2020-10-29] MEDS: APIXABAN 2.5 MG TABLET PO SCH ×2 (09:06→21:05)
[2020-10-29] MEDS: GABAPENTIN 300 MG CAP PO SCH ×3 (09:06→21:05)
[2020-10-29] MEDS: PRIMIDONE 50 MG TAB PO SCH ×3 (09:08→21:05)
[2020-10-29] MEDS: ESCITALOPRAM 20 MG TAB PO SCH (09:10)
[2020-10-29] MEDS: QUETIAPINE 25 MG TAB PO SCH ×2 (09:10→21:05)
--- NOTE | 2020-10-29 11:21 | RAD REPORT ---
EXAM DESCRIPTION: CT - Abdomen W Contrast CLINICAL HISTORY: abdominal pain, hernia Abdominal pain COMPARISON: CT ABD PELVIS W CONTRAST dated 07/02/2009; Chest For Pe Angio dated 06/18/2020; Ct Strok e Brain Wo Cont dated 06/18/[address] scans are performed using dose optimization technique as appropriate and may includ e automated exposure control or mA/KV adjustment according to patient size. FINDINGS: The lung bases are mildly emphysematous. The liver demonstrates no focal mass or biliary dilatation. The spleen, pancreas, adrenal glands are normal. There is mild dilatation of both proximal ureters as well as partially seen distention in the urinary bladder. No evidence of a bowel obstruction. Moderate fat containing ventral hernia. No significant adenopathy in the abdomen. Hardware is in place in the lumbar spine. IMPRESSION: Mild dilatation of both proximal ureters and partially visualized distended urinary blad misty. Full assessment is not possible as the pelvis was not included on this examination. Bladder outl et obstruction is a possibility. CT pelvis could be performed if further assessment is clinically nee ded.
[2020-10-29] MEDS: AMLODIPINE 2.5 MG TAB PO SCH (12:48)
[2020-10-29] MEDS: EZETIMIBE 10 MG TAB PO SCH (12:49)
[2020-10-29] MEDS: NACHLORIDE 0.45% 1,000 ML IV SCH (12:49)
[2020-10-29] MEDS: ZIPRASIDONE MESYLA 20 MG/VIAL IM PRN (12:49)
--- NOTE | 2020-10-29 13:49 | P.PN ---
Subjective Date of Service: 10/29/20 Chief Complaint: IMPROVED IN ATTITUDE Subjective: Improving MR. BEAVERS HAS SEVERE DIABETIC NEUROPATHY INCLUDING AUTONOMIC NEUROPATHY. THIS IS WHY HE GETS LOW BP WITH STANDING UP. HE HAD THE SAME YEST PM AND STAFF THOUGHT HE HAD STROKE HE BECAME DISORIENTED. CT BRAIN WAS DONE AGAIN THAT WAS NEGATIVE FOR ANY CHANGES. THIS AM HE IS BACK TO HIS BASELINE, HE WANTS TOBACCO AND ASKS HOW WE CAN FIX THE BP ISSUE. I TOLD HIM THAT TO GET BALANCE BETWEEN HIS SEVERE HIGH BP AND DROP IN BP WHEN HE STANDS UP IS GOING TO BE VERY DIFFICULT. I WOULD RATHER HAVE HIS BP AROUND 150 SYSTOLIC SO WHEN HE STANDS IT DOES NOT DROP BELOW 90 OR SO AND SO HE DOES NOT PASS OUT. HIS BP HAS GONE HIGH HAS 200 SYSTOLIC. RUTHANN DUKE HAS SOME CONFUSION AND DISORIENTATION. HE IS AGITATED AND AGGRESSIVE TOWARDS SITTERS. I ASKED NURSE TO PUT IN CHEST YESIKA. HE IS MUCH MORE COOPERATIVE TODAY. IS FEEDING HIM. HE HAS NO CHEST PAIN. HE IS STILL WAITING FOR NH WE ARE STILL WAITING FOR INSURANCE COMPANY FOR APPROVAL. Review of Systems General: Weakness Neurological: As per HPI Physical Examination - Vital Signs Temperature: 96.8 F Blood Pressure: 112/70 Pulse: 69 Respirations: 16 Pulse Ox (%): 98 - Physical Exam General: Oriented x3, Mild distress HEENT: Atraumatic, PERRLA, EOMI Neck: Supple, JVD not distended Respiratory: Clear to auscultation bilaterally, Normal air movement Cardiovascular: Regular rate/rhythm, Normal S1 S2 Gastrointestinal: Normal bowel sounds, No tenderness, Distended (LARGE VENTRAL HERNIA IS MILDLY TENDER AND INCARCERATED.) Musculoskeletal: No tenderness Integumentary: No rashes Neurological: Normal speech, Abnormal strength (WASTED MUSCLES SEVRELY FROM DIABETIC NEUROPATHY.) Lymphatics: No axilla or inguinal lymphadenopathy - Studies Medications List Reviewed: Yes Assessment And Plan - Current Problems (Diagnosis) (1) Atypical seizure Current Visit: Yes Status: Acute Plan: I THINK THIS IS WHY HE WAS DISORIENTED. HE GETS SEIZURES WITHOUT TONIC CLONIC MOVEMENTS. HE WAS ON KEPPRA AND REFUSED TO TAKE FOR TWO WEEKS. IS GETTING VERY TIRED. I SUSPECT AT THIS POINT FOR DON WHO IS A CRIPPLED DIABETIC FROM SEVERE NEUROPATHY NEEDS ASSISTED LIVING. HE FALLS AT HOME AND BEING A BIG MAN CAN'T HANDLE HIM. THIS CAN BE JUST SYMPTOM OF ORTHOSTASIS. DR. CUETO HAS BEEN CONSULTED. (2) Uncontrolled hypertension Current Visit: Yes Status: Chronic Plan: HE HAS LOW BP AT TIMES FROM DIABETIC NEUROPATHY AND HE TENDS TO REFUSE TO TAKE MEDS ON ROUTINE BASIS. THIS ISSUE OF HYPOTENSION WITH HYPERTENSION AT TIMES IS DIFFICULT TO CONTROL. I HAVE TO ADD BACK LISINOPRIL. HIS BP IS NEVER WELL CONTROLLED. GOES FROM LOW TO HIGH AND HIGH TO LOW. THIS IS FROM AUTONOMIC DYSFUNCTION. STOP LISINOPRIL CREATININE IS HIGHER. (3) Diabetes mellitus Onset Date: 07/17/16 Current Visit: No Status: Chronic Plan: CHECK A1C , LDL. PROGNOSIS IS OVERALL POOR. Qualifiers: Diabetes mellitus type: type 2 Diabetes mellitus exterminator insulin use: without retirement use Diabetes mellitus complication status: without complication Qualified Code(s): E11.9 - Type 2 diabetes mellitus without complications (4) Orthostatic hypotension Current Visit: Yes Status: Acute Plan: ABOVE I WOULD LIKE TO BALANCE BETWEEN TWO OPPOSING ISSUES. START PT. HE IS NOT DOING YET (5) Diabetic autonomic neuropathy Current Visit: Yes Status: Chronic Plan: INCURABLE SITUATION. HEIS NOT ABLE TO WALK WITHOUT FALLING. HE NEEDS TO BE IN NH. Qualifiers: Diabetes mellitus type: type 2 Qualified Code(s): E11.43 - Type 2 diabetes mellitus with diabetic autonomic (poly)neuropathy (6) Altered mental status Current Visit: Yes Status: Acute Plan: WILL ORDER MRI BRAIN NO CONTRAST IN AM. IF HE IS ABLE TO DO IT. (7) Ventral hernia Current Visit: Yes Status: Acute Plan: IT IS MILD TENDER. CONSULT SURGEON CT ABDOMEN SHOWS FAT CONTAINING HERNIA (8) Urinary retention Current Visit: Yes Status: Chronic Plan: POSSIBLE FROM DIABETIC AUTONOMIC DYSFUNCTION
--- NOTE | 2020-10-29 15:45 | P.CNS ---
Date of Consult: 10/29/20 PC: I was asked to see this 60-year-old man a regards to some abdominal pain HPC: Patient apparently has been admitted, due to high blood pressure and possible seizures in the past. PMH: Hypertension, diabetes, strokes PSHx: Previous appendectomy, colon resection, back and hip surgery SOC: No known allergies, medications reviewed O/E awake alert comfortable at the moment HEENT: Not jaundiced Chest: Chest movement equal bilaterally ABD: Abdomen is soft, nontender, hernia is reduced LOCO: Intact DATA: Within normal limts IMPRESSION: Nonsurgical abdomen PLAN: This patient, who has been having seizures and trouble getting his blood pressure regulated, was complaints of abdominal pain. I did not see any obvious sources and today that is not an issue for him. Will follow with you over the weekend.
[2020-10-29] MEDS ORDERED: D50W 25 GM/50 ML SYRINGE IV PRN (16:08)
[2020-10-29] MEDS ORDERED: GLUCAGON 1 MG/VIAL IM PRN (16:08)
[2020-10-29] MEDS ORDERED: D50W 50 ML IV ONE (16:31)
[2020-10-29] MEDS ORDERED: D50W 25 GM/50 ML VIAL IV PRN (17:00)
[2020-10-30] MEDS: INSULIN -REGULAR HUMAN 50 UNIT/0.5 ML ML SQ SCH ×7 (07:30→21:00)
[2020-10-30 08:57] LABS: Absolute Lymphocytes (CBC) 1.9 K/uL (0.7-4.9); Basophils % 0.6 % (0-1.3); Hematocrit 47.8 % (39.6-49.0); Lymphocytes % 18.6 % (15.3-44.8); MPV 8.4 fL (7.6-11.3); RBC Red Blood Cell Count 5.29 M/uL (4.33-5.43)
[2020-10-30] MEDS: AMLODIPINE 2.5 MG TAB PO SCH (09:00)
[2020-10-30] MEDS: METOPROLOL TAR 25 MG TAB PO SCH ×2 (09:00→21:38)
[2020-10-30] MEDS: MAGNESIUM OXIDE 400 MG TAB PO SCH ×2 (09:00→21:00)
[2020-10-30] MEDS: EZETIMIBE 10 MG TAB PO SCH (09:00)
[2020-10-30] MEDS: NACHLORIDE 0.45% 1,000 ML IV SCH ×2 (09:34→17:18)
[2020-10-30] MEDS: APIXABAN 2.5 MG TABLET PO SCH ×2 (09:35→21:38)
[2020-10-30] MEDS: NICOTINE 14 MG/PAT TD SCH (09:35)
[2020-10-30] MEDS: FAMOTIDINE 20 MG TAB PO SCH (09:35)
[2020-10-30] MEDS: ESCITALOPRAM 20 MG TAB PO SCH (09:35)
[2020-10-30] MEDS: levETIRAcetam 500 MG TAB PO SCH ×2 (09:36→21:37)
[2020-10-30] MEDS: GABAPENTIN 300 MG CAP PO SCH ×3 (09:36→21:38)
[2020-10-30] MEDS: PRIMIDONE 50 MG TAB PO SCH ×3 (09:36→21:38)
[2020-10-30] MEDS: QUETIAPINE 25 MG TAB PO SCH ×2 (09:36→21:38)
[2020-10-30] MEDS: INSULIN GLARGINE 100 UNITS/ML SQ SCH (09:37)
[2020-10-30 09:47] LABS: Potassium 4.6 mmol/L (3.5-5.1)
[2020-10-30] MEDS ORDERED: NACHLORIDE 0.45% 1,000 ML IV SCH (16:02)
--- NOTE | 2020-10-30 16:09 | P.PN ---
Subjective Date of Service: 10/30/20 Chief Complaint: STABLE, TODAY HE IS ANGRY MR. BEAVERS HAS SEVERE DIABETIC NEUROPATHY INCLUDING AUTONOMIC NEUROPATHY. THIS IS WHY HE GETS LOW BP WITH STANDING UP. HE HAD THE SAME YEST PM AND STAFF THOUGHT HE HAD STROKE HE BECAME DISORIENTED. CT BRAIN WAS DONE AGAIN THAT WAS NEGATI VE FOR ANY CHANGES. THIS AM HE IS BACK TO HIS BASELINE, HE WANTS TOBACCO AND ASKS HOW WE CAN FIX THE BP ISSUE. I TOLD HIM THAT TO GET BALANCE BETWEEN HIS SEVERE HIGH BP AND DROP IN BP WHEN HE STANDS UP IS GOING TO BE VERY DIFFICULT. I WOULD RATHER HAVE HIS BP AROUND 150 SYSTOLIC SO WHEN HE STANDS IT DOES NOT DROP BELOW 90 OR SO AND SO HE DOES NOT PASS OUT. HIS BP HAS GONE HIGH HAS 200 SYSTOLIC. RUTHANN DUKE HAS SOME CONFUSION AND DISORIENTATION. HE IS AGITATED AND AGGRESSIVE TOWARDS SITTERS. I ASKED NURSE TO PUT IN CHEST YESIKA. HE IS MUCH MORE COOPERATIVE TODAY. IS FEEDING HIM. HE HAS NO CHEST PAIN. HE IS STILL WAITING FOR NH WE ARE STILL WAITING FOR INSURANCE COMPANY FOR APPROVAL. NO CHANGES IN SYMPTOMS, ANGRY TODAY. NOT ABLE TO MANAGE FOOD. WITH SEVERE NEUROPATHY HE NEEDS ASSISTANCE IN FEEDING. Physical Examination - Vital Signs Temperature: 97.5 F Blood Pressure: 175/94 Pulse: 67 Respirations: 17 Pulse Ox (%): 98 - Physical Exam General: Alert, Oriented x2, Mild distress HEENT: Normocephalic Neck: Supple, Without JVD or thyroid abnormality Respiratory: Clear to auscultation bilaterally Cardiovascular: Normal S1 S2 Neurological: Normal speech, Other (AGGRESSIVE AND ABUSIVE TODAY. ), Abnormal strength (WASTED MUSCLES GENERALILZED. ) - Studies Medications List Reviewed: Yes Assessment And Plan - Current Problems (Diagnosis) (1) Atypical seizure Current Visit: Yes Status: Acute Plan: I THINK THIS IS WHY HE WAS DISORIENTED. HE GETS SEIZURES WITHOUT TONIC CLONIC MOVEMENTS. HE WAS ON KEPPRA AND REFUSED TO TAKE FOR TWO WEEKS. IS GETTING VERY TIRED. I SUSPECT AT THIS POINT FOR DON WHO IS A CRIPPLED DIABETIC FROM SEVERE NEUROPATHY NEEDS ASSISTED LIVING. HE FALLS AT HOME AND BEING A BIG MAN CAN'T HANDLE HIM. THIS CAN BE JUST SYMPTOM OF ORTHOSTASIS. DR. CUETO HAS BEEN CONSULTED. (2) Uncontrolled hypertension Current Visit: Yes Status: Chronic Plan: HE HAS LOW BP AT TIMES FROM DIABETIC NEUROPATHY AND HE TENDS TO REFUSE TO TAKE MEDS ON ROUTINE BASIS. THIS ISSUE OF HYPOTENSION WITH HYPERTENSION AT TIMES IS DIFFICULT TO CONTROL. I HAVE TO ADD BACK LISINOPRIL. HIS BP IS NEVER WELL CONTROLLED. GOES FROM LOW TO HIGH AND HIGH TO LOW. THIS IS FROM AUTONOMIC DYSFUNCTION. STOP LISINOPRIL CREATININE IS HIGHER. (3) Diabetes mellitus Onset Date: 07/17/16 Current Visit: No Status: Chronic Plan: CHECK A1C , LDL. PROGNOSIS IS OVERALL POOR. Qualifiers: Diabetes mellitus type: type 2 Diabetes mellitus assisted insulin use: without intermediate card tender use Diabetes mellitus complication status: without complication Qualified Code(s): E11.9 - Type 2 diabetes mellitus without complications (4) Orthostatic hypotension Current Visit: Yes Status: Acute Plan: ABOVE I WOULD LIKE TO BALANCE BETWEEN TWO OPPOSING ISSUES. START PT. HE IS NOT DOING YET (5) Diabetic autonomic neuropathy Current Visit: Yes Status: Chronic Plan: INCURABLE SITUATION. HEIS NOT ABLE TO WALK WITHOUT FALLING. HE NEEDS TO BE IN NH. Qualifiers: Diabetes mellitus type: type 2 Qualified Code(s): E11.43 - Type 2 diabetes mellitus with diabetic autonomic (poly)neuropathy (6) Altered mental status Current Visit: Yes Status: Acute Plan: WILL ORDER MRI BRAIN NO CONTRAST IN AM. IF HE IS ABLE TO DO IT. (7) Ventral hernia Current Visit: Yes Status: Acute Plan: IT IS MILD TENDER. CONSULT SURGEON CT ABDOMEN SHOWS FAT CONTAINING HERNIA (8) Urinary retention Current Visit: Yes Status: Chronic Plan: POSSIBLE FROM DIABETIC AUTONOMIC DYSFUNCTION (9) Diabetes mellitus with stage 3 chronic kidney disease Current Visit: Yes Status: Acute Plan: HE HAS DM, CKD ADN WORSE WITH IV DYE. RAISE IV FLUIDS. HE ALSO HAS PVR, RETENTION OF URINE FROM DIABETIC BLADDER.
--- NOTE | 2020-10-30 17:28 | P.CNS ---
Date of Consult: 10/30/20 Reason for Consult: JAZLYN Chief Complaint: STABLE, TODAY HE IS ANGRY History of Present Illness: Pt is a poor hisotrian, Hx obtained from chart A 60 Y/o with HX of DM with neuropathy, HTN , Hx of seizure disorder Pt presemted with seizure cr was <1.0 , on 10/28 Cr up to 1.5 , pt was on GAY on 10/29 pt received iodine contrast , No NSAID exposure Abd CT: : Mild dilatation of both proximal ureters and partially visualized distended urinary bladder Review of Systems: Head and Neck: No red eye. No ear pain. GI: denied nausea or diarrhea. : No polyuria. No dysuria. No hematuria. Bi Report Developer: N/A Respiratory: No shortness of breath. Cardiovascular: denied chest pain or palpitation Endocrine: No polydipsia. Skin: No rash. Neuro: had seziure on admission Musculoskeletal: feeling weak Physical exam general: Awake , alert, NAD , obese Neck; Supple, No elevated JVD hear: RRR, normal S1,2 no murmur or rub Chest: CTAB, no rales or wheezes Abdomen: Soft , Nt Extremities No edema or ulcer skin< facial erythema A/P JAZLYN possible due to obstructive uropathy vs ATN + Contrast associated nephropathy agree with IVF Sousa catheter I/O avoid contrast DM SSI HTN cont current meds Avoid GAY/ARB Seizure disorder cont Keppra Total time spent 65min Allergies No Known Allergies Allergy (Verified 10/23/20 11:35) Home Medications: Amlodipine [Norvasc*] 10 mg PO DAILY 10/23/20 Apixaban [Eliquis *] 2.5 mg PO DAILY 10/23/20 Escitalopram Oxalate 10 mg PO DAILY 10/23/20 Ezetimibe [Zetia*] 10 mg PO DAILY 10/23/20 Famotidine [Pepcid*] 20 mg PO DAILY 10/23/20 Gabapentin 600 mg PO TID 10/23/20 Insulin Glargine,Hum.rec.anlog [Basaglar Kwikpen U-100] 15 units SQ BID 10/23/20 Lisinopril [Zestril] 20 mg PO DAILY 10/23/20 Metoprolol Tartrate 50 mg PO BID 10/23/20 Primidone 50 mg PO TID 10/23/20 Tamsulosin [Flomax*] 0.4 mg PO DAILY 10/23/20 levETIRAcetam [Levetiracetam] 1,000 mg PO BID 10/23/20 - Past Medical/Surgical History Diabetic: Yes -: HTN -: GERD -: Diabetes mellitus -: Left foot drop -: Osteomyelitis -: PE -: Nueropathy -: diabetic foot right -: Appendectomy -: back surgery -: colon resection -: right hip replacement Psychosocial/ Personal History: Lives at home - Family History Mother Medical History: Hypertension, Diabetes, Stroke, Cancer Father Medical History: Diabetes - Social History Smoking Status: Unknown if ever smoked Alcohol use: Yes CD- Drugs: No Caffeine use: Yes Place of Residence: Home Physical Examination Temp Pulse Resp BP Pulse Ox 97.5 F 67 17 175/94 H 98 10/30/20 16:08 10/30/20 16:08 10/30/20 16:08 10/30/20 16:08 10/30/20 16:08
[2020-10-30] MEDS: TAMSULOSIN 0.4 MG SR CAP PO SCH (21:38)
[2020-10-31] MEDS: INSULIN -REGULAR HUMAN 50 UNIT/0.5 ML ML SQ SCH ×8 (07:30→21:00)
--- NOTE | 2020-10-31 08:31 | RAD REPORT ---
EXAM DESCRIPTION: US - Abdomen Exam Complete - 10/30/2020 11:29 pm CLINICAL HISTORY: HYDRONEPHROSIS COMPARISON: Abdomen W Contrast dated 10/29/2020 FINDINGS: Gallbladder is only partially filled. Several small subcentimeter gallstones are present n ear the neck of the gallbladder. No wall thickening or pericholecystic fluid seen. Common bile duct i s normal with no common duct stone identified. Liver shows coarsened, increased echogenicity with poor sonographic penetrance. This is a pattern typ ical for fatty infiltration. Liver was partially obscured by bowel affects and body habitus affects. No focal liver lesions seen and none suspected. There are no focal liver lesions on the prior day CT study. No portal vein abnormality. No focal splenic abnormality is identified. The pancreas is obscured by bowel gas. Prior day CT study showed no pancreatic or peripancreatic abno rmality. Mild dilatation of the left renal pelvis is present matching the prior day CT study. The mild right h ydronephrosis seen on the CT study is not evident on the current examination cortical thickness and e chogenicity of the kidneys normal range. No mass lesions suspected. Aorta and IVC show no significant finding. No ascites or bulky lymphadenopathy. IMPRESSION: Mild hydronephrosis the left kidney matching the prior day CT study. Pain right renal pe lvis does not appear to be distended. No progressive dilatation of either collecting system is presen t. Liver is partially obscured. There is fatty infiltration. No focal liver lesions seen on the ultrasou nd or prior day CT. Cholelithiasis without wall thickening or pericholecystic fluid. No biliary tree dilatation. Pancreas is fully obscured by bowel gas. No pancreatic abnormality seen on the prior day CT study.
[2020-10-31] MEDS: QUETIAPINE 25 MG TAB PO SCH ×2 (08:47→21:08)
[2020-10-31] MEDS: GABAPENTIN 300 MG CAP PO SCH ×3 (08:47→21:08)
[2020-10-31] MEDS: levETIRAcetam 500 MG TAB PO SCH ×2 (08:47→21:08)
[2020-10-31] MEDS: ESCITALOPRAM 20 MG TAB PO SCH (08:48)
[2020-10-31] MEDS: APIXABAN 2.5 MG TABLET PO SCH ×2 (08:48→21:09)
[2020-10-31] MEDS: PRIMIDONE 50 MG TAB PO SCH ×3 (08:49→21:09)
[2020-10-31] MEDS: EZETIMIBE 10 MG TAB PO SCH (08:49)
[2020-10-31] MEDS: MAGNESIUM OXIDE 400 MG TAB PO SCH ×2 (08:49→21:00)
[2020-10-31] MEDS: NICOTINE 14 MG/PAT TD SCH (08:50)
[2020-10-31] MEDS: METOPROLOL TAR 25 MG TAB PO SCH ×2 (08:51→17:20)
[2020-10-31] MEDS: INSULIN GLARGINE 100 UNITS/ML SQ SCH (08:51)
[2020-10-31] MEDS: AMLODIPINE 5 MG TAB PO SCH (08:52)
[2020-10-31] MEDS: FAMOTIDINE 20 MG TAB PO SCH (08:54)
[2020-10-31 09:08] LABS: Basophils % 0.7 % (0-1.3); Hematocrit 37.6 % (39.6-49.0); Lymphocytes % 23.4 % (15.3-44.8); MPV 8.5 fL (7.6-11.3); RBC Red Blood Cell Count 4.24 M/uL (4.33-5.43)
[2020-10-31 10:09] LABS: Potassium 4.3 mmol/L (3.5-5.1)
--- NOTE | 2020-10-31 11:08 | P.PN ---
Subjective Date of Service: 10/31/20 Chief Complaint: STABLE, TODAY HE IS ANGRY Subjective: Improving MR. BEAVERS HAS SEVERE DIABETIC NEUROPATHY INCLUDING AUTONOMIC NEUROPATHY. THIS IS WHY HE GETS LOW BP WITH STANDING UP. HE HAD THE SAME YEST PM AND STAFF THOUGHT HE HAD STROKE HE BECAME DISORIENTED. CT BRAIN WAS DONE AGAIN THAT WAS NEGATIVE FOR ANY CHANGES. THIS AM HE IS BACK TO HIS BASELINE, HE WANTS TOBACCO AND ASKS HOW WE CAN FIX THE BP ISSUE. I TOLD HIM THAT TO GET BALANCE BETWEEN H IS SEVERE HIGH BP AND DROP IN BP WHEN HE STANDS UP IS GOING TO BE VERY DIFFICULT. I WOULD RATHER HAVE HIS BP AROUND 150 SYSTOLIC SO WHEN HE STANDS IT DOES NOT DROP BELOW 90 OR SO AND SO HE DOES NOT PASS OUT. HIS BP HAS GONE HIGH HAS 200 SYSTOLIC. RUTHANN DUKE HAS SOME CONFUSION AND DISORIENTATION. HE IS AGITATED AND AGGRESSIVE TOWARDS SITTERS. I ASKED NURSE TO PUT IN CHEST YESIKA. HE IS MUCH MORE COOPERATIVE TODAY. IS FEEDING HIM. HE HAS NO CHEST PAIN. HE IS STILL WAITING FOR NH WE ARE STILL WAITING FOR INSURANCE COMPANY FOR APPROVAL. NO CHANGES IN SYMPTOMS, ANGRY TODAY. NOT ABLE TO MANAGE FOOD. WITH SEVERE NEUROPATHY HE NEEDS ASSISTANCE IN FEEDING. HE IS LOT BETTER TODAY. HE IS NOT ANGRY. HE FORGOT HE WAS BEFORE. HE HAD GOOD BM. Review of Systems 10-point ROS is otherwise unremarkable General: Weakness Physical Examination - Vital Signs Temperature: 97.6 F Blood Pressure: 113/65 Pulse: 71 Respirations: 18 Pulse Ox (%): 94 - Physical Exam General: Mild distress HEENT: Atraumatic, PERRLA, EOMI Neck: Supple, JVD not distended Respiratory: Clear to auscultation bilaterally, Normal air movement Cardiovascular: Regular rate/rhythm, Normal S1 S2 Gastrointestinal: Normal bowel sounds, No tenderness Musculoskeletal: No tenderness Integumentary: No rashes Neurological: Normal speech, Abnormal strength Lymphatics: No axilla or inguinal lymphadenopathy - Studies Medications List Reviewed: Yes Assessment And Plan - Current Problems (Diagnosis) (1) Atypical seizure Current Visit: Yes Status: Acute Plan: I THINK THIS IS WHY HE WAS DISORIENTED. HE GETS SEIZURES WITHOUT TONIC CLONIC MOVEMENTS. HE WAS ON KEPPRA AND REFUSED TO TAKE FOR TWO WEEKS. IS GETTING VERY TIRED. I SUSPECT AT THIS POINT FOR DON WHO IS A CRIPPLED DIABETIC FROM SEVERE NEUROPATHY NEEDS ASSISTED LIVING. HE FALLS AT HOME AND BEING A BIG MAN CAN'T HANDLE HIM. THIS CAN BE JUST SYMPTOM OF ORTHOSTASIS. DR. CUETO HAS BEEN CONSULTED. (2) Uncontrolled hypertension Current Visit: Yes Status: Chronic Plan: HE HAS LOW BP AT TIMES FROM DIABETIC NEUROPATHY AND HE TENDS TO REFUSE TO TAKE MEDS ON ROUTINE BASIS. THIS ISSUE OF HYPOTENSION WITH HYPERTENSION AT TIMES IS DIFFICULT TO CONTROL. I HAVE TO ADD BACK LISINOPRIL. HIS BP IS NEVER WELL CONTROLLED. GOES FROM LOW TO HIGH AND HIGH TO LOW. THIS IS FROM AUTONOMIC DYSFUNCTION. STOP LISINOPRIL CREATININE IS HIGHER. (3) Diabetes mellitus Onset Date: 07/17/16 Current Visit: No Status: Chronic Plan: CHECK A1C , LDL. PROGNOSIS IS OVERALL POOR. Qualifiers: Diabetes mellitus type: type 2 Diabetes mellitus moth exterminator insulin use: without moth exterminator use Diabetes mellitus complication status: without complication Qualified Code(s): E11.9 - Type 2 diabetes mellitus without complications (4) Orthostatic hypotension Current Visit: Yes Status: Acute Plan: ABOVE I WOULD LIKE TO BALANCE BETWEEN TWO OPPOSING ISSUES. START PT. HE IS NOT DOING YET (5) Diabetic autonomic neuropathy Current Visit: Yes Status: Chronic Plan: INCURABLE SITUATION. HEIS NOT ABLE TO WALK WITHOUT FALLING. HE NEEDS TO BE IN NH. Qualifiers: Diabetes mellitus type: type 2 Qualified Code(s): E11.43 - Type 2 diabetes mellitus with diabetic autonomic (poly)neuropathy (6) Altered mental status Current Visit: Yes Status: Acute Plan: WILL ORDER MRI BRAIN NO CONTRAST IN AM. IF HE IS ABLE TO DO IT. (7) Ventral hernia Current Visit: Yes Status: Acute Plan: IT IS MILD TENDER. CONSULT SURGEON CT ABDOMEN SHOWS FAT CONTAINING HERNIA (8) Urinary retention Current Visit: Yes Status: Chronic Plan: POSSIBLE FROM DIABETIC AUTONOMIC DYSFUNCTION (9) Diabetes mellitus with stage 3 chronic kidney disease Current Visit: Yes Status: Acute Plan: HE HAS DM, CKD ADN WORSE WITH IV DYE. RAISE IV FLUIDS. HE ALSO HAS PVR, RETENTION OF URINE FROM DIABETIC BLADDER. IMPROVED CREATININE. HE IS HAVING GOOD URINE FLOW.
--- NOTE | 2020-10-31 12:40 | P.PN ---
Subjective Date of Service: 10/31/20 Chief Complaint: STABLE, TODAY HE IS ANGRY Pt is a poor hisotrian, Hx obtained from chart A 60 Y/o with HX of DM with neuropathy, HTN , Hx of seizure disorder Pt presemted with seizure cr was <1.0 , on 10/28 Cr up to 1.5 , pt was on GAY on 10/29 pt received iodine contrast , No NSAID exposure Abd CT: : Mild dilatation of both proximal ureters and partially visualized distended urinary bladder Sousa placed with >2liters UO Today feels better Cr improvd Cont Sousa start flomax when BP improves Physical exam general: Awake , alert, NAD , obese Neck; Supple, No elevated JVD hear: RRR, normal S1,2 no murmur or rub Chest: CTAB, no rales or wheezes Abdomen: Soft , Nt Extremities No edema or ulcer skin< facial erythema A/P JAZLYN possible due to obstructive uropathy +/- Contrast associated nephropathy cont IVF Sousa catheter I/O avoid contrast Urinary retention Cont Sousa Flomax when BP improves DM SSI HTN cont current meds Avoid GAY/ARB Seizure disorder cont Keppra Total time spent 45min Physical Examination - Vital Signs Temperature: 97.6 F Blood Pressure: 113/65 Pulse: 71 Respirations: 18 Pulse Ox (%): 94 - Studies Medications List Reviewed: Yes
[2020-10-31] MEDS: NACHLORIDE 0.45% 1,000 ML IV SCH ×2 (15:29→18:18)
[2020-10-31] MEDS: TAMSULOSIN 0.4 MG SR CAP PO SCH (21:08)
[2020-10-31] MEDS: MELATONIN 5 MG TABLET PO PRN (21:39)
[2020-11-01] MEDS: NACHLORIDE 0.45% 1,000 ML IV SCH ×2 (04:26→18:25)
[2020-11-01] MEDS: INSULIN -REGULAR HUMAN 50 UNIT/0.5 ML ML SQ SCH ×8 (07:30→21:00)
[2020-11-01] MEDS: MAGNESIUM OXIDE 400 MG TAB PO SCH ×2 (09:00→21:00)
[2020-11-01 09:24] LABS: Absolute Lymphocytes (CBC) 1.8 K/uL (0.7-4.9); Basophils % 0.8 % (0-1.3); Hematocrit 36.9 % (39.6-49.0); Lymphocytes % 25.7 % (15.3-44.8); MPV 8.3 fL (7.6-11.3)
[2020-11-01] MEDS: FAMOTIDINE 20 MG TAB PO SCH (09:42)
[2020-11-01] MEDS: levETIRAcetam 500 MG TAB PO SCH ×2 (09:42→21:09)
[2020-11-01] MEDS: QUETIAPINE 25 MG TAB PO SCH ×2 (09:42→21:10)
[2020-11-01] MEDS: METOPROLOL TAR 25 MG TAB PO SCH ×2 (09:43→21:09)
[2020-11-01] MEDS: GABAPENTIN 300 MG CAP PO SCH ×3 (09:43→21:09)
[2020-11-01] MEDS: AMLODIPINE 5 MG TAB PO SCH (09:44)
[2020-11-01] MEDS: INSULIN GLARGINE 100 UNITS/ML SQ SCH (09:45)
[2020-11-01] MEDS: APIXABAN 2.5 MG TABLET PO SCH ×2 (09:45→21:10)
[2020-11-01] MEDS: PRIMIDONE 50 MG TAB PO SCH ×3 (09:45→21:10)
[2020-11-01] MEDS: NICOTINE 14 MG/PAT TD SCH (09:45)
[2020-11-01] MEDS: ESCITALOPRAM 20 MG TAB PO SCH (09:48)
[2020-11-01] MEDS: EZETIMIBE 10 MG TAB PO SCH (09:48)
[2020-11-01 10:06] LABS: Magnesium 1.7 mg/dL (1.8-2.4); Potassium 4.1 mmol/L (3.5-5.1)
[2020-11-01] MEDS ORDERED: MAGNESIUM SULFATE 1 gm IVPB 1 GM/100 ML BAG IV ONE (10:42)
--- NOTE | 2020-11-01 12:58 | P.PN ---
Subjective Date of Service: 11/01/20 Chief Complaint: WAITING FOR NH APPROVAL, NO CHANGES Subjective: Improving MR. BEAVERS HAS SEVERE DIABETIC NEUROPATHY INCLUDING AUTONOMIC NEUROPATHY. THIS IS WHY HE GETS LOW BP WITH STANDING UP. HE HAD THE SAME YEST PM AND STAFF THOUGHT HE HAD STROKE HE BECAME DISORIENTED. CT BRAIN WAS DONE AGAIN THAT WAS NEGATIVE FOR ANY CHANGES. THIS AM HE IS BACK TO HIS BASELINE, HE WANTS TOBACCO AND ASKS HOW WE CAN FIX THE BP ISSUE. I TOLD HIM THAT TO GET BALANCE BETWEEN HIS SEVERE HIGH BP AND DROP IN BP WHEN HE STANDS UP IS GOING TO BE VERY DIFFICULT. I WOULD RATHER HAVE HIS BP AROUND 150 SYSTOLIC SO WHEN HE STANDS IT DOES NOT DROP BELOW 90 OR SO AND SO HE DOES NOT PASS OUT. HIS BP HAS GONE HIGH HAS 200 SYSTOLIC. RUTHANN DUKE HAS SOME CONFUSION AND DISORIENTATION. HE IS AGITATED AND AGGRESSIVE TOWARDS SITTERS. I ASKED NURSE TO PUT IN CHEST YESIKA. HE IS MUCH MORE COOPERATIVE TODAY. IS FEEDING HIM. HE HAS NO CHEST PAIN. HE IS STILL WAITING FOR OR WE ARE STILL WAITING FOR INSURANCE COMPANY FOR APPROVAL. NO CHANGES IN SYMPTOMS, ANGRY TODAY. NOT ABLE TO MANAGE FOOD. WITH SEVERE NEUROPATHY HE NEEDS ASSISTANCE IN FEEDING. HE IS LOT BETTER TODAY. HE IS NOT ANGRY. HE FORGOT HE WAS BEFORE. HE HAD GOOD BM. AFTER PEPE THE RETENTION HAS IMPROVED. Review of Systems 10-point ROS is otherwise unremarkable General: Weakness, Malaise Physical Examination - Vital Signs Temperature: 97.0 F Blood Pressure: 154/85 Pulse: 76 Respirations: 16 Pulse Ox (%): 97 - Physical Exam General: Oriented x3, Mild distress HEENT: Atraumatic, PERRLA, EOMI Neck: Supple, JVD not distended Respiratory: Clear to auscultation bilaterally, Normal air movement Cardiovascular: Regular rate/rhythm, Normal S1 S2 Gastrointestinal: Normal bowel sounds, No tenderness Musculoskeletal: No tenderness Neurological: Abnormal strength, Abnormal tone Lymphatics: No axilla or inguinal lymphadenopathy - Studies Medications List Reviewed: Yes Assessment And Plan - Current Problems (Diagnosis) (1) Atypical seizure Current Visit: Yes Status: Acute Plan: I THINK THIS IS WHY HE WAS DISORIENTED. HE GETS SEIZURES WITHOUT TONIC CLONIC MOVEMENTS. HE WAS ON KEPPRA AND REFUSED TO TAKE FOR TWO WEEKS. IS GETTING VERY TIRED. I SUSPECT AT THIS POINT FOR DON WHO IS A CRIPPLED DIABETIC FROM SEVERE NEUROPATHY NEEDS ASSISTED LIVING. HE FALLS AT HOME AND BEING A BIG MAN CAN'T HANDLE HIM. THIS CAN BE JUST SYMPTOM OF ORTHOSTASIS. DR. CUETO HAS BEEN CONSULTED. (2) Uncontrolled hypertension Current Visit: Yes Status: Chronic Plan: HE HAS LOW BP AT TIMES FROM DIABETIC NEUROPATHY AND HE TENDS TO REFUSE TO TAKE MEDS ON ROUTINE BASIS. THIS ISSUE OF HYPOTENSION WITH HYPERTENSION AT TIMES IS DIFFICULT TO CONTROL. I HAVE TO ADD BACK LISINOPRIL. HIS BP IS NEVER WELL CONTROLLED. GOES FROM LOW TO HIGH AND HIGH TO LOW. THIS IS FROM AUTONOMIC DYSFUNCTION. STOP LISINOPRIL CREATININE IS HIGHER. (3) Diabetes mellitus Onset Date: 07/17/16 Current Visit: No Status: Chronic Plan: CHECK A1C , LDL. PROGNOSIS IS OVERALL POOR. Qualifiers: Diabetes mellitus type: type 2 Diabetes mellitus medical terminologist insulin use: without custodial use Diabetes mellitus complication status: without complication Qualified Code(s): E11.9 - Type 2 diabetes mellitus without complications (4) Orthostatic hypotension Current Visit: Yes Status: Acute Plan: ABOVE I WOULD LIKE TO BALANCE BETWEEN TWO OPPOSING ISSUES. START PT. HE IS NOT DOING YET (5) Diabetic autonomic neuropathy Current Visit: Yes Status: Chronic Plan: INCURABLE SITUATION. HEIS NOT ABLE TO WALK WITHOUT FALLING. HE NEEDS TO BE IN NH. Qualifiers: Diabetes mellitus type: type 2 Qualified Code(s): E11.43 - Type 2 diabetes mellitus with diabetic autonomic (poly)neuropathy (6) Altered mental status Current Visit: Yes Status: Acute Plan: WILL ORDER MRI BRAIN NO CONTRAST IN AM. IF HE IS ABLE TO DO IT. (7) Ventral hernia Current Visit: Yes Status: Acute Plan: IT IS MILD TENDER. CONSULT SURGEON CT ABDOMEN SHOWS FAT CONTAINING HERNIA (8) Urinary retention Current Visit: Yes Status: Chronic Plan: POSSIBLE FROM DIABETIC AUTONOMIC DYSFUNCTION (9) Diabetes mellitus with stage 3 chronic kidney disease Current Visit: Yes Status: Acute Plan: HE HAS DM, CKD ADN WORSE WITH IV DYE. RAISE IV FLUIDS. HE ALSO HAS PVR, RETENTION OF URINE FROM DIABETIC BLADDER. IMPROVED CREATININE. HE IS HAVING GOOD URINE FLOW. RETENTION FROM DIABETIC BLADDER. PEPE HELPED IMPROVE THE CREATININE
[2020-11-01] MEDS: TAMSULOSIN 0.4 MG SR CAP PO SCH (21:10)
[2020-11-01] MEDS: LORazepam 2 MG/ML VIAL IV PRN (21:11)
[2020-11-01] MEDS ORDERED: AMLODIPINE 5 MG TAB PO ONE (21:48)
--- NOTE | 2020-11-02 01:25 | PN ---
Date of Progress Note: 11/01/2020 Chief Complaint: Acute on chronic kidney injury, urinary retention. Subjective: The patient is a poor historian. He cannot provide past medical history. He is a 60-ye ar-old man with history of diabetes mellitus with neuropathy, hypertension, history of seizure. He p resented to the hospital because of seizure. Previous creatinine was checked in the past and baselin e creatinine was 1.0. On October 28, creatinine was up to 1.5. The patient was treated with GAY inhib itor for diabetic kidney disease and hypertension. He denies exposure to nonsteroidal anti-inflammat ory medication. Abdominal CT scan showed mild dilatation of both proximal ureter and partially diste nded urinary bladder. After Sousa catheter was placed, the patient had a urinary retention over 1 L. Today, he is feeling better. He denies PND or orthopnea. Physical Examination: Lungs: Diminished breath sounds at bases. Heart: S1, S2. Abdomen: Soft, benign. Extremities: Slight edema. Impression And Plan: 1.Acute kidney injury due to obstructive uropathy. The patient denies contrast exposure. The patie nt will continue IV fluids to prevent renal hypoperfusion. Continue Sousa catheter. Monitor urine o utput. Avoid nephrotoxic medications. The patient cannot have IV contrast due to high risk of sever e kidney failure. Monitor fluid balance. 2.Diabetes mellitus with renal manifestation. Continue insulin sliding scale. 3.Hypertension. GAY inhibitor and angiotensin receptor lisa are not recommended at this time. The patient is recovering from acute kidney injury. EB/MODL Voice ID: [id number] Report ID: [id number]
[2020-11-02] MEDS ORDERED: Magnesium Sulfate 2gm IVPB 2 G/50 ML BAG IV ONE (07:25)
[2020-11-02] MEDS: INSULIN -REGULAR HUMAN 50 UNIT/0.5 ML ML SQ SCH ×8 (07:30→21:00)
[2020-11-02] MEDS: FAMOTIDINE 20 MG TAB PO SCH (08:30)
[2020-11-02] MEDS: GABAPENTIN 300 MG CAP PO SCH ×3 (08:31→21:45)
[2020-11-02] MEDS: QUETIAPINE 25 MG TAB PO SCH ×2 (08:31→21:45)
[2020-11-02] MEDS: ESCITALOPRAM 20 MG TAB PO SCH (08:31)
[2020-11-02] MEDS: MAGNESIUM OXIDE 400 MG TAB PO SCH ×2 (08:32→21:00)
[2020-11-02] MEDS: levETIRAcetam 500 MG TAB PO SCH ×2 (08:32→21:45)
[2020-11-02] MEDS: APIXABAN 2.5 MG TABLET PO SCH ×2 (08:32→21:45)
[2020-11-02] MEDS: PRIMIDONE 50 MG TAB PO SCH ×3 (08:32→21:46)
[2020-11-02] MEDS: METOPROLOL TAR 25 MG TAB PO SCH ×2 (08:32→21:44)
[2020-11-02] MEDS: NICOTINE 14 MG/PAT TD SCH (08:32)
[2020-11-02] MEDS: AMLODIPINE 5 MG TAB PO SCH (08:33)
[2020-11-02] MEDS: EZETIMIBE 10 MG TAB PO SCH (09:00)
[2020-11-02] MEDS: INSULIN GLARGINE 100 UNITS/ML SQ SCH (09:00)
[2020-11-02] MEDS: ACETAMINOPHEN 500 MG TAB PO PRN (16:38)
[2020-11-02] MEDS: HYDRALAZINE HCL 20 MG/ML VIAL IV PRN (16:38)
--- NOTE | 2020-11-02 21:30 | P.PN ---
Subjective Date of Service: 11/02/20 Chief Complaint: WAITING FOR [place] APPROVAL, NO CHANGES Subjective: No new changes MR. BEAVERS HAS SEVERE DIABETIC NEUROPATHY INCLUDING AUTONOMIC NEUROPATHY. THIS IS WHY HE GETS LOW BP WITH STANDING UP. HE HAD THE SAME YEST PM AND STAFF THOUGHT HE HAD STROKE HE BECAME DISORIENTED. CT BRAIN WAS DONE AGAIN THAT WAS NEGATIVE FOR ANY CHANGES. THIS AM HE IS BACK TO HIS BASELINE, HE WANTS TOBACCO AND ASKS HOW WE CAN FIX THE BP ISSUE. I TOLD HIM THAT TO GET BALANCE BETWEEN HIS SEVERE HIGH BP AND DROP IN BP WHEN HE STANDS UP IS GOING TO BE VERY DIFFICULT. I WOULD RATHER HAVE HIS BP AROUND 150 SYSTOLIC SO WHEN HE STANDS IT DOES NOT DROP BELOW 90 OR SO AND SO HE DOES NOT PASS OUT. HIS BP HAS GONE HIGH HAS 200 SYSTOLIC. RUTHANN DUKE HAS SOME CONFUSION AND DISORIENTATION. HE IS AGITATED AND AGGRESSIVE TOWARDS SITTERS. I ASKED NURSE TO PUT IN CHEST YESIKA. HE IS MUCH MORE COOPERATIVE TODAY. IS FEEDING HIM. HE HAS NO CHEST PAIN. HE IS STILL WAITING FOR NE WE ARE STILL WAITING FOR INSURANCE COMPANY FOR APPROVAL. NO CHANGES IN SYMPTOMS, ANGRY TODAY. NOT ABLE TO MANAGE FOOD. WITH SEVERE NEUROPATHY HE NEEDS ASSISTANCE IN FEEDING. HE IS LOT BETTER TODAY. HE IS NOT ANGRY. HE FORGOT HE WAS BEFORE. HE HAD GOOD BM. AFTER PEPE THE RETENTION HAS IMPROVED. HE HAS NO NEW COMPLAINTS WE ARE WAITING FOR INSURANCE COMPANY ANSWER. THEY MISFILED HIS PAPERS AND WE HAVE MORE DELAY NOW. Review of Systems 10-point ROS is otherwise unremarkable General: Weakness, Malaise Physical Examination - Vital Signs Temperature: 97.8 F Blood Pressure: 156/93 Pulse: 86 Respirations: 20 Pulse Ox (%): 96 - Physical Exam General: Mild distress HEENT: Atraumatic, PERRLA, EOMI Neck: Supple, JVD not distended Respiratory: Clear to auscultation bilaterally, Normal air movement Cardiovascular: Regular rate/rhythm, Normal S1 S2 Gastrointestinal: Normal bowel sounds, No tenderness Musculoskeletal: No tenderness Integumentary: No rashes Neurological: Normal speech, Normal affect, Abnormal strength, Abnormal tone Lymphatics: No axilla or inguinal lymphadenopathy - Studies Medications List Reviewed: Yes Assessment And Plan - Current Problems (Diagnosis) (1) Atypical seizure Current Visit: Yes Status: Acute Plan: I THINK THIS IS WHY HE WAS DISORIENTED. HE GETS SEIZURES WITHOUT TONIC CLONIC MOVEMENTS. HE WAS ON KEPPRA AND REFUSED TO TAKE FOR TWO WEEKS. IS GETTING VERY TIRED. I SUSPECT AT THIS POINT FOR RUEL WHO IS A CRIPPLED DIABETIC FROM SEVERE NEUROPATHY NEEDS ASSISTED LIVING. HE FALLS AT HOME AND BEING A BIG MAN CAN'T HANDLE HIM. THIS CAN BE JUST SYMPTOM OF ORTHOSTASIS. DR. CUETO HAS BEEN CONSULTED. (2) Uncontrolled hypertension Current Visit: Yes Status: Chronic Plan: HE HAS LOW BP AT TIMES FROM DIABETIC NEUROPATHY AND HE TENDS TO REFUSE TO TAKE MEDS ON ROUTINE BASIS. THIS ISSUE OF HYPOTENSION WITH HYPERTENSION AT TIMES IS DIFFICULT TO CONTROL. I HAVE TO ADD BACK LISINOPRIL. HIS BP IS NEVER WELL CONTROLLED. GOES FROM LOW TO HIGH AND HIGH TO LOW. THIS IS FROM AUTONOMIC DYSFUNCTION. STOP LISINOPRIL CREATININE IS HIGHER. BP IS AN ONGOING ISSUES. HE IS STABLE BUT BP FLUCTUATES (3) Diabetes mellitus Onset Date: 07/17/16 Current Visit: No Status: Chronic Plan: CHECK A1C , LDL. PROGNOSIS IS OVERALL POOR. Qualifiers: Diabetes mellitus type: type 2 Diabetes mellitus petroleum terminal plant operator insulin use: without petroleum terminal plant operator use Diabetes mellitus complication status: without complication Qualified Code(s): E11.9 - Type 2 diabetes mellitus without complications (4) Orthostatic hypotension Current Visit: Yes Status: Acute Plan: ABOVE I WOULD LIKE TO BALANCE BETWEEN TWO OPPOSING ISSUES. START PT. HE IS NOT DOING YET (5) Diabetic autonomic neuropathy Current Visit: Yes Status: Chronic Plan: INCURABLE SITUATION. HEIS NOT ABLE TO WALK WITHOUT FALLING. HE NEEDS TO BE IN NH. Qualifiers: Diabetes mellitus type: type 2 Qualified Code(s): E11.43 - Type 2 diabetes mellitus with diabetic autonomic (poly)neuropathy (6) Altered mental status Current Visit: Yes Status: Acute Plan: WILL ORDER MRI BRAIN NO CONTRAST IN AM. IF HE IS ABLE TO DO IT. (7) Ventral hernia Current Visit: Yes Status: Acute Plan: IT IS MILD TENDER. CONSULT SURGEON CT ABDOMEN SHOWS FAT CONTAINING HERNIA (8) Urinary retention Current Visit: Yes Status: Chronic Plan: POSSIBLE FROM DIABETIC AUTONOMIC DYSFUNCTION (9) Diabetes mellitus with stage 3 chronic kidney disease Current Visit: Yes Status: Acute Plan: HE HAS DM, CKD ADN WORSE WITH IV DYE. RAISE IV FLUIDS. HE ALSO HAS PVR, RETENTION OF URINE FROM DIABETIC BLADDER. IMPROVED CREATININE. HE IS HAVING GOOD URINE FLOW. RETENTION FROM DIABETIC BLADDER. PEPE HELPED IMPROVE THE CREATININE
[2020-11-02] MEDS: TAMSULOSIN 0.4 MG SR CAP PO SCH (21:45)
[2020-11-02] MEDS: LORazepam 2 MG/ML VIAL IV PRN (23:05)
[2020-11-02] MEDS ORDERED: MAGNESIUM SULFATE 1 gm IVPB 1 GM/100 ML BAG IV ONE (23:11)
--- NOTE | 2020-11-03 00:10 | PN ---
Date of Progress Note: 11/02/2020 Chief Complaint: Acute on chronic kidney injury, urinary retention. History Of Present Illness: The patient is not a good historian. He is a 60-year-old man with histo ry of diabetes mellitus, diabetic neuropathy, hypertension, history of seizure. He presented to the hospital because of seizure. Previous creatinine was checked in past and baseline creatinine was 1.0 . On October 28 on presentation to the hospital, creatinine was up to 1.5. The patient was previously treated with GAY inhibitor for diabetic kidney disease and it was found that kidney abnormality is s omewhat due to renal hypoperfusion, although the patient was found to have significant urinary retent ion and partially distended bladder wall found on CT scan with both proximal ureter dilated. A Sousa catheter was placed. The patient has significant urinary retention over 1 L. Review of Systems: The patient is feeling better. Denies PND or orthopnea. Physical Examination: Lungs: Diminished breath sounds at bases. Heart: S1, S2. Abdomen: Soft, benign. Extremities: Slight edema. Impression And Plan: 1.Acute kidney injury due to obstructive uropathy, bladder outlet obstruction. The patient had Fole y catheter. Continue Sousa catheter. Monitor urine output. Avoid nephrotoxic medication. The sabra ent will continue IV fluids as needed. The patient cannot have IV contrast due to high risk of sever e kidney failure. Monitor fluid balance. 2.Diabetes mellitus with renal manifestation. Continue insulin. Monitor proteinuria. 3.Hypertension. GAY inhibitor and angiotensin receptor blockers are not recommended at this time. Continue to monitor blood pressure and adjust medications. EB/MODL Voice ID: [id number] Report ID: [id number]
[2020-11-03] MEDS: MELATONIN 5 MG TABLET PO PRN (02:54)
[2020-11-03] MEDS: INSULIN -REGULAR HUMAN 50 UNIT/0.5 ML ML SQ SCH ×8 (07:30→21:00)
[2020-11-03] MEDS ORDERED: MAGNESIUM SULFATE 1 gm IVPB 1 GM/100 ML BAG IV ONE (07:46)
[2020-11-03] MEDS: AMLODIPINE 5 MG TAB PO SCH ×2 (09:00→10:16)
[2020-11-03] MEDS: INSULIN GLARGINE 100 UNITS/ML SQ SCH (09:00)
[2020-11-03] MEDS ORDERED: MAGNESIUM OXIDE 400 MG TAB PO SCH (09:00)
[2020-11-03] MEDS: EZETIMIBE 10 MG TAB PO SCH (09:00)
[2020-11-03] MEDS: MAGNESIUM OXIDE 400 MG TAB PO SCH ×2 (09:00→20:17)
[2020-11-03] MEDS: QUETIAPINE 25 MG TAB PO SCH ×2 (10:16→20:17)
[2020-11-03] MEDS: levETIRAcetam 500 MG TAB PO SCH ×2 (10:17→20:17)
[2020-11-03] MEDS: METOPROLOL TAR 25 MG TAB PO SCH ×2 (10:17→20:16)
[2020-11-03] MEDS: GABAPENTIN 300 MG CAP PO SCH ×3 (10:17→20:16)
[2020-11-03] MEDS: FAMOTIDINE 20 MG TAB PO SCH (10:17)
[2020-11-03] MEDS: APIXABAN 2.5 MG TABLET PO SCH ×2 (10:18→20:17)
[2020-11-03] MEDS: ESCITALOPRAM 20 MG TAB PO SCH (10:18)
[2020-11-03] MEDS: NICOTINE 14 MG/PAT TD SCH (10:19)
[2020-11-03] MEDS: PRIMIDONE 50 MG TAB PO SCH ×3 (11:08→20:17)
[2020-11-03] MEDS ORDERED: TRAZODONE 50 MG TABLET PO PRN (20:03)
[2020-11-03] MEDS: TAMSULOSIN 0.4 MG SR CAP PO SCH (20:16)
--- NOTE | 2020-11-04 00:04 | PN ---
Date of Progress Note: 11/03/2020 Subjective: The patient was admitted with altered mental status, questionable seizure, has acute kidney injury secondary to obstructive uropathy. After Sousa placement, kidney functions started being improving. The patient had also uncontrolled blood pressure. Objective: Vital Signs: Today blood pressure 141/84, pulse of 67, afebrile. Chest: Faint rales on the base. Heart: S1, S2, regular. Abdomen: Soft, nontender. Extremities: Trace edema. Neurologic: Alert. No focality. No tremor. Laboratory Data: WBC 6.9, H and H 13/36.9. Sodium 136, potassium 4, bicarb 26, BUN 20, creatinine 1.1, GFR of 63, calcium 8.5, magnesium 1.6. Current Medications: The patient on include Flomax, nicotine patch, amlodipine 5 mg, Zetia, hydralazine p.r.n., metoprolol 50 b.i.d., citalopram, gabapentin 600 t.i.d., Keppra 1000 b.i.d., lorazepam, trazodone, Pepcid, Zofran, insulin, melatonin. Assessment And Plan: 1. Acute kidney injury secondary to prerenal/obstructive uropathy, recovered, resolved. Keep holding IV fluid. I am going to monitor the patient. We will keep avoiding GAY inhibitor or ARB. 2. Hypertension, not controlled. We will increase amlodipine to 10 mg and increase metoprolol to 100 mg for better blood pressure control. Again we will avoid any GAY inhibitor or ARB. 3. Obstructive uropathy. Continue Flomax. 4. Seizure, altered mental status. The patient back to baseline. Continue to monitor. 5. Hypomagnesemia. We will supplement. time spent examined the patient face to face s discussed with the patient placed order discussing the case with other body team member including nurses , discussing with other specialist include a hospitalist 45 min AUSTIN/TAVIA Voice ID: [id number] Report ID: [id number] MTDD
[2020-11-04 06:59] LABS: Phosphorus 3.8 mg/dL (2.5-4.9); Potassium 4.2 mmol/L (3.5-5.1)
[2020-11-04] MEDS: INSULIN -REGULAR HUMAN 50 UNIT/0.5 ML ML SQ SCH ×8 (07:30→20:59)
[2020-11-04] MEDS: GABAPENTIN 300 MG CAP PO SCH ×3 (09:00→20:56)
[2020-11-04] MEDS: NICOTINE 14 MG/PAT TD SCH (09:00)
[2020-11-04] MEDS: INSULIN GLARGINE 100 UNITS/ML SQ SCH (09:00)
[2020-11-04] MEDS: FAMOTIDINE 20 MG TAB PO SCH (09:00)
[2020-11-04] MEDS: ESCITALOPRAM 20 MG TAB PO SCH (09:00)
[2020-11-04] MEDS: EZETIMIBE 10 MG TAB PO SCH (09:00)
[2020-11-04] MEDS: MAGNESIUM OXIDE 400 MG TAB PO SCH ×2 (09:00→20:58)
[2020-11-04] MEDS: QUETIAPINE 25 MG TAB PO SCH ×2 (09:00→20:57)
[2020-11-04] MEDS: METOPROLOL TAR 50 MG TAB PO SCH ×2 (09:00→20:57)
[2020-11-04] MEDS: levETIRAcetam 500 MG TAB PO SCH ×2 (09:00→20:56)
[2020-11-04] MEDS: APIXABAN 2.5 MG TABLET PO SCH ×2 (09:00→20:57)
[2020-11-04] MEDS: PRIMIDONE 50 MG TAB PO SCH ×3 (09:00→20:58)
[2020-11-04] MEDS: AMLODIPINE 5 MG TAB PO SCH (09:50)
[2020-11-04] MEDS: MELATONIN 5 MG TABLET PO PRN (20:56)
[2020-11-04] MEDS: TAMSULOSIN 0.4 MG SR CAP PO SCH (20:57)
--- NOTE | 2020-11-04 22:03 | PN ---
Subjective: Mr. Davenport is stable, wants to go home but physically he is not able to go home with a crippled condition from severe diabetic neuropathy. Physical Examination: Vital Signs: His blood pressure today is 150/95, it was normal yesterday. Pulse is 92, temperature 97.5. HEENT: No JVD. No carotid bruits. CHEST: Clear. Heart: Regular. Neurologic: He has severe diabetic neuropathy and wasting of muscles all over his body mass. Assessment And Planning: Severe neuropathy, orthostatic hypotension. He is a big man and he cannot live alone at home or to be taken care of his . So we are waiting for residential placement. Insurance company is taking a long time to answer. Clinically he is stable. Continue physical therapy. JUN/TAVIA Voice ID: [id number] Report ID: [id number] ROSALINA
--- NOTE | 2020-11-04 22:48 | P.PN ---
Subjective Date of Service: 11/04/20 Chief Complaint: WAITING FOR NH APPROVAL, NO CHANGES Subjective: No new changes Physical Examination - Vital Signs Temperature: 97.5 F Blood Pressure: 150/95 Pulse: 92 Respirations: 18 Pulse Ox (%): 98 - Physical Exam General: In no apparent distress HEENT: Atraumatic, Normocephalic Neck: Supple Respiratory: Clear to auscultation bilaterally Cardiovascular: No edema Musculoskeletal: No swelling - Studies Medications List Reviewed: Yes Assessment And Plan - Plan JAZLYN Resolved possible due to obstructive uropathy +/- Contrast associated nephropathy May also have neurogenic bladder 2/2 DM Dc khanna catheter now Bladder scan tonight. If w/ urinary retention, consider double voiding/straight cath/Urology referral Cont flomax Monitor I/O & renal panel DM SSI HTN cont current meds Avoid GAY/ARB Seizure disorder cont Keppra
[2020-11-05 07:10] LABS: Albumin 2.9 g/dL (3.4-5.0)
[2020-11-05] MEDS: INSULIN -REGULAR HUMAN 50 UNIT/0.5 ML ML SQ SCH ×4 (07:30→16:30)
[2020-11-05] MEDS: INSULIN GLARGINE 100 UNITS/ML SQ SCH (09:00)
[2020-11-05] MEDS: MAGNESIUM OXIDE 400 MG TAB PO SCH (09:00)
[2020-11-05] MEDS: METOPROLOL TAR 50 MG TAB PO SCH (09:00)
[2020-11-05 10:11] VITALS: O2SAT 96
[2020-11-05] MEDS: FAMOTIDINE 20 MG TAB PO SCH ×2 (10:45→10:48)
[2020-11-05] MEDS: EZETIMIBE 10 MG TAB PO SCH (10:46)
[2020-11-05] MEDS: GABAPENTIN 300 MG CAP PO SCH ×2 (10:46→17:25)
[2020-11-05] MEDS: ESCITALOPRAM 20 MG TAB PO SCH (10:46)
[2020-11-05] MEDS: PRIMIDONE 50 MG TAB PO SCH ×2 (10:47→17:25)
[2020-11-05] MEDS: levETIRAcetam 500 MG TAB PO SCH (10:47)
[2020-11-05] MEDS: APIXABAN 2.5 MG TABLET PO SCH (10:47)
[2020-11-05] MEDS: AMLODIPINE 5 MG TAB PO SCH (10:47)
[2020-11-05] MEDS: QUETIAPINE 25 MG TAB PO SCH (10:47)
[2020-11-05] MEDS: NICOTINE 14 MG/PAT TD SCH (10:48)
--- NOTE | 2020-11-05 12:56 | P.PN ---
Subjective Date of Service: 11/06/20 Chief Complaint: WAITING FOR NH APPROVAL, NO CHANGES Subjective: No new changes Physical Examination - Vital Signs Temperature: 97.3 F Blood Pressure: 111/72 Pulse: 65 Respirations: 18 Pulse Ox (%): 95 - Physical Exam General: In no apparent distress HEENT: Atraumatic, Normocephalic Neck: Supple Respiratory: Clear to auscultation bilaterally Cardiovascular: No murmurs Gastrointestinal: Soft and benign, Non-distended - Studies Medications List Reviewed: Yes Assessment And Plan - Plan JAZLYN Resolved possible due to obstructive uropathy +/- Contrast associated nephropathy May also have neurogenic bladder 2/2 DM Start CIC TID for urinary retention Refer to Urology Cont flomax Monitor I/O & renal panel DM SSI HTN cont current meds Avoid GAY/ARB Seizure disorder Cont Keppra
[2020-11-06 05:27] VITALS: BP 111/72; TEMP 97.3
--- NOTE | 2020-11-07 15:41 | P.DS ---
Admission Date: 10/22/20 Discharge Date: 11/07/20 Disposition: TRANSFER TO LONG TERM Discharge Condition: FAIR Reason for Admission: WAITING FOR NH APPROVAL, NO CHANGES - Problems (1) Atypical seizure Status: Acute (2) Uncontrolled hypertension Status: Chronic (3) Diabetes mellitus Onset Date: 07/17/16 Status: Chronic Qualifiers: Diabetes mellitus type: type 2 Diabetes mellitus penitentiary insulin use: without penitentiary use Diabetes mellitus complication status: without complication Qualified Code(s): E11.9 - Type 2 diabetes mellitus without complications (4) Orthostatic hypotension Status: Acute (5) Diabetic autonomic neuropathy Status: Chronic Qualifiers: Diabetes mellitus type: type 2 Qualified Code(s): E11.43 - Type 2 diabetes mellitus with diabetic autonomic (poly)neuropathy (6) Altered mental status Status: Acute (7) Ventral hernia Status: Acute (8) Urinary retention Status: Chronic (9) Diabetes mellitus with stage 3 chronic kidney disease Status: Acute Brief History of Present Illness: RUEL IS A 60 YEARS OLD DIABETIC WHO HAS NEUROPATHY, ORTHOSTATIC HYPOTENSION FROM AUTMONIC DIABETIC NEUROPATHY , TREMORS ETC. PER HIS HE IS NOT COMPLIANT FOR MEDS. HE ALSO QUIT HIS KEPPRA ABOUT 2 WEEKS AGO. HE WAS ON KEPPRA FOR ATYPICAL SEIZURES. I SAW HIM THIS AM AND HE WAS JUST GIVEN HALDOL SO HE WAS NOT ABLE TO WAKE UP. I CALLED ABOUT 11 AN NURSES TOLD ME THAT HE IS AWAKE, ABLE TO COMMUNICATE AND EAT. Hospital Course: MR. BEAVERS HAS SEVERE NEUROPATHY, HISTORY OF SEIZURES, ORTHOSTATIC HYPOTENSION. HE CAME WITH AND EPISODE OF CONFUSION, DISOIENTATION , NOT BEING ABLE TO WALK, WE SUSPECTED SEIZURES AND ALSO HE HAD SEVERE ORTHOSTATIC HYPOTENSION THAT CAN ACT LIKE SEIZURE A SYMPTOM OR LOOKS LIKE ONE TO PATIENT AND FAMILY. HE DID WELL WITH HYDRATION, HIS RENAL FUNCTION IMPROVED AFTER POST OBSTRUCTIVE UROPATHY WAS CLEARED BY PEPE. HE STILL REMAINED UNSTEADY TO SUSTAIN HIS LIFE WITHOUT CONTSTANT HELP. HE NEEDS 24 HOURS NURSING CARE. HIS WHO IS SMALLER TO HIM CAN'T TAKE CARE OF HIM AT HOME. HIS KIDS DON'T WANT HIM IN NH FOR LONG DURATION BUT AGAIN NONE ARE AVAILABLE TO TAKE CARE OF HIM AT HOME THEY WORK. Vital Signs/Physical Exam: Temp Pulse Resp BP Pulse Ox 97.3 F 65 18 111/72 95 11/06/20 05:27 11/06/20 05:27 11/06/20 05:27 11/06/20 05:27 11/06/20 05:27 General: Alert, In no apparent distress HEENT: Atraumatic, PERRLA, EOMI Neck: Supple, JVD not distended Respiratory: Clear to auscultation bilaterally, Normal air movement Cardiovascular: Regular rate/rhythm, Normal S1 S2 Gastrointestinal: Normal bowel sounds, No tenderness Musculoskeletal: No tenderness Integumentary: No rashes Neurological: Normal speech, Abnormal strength (DIFFUSE SEVERE PERIPHERAL NEUROPATHY, HE CAN'T FEED HIMSELF HE HAS DIFFICULTY HOLDING SPOON, HE CAN'T WALK HE TENDS TO FALL.) Lymphatics: No axilla or inguinal lymphadenopathy Laboratory Data at Discharge: WBC 6.90 K/uL (4.3-10.9) D 11/01/20 09:09 Hgb 13.0 g/dL (13.6-17.9) L 11/01/20 09:09 Hct 36.9 % (39.6-49.0) L 11/01/20 09:09 Plt Count 182 K/uL (152-406) 11/01/20 09:09 PT 13.5 SECONDS (9.5-12.5) H 10/22/20 20:56 INR 1.17 10/22/20 20:56 Sodium 135 mmol/L (136-145) L 11/05/20 06:15 Potassium 4.0 mmol/L (3.5-5.1) 11/05/20 06:15 BUN 19 mg/dL (7-18) H 11/05/20 06:15 Creatinine 1.19 mg/dL (0.55-1.3) 11/05/20 06:15 Glucose 136 mg/dL (74-106) H 11/05/20 06:15 Phosphorus 4.0 mg/dL (2.5-4.9) 11/05/20 06:15 Magnesium 1.9 mg/dL (1.8-2.4) 11/04/20 06:09 Total Bilirubin 0.6 mg/dL (0.2-1.0) 10/23/20 05:06 AST 24 U/L (15-37) 10/23/20 05:06 ALT 44 U/L (12-78) 10/23/20 05:06 Alkaline Phosphatase 89 U/L (45-117) 10/23/20 05:06 Troponin I < 0.02 ng/mL (0.0-0.045) 10/23/20 20:40 Home Medications: Amlodipine [Norvasc*] 10 mg PO DAILY 10/23/20 Apixaban [Eliquis *] 2.5 mg PO DAILY 10/23/20 Escitalopram Oxalate 10 mg PO DAILY 10/23/20 Ezetimibe [Zetia*] 10 mg PO DAILY 10/23/20 Famotidine [Pepcid*] 20 mg PO DAILY 10/23/20 Gabapentin 600 mg PO TID 10/23/20 Insulin Glargine,Hum.rec.anlog [Basaglar Kwikpen U-100] 15 units SQ BID 10/23/20 Metoprolol Tartrate 50 mg PO BID 10/23/20 Primidone 50 mg PO TID 10/23/20 levETIRAcetam [Levetiracetam] 1,000 mg PO BID 10/23/20 Nicotine [Nicoderm*] 14 mg TD DAILY patch.td24 11/04/20 Quetiapine [Seroquel*] 25 mg PO BID tab 11/04/20 Tamsulosin [Flomax*] 0.4 mg PO BEDTIME cap 11/04/20 Trazodone [Desyrel*] 50 mg PO BEDTIME PRN PRN tablet 11/04/20 Followup: Estefany Santillan MD [ACTIVE - CAN ADMIT] - Harvinder Cerda MD [Primary Care Provider] -
--- NOTE | 2020-11-15 11:32 | PN ---
Subjective: Mr. Davenport is stable. They are waiting for insurance company to approve his half-way placement. He is in a denial. He wants to go home, but he is a crippled big man with diabetes, auto nomic neuropathy, orthostatic hypotension and progressive peripheral neuropathy, who is not able to t landen care of himself. His is not able to take care of him. So he is going to half-way for l vikas duration. Physical Examination: Vital Signs: He is on blood pressure anywhere from 144 to 166 systolic today. Chest: Clear. Heart: Irregular. Abdomen: No guarding, rebound, rigidity. Assessment And Plannin.Diabetes neuropathy, diabetic autonomic neuropathy, diabetic renal insufficiency, wasting of muscl es, all needing half-way placement for long-term for OT, PT and continuation of diabetes manageme nt. 2.Chronic kidney disease is stable problem. 3.Blood pressure fluctuates anywhere from normal to abnormal. 4.Seizure disorder, currently stable. No new changes currently. Discharge planning: People are working on calling every day for the approval done for half-way. JUN/TAVIA Voice ID: [id number] Report ID: [id number]
== END 2020-11-05 18:44 | DRG 100 ==
LOC: ER 20:40 → ERHOLD 23:03 → 2ND 10-24 10:59
PROVIDERS: ADMIT Internal Medicine; ATTEND Internal Medicine
DX: G40.909 Epilepsy, unspecified, not intractable, without status epilepticus (principal); G93.41 Metabolic encephalopathy; N17.9 Acute kidney failure, unspecified; I95.1 Orthostatic hypotension; E11.43 Type 2 diabetes mellitus with diabetic autonomic (poly)neuropathy; K21.9 Gastro-esophageal reflux disease without esophagitis; F03.90 Unspecified dementia, unspecified severity, without behavioral disturbance, psychotic disturbance, mood disturbance, and anxiety; R25.1 Tremor, unspecified; Z78.1 Physical restraint status; Z88.0 Allergy status to penicillin; Z96.641 Presence of right artificial hip joint; Z90.49 Acquired absence of other specified parts of digestive tract; Z87.891 Personal history of nicotine dependence; Z91.14 Patient's other noncompliance with medication regimen; Z79.01 Long term (current) use of anticoagulants; Z79.4 Long term (current) use of insulin; Z79.899 Other long term (current) drug therapy; Z86.73 Personal history of transient ischemic attack (TIA), and cerebral infarction without residual deficits; Z86.711 Personal history of pulmonary embolism; Z20.822 Contact with and (suspected) exposure to COVID-19; K43.9 Ventral hernia without obstruction or gangrene; R33.9 Retention of urine, unspecified; E11.22 Type 2 diabetes mellitus with diabetic chronic kidney disease; N18.30 Chronic kidney disease, stage 3 unspecified; I12.9 Hypertensive chronic kidney disease with stage 1 through stage 4 chronic kidney disease, or unspecified chronic kidney disease; N14.1 Nephropathy induced by other drugs, medicaments and biological substances; T50.8X5A Adverse effect of diagnostic agents, initial encounter; N13.9 Obstructive and reflux uropathy, unspecified; E83.42 Hypomagnesemia
CPT/HCPCS: 36415; 70450; 70551; 71045; 74160; 76700; 80048; 80053; 80069; 80076; 80307; 80320; 81001; 82140; 82947; 83036; 83735; 83880; 84100; 84403; 84443; 84484; 85025; 85610; 85652; 93005; 94640; 97110; 97112; 97116; 97161; 97530; 99285; G0103; J0360; J1630; J1815; J1940; J1953; J3475; J3486; J7050; J7799; Q9967; U0003

== ENCOUNTER 2022-04-11 07:00 | Day surgery (SDC) | payer OTHER ==
--- NOTE | 2022-04-06 15:35 | RAD REPORT ---
EXAM DESCRIPTION: RAD - Chest Pa And Lat (2 Views) - 04/06/2022 3:29 pm CLINICAL HISTORY: Pre op pending hydrocelectomy Chest pain. COMPARISON: Chest Single View dated 10/22/2020; Chest Single View dated 06/18/2020; Chest Single View dated 03/29/2020; Chest Single View dated 03/23/2020; Abdomen W Contrast dated 10/29/2020 FINDINGS: The lungs are clear. The heart is upper limit of normal in size. No displaced fractures. IMPRESSION: No acute or concerning finding suspected.
[2022-04-06 15:41] LABS: Absolute Lymphocytes (CBC) 1.7 K/uL (0.7-4.9); Hematocrit 41.7 % (39.6-49.0); Lymphocytes % 25.9 % (15.3-44.8); MCV 93.4 fL (80-100); MPV 8.2 fL (7.6-11.3); RBC Red Blood Cell Count 4.46 M/uL (4.33-5.43)
[2022-04-06 15:45] LABS: Protime INR 1.51
[2022-04-06 15:59] LABS: Potassium 4.8 mmol/L (3.5-5.1)
[2022-04-06 16:02] LABS: SARS-CoV-2 Antigen Rapid Res Negative (Negative)
[2022-04-06 16:19] LABS: Urine Bilirubin Negative (Negative); Urine Blood Negative (Negative); Urine Clarity Clear (Clear); Urine Color Yellow (Yellow); Urine Glucose Negative (Negative)
[2022-04-06 16:20] LABS: Urine Protein Negative (Negative); Urine Urobilinogen 0.2 mg/dL (0.2-1.0); Urine pH 6.5 (5.0-7.0)
[2022-04-11] MEDS ORDERED: NA CHLORIDE 0.9% 1,000 ML ONE (07:29)
[2022-04-11] MEDS ORDERED: CEFAZOLIN 2 GM IN 0.9% NACL 2 GM/100 ML BAG ONE (07:30)
[2022-04-11] MEDS ORDERED: FENTANYL CITR 100 MCG/2 ML ONE ×2 (07:55→10:57)
[2022-04-11] MEDS ORDERED: propofoL 200 MG/20 ML VIAL IV ONE ×2 (07:55→10:57)
[2022-04-11] MEDS ORDERED: ONDANSETRON 4 MG/2 ML VIAL ONE (07:55)
[2022-04-11] MEDS ORDERED: ROCURONIUM 50 MG/5 ML VIAL IV ONE (07:55)
[2022-04-11] MEDS ORDERED: LIDOCAINE 1% MPF 5 ML VIAL ONE (07:55)
[2022-04-11] MEDS ORDERED: MIDAZOLAM HCL 2 MG/2 ML INJ ONE ×3 (07:55→11:26)
[2022-04-11] MEDS ORDERED: BACITRACIN OINTMENT 14 GM TUBE TOP ONE (08:13)
[2022-04-11] MEDS ORDERED: BUPIVACAINE 0.25% PF 10 ML VIAL ONE (08:13)
[2022-04-11] MEDS ORDERED: CEFAZOLIN SODIUM 1 GM/VIAL IVP ONE (09:11)
[2022-04-11] MEDS ORDERED: BUPIVACAINE 0.25% PF 10 ML VIAL SQ ONE (09:35)
[2022-04-11] MEDS ORDERED: EPHEDRINE SULF 50 MG/ML VIAL ONE (09:49)
[2022-04-11] MEDS: HYDROMORPHONE HCL 1 MG/ML INJ ONE ×4 (10:41→11:04)
[2022-04-11] MEDS ORDERED: KETOROLAC 30 MG/ML INJ ONE (11:26)
[2022-04-11] MEDS ORDERED: HYDROMORPHONE HCL 1 MG/ML INJ ONE (11:27)
--- NOTE | 2022-04-11 12:03 | OP ---
Surgeon: GIRISH ISAAC Preoperative Diagnosis: Right hydrocele. Postoperative Diagnoses: 1. Right hydrocele. 2. Varicocele. 3. Lipoma of cord. Principal Procedure: Right Jaboulay hydrocelectomy. Indication For Procedure: Mr. Davenport presented to the Urology Clinic, on Eliquis for history of DVT and PE with BPH with lower urinary tract symptoms, improved on Flomax plus finasteride since May 2021 with an uncomfortable right testicular swelling without tenderness secondary to a hydrocele. He underwent an ultrasound on 01/06/2022 and identified the presence of a large right-sided hydrocele without intratesticular abnormality. As a result, he elected operative management of the hydrocele. Procedure In Detail: The patient was consented in the preoperative holding area before being transferred to the operative suite where general anesthesia was induced. He was given Ancef 2 g IV antimicrobial prophylaxis and pneumo boots were provided for DVT prophylaxis. He had stopped his Xarelto with the last dose taken on Sunday. The right hemiscrotum was shaved and prepped with Betadine and draped in standard fashion. A 0.25% Marcaine instillation subcutaneously was performed in a Jose's line marking of an incision within the right hemiscrotum that was approximately 3 cm in length. The incision was then made using a 15 blade and was deepened through the subcutaneous tissues and dartos layers using electrocautery before getting down to the parietal layer of tunica vaginalis. The dartos layers were circumferentially divided sharply using electrocautery off the tunica vaginalis/hydrocele sac before eventually delivering the hydrocele sac via the incision. I then opened the hydrocele sac anteriorly using a 10 blade knife as the sac was quite thickened, and I incised the sac in an anterior-posterior dimension removing a significant quantity of pressurized fluid within that was clear yellow/straw color. I then completed the incision to the level of the cord structures above and the level of the tail of the epididymis below eventually wrapping the hydrocele sac around the testicle behind the cord. Before doing this, I observed the cord structures where there was significant dilation of some venous vessels consistent with a varicocele. Additionally, there was a lipoma or potentially intraabdominal mesenteric contents that had herniated alongside the cord into the scrotum. I then resected a portion of the hydrocele sac and wrapped the hydrocele sac after extensive fulguration was performed to ensure no bleeding behind the testicle suturing it together using 3-0 Vicryl in a running hemostatic fashion. Careful search for any bleeding within the intrascrotal dartos layers was again performed and pinpoint fulguration was performed throughout. Irrigation was performed at multiple points around the time of fulguration, and eventually once hemostatic, the testis was delivered back into the scrotal sac. It was assessed to make sure it was orthotopic in position relative to the cord and the vascular structures. I then began the reconstruction using 3-0 Vicryl suture in a running fashion closing the dartos layers. Once closed, the skin and subcutaneous tissues were closed using 3-0 chromic suture dipped in bacitracin in a running baseball stitch fashion. In the end, the hydrocele was nicely closed, and I then washed away the Betadine applying bacitracin over the incision along with then a fluff gauze and scrotal support. The patient was then awakened from general anesthesia, transferred to a stretcher, and then transferred to the recovery room in good condition. Complications: None. Discharge Disposition: He should follow up in the Urology Clinic within the next few weeks interval assessment of the hydrocele incision healing. He has been instructed to plan to resume his Xarelto on potentially evening or Sunday depending on the clinical appearance of the incision at that time, recognizing the potential for subsequent development of bleeding and scrotal hematoma. He will be discharged with a prescription for Keflex for the next 7 days. DEIDRE/TAVIA Voice ID: [id number] Report ID: [id number] [facility] CENTERRadha
[2022-04-11] MEDS ORDERED: CODEINE 30MG/APAP 300MG TAB ONE (12:04)
[2022-04-11 12:22] VITALS: BP 120/79; TEMP 97; O2SAT 100
== END 2022-04-11 12:30 | disposition home or self-care (01) ==
LOC: OR 07:00
PROVIDERS: ATTEND Urology
PROC: 0VB60ZZ Excision of Right Tunica Vaginalis, Open Approach (ICD-10-PCS; principal; 2022-04-11 08:30)
DX: N43.3 Hydrocele, unspecified (principal); I86.1 Scrotal varices; D17.6 Benign lipomatous neoplasm of spermatic cord; Z20.822 Contact with and (suspected) exposure to COVID-19
CPT/HCPCS: 87088; 85025; 87086; 80048; 36415; 85610; 82947 ×2; 81003; 71046; 87811; 55040; J2704; J2250; J3010; J1170 ×3; J0690 ×2; J7030; J2405

== ENCOUNTER 2023-12-21 08:30 | Day surgery (SDC) | payer OTHER ==
--- NOTE | 2023-12-21 12:10 | RAD REPORT ---
EXAM DESCRIPTION: RAD - Lumbar Puncture For Dx - 12/21/2023 12:01 pm CLINICAL HISTORY: G62.9 COMPARISON: Myelography Lumbar dated 02/12/2023; LUMBAR SPINE 3 VIEWS dated 10/25/2013 TECHNIQUE: The procedure, risks and alternatives to the procedure were discussed with the patient in detail. After answering all questions, both oral and written consent were obtained. Time-out procedu re was performed. The patient was placed in an oblique prone position on the fluoroscopic table. The skin of the lower back was prepped and draped in the usual sterile fashion. After anesthetizing the skin and deeper sof t tissues with 1% lidocaine, a 22 gauge needle was advanced into the thecal sac at the L4-5 level. 13 cc of clear CSF were obtained. At the conclusion of the procedure the needle was withdrawn and a sterile bandage placed over the pun cture site. The patient tolerated the procedure well without immediate complications. Total fluoro time: 2.7 minutes Images obtained: 6 IMPRESSION: Successful fluoroscopic guided lumbar puncture. All obtained fluid was sent to the lab f or studies requested by the referring physician.
[2023-12-21 14:24] LABS: CSF Glucose 58 mg/dL (40-70)
[2023-12-21 14:45] LABS: Appearance CLEAR (CLEAR); Body Fluid Source CSF; Body Fluid WBC 4 /mm^3; Color of Supernate Not Xanthochromic (Not Xantho); Color of fluid Colorless (COLORLESS); Fluid Total Volume 13 ml; Tube # #2
[2023-12-21 15:02] LABS: PT Prothrombin Time 11.7 SECONDS (9.5-12.5); PTT, Activated Partial Thromb 27.9 SECONDS (24.3-36.9); Protime INR 1.07
[2023-12-21 15:03] LABS: Platelets 140 thou/uL (152-406)
[2023-12-22 14:34] VITALS: BP 143/73; TEMP 98.2; O2SAT 98
[2023-12-22 14:35] VITALS: BMI 29.9
== END 2023-12-21 13:27 | disposition home or self-care (01) ==
LOC: DS 08:30
PROVIDERS: ATTEND Specialist
PROC: 009U3ZX Drainage of Spinal Canal, Percutaneous Approach, Diagnostic (ICD-10-PCS; principal; 2023-12-21)
PROC: B01BZZZ Fluoroscopy of Spinal Cord (ICD-10-PCS; 2023-12-21)
DX: G62.9 Polyneuropathy, unspecified (principal)
CPT/HCPCS: 36415; 77003; 82945; 84157; 85049; 85610; 85730; 86592; 87070; 88305; 89050